=== PATIENT | female | born 1945 | race Caucasian/White ===

== ENCOUNTER → 2020-03-17 11:06 | Outpatient (BNVA) | payer MEDICARE, OTHER, SELFPAY | PROVIDERS: Family Provider Nurse Practitioner Family; PCP Nurse Practitioner Family; Visit Provider Nurse Practitioner Family | DX: I10 Essential (primary) hypertension (principal); F17.211 Nicotine dependence, cigarettes, in remission | CPT/HCPCS: 80053; 80061; 85025 ==

== ENCOUNTER → 2021-03-15 13:26 | Outpatient (BNVA) | payer MEDICARE, OTHER, SELFPAY | PROVIDERS: Family Provider Nurse Practitioner Family; PCP Nurse Practitioner Family; Visit Provider Family Medicine | DX: Z02.89 Encounter for other administrative examinations (principal) | CPT/HCPCS: 81003 ==

== ENCOUNTER → 2022-03-20 09:25 | Outpatient (BNVA) | payer MEDICARE, OTHER, SELFPAY | PROVIDERS: Family Provider Nurse Practitioner Family; PCP Nurse Practitioner Family; Visit Provider Nurse Practitioner Family | DX: I10 Essential (primary) hypertension (principal); N39.0 Urinary tract infection, site not specified; Z02.89 Encounter for other administrative examinations | CPT/HCPCS: 80053 ==

== ENCOUNTER 2022-10-07 11:29 | Inpatient (IN) | payer MEDICARE, OTHER, SELFPAY ==
[2022-10-07] VITALS (20 sets, daily range): BP systolic 110–141; BP diastolic 52–91; PULSE 74–89; RESP 20–35; TEMP 37.1; O2SAT 93–96; BMI 27.7
--- NOTE | 2022-10-07 11:28 | ED_ITS ---
HPI - Chest Pain General: Stated Complaint: STEMI Limitations: other (direct to laundry laborer for time critical intervention) History of Present Illness: 77-year-old lady with history per chart review of hypertension presenting to the hospital for chest pain and STEMI. Patient arrives by EMS who administered aspirin. They report ST elevation in the anterior lateral leads with reciprocal changes. STEMI activation called prior to arrival. History otherwise limited as the patient is taken directly to Lottery Office Manager for time critical intervention. Onset (ago): hour(s) Review of Systems General: Reports: ROS unobtainable due to medical condition (time critical intervention) [facility] ED PFSH: Medical History Hyperlipidemia Hypertension Surgical History No pertinent past surgical history Family History Denies family history of Clotting disorder Anesthesia complication Bleeding disorder Social History Smoking and tobacco status: never smoked Quit status (tobacco): has quit using tobacco Former quit date comment: PPD x 20+ yrs Second hand smoke exposure: Yes Alcohol intake: never Lives independently: Yes Household members: spouse Marital status: Current occupational status: employed 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 Cardiology in the emergency department to meet patient upon arrival and patient does not appear in extremis requiring acute ED intervention, taken directly to Lottery Office Manager for time critical intervention. Medical Records I reviewed the patient's medical records. Lab Data I reviewed the patient's lab results. Discharge Plan Discharge Patient Disposition: Admitted As Inpatient Clinical Impression: ST elevation (STEMI) myocardial infarction Condition: Stable Coding Level of Care Code ED Soil Biology Teacher for Shelly Juárez
--- NOTE | 2022-10-07 11:29 | XACV_ITS ---
Exam Room: ED.ROOM10 Ht: 152 cm Wt: 62 kg BSA: 1.64 m2 Gender: Female : 1945 Exam Priority: Routine Indication(s): - Acute anterior wall AR Procedure(s): Procedure Description: Diagnostic procedure Procedure Description: PCI procedure Procedure Description: Drug Eluting Coronary Stent Procedure Description: PTCA Procedure Description: Coronary Angiography Diagnostic Cath Status: Emergency Diagnostic Findings * Patient with no prior history of coronary artery disease with intermittent chest discomfort for 1 week. Sudden onset of chest discomfort 4 AM today several hours prior to presentation. Prehospital EKG reveals ST elevation in the anterior precordial leads. * Coronary angiography reveals right coronary artery dominance. The left main coronary artery is normal and bifurcates into the LAD and circumflex. The LAD is closed just past the ostium and is difficult to visualize. There is a 95% stenosis in the ostial portion of the second obtuse marginal branch just past the takeoff of the first obtuse marginal branch. The remainder of these vessels contain mild diffuse luminal irregularities. The right coronary artery is the dominant vessel. There is a 50% ostial stenosis. Distally beyond the acute margin just prior to the takeoff of the posterior descending artery and posterior left ventricular branches there is a 70 to 80% lengthy stenosis. * After completing the intervention I placed a wire in the ventricle to perform ventriculography. The patient had sustained ventricular tachycardia with hemodynamic instability. She was cardioverted so I did not proceed with left ventriculography. PCI Status: Emergency PCI LVEF Assessed: No PCI Indication: STEMI - Immediate PCI for STEMI Interventional Findings * Initially I placed a guide. The procedure was done via the right radial artery. She is a small lady and so the guide subselected the circumflex. The LAD was very difficult to visualize. Additionally the guide tended to bend back on itself the tip facing the ascending aorta. The guide had to be positioned again several times in order to place it properly. With great difficulty I was finally able to get a wire in the LAD. It was stented with a 2.5 x 12 mm stent after predilatation. I then turned my attention to the circumflex. This was primarily stented with a 3.0 x 8 mm stent. This was the ostial second obtuse marginal branch. I chose not to intervene on the distal right coronary artery due to the acute event and intervening on 2 of 3 vessels. * After the LAD was stented the guide had been pushed up to the LAD in order to advance the balloon and stent. It created decrease in flow in both the LAD and circumflex for a short time. She was hypotensive. The guide was then removed after the LAD was stented and repositioned for the circumflex stent. After both lesions were stented I placed a wire in the ventricle in order to attempt ventriculography. She had sustained ventricular tachycardia with hemodynamic instability so she was cardioverted. I did not perform ventriculography. Decision for PCI with Surgical Consult: No PCI for Multi-vessel Disease: Yes Multi-vessel Procedure Type: Initial PCI Conclusions 1. Acute anterior wall AR with occluded LAD. Some difficulty with positioning the guide and wiring the LAD. The LAD was stented. The circumflex was also stented. There is a significant lesion in the distal right which may need attention later. Recommendations * Medical treatment, stress testing, possible stenting of the distal right. Interventional RX Recommendation: PCI w/o planned CABG Diagnostic RX Recommendation: PCI w/o planned CABG Anticoagulation: Heparin Pressures Phase:Rest AO : 132 / 85 ( 108 ) @ 11:48:00 AM 130 / 83 ( 105 ) @ 12:01:00 PM 118 / 58 ( 85 ) @ 12:02:00 PM 113 / 73 ( 90 ) @ 12:13:00 PM 118 / 81 ( 99 ) @ 12:18:00 PM 6 / 4 ( 5 ) @ 12:29:00 PM / ( 4 ) @ 12:30:00 PM 8 / 5 ( 5 ) @ 12:30:00 PM Clinical Evaluation EBL: 5mL-10mL Procedural Details Pre-Procedure Time Out. Identified patient by full name and date of as verbalized by the patient/guarantor. Does the consent match the physician's order: N/A Emergent; Informed Consent not obtained due to time critical life threat. Accurate & Complete Informed Consent: N/A Emergent; Informed Consent not obtained due to time critical life threat. Inpatient/Outpatient History & Physical on Chart: N/A Emergent; Informed Consent not obtained due to time critical life threat. If H&P is completed, is and addenduem needed: N/A Emergent; Informed Consent not obtained due to time critical life threat; If yes, is the addendum complete: N/A Emergent; Informed Consent not obtained due to time critical life threat. Visualize and Verify Site with Patient/Guarantor: N/A. Relevant Radiology Images available: N/A. The risks, benefits, and alternatives of sedation and/or procedure were discussed by physician. The patient agrees to continue. Procedure started. [facility] Clinical Fraility Score: 3: Managing Well. Lab Instructor Indications: New Onset Angina. Chest Pain Symptom Assessment: Typical Angina Symptoms. Correct patient, site and procedure confirmed by cath team. Current diagnosis: STEMI. PERRLA. Strong, equal hand dopster bilaterally. Lungs clear x 5 lobes. IV Site on Arrival: 20 gauge in the left anticubital. IV Fluids: 0.9% NaCl at KVO. 0 mL infused prior to roving tester laboratory. Pre Procedural Pulses: bilateral dorsalis pedis was 2+. Pre Procedural Pulses: bilateral radial was 2+. Oxygen started at 2liters/min via nasal canula. right groin was prepped with chloroprep then draped in the usual sterile fashion. right radial was prepped with chloroprep then draped in the usual sterile fashion. Physician notified. Baseline sample Acquired. HR: 93 BPM. Physician arrived. Physician scrubbed in. Immediate Pre-Procedure Time Out. Correct Patient: Yes; Correct Procedure: Yes; Correct Site: Yes; Correct Patient Position: Yes; Correct Supplies: Yes; Dried Flammable Prep: Yes; Blood Products Available: N/A;. Lidocaine 1% infiltrated to the right radial. Admit Source: Emergency department. Arterial access obtained. 6 greenlandic XB 3 guide catheter was inserted over the wire. Stickney guidewire was attempted to be advanced through the guide catheter to lesion in the prox LAD. Unable to advance across lesion. Stickney wire removed. Runthrough guidewire was advanced through the guide catheter to lesion in the prox LAD. Balloon inserted to lesion in the prox LAD. Inflation number : 1 A AB TREK 2.50X12 RX BALLOON was prepped and advanced across the Prox LAD , then inflated to 8 ANDRZEJ for 0:20 seconds. Balloon out. Results checked. Stent inserted to lesion in the prox LAD. Inflation Number : 2 A HUGH Landon BERNIE 2.5X15 MARGARET -Lot Number# [id number] Exp 05-12-25 was prepped and advanced across the Prox LAD. The stent was deployed at 14 ANDRZEJ for 0:20 seconds. Stent balloon out over wire. Results checked. Runthrough wire redirected to the circumflex. Patient's family updated. Attempted to cross 3.0x12 mm stent across Prox Circumflex. Unable to cross. Intact stent out over wire. AP pads applied to patient chest. Stent inserted to lesion in the prox Circ. Inflation Number : 1 A HUGH Landon BERNIE 3.0X8 MARGARET -Lot Number# [id number] Exp 06/28/24 was prepped and advanced across the Prox CX. The stent was deployed at 12 ANDRZEJ for 0:20 seconds. Results checked. Stent balloon out over wire. Guide catheter and wire out. A 5 greenlandic JR4 catheter in over wire. Multiple views taken of right coronary artery. Multiple views taken of left coronary artery. Rhythm: V tach. 1 shock delivered at 120J. Rhythm: SR. Catheter and wire removed. Pt alert and oriented x3 after defibrillation. A TR Band was successful obtaining hemostatsis at the Right Radial artery insertion site. Post Procedure: Pulses reassessed and unchanged. PERRLA. Strong, equal hand dopster bilaterally. No VTE prophylaxis required. Medication's Wasted: Nitro = 48.9 mg. Medication's Wasted: Other = Versed 1 mg. Medication's Wasted: Other = Fentanyl 25 mcg. Medication's Wasted: Lidocaine 1% = 8 mL. Total IV fluids: 73 mL. PCI Indication: STEMI. Post-op diagnosis: STEMI, Obstructive CAD. Complications: none. Estimated blood loss: 5mL-10mL. Responsiveness - Normal response to verbal stimuli; alert and oriented, PERRLA. Airway - Unaffected, no intervention required; spontaneous ventilation. Circulation: W/N/L, pulses unchanged. Nausea/Vomiting: No. Procedure completed. Patient transferred by wheelchair to 1st floor. Vital chart was stopped. Access Site Site: Right Radial artery Sheath Size: 6 Fr Hemostasis Method: TR Band Hemostasis Success: Successful Procedure Medications Start: 11:41 AM Stop: 11:41 AM Medication: Versed Amount: 1 mg Route: I.V. Start: 11:42 AM Stop: 11:42 AM Medication: Fentanyl Amount: 50 mcg Route: I.V. Start: 11:45 AM Stop: 11:45 AM Medication: Nitrogylcerin Amount: 200 mcg Route: I.A. Start: 11:55 AM Stop: 11:55 AM Medication: Versed Amount: 1 mg Route: I.V. Start: 11:55 AM Stop: 11:55 AM Medication: Fentanyl Amount: 25 mcg Route: I.V. Start: 12:27 PM Stop: 12:27 PM Medication: Versed Amount: 1 mg Route: I.V. I, the attending physician, have reviewed and verified all procedure medications. Yes, all medications given per verbal order Report Signatures Finalized by Dr. Tian Etienne MD on 10/07/2022 01:27 PM
[2022-10-07 12:50] LABS: Basophils # 0.1 10^3/uL (0.0-0.1); Basophils % 0.4 %; Eosinophils % 0.1 %; Hematocrit 39.7 % (37.0-47.0); Hemoglobin 12.9 g/dL (11.5-15.3); Lymphocytes # 1.2 10^3/uL (0.8-4.8); Lymphocytes % 10.7 %; Mean Corpuscular HGB Conc 32.5 g/dL (30.0-36.0); Mean Corpuscular Hemoglobin 30.9 pg (28.0-34.0); Mean Platelet Volume 10.4 fL (7.4-10.4); Monocytes # 0.3 10^3/uL (0.2-0.9); Monocytes % 2.8 %; Neutrophils # 9.92 10^3/uL (1.8-7.7); Neutrophils % 85.7 %; Nucleated Red Blood Cells % 0 %; Platelet Count 229 10^3/cmm (130-400); Red Blood Count 4.18 10^6/uL (4.1-5.3); Red Cell Distribution Width 12.8 % (12.1-15.1); White Blood Count 11.6 10^3/uL (4.0-10.0)
--- NOTE | 2022-10-07 12:57 | USCV_ITS ---
Agatha Graham Age: 77 Gender: F : 1945 Exam Date: 10/07/2022 13:29 Ordering Phys: Tian Etienne MD ([email or web address]) Technologist: Jos Silva Exam Location: [facility] [place] Indication: stemi BP: 121 / 79 HR: 74 Rhythm: Sinus Technical Quality: Poor MEASUREMENTS (Male / Female) Normal Values 2D ECHO LV Diastolic Diameter PLAX 4.6 cm 4.2 - 5.9 / 3.9 - 5.3 cm LV Systolic Diameter PLAX 3.4 cm IVS Diastolic Thickness 1.0 cm 0.6 - 1.0 / 0.6 - 0.9 cm IVS Systolic Thickness 1.3 cm LVPW Diastolic Thickness 1.2 cm 0.6 - 1.0 / 0.6 - 0.9 cm LVPW Systolic Thickness 1.1 cm LVOT Diameter 1.9 cm LV Ejection Fraction 2D Teich 31.2 % LV Ejection Fraction MOD 2C 38.8 % LV Ejection Fraction 2C AL 38.9 % LA Diameter 2.7 cm IVC Diameter 1.3 cm M-MODE Aortic Annulus Diameter 3.4 cm LA Ao Ratio MM 0.8 MV E Point Septal Separation 2.0 cm DOPPLER AV Peak Velocity 154.0 cm/s LVOT Peak Velocity 101.0 cm/s AV Area Cont Eq vti 2.3 cm squared AV Area Cont Eq pk 1.9 cm squared MV Area PHT 5.0 cm squared Mitral E to A Ratio 0.8 MV E' Velocity 41.0 cm/s Mitral E to MV E' Ratio 16.5 Mitral E to LV E' Lateral Ratio 13.5 Mitral E to LV E' Septal Ratio 21.7 TR Peak Velocity 305.0 cm/s TR Peak Gradient 37.2 mmHg TV Peak E Velocity 98.0 cm/s Right Atrial Pressure 3.0 mmHg Pulmonary Artery Systolic Pressu 40.2 mmHg RV Acceleration Time 0.1 s FINDINGS Left Ventricle Left ventricular cavity not well visualized. There is akinesis of the apex and anterior wall. The remainder of the ventricle appears to contract normally. The ejection fraction is 35 to 40%. Grade 1 diastolic dysfunction. Right Ventricle Normal right ventricular size and systolic function. Mild pulmonary hypertension, RVSP 40.2 mmHg. Right Atrium The right atrium is normal in size. Left Atrium The left atrium is normal in size. Mitral Valve Mitral valve not well visualized. No mitral valve regurgitation. Aortic Valve Aortic valve not well visualized. Structurally normal trileaflet aortic valve. Mild aortic valve regurgitation. Tricuspid Valve Tricuspid valve not well visualized. Trace tricuspid valve regurgitation. Pulmonic Valve Pulmonic valve not well visualized. Pericardium Normal pericardium without effusion. Aorta Normal ascending aorta dimension. IVC Inferior vena cava not visualized. CONCLUSIONS Left ventricular cavity not well visualized. There is akinesis of the apex and anterior wall. The remainder of the ventricle appears to contract normally. The ejection fraction is 35 to 40%. Grade 1 diastolic dysfunction. Normal right ventricular size and systolic function. Mild pulmonary hypertension, RVSP 40.2 mmHg. Aortic valve not well visualized. Structurally normal trileaflet aortic valve. Mild aortic valve regurgitation. There are no prior echocardiogram studies to compare. Dr. Tian Etienne MD (Electronically Signed) Final Date: 07 October 2022 16:23 S
--- NOTE | 2022-10-07 12:57 | PC.NURSE ---
Recovery Note Pt arrived from labor arbitrator hearing office at this time into CPRU 2 while awaiting room to be cleaned. Pt alert and oriented, breathing even and non-labored on room air. Denies chest pain. Pt placed on bedside security monitor. TR band to right radial site asymptomatic without signs of bleeding or hematoma. Multiple family members at bedside. Pt to csu 103 when cleaned.
--- NOTE | 2022-10-07 13:08 | PM.HP ---
Providers/Chief Complaint Admitting Physician: noelle Primary Care Provider: PRISCILLA Peralta Chief Complaint: STEMI History of Present Illness Agatha Graham is a 77 year old female no known history of heart disease. She has been having intermittent burning in her chest for the last week or so. Her family states that she is busy all the time and refused to slow down. The burning was off and on and was associated with shortness of breath. She woke up at 4:00 this morning with a burning in her chest that would not go away. She finally was able to contact family members and they insisted that she come to the hospital. Initially she refused and they had difficulty getting her here. She was taking Tums. In route she was given nitroglycerin and aspirin. Her EKG showed ST segment elevation in the anterior precordial leads and a STEMI alert was called. She was brought directly to the cardiac catheterization laboratory from the ambulance bay. She was not stopped in the emergency room. At the time of her arrival here she was hemodynamically stable, awake and alert. She was given 600 mg of Plavix in the Data Warehouse Consultant along with 4000 units of heparin. 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 She is busy at home. Her family has been trying to get her to slow down. She has never been a smoker. She does not like to go to doctors. She goes only when she has to. She has a history of hypertension and takes lisinopril. Review of Systems Narrative: Review of systems is negative. Medications/Allergies Home Medications Medication Instructions Recorded Confirmed Last Taken Type lisinopril 5 mg tablet 5 mg PO DAILY #90 tabs 03/20/22 03/20/22 Unknown Rx nitrofurantoin 100 mg PO Q12H 7 days #14 caps 03/20/22 03/20/22 Unknown Rx monohydrate/macrocrystals 100 mg capsule (Macrobid) Allergies Allergy/AdvReac Type Severity Reaction Status Date / Time No Known Allergies Allergy Verified 03/15/21 12:55 PFSH Acute PFSH: Medical History (Updated 10/07/22 @ 13:15 by Tian Etienne MD) Hyperlipidemia Hypertension Surgical History No pertinent past surgical history Family History Denies family history of Clotting disorder Anesthesia complication Bleeding disorder Social History Smoking and tobacco status: never smoked Quit status (tobacco): has quit using tobacco Former quit date comment: PPD x 20+ yrs Second hand smoke exposure: Yes Alcohol intake: never Lives independently: Yes Household members: spouse Marital status: Current occupational status: employed 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 NECK: Supple without jugular vein distention. The carotid upstroke is normal without bruits. BACK: Exam normal. LUNGS: Clear. HEART: Regular rate and rhythm. ABDOMEN: Benign without organomegaly or tenderness. EXTREMITIES: No edema. NEUROLOGIC: Exam normal. SKIN: Unremarkable. Data 10/07/22 12:35 10/07/22 12:35 A&P Assessment and plan (1) ST elevation (STEMI) myocardial infarction: (2) Hypertension: (3) Hyperlipidemia: Plan Cardiac catheterization laboratory immediately. Expect an LAD lesion. Attestations Medical Necessity Statement*: Hospitalization required for the agement of acute myocardial infarction. and Moderate Time for a total of 38 minutes, includes reviewing past or interval history, examining/interviewing patient, placing orders, counseling patient/family/other support, updating patient/family/other support, documenting encounter and coordinating care Diagnoses ST elevation (STEMI) myocardial infarction I21.3 Hypertension I10 Hyperlipidemia E78.5
--- NOTE | 2022-10-07 13:08 | SUR.PHASEI ---
post op fluids at 100 ml/hr- 0.9% NS.
[2022-10-07 13:12] LABS: Alanine Aminotransferase 29 U/L (0-33); Albumin Level 3.5 g/dL (3.5-5.2); Alkaline Phosphatase 68 U/L (35-105); Aspartate Amino Transferase 85 U/L (0-32); Blood Urea Nitrogen 17 mg/dL (8-23); Calcium 8.7 mg/dL (8.5-10.5); Carbon Dioxide 22 mmol/L (22-29); Chloride 98 mmol/L (98-107); Glucose 119 mg/dL (65-115); Osmolality Calculated 275 mOsm/kg (285-295); Sodium 131 mmol/L (136-145); Total Bilirubin 0.2 mg/dL (0.15-1.2); Total Protein 5.5 g/dL (6.6-8.7)
--- NOTE | 2022-10-07 13:28 | ECG_ITS ---
[facility] Test Date: 2022-10-07 Pat Name: Agatha Graham Department: Room: 103 Gender: Female Subway Operator: : 1945 Requested By: Nilesh Crenshaw Order Number: [id number] Baird MD: Rashel Cerna M.D. Measurements Intervals [place] Rate: 77 P: 85 NM: 155 QRS: 95 QRSD: 80 T: 79 QT: 369 QTc: 418 Interpretive Statements SINUS RHYTHM POSSIBLE LEFT ATRIAL ENLARGEMENT [-0.1mV P-WAVE IN V1/V2] ANTEROLATERAL MYOCARDIAL INFARCTION , PROBABLY RECENT [40+ ms Q WAVE IN I/aVL/V3-V6] ACUTE WA No previous ECG available for comparison Electronically Signed On 10-07-2022 14:27:22 WET TRIMMER by Rashel Cerna M.D. [email or web address]/[email or web address]/[id number]
[2022-10-07 13:42] LABS: INR 1.13 (0.8-1.2)
[2022-10-07 13:46] LABS: Partial Thromboplastin Time > 250.0 SECONDS (23.9-36.7)
--- NOTE | 2022-10-07 13:47 | SUR.PHASEI ---
CRITICAL CALLED PTT > 250 SECONDS. Reported off to [place]. No new orders at this time as patient received heparin intraprocedure.
--- NOTE | 2022-10-07 14:00 | PC.NURSE ---
Patient arrived from [facility]. TR band present, no hematoma or oozing noted. Patient oriented to room and call bain. patient and family educated regarding activity restrictions and safety measures. Nurse will remove TR band per protocol.
[2022-10-07 14:29] LABS: Troponin(5th) Baseline 2409 ng/L (0-10)
[2022-10-07 14:30] LABS: Troponin 5 2HR 2845 ng/L (0-10); Troponin 5 2HR Delta 436 ABS# (0-10)
[2022-10-07] MEDS: sodium chloride 0.9% 1,000 ML 100 ML IV (14:30)
[2022-10-07] MEDS: metoprolol tartrate 25 mg Tablet PO (15:19)
--- NOTE | 2022-10-07 17:11 | ECG_ITS ---
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 Measurements Intervals [place] Rate: 75 P: 81 WI: 155 QRS: 88 QRSD: 79 T: 80 QT: 364 QTc: 409 Interpretive Statements SINUS RHYTHM LOW QRS VOLTAGE IN EXTREMITY LEADS [QRS DEFLECTION < 0.5 mV IN LIMB LEADS] ANTEROLATERAL MYOCARDIAL INFARCTION , PROBABLY RECENT [40+ ms Q WAVE IN I/aVL/V3-V6] ACUTE HI Compared to ECG 10/07/2022 14:08:18 Low QRS voltage now present Myocardial infarct finding still present Electronically Signed On 10-08-2022 18:19:58 HALL COORDINATOR by Tian Etienne M.D. [email or web address]/store/[id number]
--- NOTE | 2022-10-07 18:25 | PC.NURSE ---
TR band removed per protocol, dressing in place, no hematoma present.
--- NOTE | 2022-10-07 18:44 | PC.NURSE ---
Took critical lab value for 6hr troponin. Labs analyzer is not working appropriately and will only give a reading that says greater than 1,000 this is an expected value related to recent STEMI today.
[2022-10-08] VITALS (8 sets, daily range): BP systolic 119–124; BP diastolic 64–83; PULSE 75–133; RESP 21–41; TEMP 36.6–37.4; O2SAT 90–94
[2022-10-08] MEDS: sodium chloride 0.9% 1,000 ML 100 ML IV ×2 (00:34→10:37)
--- NOTE | 2022-10-08 06:56 | PM.PN ---
Subjective Subjective: And had an anterior wall NH yesterday. Her LAD was opened and stented. She also had a circumflex stent. She has a significant distal right coronary artery lesion as well which I did not intervene upon. She has done well hemodynamically. She is free of pain. No heart failure. She has had some episodes of sinus tachycardia with rates to about 110-115 when she is up and around. Her daughter is concerned about this. No arrhythmias. She wants to go home. She wants some coffee. Her initial troponin was 2409, the second 2845 and the third 1559. Her echo showed an ejection fraction of 35 to 40% with akinesis of the apex and anterior wall. Vitals/I&O/Wt Last Vital Signs Temp 99.4 F 10/08/22 04:45 Pulse 88 10/08/22 05:34 Resp 22 H 10/08/22 04:45 BP 124/69 10/08/22 04:45 Pulse Ox 94 10/08/22 04:45 O2 Del Method 10/08/22 04:45 10/07/22 10/07/22 10/08/22 14:59 22:59 06:59 Intake Total 420 / 420 1091.667 / 1511.667 Balance 420 / 420 1091.667 / 1511.667 Weight last 48 hrs Weight 142 lb 2 oz Physical Exam Narrative: GENERAL: In general she looks and feels well. HEENT: Exam within normal limits. NECK: Supple without jugular vein distention. The carotid upstroke is normal without bruits. BACK: Exam normal. LUNGS: Clear. HEART: Regular rate and rhythm. ABDOMEN: Benign without organomegaly or tenderness. EXTREMITIES: No edema. The right radial artery site is flat, dry without any bleeding or hematoma. NEUROLOGIC: Exam normal. SKIN: Unremarkable. Data 10/07/22 12:35 10/07/22 12:35 A&P Assessment and plan (1) Hyperlipidemia: (2) ST elevation (STEMI) myocardial infarction: (3) Hypertension: Plan Today I will add back a statin. I told her she could have some coffee. I told her that I wanted her to stay another day to adjust her medications and get her up and around and be sure that she can negotiate things at home on her own. We will also have to have a discussion tomorrow prior to her dismissal about the importance of her medications and about her work. Attestations Medical Necessity Statement*: Continued hospitalization for management of an acute anterior wall myocardial infarction. and Moderate Time for a total of 30 minutes, includes reviewing past or interval history, examining/interviewing patient, placing orders, counseling patient/family/other support, updating patient/family/other support, discussing plan of care with staff, documenting encounter and coordinating care Other Coding Information Procedural care (documented in another note) Diagnoses Hyperlipidemia E78.5 ST elevation (STEMI) myocardial infarction I21.3 Hypertension I10
[2022-10-08] MEDS: aspirin 81 mg EC Tablet PO (08:39)
[2022-10-08] MEDS: clopidogrel 75 mg Tablet PO (08:39)
[2022-10-08] MEDS: metoprolol tartrate 50 mg Tablet PO ×2 (08:40→17:52)
[2022-10-08] MEDS: lisinopril 5 mg Tablet PO (08:40)
--- NOTE | 2022-10-08 10:09 | PC.CHAP ---
Pastoral Care Encounter/Spiritual Assessment Type of Contact [] Declined computer systems integrator visit [] Patient/Family/Request visit [] Outpatient visit [] Follow-up visit [] Physician referral [] Code/Alert [x] Routine visit [] Staff referral [] Actively dying [] Patient sleeping [x] Family support [] [] Out of room [] Palliative care [] [] Receiving care in room [] Pre-surgical visit [] Trauma [] Long length of stay [] ICU visit [] Other: Relational/Emotional Strength [x] Patient feels connected with others/family/visitors/staff [] Distress [] Loneliness/isolation [] Abandonment Spirituality of Patient [x] Person of Codie [] Attends Restorationist of their Codie [x] Believes in Prayer [] Reads Bible or Church materials [] There are Spiritual issues to be addressed [employer] 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 [x] Prayer [] Active listening [] Non-anxious presence [x] Spiritual/emotional support [] Crisis/trauma care [] Spiritual counseling [] Bereavement support [] Provided bereavement packet [] Provided Bible/devotional materials [] Provided toy/stuffed animal, coloring book to patient or family member [] Provided Communion [] Anointing/Cotati [] Salvation [x] Completed spiritual assessment [] Other: Impact on Illness or Injury [] Angry [] Fearful [] Anxious [] Often cries [] Exhaustion [] Unable to work [] Unable to attend mormonism [] Unable to walk/stand [] Unable to read [] Unable to drive [] Unable to eat/drink [] Unable to sleep [] Unable to be with family [] Patient intubated [] Other: Summary Time spent with patient 10 min
--- NOTE | 2022-10-08 16:23 | PC.NURSE ---
1617 Patient ambulated with daughter all the way up and down cervantes with telemetry on, no PVC noted, no c/os of any kind, joe well.
[2022-10-08] MEDS: atorvastatin 40 mg Tablet PO (20:53)
--- NOTE | 2022-10-08 23:22 | ECG_ITS ---
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 Measurements Intervals [place] Rate: 145 P: 0 RI: 0 QRS: -89 QRSD: 141 T: 79 QT: 304 QTc: 474 Interpretive Statements ATRIAL FIBRILLATION WITH RAPID VENTRICULAR RESPONSE WITH ABERRANT CONDUCTION OR VENTRICULAR PREMATURE COMPLEXES RIGHT BUNDLE BRANCH BLOCK [120+ ms QRS DURATION, UPRIGHT V1, 40+ ms S IN I/aVL/V4/V5/V6] LEFT ANTERIOR FASCICULAR BLOCK [QRS AXIS <= -45, QR IN I, RS IN II] ANTEROSEPTAL MYOCARDIAL INFARCTION , PROBABLY RECENT [40+ ms Q WAVE IN V1-V4] ACUTE PA Compared to ECG 10/07/2022 17:11:15 Ventricular premature complex(es) now present Aberrant conduction of supraventricular beat(s) now present Right bundle-branch block now present Left anterior fascicular block now present Sinus rhythm no longer present Myocardial infarct finding still present Electronically Signed On 10-09-2022 15:05:15 SOLVENT RECOVERER by Tian Etienne M.D. [email or web address]/[id number]
[2022-10-08] MEDS: amiodarone 200 mg Tablet 400 MG PO (23:52)
[2022-10-09] VITALS (52 sets, daily range): BP systolic 84–140; BP diastolic 61–83; PULSE 67–149; RESP 13–44; TEMP 36.6; O2SAT 92–97
--- NOTE | 2022-10-09 01:06 | PC.NURSE ---
Pt went into A fib after getting up and goinf to the bathroom. She was asymptomatic except SOB. Performed an EKG and put 2 L NC on the pt to get the O2 sat back up to a normal range. Called Dr. Etienne and explained the pt symptoms and told him vital signs of the patient and read the EKG that was obtained to him. He told me to give her 400 mg of amiodarone PO and that as long as she stayed asymptomatic and her vital signs were stable that he would check on her in the morning.
[2022-10-09] MEDS: clopidogrel 75 mg Tablet PO (08:45)
[2022-10-09] MEDS: lisinopril 5 mg Tablet PO (08:46)
[2022-10-09] MEDS: aspirin 81 mg EC Tablet PO (08:46)
--- NOTE | 2022-10-09 09:37 | P.PN_ITS ---
Subjective Subjective: Patient became short of breath last night and suddenly went into atrial fibrillation with rapid ventricular response. She was asymptomatic other than the shortness of breath. Some supplemental oxygen was applied which resolved her shortness of breath immediately. I gave her 400 mg of amiodarone 1 dose by mouth. She is still in atrial fibrillation this morning. The rate is also rapid. Otherwise, she is doing well. She has no clinical evidence of heart failure. No other arrhythmias. Vitals/I&O/Wt Last Vital Signs Temp 98 F 10/09/22 03:13 Pulse 102 H 10/09/22 06:00 Resp 36 H 10/09/22 03:13 BP 124/77 10/09/22 03:13 Pulse Ox 95 10/09/22 03:13 O2 Del Method 10/08/22 07:37 10/08/22 10/09/22 10/09/22 22:59 06:59 14:59 Intake Total 1120 / 2508.333 100 / 2608.333 240 / 240 Output Total 400 / 400 Balance 1120 / 2508.333 -300 / 2208.333 240 / 240 Weight last 48 hrs Weight 142 lb 2 oz Physical Exam Narrative: GENERAL: She is comfortable at rest HEENT: Exam within normal limits. NECK: Supple without jugular vein distention. The carotid upstroke is normal without bruits. BACK: Exam normal. LUNGS: Clear. HEART: Irregularly irregular rhythm with tachycardia ABDOMEN: Benign without organomegaly or tenderness. EXTREMITIES: No edema. NEUROLOGIC: Exam normal. SKIN: Unremarkable. Data 10/07/22 12:35 10/07/22 12:35 A&P Assessment and plan (1) Hyperlipidemia: (2) ST elevation (STEMI) myocardial infarction: (3) Hypertension: (4) Ischemic cardiomyopathy: (5) Atrial fibrillation: (6) Anticoagulation adequate with anticoagulant therapy: Plan She is not happy about this development but I told her that this was not uncommon with acute myocardial infarctions. The first goal will be to get her heart rate down. She desperately wants to try to get cardioverted before she goes home. Therefore, I will place her on an intravenous amiodarone drip and add Eliquis. I will leave her beta-domingo as is. Currently her heart rates in the 110-120 range. If she does not convert by tomorrow, we will consider cardioversion. Attestations 2 Medical Necessity Statement*: Needs continued hospitalization for management of an acute anterior wall IL and now the development of atrial fibrillation. and Moderate Time for a total of 35 minutes, includes reviewing past or interval history, examining/interviewing patient, placing orders, counseling patient/family/other support, updating patient/family/other support, discussing plan of care with staff, documenting encounter and coordinating care Diagnoses Hyperlipidemia E78.5 ST elevation (STEMI) myocardial infarction I21.3 Hypertension I10 Ischemic cardiomyopathy I25.5 Atrial fibrillation I48.91 Anticoagulation adequate with anticoagulant therapy Z79.01
--- NOTE | 2022-10-09 15:11 | PC.NURSE ---
New Orders Received Patient noted to be in sinus rhythm on the monitor, called to update Dr. Etienne. Received over the telephone orders to give Amiodarone 400 mg PO now, turn off amiodarone gtt at 1900 tonight and give another dose of Amiodarone 400 mg PO tonight at 2100.
[2022-10-09] MEDS: amiodarone 200 mg Tablet 400 MG PO ×2 (16:02→20:33)
[2022-10-09] MEDS: apixaban 5 mg Tablet 2.5 MG PO (20:33)
[2022-10-09] MEDS: atorvastatin 40 mg Tablet PO (20:33)
[2022-10-10 05:56] VITALS: PULSE 73
--- NOTE | 2022-10-10 06:51 | PM.DCS ---
Discharge Providers Date of Admission: 10/07/22 14:00 Date of Discharge: October 10, 2022 Attending Provider at Admission: Tian Etienne MD Attending Provider at Discharge: Tian Etienne MD Primary Care Provider: PRISCILLA Peralta Diagnoses at Discharge Discharge Diagnosis (1) Hyperlipidemia: Status: Acute (2) ST elevation (STEMI) myocardial infarction: Status: Acute (3) Hypertension: Status: Acute (4) Ischemic cardiomyopathy: Status: Acute (5) Atrial fibrillation: Status: Acute (6) Anticoagulation adequate with anticoagulant therapy: Status: Acute Reason for Visit Reason for Visit: STEMI Brief History: Patient was admitted with chest pain and EKG abnormalities suggesting an anterior wall VT. Please see the history and physical for details. She was taken directly to the cardiac catheterization laboratory. Hospital Course Hospital Course Angiography revealed an occluded LAD just past the ostium. This was a difficult vessel to enter. The vessel underwent angioplasty and then stenting. She also had a significant proximal circumflex lesion which was stented. She has a distal right lesion which is probably significant but I chose not to intervene on all 3 vessels in 1 sitting. Patient tolerated the procedure well. She had a few premature ventricular contractions for the first 24 hours but no sustained arrhythmias. On the second day she went into atrial fibrillation with a rapid ventricular response. I placed her on intravenous amiodarone and Eliquis. The amiodarone converted her back to sinus rhythm. I transitioned her over to p.o. amiodarone. She has done well with all of this and at the time of discharge remains in sinus rhythm without any other complications. For a lady her age she is very active. I specifically instructed her not to use her 4 servin until Friday of next week which is 5 days from now. 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 She should be off work for 2 weeks. No lifting over 5 pounds for 2 days. Gradually increase her activity. She will be difficult to keep at bay. If she remains free of angina then as an outpatient we should obtain a stress test to assess all 3 vessels but primarily the right coronary artery distribution to determine the amount of ischemia. If she has any angina, the right coronary artery should be intervened upon. Her echo revealed akinesis of the apex and anterior wall with an ejection fraction of 35 to 40%. No significant valvular anomalies. Her troponin peaked at 2845. Physical Exam Narrative: GENERAL: In general she is anxious to go home HEENT: Exam within normal limits. NECK: Supple without jugular vein distention. The carotid upstroke is normal without bruits. BACK: Exam normal. LUNGS: Clear. HEART: Regular rate and rhythm. ABDOMEN: Benign without organomegaly or tenderness. EXTREMITIES: No edema. The right radial artery entry site is flat, dry without hematoma or bleeding at the time of discharge. NEUROLOGIC: Exam normal. SKIN: Unremarkable. 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 echo complete* 13802] Routine Ultrasound 10/07/22 12:57 Completed Laboratory Results WBC 11.6 10^3/uL (4.0-10.0) H 10/07/22 12:35 RBC 4.18 10^6/uL (4.1-5.3) 10/07/22 12:35 Hgb 12.9 g/dL (11.5-15.3) 10/07/22 12:35 Hct 39.7 % (37.0-47.0) 10/07/22 12:35 MCV 95.0 fl (81-99) 10/07/22 12:35 MCH 30.9 pg (28.0-34.0) 10/07/22 12:35 MCHC 32.5 g/dL (30.0-36.0) 10/07/22 12:35 RDW 12.8 % (12.1-15.1) 10/07/22 12:35 Plt Count 229 10^3/cmm (130-400) 10/07/22 12:35 MPV 10.4 fL (7.4-10.4) 10/07/22 12:35 Neut % (Auto) 85.7 % 10/07/22 12:35 Lymph % (Auto) 10.7 % 10/07/22 12:35 [place] % (Auto) 2.8 % 10/07/22 12:35 Eos % (Auto) 0.1 % 10/07/22 12:35 Baso % (Auto) 0.4 % 10/07/22 12:35 Neut # (Auto) 9.92 10^3/uL (1.8-7.7) H 10/07/22 12:35 Lymph # (Auto) 1.2 10^3/uL (0.8-4.8) 10/07/22 12:35 [place] # (Auto) 0.3 10^3/uL (0.2-0.9) 10/07/22 12:35 Eos # (Auto) 0.0 10^3/uL (0.0-0.8) 10/07/22 12:35 Baso # (Auto) 0.1 10^3/uL (0.0-0.1) 10/07/22 12:35 Nucleated RBC % (auto) 0 % 10/07/22 12:35 Nucleated RBCs # 0.0 /100WBC 10/07/22 12:35 PT 14.90 SECONDS (12.1-14.9) 10/07/22 12:35 INR 1.13 (0.8-1.2) 10/07/22 12:35 APTT > 250.0 SECONDS (23.9-36.7) H* 10/07/22 12:35 Sodium 131 mmol/L (136-145) L 10/07/22 12:35 Potassium 4.0 mmol/L (3.5-5.1) 10/07/22 12:35 Chloride 98 mmol/L (98-107) 10/07/22 12:35 Carbon Dioxide 22 mmol/L (22-29) 10/07/22 12:35 Anion Gap 15.0 (5-19) 10/07/22 12:35 BUN 17 mg/dL (8-23) 10/07/22 12:35 Creatinine 0.8 mg/dL (0.5-0.9) 10/07/22 12:35 GFR Calculation Not Reportable 10/07/22 12:35 Glucose 119 mg/dL (65-115) H 10/07/22 12:35 Calculated Osmolality 275 mOsm/kg (285-295) L 10/07/22 12:35 Calcium 8.7 mg/dL (8.5-10.5) 10/07/22 12:35 Total Bilirubin 0.2 mg/dL (0.15-1.2) 10/07/22 12:35 AST 85 U/L (0-32) H 10/07/22 12:35 ALT 29 U/L (0-33) 10/07/22 12:35 Alkaline Phosphatase 68 U/L (35-105) 10/07/22 12:35 Troponin T Baseline 2409 ng/L (0-10) H* 10/07/22 12:35 Troponin T 120 Minute 2845 ng/L (0-10) H 10/07/22 12:35 Delta Troponin T 436 ABS# (0-10) H* 10/07/22 12:35 Troponin T Hi Sens 6Hr 1559 ng/L (0-10) H 10/07/22 17:20 Troponin T Hi Sens 6Hr Delta -850 ng/L (0-12) L 10/07/22 17:20 Total Protein 5.5 g/dL (6.6-8.7) L 10/07/22 12:35 Albumin 3.5 g/dL (3.5-5.2) 10/07/22 12:35 Globulin 2.0 g/dL (1.3-4.6) 10/07/22 12:35 Procedures Performed Coronary angiography, angioplasty and stent of the LAD, stent of the circumflex. Vitals Last Vital Signs Temp 98 F 10/09/22 03:13 Pulse 73 10/10/22 05:56 Resp 24 H 10/09/22 17:00 BP 140/83 10/09/22 17:00 Pulse Ox 96 10/09/22 17:00 O2 Del Method 10/08/22 07:37 Discharge Plan Discharge Patient Disposition: Home Condition: Stable Prescriptions: New atorvastatin 40 mg Tablet 40 mg PO BEDTIME Qty: 30 3RF amiodarone 200 mg tablet 200 mg PO DAILY Qty: 60 0RF Rx Instructions: Take 400mg once daily for one week, then take 200mg daily clopidogrel 75 mg Tablet 75 mg PO DAILY Qty: 30 3RF nitroglycerin 0.4 mg Tablet, Sublingual 0.4 mg sublingual Q5M PRN (Reason: Chest Pain) Qty: 25 3RF metoprolol tartrate 50 mg Tablet 50 mg PO BID Qty: 60 3RF Eliquis 5 mg Tablet 2.5 mg PO BID@0900,2100 Qty: 60 5RF Continued Aspir-81 81 mg Tablet,Delayed Release (Dr/Ec) 81 mg PO QAM lisinopril 5 mg tablet 5 mg PO QAM Discharge Orders: Discharge Order (Routine); Ordered 10/10/22 Ordered By: Tian Etienne Referrals: Tian Etienne MD [Physician] - 6 Weeks Dominique Quesada FNP [Primary Care Provider] - Mag Sutton FNP [Nurse Practitioner] - 7-10 days (Check right radial artery, chemistry panel, EKG to make sure maintaining sinus rhythm.) Sifuentes,JARRETT Garcia [Referring] - Discharge Diet: Cardiac Discharge Activity: Increase activity as tolerated and Limit activity as instructed Patient Instructions: Coronary Angioplasty (DC), Opioid Safety Activity Restrictions/Additional Instructions: No lifting over 5 no riding a four-wheel until Friday of next week. 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 Discharge Attestations Time Spent in Discharge Care*: greater than 30 min Quality Metrics Clinical Quality Measures [ Acute Myocardial Infaction { Clinical Trial Participant: No; Contraindication to aspirin: None; Aspirin prescribed; Contraindication to statin: None; Statin prescribed; Contraindication to PCI: None; PCI performed;}] Coding Level of Care Code 66313 Total time (in minutes) for Discharge: [address] elevation (STEMI) myocardial infarction I21.3 Hypertension I10 Ischemic cardiomyopathy I25.5 Atrial fibrillation I48.91 Anticoagulation adequate with anticoagulant therapy Z79.01
[2022-10-10 07:17] VITALS: PULSE 73
[2022-10-10 07:40] VITALS: BP 146/91; PULSE 76; RESP 20; TEMP 36.6; O2SAT 90
--- NOTE | 2022-10-10 08:42 | PC.SOCIAL ---
IMM Update Pg. 2 of IMM updated and reviewed with patient, who verbalized understanding. Copy provided to patient, and copy placed in chart.
[2022-10-10] MEDS: lisinopril 5 mg Tablet PO (08:58)
[2022-10-10] MEDS: apixaban 5 mg Tablet 2.5 MG PO (08:58)
[2022-10-10] MEDS: metoprolol tartrate 50 mg Tablet PO (08:58)
[2022-10-10] MEDS: amiodarone 200 mg Tablet 400 MG PO (08:59)
[2022-10-10] MEDS: clopidogrel 75 mg Tablet PO (08:59)
--- NOTE | 2022-10-10 09:13 | PC.NURSE ---
discharge instructions given and explained.pt and daughter verb understanding of instructions.discharged via w/c to exit at this time
[2022-10-10 17:28] LABS: Troponin 5 6HR 15599 ng/L (0-10); Troponin 5 6HR Delta 13190 ng/L (0-12)
== END 2022-10-10 09:14 | disposition home or self-care (01) | DRG 247 ==
LOC: ER 11:30 → CCL 11:32 → CSU 14:01
PROVIDERS: Admitting Provider Internal Medicine Cardiovascular Disease; Emergency Provider Emergency Medicine; PCP Nurse Practitioner Family; Visit Provider Internal Medicine Cardiovascular Disease
PROC: 027135Z Dilation of Coronary Artery, Two Arteries with Two Drug-eluting Intraluminal Devices, Percutaneous Approach (ICD-10-PCS; principal; 2022-10-07 12:55)
PROC: 027135Z Dilation of Coronary Artery, Two Arteries with Two Drug-eluting Intraluminal Devices, Percutaneous Approach (ICD-10-PCS; 2022-10-07 12:55)
DX: I21.02 ST elevation (STEMI) myocardial infarction involving left anterior descending coronary artery (principal); I47.20 Ventricular tachycardia, unspecified; I25.10 Atherosclerotic heart disease of native coronary artery without angina pectoris; E78.5 Hyperlipidemia, unspecified; I10 Essential (primary) hypertension; I25.5 Ischemic cardiomyopathy; I48.91 Unspecified atrial fibrillation; Z79.82 Long term (current) use of aspirin; Z77.22 Contact with and (suspected) exposure to environmental tobacco smoke (acute) (chronic)
CPT/HCPCS: 31500; 36415; 36416; 36556; 36592; 36600; 51702; 70450; 70551; 71045; 71275; 80048; 80051; 80053; 81001; 82330; 82550; 82607; 82803; 82805; 82962; 83605; 83735; 83880; 84100; 84484; 85007; 85025; 85378; 85610; 85730; 86140; 87040; 87070; 87205; 87641; 92507; 92523; 92526; 92610; 93005; 93306; 93308; 93454; 93970; 94003; 94640; 94799; 96361; 96365; 96372; 96374; 96375; 96376; 97110; 97161; 97166; 97530; 97535; 99152; 99153; 99291; C1725; C1751; C1769; C1874; C1887; C1894; C9113; C9600; C9601; J0171; J0282; J0330; J0461; J0610; J1265; J1644; J1650; J1940; J2250; J2543; J3010; J3480; J3490; J7030; J7040; J7050; J7060; J7070; J7608; J7614; Q9967

== ENCOUNTER 2022-10-10 16:06 | Inpatient (IN) | payer MEDICARE, OTHER, SELFPAY ==
[2022-10-10] VITALS (36 sets, daily range): BP systolic 44–109; BP diastolic 27–66; PULSE 60–80; RESP 14; O2SAT 95–100
--- NOTE | 2022-10-10 16:08 | ECG_ITS ---
[facility] Test Date: 2022-10-10 Pat Name: Agatha Graham Department: Room: [facility] Gender: Female Count Room Clerk: : 1945 Requested By: Nilesh Crenshaw Order Number: [id number] Oli MD: Lani Avery M.D. Measurements Intervals [place] Rate: 101 P: 64 VA: 156 QRS: -65 QRSD: 167 T: 57 QT: 404 QTc: 525 Interpretive Statements SINUS TACHYCARDIA LEFT AXIS DEVIATION [QRS AXIS < -30] RIGHT BUNDLE BRANCH BLOCK [120+ ms QRS DURATION, UPRIGHT V1, 40+ ms S IN I/aVL/V4/V5/V6] ANTEROSEPTAL MYOCARDIAL INFARCTION , PROBABLY RECENT [40+ ms Q WAVE IN V1-V4] ACUTE [place] Compared to ECG 10/08/2022 23:20:42 Left-axis deviation now present.Atrial fibrillation no longer present Aberrant conduction of supraventricular beat(s) no longer present Ventricular premature complex(es) no longer present Left anterior fascicular block no longer present Myocardial infarct finding still present Electronically Signed On 10-10-2022 23:41:10 ALTERATION MANAGER by Lani Avery M.D. [email or web address] [email or web address] Group[id number]
[2022-10-10] MEDS: etomidate 2 mg/mL INJ SDV 10 mL 20 MG IVP (16:10)
[2022-10-10] MEDS: vecuronium 10 mg SDV IVP (16:10)
[2022-10-10 16:30] LABS: ABG PCO2 49.1 mmHg (35-45); Alveolar-Arterial Oxygen Gradi 50.1 mmHg (5-10); Arterial Blood Gas Hematocrit 40.3 % (37-47); Base Excess ABG -15.6 mmol/L (-2.0-2.0); Blood Gas Operator Identificat glc; Blood Gas Sample Site Femoral, left; Blood Gas Sample Type Arterial; Carboxyhemoglobin 0.5 %THgb (0.4-20.1); HCO3 ABG 14.3 mmol/L (22-26); HGB O2 Sat 98.3 % (95-100); Ionized Calcium Level - ABG 1.2 mmol/L (1.1-1.4); Methemoglobin 0.5 % (0.4-1.5); Oxygen Device AMBU; Oxygen Saturation ABG 99.4; Potassium Level - ABG 4.5 mmol/L (3.5-5.0); Total Hemoglobin 13.1 g/dL (12-16)
[2022-10-10 16:31] LABS: ABG PH Result 7.07 (7.35-7.45)
--- NOTE | 2022-10-10 16:44 | XACV_ITS ---
Exam Room: 2 Gender: Female : 1945 Exam Priority: Routine Procedure(s): Procedure Description: Diagnostic procedure Procedure Description: Coronary Angiography Hardik ANDERSON; Diagnostic Cath Status: Emergency Diagnostic Findings * Patient sent home earlier today after a acute anterior wall GA a little more than 48 hours ago. She had an uneventful hospital course after receiving a stent to her LAD which had been occluded. She also received a stent to her circumflex. She has a fairly significant distal right coronary artery lesion which was not intervened upon. The only issue during her hospital stay was she developed atrial fibrillation. I placed her on amiodarone intravenously which converted her to sinus rhythm after several hours. I then transitioned her to amiodarone by mouth. I sent her home today on 400 mg once daily with the intent to decrease the dose to 200 mg daily in 1 week. She collapsed at home. Bystander CPR was done by family. EMS arrived. I do not have any information about the initial rhythm. Epinephrine was given. No shocks were required. Return of spontaneous circulation was achieved. Patient was intubated in the emergency room. She was brought to the Associate Media Planner to assess her coronary arteries. * I did a quick bedside ultrasound in the emergency room to reveal there is no pericardial effusion and no structural heart abnormalities. The right coronary artery is patent. The distal lesion is the same as noted previously. There are no flow-limiting lesions. The left main is open. The LAD is open. The stent has no evidence of stent thrombosis. The circumflex is open and there is no evidence of thrombosis in the circumflex stent. Conclusions 1. Patent acute anterior wall GA after closure of the LAD with stents to the LAD and circumflex. No new lesions. Recommendations * To ICU intensive care unit. Interventional RX Recommendation: medical therapy and/or counseling Diagnostic RX Recommendation: medical therapy and/or counseling Pressures Phase:Rest AO : 156 / 63 ( 104 ) @ 5:12:00 PM 156 / 62 ( 102 ) @ 5:12:00 PM Clinical Evaluation EBL: 5mL-10mL Procedural Details Pre-Procedure Time Out. Identified patient by full name and date of as verbalized by the patient/guarantor. Does the consent match the physician's order: N/A Emergent. Accurate & Complete Informed Consent: N/A Emergent. Inpatient/Outpatient History & Physical on Chart: N/A Emergent. If H&P is completed, is and addenduem needed: N/A Emergent; If yes, is the addendum complete: N/A Emergent. Visualize and Verify Site with Patient/Guarantor: N/A. Relevant Radiology Images available: N/A Emergent. Pre-op teaching completed and patient verbalized understanding. The risks, benefits, and alternatives of sedation and/or procedure were discussed by physician. The patient agrees to continue. Procedure started. [facility] Clinical Fraility Score: 4: Vulnerable. Associate Media Planner Indications: Resuscitated Cardaic Arrest. Chest Pain Symptom Assessment: Non-anginal Chest Pain. Cardiovascular Instability: Yes, if yes, Hemodynamic Instability. Correct patient, site and procedure confirmed by cath team. Patient arrived to chemistry lab instructor on a ventilator and will be managed by respiratiory. IV Site on Arrival: 20 gauge in the right anticubital. IV Site on Arrival: 20 gauge in the left forearm. left TLSC on arrival to the chemistry lab instructor. IV Fluids: 0.9% NaCl at KVO. 1000 mL infused prior to chemistry lab instructor. Pre Procedural Pulses: bilateral dorsalis pedis was Doppled. Pre Procedural Pulses: bilateral posterior tibial was Doppled. right groin was prepped with chloroprep then draped in the usual sterile fashion. Physician notified. Baseline sample Acquired. HR: 112 BPM. Patient's family in the chemistry lab instructor waiting room. Dr. Etienne will update at the completion of the procedure. Equipment: 6F - Femoral. Cardiac Cath Pack. ACIST Manifold Kit Model BT 2000. Heparinized Saline (2 units/mL), 1000 mL bag. Physician arrived. Physician scrubbed in. Immediate Pre-Procedure Time Out. Correct Patient: N/A Emergent; Informed Consent not obtained due to time critical life threat; Correct Procedure: N/A Emergent; Informed Consent not obtained due to time critical life threat; Correct Site: N/A Emergent; Informed Consent not obtained due to time critical life threat; Correct Patient Position: N/A Emergent; Informed Consent not obtained due to time critical life threat; Correct Supplies: N/A Emergent; Informed Consent not obtained due to time critical life threat; Dried Flammable Prep: N/A Emergent; Informed Consent not obtained due to time critical life threat; Blood Products Available: N/A;. Lidocaine 1% infiltrated to the right groin. Versed 2mg/hr, Fentanyl 50mcg/hr, Aminoadarone 1mg/hr, & Levo 4mcg/hr infusing on arrival to the chemistry lab instructor. Arterial access obtained. A 6 vietnamese JL4 catheter in over the standard J wire. Multiple views taken of left coronary artery. Catheter out. A 6 vietnamese JR4 catheter in over the standard J wire. Multiple views taken of right coronary artery. Catheter out. A Suture was successful obtaining hemostatsis at the Right Femoral artery insertion site. Sheath(s) removed and manual pressure held until hemostasis was achieved. Sterile 4x4 and Op-site applied to the puncture site. No oozing or hematoma noted. Post sheath removal instructions were given and the patient verbalized understanding. Arterial sheath flushed and connected to tranducer and pressure bag with heparinized saline. Post Procedure: Pulses reassessed and unchanged. No VTE prophylaxis required. Post-op diagnosis: post code. Complications: none. Estimated blood loss: 5mL-10mL. Nausea/Vomiting: No. Procedure completed. Patient transferred by bed to ICU. Vital chart was stopped. Access Site Site: Right Femoral artery Sheath Size: 6 Fr Hemostasis Method: Suture Hemostasis Success: Successful Procedure Medications Start: 5:07 PM Stop: 5:07 PM Medication: Sodium Bicarbonate Amount: 50 meq Route: I.V. Start: 5:07 PM Stop: 5:07 PM Medication: Sodium Bicarbonate Amount: 50 meq Route: I.V. I, the attending physician, have reviewed and verified all procedure medications. Yes, all medications given per verbal order Report Signatures Finalized by Dr. Tian Etienne MD on 10/10/2022 05:35 PM
--- NOTE | 2022-10-10 16:51 | ED_ITS ---
HPI - General Adult General: Chief complaint: Cardiac Arrest/CPR Stated complaint: CPR IN PROGRESS Time Seen by Provider: 10/10/22 16:07 Source: EMS and old records reviewed Mode of arrival: EMS History of Present Illness: 77-year-old female arrives intubated with an eye gel. I did talk to her attending physician. Patient care. 3 days ago through the ER when was directed the Pharmacy Care Coordinator for STEMI. Stent placed and patient was observed on the hospital floor. She developed atrial fibrillation prior to discharge started on amiodarone 400 daily was supposed to be in the amiodarone 400 daily for a week and then 200 daily in addition to this she is on Eliquis and clopidogrel. She is also on lisinopril and metoprolol. She was discharged home earlier today. Her daughter called back to the hospital floor approximately an hour to an hour and a half prior to returning to the emergency room at that point she states she will there is something wrong with her mother she was not feeling well and advised she would be bring her back. Shortly after this were notified that [facility] was bringing the patient in to the ER in cardiac arrest. EMS was able to achieve ROSC after 8 doses of epinephrine as they arrived in the ambulance bay. They had reported PEA prior to that. Onset (ago): minute(s) Review of Systems General: Reports: ROS unobtainable due to endotracheal tube [facility] ED PFSH: Medical History Anticoagulation adequate with anticoagulant therapy Atrial fibrillation Cardiac arrest with ventricular fibrillation Hyperlipidemia Hypertension Ischemic cardiomyopathy Surgical History No pertinent past surgical history Family History Denies family history of Clotting disorder Anesthesia complication Bleeding disorder Social History Smoking and tobacco status: never smoked Quit status (tobacco): has quit using tobacco Former quit date comment: PPD x 20+ yrs Second hand smoke exposure: Yes Alcohol intake: never Lives independently: Yes Household members: spouse Marital status: Current occupational status: employed 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[employer] Current gender identity: Female Physical Exam HENMT: COMMON NORMALS: normocephalic, atraumatic and hearing grossly normal bilaterally HEAD & SCALP: normocephalic and atraumatic Cardio: COMMON NORMALS: No murmurs present (Cardio) RATE: bradycardic RHYTHM: abnormal rhythm irregularly irregular GI: COMMON NORMALS: Soft to palpation and No hepatosplenomegaly present AUSCULTATION: Yes normoactive bowel sounds PALPATION: Yes Soft to palpation, No Tenderness to palpation present (GI), No Guarding due to palpation present (GI) and Yes No hepatosplenomegaly present Extremity: COMMON NORMALS: normal to inspection, capillary refill normal and no calf tenderness Skin: COMMON NORMALS: no rashes or lesions noted GENERAL SKIN EXAM: no rashes or lesions noted Course Vital Signs: Vital signs: Vital Signs Pulse Rate 63 10/11/22 00:00 Respiratory Rate 13 10/11/22 06:00 Blood Pressure 105/66 10/10/22 19:55 Pulse Oximetry 96 10/11/22 06:00 Oxygen Delivery Me thod 10/10/22 19:55 Fraction of Inspir ed Oxygen 50 10/11/22 06:00 MDM - General Adult Medical Decision Making Initially on arrival patient intubated noted that she did have a gag reflex that time she is given 20 of etomidate and 10 of vecuronium. Simultaneously we started the patient on amiodarone and then later Versed and fentanyl. Patient did bradycardia down at one point into the 50s and developed severely irregular rhythm she is given half milligram atropine to which she responded well Levophed was started at 6 we later were able to titrate that down to 4. Central line was placed to ensure adequate availability of access for her multiple drips. Left subclavian line placed without difficulty. Dr. Etienne is in the trauma bay as I was completing the central line he is seen the patient wishes to take her directly to Pharmacy Care Coordinator. He did bedside ultrasound that did not identify any pericardial effusions. He is asked that we contact one of the hospitalist and will plan to admit from the Pharmacy Care Coordinator to the ICU house supervisors been made aware. Dr. Perrin has been contacted I reviewed the case with him up to this point. He will discuss further with Dr. Etienne. Medical Records I reviewed the patient's medical records. Lab Data I reviewed the patient's lab results. 10/10/22 16:45 10/10/22 16:[address] 10/10/22 18:48 IMPRESSION: 1. No hemorrhage or midline shift. 2. Patchy regions of hypoattenuation in the bilateral deep white matter are age indeterminate but may be chronic. If acute ischemia is suspected recommend MRI brain follow-up. Laboratory Results WBC 17.1 10^3/uL (4.0-10.0) H 10/10/22 16:45 RBC 4.18 10^6/uL (4.1-5.3) 10/10/22 16:45 Hgb 13.0 g/dL (11.5-15.3) 10/10/22 16:45 Hct 42.8 % (37.0-47.0) 10/10/22 16:45 MCV 102.4 fl (81-99) H 10/10/22 16:45 MCH 31.1 pg (28.0-34.0) 10/10/22 16:45 MCHC 30.4 g/dL (30.0-36.0) 10/10/22 16:45 RDW 12.9 % (12.1-15.1) 10/10/22 16:45 Plt Count 230 10^3/cmm (130-400) 10/10/22 16:45 MPV 11.2 fL (7.4-10.4) H 10/10/22 16:45 Lymph % (Auto) Not Reportable 10/10/22 16:45 Emanuel % (Auto) Not Reportable 10/10/22 16:45 Lymph # (Auto) Not Reportable 10/10/22 16:45 Emanuel # (Auto) Not Reportable 10/10/22 16:45 Total Counted 100 (0-100) 10/10/22 16:45 Atypical Lymphs % 0.0 % (0-5) 10/10/22 16:45 Absolute Neutrophils 13.9 10^3/cmm (1.4-6.5) H 10/10/22 16:45 Segmented Neutrophils 81 % 10/10/22 16:45 Abs Segm Neuts (Man) 13.9 10/cmm (1.6-7.1) H 10/10/22 16:45 Band Neutrophils 0.0 % 10/10/22 16:45 Abs Band Neuts (Man) 0.0 10^3/cmm (0.0-1.2) 10/10/22 16:45 Absolute Lymphocytes 2.2 10^3/cmm (1.2-3.4) 10/10/22 16:45 Lymphocytes (Manual) 13 % 10/10/22 16:45 Monocytes (Manual) 0.0 % 10/10/22 16:45 Absolute Monocytes 0.0 10^3/cmm (0.1-0.6) L 10/10/22 16:45 Eosinophils (Manual) 0 % 10/10/22 16:45 Absolute Eosinophils 0.0 10^3/cmm (0.0-0.7) 10/10/22 16:45 Basophils (Manual) 0.0 % 10/10/22 16:45 Absolute Basophils 0.0 10^3/cmm (0.0-0.2) 10/10/22 16:45 Metamyelocytes 1.0 % 10/10/22 16:45 Myelocytes 5.0 % 10/10/22 16:45 Platelet Estimate Normal (Normal) 10/10/22 16:45 Specimen Type Arterial 10/10/22 16:20 Sample Site Femoral, left 10/10/22 16:20 ABG pH 7.07 (7.35-7.45) L* 10/10/22 16:20 ABG pCO2 49.1 mmHg (35-45) H 10/10/22 16:20 ABG pO2 265.0 mmHg (80.0-100.0) H 10/10/22 16:20 ABG HCO3 14.3 mmol/L (22-26) L 10/10/22 16:20 ABG O2 Saturation 99.4 10/10/22 16:20 ABG Base Excess -15.6 mmol/L (-2.0-2.0) L 10/10/22 16:20 Fidencio Test N/a 10/10/22 16:20 A-a O2 Gradient 50.1 mmHg (5-10) H 10/10/22 16:20 Hematocrit 40.3 % (37-47) 10/10/22 16:20 Hgb O2 Saturation 98.3 % (95-100) 10/10/22 16:20 Carboxyhemoglobin 0.5 %THgb (0.4-20.1) 10/10/22 16:20 Methemoglobin 0.5 % (0.4-1.5) 10/10/22 16:20 Total Hemoglobin 13.1 g/dL (12-16) 10/10/22 16:20 Sodium 137.0 mmol/L (131-143) 10/10/22 16:20 Potassium 4.5 mmol/L (3.5-5.0) 10/10/22 16:20 Glucose 233.0 mg/dL (70-115) H 10/10/22 16:20 Ionized Calcium 1.2 mmol/L (1.1-1.4) 10/10/22 16:20 O2 Delivery Device Ambu 10/10/22 16:20 O2 Liters/Min 15.0 % 10/10/22 16:20 FiO2 100.0 % 10/10/22 16:20 [employer] ID glc 10/10/22 16:20 Sodium 136 mmol/L (136-145) 10/10/22 16:45 Potassium 5.1 mmol/L (3.5-5.1) 10/10/22 16:45 Chloride 102 mmol/L (98-107) 10/10/22 16:45 Carbon Dioxide 17 mmol/L (22-29) L 10/10/22 16:45 Anion Gap 22.1 (5-19) H 10/10/22 16:45 BUN 20 mg/dL (8-23) 10/10/22 16:45 Creatinine 1.1 mg/dL (0.5-0.9) H 10/10/22 16:45 GFR Calculation Not Reportable 10/10/22 16:45 Glucose 251 mg/dL (65-115) H 10/10/22 16:45 Calculated Osmolality 293 mOsm/kg (285-295) 10/10/22 16:45 Lactic Acid 8.0 mmol/L (0.5-2.2) H* 10/10/22 16:45 Lactate Cancelled 10/10/22 16:40 Calcium 8.1 mg/dL (8.5-10.5) L 10/10/22 16:45 Magnesium 2.2 mg/dL (1.7-2.3) 10/10/22 16:45 Total Bilirubin 0.7 mg/dL (0.15-1.2) 10/10/22 16:45 AST 379 U/L (0-32) H 10/10/22 16:45 ALT 347 U/L (0-33) H 10/10/22 16:45 Alkaline Phosphatase 185 U/L (35-105) H 10/10/22 16:45 Troponin T Baseline 7678 ng/L (0-10) H* 10/10/22 16:40 NT-Pro-B Natriuret Pep 8800 pg/mL (0-450) H 10/10/22 16:45 Total Protein 5.8 g/dL (6.6-8.7) L 10/10/22 16:45 Albumin 3.3 g/dL (3.5-5.2) L 10/10/22 16:45 Globulin 2.5 g/dL (1.3-4.6) 10/10/22 16:45 Critical Care Time Critical Care Time: Critical Care Time: Yes Total Critical Care Time: 40 Attestation: The high probability of a clinically significant, sudden or life threatening deterioration of the patient's cardiovascular system(s) required my full and direct attention, intervention and personal management. The critical care time is as shown. This time is in addition to time spent performing any reported procedures but includes the following: [x] Data and vital sign review and interpretation [x] Patient assessment, examination and intervention [x] Documentation [x] Medication orders and management Discharge Plan Discharge Patient Disposition: Admitted As Inpatient Admit Provider: Tian Etienne Clinical Impression: Cardiac arrest due to underlying cardiac condition, Atrial fibrillation, Anticoagulation adequate with anticoagulant therapy, Cardiac arrest with successful resuscitation, Coronary artery disease Condition: Stable Coding Level of Care Code ED Mirror Department Supervisor for Shelly Juárez
--- NOTE | 2022-10-10 16:52 | P.CONIM_ITS ---
Providers/Reason For Consult Consulting Physician/Specialty*: Cardiovascular medicine Reason for Consult*: Out of hospital cardiac arrest Requesting Physician: Emergent room Primary Care Provider: PRISCILLA Peralta History of Present Illness History of Present Illness The patient is 77 years old and was just discharged earlier today from a 3-day stay associated with an acute anterior wall myocardial infarction. She had a stent placed to her LAD along with a stent to the circumflex. She had a significant lesion in the right coronary artery which I did not intervene upon. She had an uneventful procedure with a good angiographic result. She developed atrial fibrillation about 36 hours into the hospitalization. She was placed on low-dose Eliquis and initially intravenous amiodarone. The amiodarone converted her to sinus rhythm. She was transitioned to amiodarone by mouth. When she went home this morning she was on amiodarone 400 mg once daily to be reduced to 200 mg once daily in 1 week. She was also on low-dose Eliquis, Plavix, beta- domingo, TRISTEN inhibitor. Her echo showed an ejection fraction of about 35 to 40% with akinesis of the anterior wall and apex. She had a completely uneventful hospital course. She was sitting on the couch this afternoon visiting with her family members and suddenly complained of shortness of breath and feeling poorly. She then collapsed. Her daughter who has some medical training performed CPR. I do not know whether she lost a pulse at home. 911 was called and EMS arrived. She apparently was in PEA however I do not have a strip from the ambulance. She did not receive any countershocks. She received 8 mg of epinephrine and a pulse and blood pressure were obtained. When she arrived at the emergency room she was gi carlton etomidate and vecuronium and was intubated. She was given 0.5 mg of atropine, started on an amiodarone drip and Versed and fentanyl drip. She is also been on Levophed. It was started at 6 mcg/min and is now down to 4 mcg/min. Her blood pressure is soft. Her heart rate is reasonable. She is now of course unresponsive. I spoke to her extended family briefly to obtain a history. We plan to go to the catheterization laboratory shortly. Review of Systems Narrative: Unobtainable Medications/Allergies Home Medications Medication Instructions Recorded Confirmed Last Taken Type aspirin 81 mg tablet,delayed 81 mg PO QAM 10/08/22 10/10/22 Unknown History release lisinopril 5 mg tablet 5 mg PO QAM 10/08/22 10/10/22 Unknown History amiodarone 200 mg tablet 200 mg PO DAILY #60 tabs 10/10/22 10/10/22 Unknown Rx apixaban 5 mg tablet (Eliquis) 2.5 mg PO BID@0900,2100 #60 tabs 10/10/22 10/10/22 Unknown Rx atorvastatin 40 mg tablet 40 mg PO BEDTIME #30 tabs 10/10/22 10/10/22 Unknown Rx clopidogrel 75 mg tablet 75 mg PO DAILY #30 tabs 10/10/22 10/10/22 Unknown Rx metoprolol tartrate 50 mg tablet 50 mg PO BID #60 tabs 10/10/22 10/10/22 Unknown Rx nitroglycerin 0.4 mg sublingual 0.4 mg sublingual Q5M PRN Chest 10/10/22 10/10/22 Unknown Rx tablet Pain #25 tabs Allergies Allergy/AdvReac Type Severity Reaction Status Date / Time No Known Allergies Allergy Verified 10/08/22 09:28 PFSH Acute PFSH: Medical History (Updated 10/10/22 @ 17:00 by Tian Etienne MD) Anticoagulation adequate with anticoagulant therapy Atrial fibrillation Cardiac arrest with ventricular fibrillation Hyperlipidemia Hypertension Ischemic cardiomyopathy Surgical History No pertinent past surgical history Family History Denies family history of Clotting disorder Anesthesia complication Bleeding disorder Social History Smoking and tobacco status: never smoked Quit status (tobacco): has quit using tobacco Former quit date comment: PPD x 20+ yrs Second hand smoke exposure: Yes Alcohol intake: never Lives independently: Yes Household members: spouse Marital status: Current occupational status: employed 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 A left subclavian central line has been placed. HEENT: Exam within normal limits. NECK: Supple without jugular vein distention. The carotid upstroke is normal without bruits. BACK: Exam normal. LUNGS: Clear. HEART: Regular rate and rhythm. ABDOMEN: Benign without organomegaly or tenderness. EXTREMITIES: No edema. NEUROLOGIC: Not done SKIN: Unremarkable. Data 10/10/22 16:45 10/10/22 16:45 A&P Assessment and plan (1) Anticoagulation adequate with anticoagulant therapy: (2) Atrial fibrillation: (3) Ischemic cardiomyopathy: (4) Hyperlipidemia: (5) ST elevation (STEMI) myocardial infarction: (6) Hypertension: (7) Cardiac arrest with ventricular fibrillation: Plan I performed a quick bedside ultrasound in the emergency room to assess for pericardial fluid. She has no pericardial effusion. She appears still to be in sinus rhythm. We will take her around to the Complaint Coordinator to assess her coronary arteries first. Consult Attestations Medical Necessity Statement: Hospitalist patient for cardiac arrest and High Time for a total of 70 minutes, includes reviewing past or interval history, examining/interviewing patient, placing orders, counseling patient/family/other support, updating patient/family/other support, discussing plan of care with staff, communicating with other healthcare providers, documenting encounter and coordinating care Diagnoses Anticoagulation adequate with anticoagulant therapy Z79.01 Atrial fibrillation I48.91 Ischemic cardiomyopathy I25.[address] elevation (STEMI) myocardial infarction I21.3 Hypertension I10 Cardiac arrest with ventricular fibrillation I46.9; I49.01
[2022-10-10 16:56] LABS: Hematocrit 42.8 % (37.0-47.0); Mean Corpuscular HGB Conc 30.4 g/dL (30.0-36.0); Mean Corpuscular Hemoglobin 31.1 pg (28.0-34.0); Mean Corpuscular Volume 102.4 fl (81-99); Mean Platelet Volume 11.2 fL (7.4-10.4); Platelet Count 230 10^3/cmm (130-400); Red Blood Count 4.18 10^6/uL (4.1-5.3); Red Cell Distribution Width 12.9 % (12.1-15.1); White Blood Count 17.1 10^3/uL (4.0-10.0)
--- NOTE | 2022-10-10 17:13 | PC.NURSE ---
Patient arrived to EMS [facility] and entered into ER with ROSC ontained @1605 EMS reports that patient was given 8 doses of epi with 8 round of compressions. [facility] assist X6 and immediately intubated. 8.0ET 25@lip @1607 Veersed and Fent gtt ordered @1607 10 Vec given @1608 1 amp atropine given @1611 20G LEANN @1612 Amio Gtt ordered @1611 Orders for ABG, CBC, CMP, PT, PTT, MAG, PHOS, STAT CRX, U/A,TOP, CPK @1613 OG placement @1614 EKG @ 1614 Mathews placed @1618 Amio at 1 @1629 levo@1630 central line placed @1637 labs drawn @1637 general laborer in room to take pt to CCL @1643
[2022-10-10 17:23] LABS: Troponin(5th) Baseline 7678 ng/L (0-10)
[2022-10-10 17:28] LABS: Alanine Aminotransferase 347 U/L (0-33); Albumin Level 3.3 g/dL (3.5-5.2); Alkaline Phosphatase 185 U/L (35-105); Blood Urea Nitrogen 20 mg/dL (8-23); Calcium 8.1 mg/dL (8.5-10.5); Carbon Dioxide 17 mmol/L (22-29); Chloride 102 mmol/L (98-107); Globulin 2.5 g/dL (1.3-4.6); Glucose 251 mg/dL (65-115); Magnesium 2.2 mg/dL (1.7-2.3); NT Pro B Type Natriuretic Pept 8800 pg/mL (0-450); Osmolality Calculated 293 mOsm/kg (285-295); Sodium 136 mmol/L (136-145); Total Bilirubin 0.7 mg/dL (0.15-1.2); Total Protein 5.8 g/dL (6.6-8.7)
[2022-10-10 17:29] LABS: Absolute Segmented Neutrophil 13.9 10/cmm (1.6-7.1); Eosinophils 0 %; Lymphocytes 13 %; Lymphocytes Absolute 2.2 10^3/cmm (1.2-3.4); Segmented Neutrophils 81 %; Slide Review Slide Review Perform; Total Cells Counted 100 (0-100)
[2022-10-10 17:30] LABS: Absolute Neutrophil 13.9 10^3/cmm (1.4-6.5); Anion Gap 22.1 (5-19); Aspartate Amino Transferase 379 U/L (0-32); Platelet Estimate Normal (Normal); Potassium 5.1 mmol/L (3.5-5.1)
--- NOTE | 2022-10-10 17:42 | XRR_ITS ---
PROCEDURE INFORMATION: Exam: XR Chest Exam date and time: 10/10/2022 5:46 PM Age: 77 years old Clinical indication: Device placement; Ng tube; Additional info: Confirm tube placement TECHNIQUE: Imaging protocol: Radiologic exam of the chest. Views: 1 view. COMPARISON: No relevant prior studies available. FINDINGS: Tubes, catheters and devices: Endotracheal tube is present with its tip located 1.7 cm above the lee. There is a feeding tube with its tip in the proximal stomach side port at GE junction. A left subclavian catheter tip is in the superior vena cava. Lungs: There are diffuse interstitial infiltrates present. Pleural spaces: Unremarkable. No pleural effusion. No pneumothorax. Heart/Mediastinum: Unremarkable. No cardiomegaly. Bones/joints: Old right-sided posterior rib fractures superiorly. XR/XR chest 1V portable [id number] IMPRESSION: 1. Endotracheal tube 1.7 cm above the lee. 2. Feeding tube tip in proximal stomach with side port at GE junction. Recommend advancement. 3. Left subclavian venous catheter tip in SVC. 4. Diffuse interstitial infiltrates. Correlate for pulmonary vascular congestion versus pneumonia.
--- NOTE | 2022-10-10 18:15 | PM.HP ---
Providers/Chief Complaint Admitting Physician: Tian Etienne MD Primary Care Provider: PRISCILLA Peralta Chief Complaint: CPR IN PROGRESS History of Present Illness Agatha Graham is a 77 year old female who was discharged today by cardiology service after acute NC status post stent to LAD and left circumflex, patient was discharged on amiodarone and Eliquis because she had A-fib 36 hours after her acute NC, she was discharged with stable vitals however at home when she was with her family she had an event when she became unconscious, her daughter started CPR called 911, she was found to be in PEA 8 mg of epi was given code ran for about 20 to 25 minutes, ROSC was obtained, i-gel was inserted, she was given sedative and paralytic agent in the ER was intubated, she required atropine for bradycardic episode she was put on amiodarone for wide QRS arrhythmia noted by the ER physician. Dr. Etienne evaluated her and decided to take her to the Licensed Insurance Sales Agent right away. Her RCA was not stented on last visit. No cardiac tamponade with bedside ultrasound Family at the bedside I asked ER physician to start bicarb drip because of severe metabolic acidosis At the time of my evaluation I have added calcium checking magnesium level, continuing Levophed, amiodarone drip Will insert NG tube continue aspirin and Plavix Monitor for any signs of fluid overload Repeat BMP and ABG Review of Systems General: Reports: ROS unobtainable due to endotracheal tube Medications/Allergies Home Medications Medication Instructions Recorded Confirmed Last Taken Type aspirin 81 mg tablet,delayed 81 mg PO QAM 10/08/22 10/10/22 Unknown History release lisinopril 5 mg tablet 5 mg PO QAM 10/08/22 10/10/22 Unknown History amiodarone 200 mg tablet 200 mg PO DAILY #60 tabs 10/10/22 10/10/22 Unknown Rx apixaban 5 mg tablet (Eliquis) 2.5 mg PO BID@0900,2100 #60 tabs 10/10/22 10/10/22 Unknown Rx atorvastatin 40 mg tablet 40 mg PO BEDTIME #30 tabs 10/10/22 10/10/22 Unknown Rx clopidogrel 75 mg tablet 75 mg PO DAILY #30 tabs 10/10/22 10/10/22 Unknown Rx metoprolol tartrate 50 mg tablet 50 mg PO BID #60 tabs 10/10/22 10/10/22 Unknown Rx nitroglycerin 0.4 mg sublingual 0.4 mg sublingual Q5M PRN Chest 10/10/22 10/10/22 Unknown Rx tablet Pain #25 tabs Allergies Allergy/AdvReac Type Severity Reaction Status Date / Time No Known Allergies Allergy Verified 10/08/22 09:28 PFSH Acute PFSH: Medical History Anticoagulation adequate with anticoagulant therapy Atrial fibrillation Cardiac arrest with ventricular fibrillation Hyperlipidemia Hypertension Ischemic cardiomyopathy Surgical History No pertinent past surgical history Family History Denies family history of Clotting disorder Anesthesia complication Bleeding disorder Social History Smoking and tobacco status: never smoked Quit status (tobacco): has quit using tobacco Former quit date comment: PPD x 20+ yrs Second hand smoke exposure: Yes Alcohol intake: never Lives independently: Yes Household members: spouse Marital status: Current occupational status: employed 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 [employer] Current gender identity: Female Vitals/I&O/Wt Last Vital Signs Pulse 60 10/10/22 17:04 Resp 14 10/10/22 17:07 Pulse Ox 100 10/10/22 17:07 FiO2 70 10/10/22 17:45 10/10/22 10/10/22 10/10/22 06:59 14:59 22:59 Intake Total 6.340 / 6.340 Balance 6.340 / 6.340 Physical Exam Narrative: Patient is intubated and sedated On ventilator support Sinus rhythm Levophed at the bedside Amiodarone at the bedside Mathews catheter in place Art line in place Family at the bedside Neuro exam is limited Abdomen nondistended Assisted bilateral breath sounds Urinary Catheter Management: Mathews: Cath Placed During This Visit: yes Urinary Catheter Date of Insertion: 10/10/22 Urinary Catheter Time of Insertion: 16:20 Data 10/10/22 16:45 10/10/22 16:45 Micro: Microbiology 10/10/22 16:40 Blood Culture - Preliminary Blood SPECIMEN COLLECTED 10/10/22 16:40 Blood Culture - Preliminary Blood SPECIMEN COLLECTED A&P Assessment and plan (1) Cardiac arrest with ventricular fibrillation: (2) Anticoagulation adequate with anticoagulant therapy: (3) Atrial fibrillation: (4) Ischemic cardiomyopathy: (5) Hyperlipidemia: Plan Cardiac arrest related to V-fib Patient is on amiodarone drip Currently on Levophed Wean off Levophed overnight Continue bicarb drip for severe metabolic acidosis Bicarb level 17 We will give her calcium gluconate as well Repeat BMP and stat ABG Respiratory failure requiring mechanical ventilator Wean her off Levophed Assess mental function once we are able to wean her off sedation Monitor for any signs of fever, she is at high risk for aspiration pneumonia because of i-gel inserted by the EMS Monitor for any signs of laryngeal edema Ischemic cardiomyopathy Monitor for signs of fluid overload Bedside ultrasound did not show cardiac tamponade as per the energy and sustainability manager Keep potassium above 4 and magnesium above 2 check magnesium level Calcium gluconate given Patient is full code NG tube to be inserted to start aspirin and Plavix She recently had 2 stents 1 in LAD and underwent a left circumflex During Licensed Insurance Sales Agent no evidence of in-stent thrombosis Postcardiac arrest management As per the ER physician patient has normal gag reflex during intubation I would not start hypothermia protocol 2 family meetings conducted, Attestations Medical Necessity Statement*: Continue ICU management more than 2 midnights anticipate Coding Level of Care Code Critical Care >/= 30 minutes Critical care time (in minutes): 35 The high probability of a clinically significant, sudden or life threatening deterioration, as referenced in this documentation, required my full and direct attention, intervention and personal management. The critical care time shown is in addition to time spent performing any reported separately billable procedures and includes the following: [x] Data and vital sign review and interpretation [x] Patient assessment, examination and intervention [x] Medication orders and management [x] Patient/Family updates as able [x] Care Coordination and Documentation. Diagnoses Cardiac arrest with ventricular fibrillation I46.9; I49.01 Anticoagulation adequate with anticoagulant therapy Z79.01 Atrial fibrillation I48.91 Ischemic cardiomyopathy I25.5 Hyperlipidemia E78.5
--- NOTE | 2022-10-10 18:22 | ECG_ITS ---
[facility] Test Date: 2022-10-10 Pat Name: Agatha Graham Department: Room: [facility]05 Gender: Female Retail Solar Advisor: : 1945 Requested By: Nilesh Crenshaw Order Number: [id number] Oli MD: Tian Etienne M.D. Measurements Intervals [place] Rate: 63 P: 0 AR: 0 QRS: 29 QRSD: 81 T: -87 QT: 407 QTc: 418 Interpretive Statements SUPRAVENTRICULAR RHYTHM LOW QRS VOLTAGE IN EXTREMITY LEADS [QRS DEFLECTION < 0.5 mV IN LIMB LEADS] ANTEROSEPTAL MYOCARDIAL INFARCTION , OF INDETERMINATE AGE [40+ ms Q WAVE IN V1-V4] Compared to ECG 10/10/2022 16:27:12 Supraventricular rhythm now present Low QRS voltage now present Sinus tachycardia no longer present Left-axis deviation no longer present Right bundle-branch block no longer present Myocardial infarct finding still present Electronically Signed On 10-11-2022 15:15:50 ELECTRONICS ENGINEERING MANAGER by Tian Etienne M.D. [id number]
[2022-10-10 18:30] LABS: ABG PCO2 35.3 mmHg (35-45); ABG PH Result 7.41 (7.35-7.45); Arterial Blood Gas Hematocrit 40.4 % (37-47); Base Excess ABG -1.7 mmol/L (-2.0-2.0); Blood Gas Allen Test Pos; Blood Gas Sample Type Arterial; HCO3 ABG 22.4 mmol/L (22-26)
[2022-10-10] MEDS: sodium bicarbonate 150 MEQ in dextrose 5% 1,000 ML 50 MEQ IV (18:30)
[2022-10-10 18:31] LABS: Blood Gas Operator Identificat MONRO; Blood Gas Sample Site Not specified; Blood Gas Tidal Volume 0.45; Oxygen Device VENT
[2022-10-10 18:37] LABS: Reflex Lactate Order REFLEX LACTIC ORDERD
--- NOTE | 2022-10-10 18:48 | CTR_ITS ---
PROCEDURE INFORMATION: Exam: CT Head Without Contrast Exam date and time: 10/10/2022 10:07 PM Age: 77 years old Clinical indication: Altered mental status/memory loss; Patient HX: Continued unresponsiveness post cardiac arrest. Intubated. ; Additional info: Post arrest TECHNIQUE: Imaging protocol: Computed tomography of the head without contrast. Radiation optimization: All CT scans at this facility use at least one of these dose optimization techniques: automated exposure control; mA and/or kV adjustment per patient size (includes targeted exams where dose is matched to clinical indication); or iterative reconstruction. REPORTING DATA: Count of CT and Cardiac NM exams in prior 12 months: This patient has received 0 known CTs and 0 known cardiac nuclear medicine studies in the 12 months prior to the current study. COMPARISON: No relevant prior studies available. RADIATION DOSE METRICS: Total DLP (mGy-cm): 773.98 FINDINGS: Brain: No definite acute infarct. Patchy regions of hypodensity are seen in the bilateral frontoparietal deep white matter for example on series 10, image 41 possibly chronic white matter disease. No hemorrhage. No mass effect. Cerebral ventricles: No ventriculomegaly. Paranasal sinuses: Visualized sinuses are unremarkable. No fluid levels. Mastoid air cells: Visualized mastoid air cells are well aerated. Bones/joints: Unremarkable. No acute fracture. Soft tissues: Unremarkable. CT/CT head wo con* [id number] IMPRESSION: 1. No hemorrhage or midline shift. 2. Patchy regions of hypoattenuation in the bilateral deep white matter are age indeterminate but may be chronic. If acute ischemia is suspected recommend MRI brain follow-up.
[2022-10-10 19:25] LABS: Add Urine Microscopic? YES; Bilirubin Urine Neg (Negative); Blood Urine 3+ (Negative); Glucose Urine UA Trace (Normal); Ketones Urine Negative (Negative); Leukocyte Esterase Urine Negative (Negative); Nitrate Urine Negative (Negative); Protein Urine 1+ (Negative); RBC Urine RARE /hpf (0-2); Urine Appearance Hazy (CLEAR); Urine Color Yellow (Yellow); Urobilinogen Urine 1 mg/dL (Negative); WBC Urine RARE /hpf (0-5); pH Urine 5 (5-7)
[2022-10-10 19:26] LABS: Add Urine Culture? No; Amorphous Sediment Urine 2+ /hpf; Bacteria Urine TRACE /hpf
[2022-10-10 19:33] LABS: Blood Urea Nitrogen 20 mg/dL (8-23); Calcium 7.6 mg/dL (8.5-10.5); Carbon Dioxide 22 mmol/L (22-29); Chloride 106 mmol/L (98-107); Glucose 155 mg/dL (65-115); Magnesium 1.9 mg/dL (1.7-2.3); Osmolality Calculated 296 mOsm/kg (285-295); Sodium 140 mmol/L (136-145)
[2022-10-10 19:36] LABS: Troponin 5 2HR 6809 ng/L (0-10)
[2022-10-10 19:39] LABS: D Dimer >= 20.00 ug/mIFEU (0-0.59)
[2022-10-10 19:59] LABS: Lactate (Lactic Acid level) 2.5 mmol/L (0.5-2.2)
--- NOTE | 2022-10-10 20:06 | PC.NURSE ---
Patient arrived to ICU 5 from clinical lab clerk. See Dr. Etienne documentation on results. Patient mechanically ventilated, unable to obtain blood pressure from other sources, cytogenetics laboratory manager sheath used for ART line. Dr. Etienne notified of need at this time to remain in place. OG tube placed and Xray obtained for ET tube, central line and OG placement. Core temperature probe placed, temperature read 97.0. Dr. Perrin notified. Family at bedside with Dr. Perrin, questions answered by him.
[2022-10-10] MEDS: sodium chloride 0.9% 1,000 ML 75 ML IV (21:10)
[2022-10-10] MEDS: calcium gluconate 0.9% NaCL 1 GM/50 ML PREMIX IV ×2 (21:22→21:52)
[2022-10-10 21:30] LABS: Glucose Point of Care 178 mg/dL (70-110)
[2022-10-10 21:35] LABS: Lactate (Lactic Acid level) 2.3 mmol/L (0.5-2.2)
--- NOTE | 2022-10-10 22:08 | ECG_ITS ---
[facility] Test Date: 2022-10-10 Pat Name: Agatha Graham Department: Room: [facility]05 Gender: Female Director Of Operations For Therapy: : 1945 Requested By: Nilesh Crenshaw Order Number: [id number] Oli MD: Tian Etienne M.D. Measurements Intervals [place] Rate: 69 P: 78 MO: 159 QRS: -35 QRSD: 82 T: 58 QT: 399 QTc: 428 Interpretive Statements SINUS RHYTHM POSSIBLE LEFT ATRIAL ENLARGEMENT [-0.1mV P-WAVE IN V1/V2] LEFT AXIS DEVIATION [QRS AXIS < -30] ANTEROSEPTAL MYOCARDIAL INFARCTION , OF INDETERMINATE AGE [40+ ms Q WAVE IN V1-V4] Compared to ECG 10/10/2022 18:22:20 Left-axis deviation now present Supraventricular rhythm no longer present Myocardial infarct finding still present Electronically Signed On 10-11-2022 15:17:15 MOSAICIST by Tian Etienne M.D. [id number]
[2022-10-10 23:14] LABS: Troponin 5 6HR 8378 ng/L (0-10)
[2022-10-10 23:15] LABS: Troponin 5 6HR Delta 700 ng/L (0-12)
--- NOTE | 2022-10-10 23:25 | PC.NURSE ---
Contacted Dr. Etienne relating to pt's sheath and lovenox order. Pull sheath then wait 2 hours to administer lovenox per Dr. Etienne
[2022-10-11] VITALS (71 sets, daily range): BP systolic 92–127; BP diastolic 60–104; PULSE 54–153; RESP 13–55; TEMP 38–38.2; O2SAT 90–98; BMI 28.8
[2022-10-11 02:33] LABS: Glucose Point of Care 153 mg/dL (70-110)
[2022-10-11] MEDS: enoxaparin 80 mg/0.8 mL Syringe 70 MG SUBCUT ×2 (03:35→16:58)
[2022-10-11 03:50] LABS: Basophils # 0.1 10^3/uL (0.0-0.1); Basophils % 0.4 %; Eosinophils # 0.1 10^3/uL (0.0-0.8); Eosinophils % 0.4 %; Hematocrit 38.1 % (37.0-47.0); Hemoglobin 11.9 g/dL (11.5-15.3); Lymphocytes # 1.7 10^3/uL (0.8-4.8); Lymphocytes % 11.4 %; Mean Corpuscular HGB Conc 31.2 g/dL (30.0-36.0); Mean Corpuscular Hemoglobin 30.4 pg (28.0-34.0); Mean Corpuscular Volume 97.2 fl (81-99); Mean Platelet Volume 11.1 fL (7.4-10.4); Monocytes # 0.8 10^3/uL (0.2-0.9); Monocytes % 5.5 %; Neutrophils # 12.02 10^3/uL (1.8-7.7); Neutrophils % 81.7 %; Nucleated Red Blood Cells % 0 %; Platelet Count 199 10^3/cmm (130-400); Red Blood Count 3.92 10^6/uL (4.1-5.3); Red Cell Distribution Width 13.2 % (12.1-15.1); White Blood Count 14.7 10^3/uL (4.0-10.0)
[2022-10-11 04:09] LABS: Lactate (Lactic Acid level) 1.6 mmol/L (0.5-2.2)
[2022-10-11 04:10] LABS: Alanine Aminotransferase 302 U/L (0-33); Albumin Level 2.9 g/dL (3.5-5.2); Alkaline Phosphatase 137 U/L (35-105); Anion Gap 14.7 (5-19); Aspartate Amino Transferase 238 U/L (0-32); Blood Urea Nitrogen 21 mg/dL (8-23); C Reactive Protein 129.8 mg/L (0.0-4.9); Calcium 8.2 mg/dL (8.5-10.5); Carbon Dioxide 24 mmol/L (22-29); Chloride 106 mmol/L (98-107); Globulin 2.3 g/dL (1.3-4.6); Glucose 127 mg/dL (65-115); Magnesium 1.8 mg/dL (1.7-2.3); Osmolality Calculated 297 mOsm/kg (285-295); Phosphorus 3.5 mg/dL (2.5-4.5); Potassium 3.7 mmol/L (3.5-5.1); Sodium 141 mmol/L (136-145); Total Bilirubin 0.4 mg/dL (0.15-1.2); Total Protein 5.2 g/dL (6.6-8.7)
[2022-10-11 04:40] LABS: ABG PH Result 7.46 (7.35-7.45); Arterial Blood Gas Hematocrit 38.6 % (37-47); Blood Gas Allen Test Pos; Blood Gas Operator Identificat JB; Blood Gas Sample Site Radial, right; Blood Gas Sample Type Arterial; HCO3 ABG 23.3 mmol/L (22-26); Oxygen Device VENT; PO2 ABG 83.1 mmHg (80.0-100.0)
[2022-10-11 04:41] LABS: Blood Gas Tidal Volume 0.45
--- NOTE | 2022-10-11 05:43 | CT_ITS ---
WS: [id number] CTA OF THE CHEST WITH PULMONARY EMBOLISM PROTOCOL TECHNIQUE: High-resolution contrast enhanced CTA of the chest with coronal and sagittal reformatted i westons with pulmonary embolism protocol. MIP images are also reviewed. CLINICAL INFORMATION: C arrest COMPARISON: None. DLP: 361.[address] scans at [facility] use at least one of these dose optimization techniques: automated e xposure control; mA and/or kV adjustment per patient size (includes targeted exams where dose is matc hed to clinical indication); or iterative reconstruction. FINDINGS:Proximal main pulmonary arteries are normal. Normal segmental and subsegmental pulmonary art eries. No evidence of pulmonary embolus. Small RIGHT greater than LEFT pleural effusions. Compressive atelectasis in the lung bases. Interstit ial edema in the lung bases. No pneumothorax. Normal caliber thoracic aorta. Aortic calcification. Coronary calcification. No axillary lymphadenopa thy. CT/CT angio chest PE protcl [id number] IMPRESSION: 1. No evidence of pulmonary embolus. 2. Small RIGHT greater than LEFT pleural effusions with compressive atelectasi s in the lung bases. 3. No other acute findings.
--- NOTE | 2022-10-11 05:43 | USCV_ITS ---
Agatha Graham Age: 77 Gender: F : 1945 Exam Date: 10/11/2022 06:29 Ordering Phys: Mai Perrin MD Technologist: MELVIN [place] [facility] [place]: arrest afib PROCEDURES: Venous duplex imaging was performed in bilateral lower extremities. FINDINGS: no ecidence of dvt identified CONCLUSIONS No evidence of right lower extremity DVT. No evidence of left lower extremity DVT. Gaurav Jimenez MD (Electronically Signed) Final Date: 11 October 2022 08:45 S
--- NOTE | 2022-10-11 05:46 | XR_ITS ---
WS: [id number] Portable AP semiupright chest, 10/11/2022 Clinical Data: CHF Comparison: Portable chest, 10/10/2022 Findings: The endotracheal tube, nasogastric tube and left subclavian catheter remain in the same pos ition. The heart is at the upper limits of normal. There are bilateral pulmonary opacities which prob ably represent pulmonary edema unchanged. Monitor leads are on the chest wall. XR/XR chest 1V portable [id number] Impression: No change in probable pulmonary vascular congestion.
--- NOTE | 2022-10-11 06:00 | PC.NURSE ---
Levophed running at 5ml/hr throughout this shift. Stopped Levo at 0550 on 10/11/22
--- NOTE | 2022-10-11 06:09 | PC.NURSE ---
Versed infusing at 2 mg/hr at the time twisthand assumed care. Dr. Perrin at bedside for morning rounds. Orders to stop Versed drip. Drip stopped at this time.
[2022-10-11] MEDS: FUROsemide 10 mg/mL SDV 4mL 40 MG IVP (06:12)
[2022-10-11] MEDS: potassium chloride ER 20 mEq Tablet 40 MEQ NG-TUBE (06:13)
[2022-10-11] MEDS: piperacillin-tazobactam 3.375 GM in sodium chloride 0.9% (plus) 50 ML IV ×3 (07:07→23:18)
[2022-10-11 07:09] LABS: Glucose Point of Care 114 mg/dL (70-110)
--- NOTE | 2022-10-11 07:54 | PC.NURSE ---
weaning sedation at this pt alert and oriented on vent preparing for weaning this am .. family at bedside moves all extremities
--- NOTE | 2022-10-11 07:56 | PM.PN ---
Subjective Subjective: Overnight urine output 550 Creatinine 1.3 Quested CTA for high D-dimer Rule out PE White count 14.7 hemoglobin 11, ABG with normal PO2 and PCO2 Alkalosis signs Bicarb improved bicarb drip has been turned off Levophed has been turned off Asked ICU nurse to wean off sedation and start weaning trials As per the nursing staff patient was able to lift her head when they were doing CT scan, she opened her eyes as well as per the family Liver enzymes trending down Given IV Lasix Turn off fluids Afebrile, temperature not noted in the vitals however as per the nursing staff Temperature was around 100.0 Family meeting conducted, Vitals/I&O/Wt Last Vital Signs Pulse 118 H 10/11/22 07:50 Resp 19 H 10/11/22 07:50 BP 105/66 10/10/22 19:55 Pulse Ox 94 10/11/22 07:50 O2 Del Method 10/11/22 07:50 FiO2 40 10/11/22 07:50 10/10/22 10/11/22 10/11/22 22:59 06:59 14:59 Intake Total 56.340 / 56.340 7.25 / 63.590 155.935 / 155.935 Output Total 200 / 200 350 / 550 Balance -143.660 / -143.660 -342.75 / -486.410 155.935 / 155.935 Weight last 48 hrs Weight 66.996 kg Physical Exam Narrative: Patient is intubated and sedated Euvolemic Good urine output Abdomen soft No audible stridor or wheezing FiO2 50% Off sedation Hemodynamically stable Off Levophed Currently on amiodarone drip Normal sinus rhythm hemodynamically stable Urinary Catheter Management: Mathews: Cath Placed During This Visit: yes Reason for Continuing Indwelling Catheter: Required Immobilization for Trauma or Surgery or Anesthesia Urinary Catheter Date of Insertion: 10/10/22 Urinary Catheter Time of Insertion: 16:20 Data 10/11/22 03:29 10/11/22 03:29 Micro: Microbiology 10/10/22 16:40 Blood Culture - Preliminary Blood SPECIMEN COLLECTED 10/10/22 16:40 Blood Culture - Preliminary Blood SPECIMEN COLLECTED A&P Assessment and plan (1) Cardiac arrest due to underlying cardiac condition: (2) Cardiac arrest with successful resuscitation: (3) Coronary artery disease: (4) Cardiac arrest with ventricular fibrillation: (5) Anticoagulation adequate with anticoagulant therapy: (6) Atrial fibrillation: (7) Ischemic cardiomyopathy: (8) Hyperlipidemia: (9) Metabolic acidosis: (10) Pulmonary edema: Plan Respiratory failure required mechanical ventilation Weaning trial today Sedation vacation FiO2 50% Turn off for sat Turn off fentanyl Patient is off Levophed Status post cardiac arrest V-fib rhythm 20 to [address] CPR [address] did not show any signs of cerebral edema As per the family she did show signs of good recovery with eye-opening, head movement and gag reflex Metabolic acidosis due to lactic acidemia: Improved Bicarb drip turned off Pulm edema due to ischemic cardiomyopathy Given 1 dose of Lasix Turned off IV fluid Cardiac arrhythmia Continue amiodarone drip for 24 hours switch to p.o. amiodarone Monitor for any signs of bradycardia Cardiogenic shock: Resolved off Levophed Full code Resume diet after extubation Via NG-tube she should get aspirin and Plavix for recent stent Paroxysmal A-fib, currently on amiodarone drip She will need transition to Eliquis at the time of discharge Currently on therapeutic Lovenox High D-dimer: Rule out PE requested CTA chest today and venous Doppler Attestations Medical Necessity Statement*: Continue ICU management Diagnoses Cardiac arrest due to underlying cardiac condition I46.2 Cardiac arrest with successful resuscitation I46.9 Coronary artery disease I25.10 Cardiac arrest with ventricular fibrillation I46.9; I49.01 Anticoagulation adequate with anticoagulant therapy Z79.01 Atrial fibrillation I48.91 Ischemic cardiomyopathy I25.5 Hyperlipidemia E78.5 Metabolic acidosis E87.20 Pulmonary edema J81.1
--- NOTE | 2022-10-11 08:22 | P.PN_ITS ---
Subjective Subjective: Elena remains intubated and in the ICU. For details of the history of present illness see my note from yesterday. Overnight she has been moving around. She is clearly neurologically intact. We have weaned the sedation starting this morning. Blood pressures are running in the mid 100s. Oxygen s aturations are normal on an FiO2 of 40%. She has gone back into atrial fibrillation not unexpectedly. Her pH this morning is 7.46 with a PCO2 of 33. The troponin yesterday was quite high 7678. The second was 6809 and the third was 8378. Her BNP was 8800. Vitals/I&O/Wt Last Vital Signs Pulse 118 H 10/11/22 07:50 Resp 19 H 10/11/22 07:50 BP 105/66 10/10/22 19:55 Pulse Ox 94 10/11/22 07:50 O2 Del Method 10/11/22 07:50 FiO2 40 10/11/22 07:50 10/10/22 10/11/22 10/11/22 22:59 06:59 14:59 Intake Total 56.340 / 56.340 7.25 / 63.590 155.935 / 155.935 Output Total 200 / 200 350 / 550 Balance -143.660 / -143.660 -342.75 / -486.410 155.935 / 155.935 Weight last 48 hrs Weight 147 lb 11.2 oz Physical Exam Narrative: GENERAL: Awake and moving around. Still intubated. HEENT: Exam within normal limits. NECK: Supple without jugular vein distention. The carotid upstroke is normal w ithout bruits. BACK: Exam normal. LUNGS: Clear. HEART: Irregular rate and rhythm. ABDOMEN: Benign without organomegaly or tenderness. EXTREMITIES: No edema. NEUROLOGIC: Exam normal. SKIN: Unremarkable. Urinary Catheter Management: Mathews: Cath Placed During This Visit: yes Reason for Continuing Indwelling Catheter: Required Immobilization for Trauma or Surgery or Anesthesia Urinary Catheter Date of Insertion: 10/10/22 Urinary Catheter Time of Insertion: 16:20 Data 10/11/22 03:29 10/11/22 03:29 Micro: Microbiology 10/10/22 16:40 Blood Culture - Preliminary Blood SPECIMEN COLLECTED 10/10/22 16:40 Blood Culture - Preliminary Blood SPECIMEN COLLECTED A&P Assessment and plan (1) Pulmonary edema: (2) Metabolic acidosis: (3) Cardiac arrest due to underlying cardiac condition: (4) Cardiac arrest with successful resuscitation: (5) Coronary artery disease: (6) Cardiac arrest with ventricular fibrillation: (7) Anticoagulation adequate with anticoagulant therapy: (8) Atrial fibrillation: (9) Ischemic cardiomyopathy: (10) Hyperlipidemia: (11) ST elevation (STEMI) myocardial infarction: (12) Hypertension: Plan The actual etiology of the arrest is still unclear to me. We have ruled out structural heart issues such as a ventricular rupture or septal rupture. The arteries are still open. She has had a large increase in her troponin again. The only other logical cause for this would be an arrhythmia. I suspect it was because of the anterior MA however there could be have been a proarrhythmic effect from the amiodarone. She had only been on the amiodarone for a day so that would be less likely as well. Today we will try to wean down the ventilator and get her extubated. We will have to decide whether to continue the amiodarone. I think I will for now and monitor her heart rate and rhythm while we have her here. If she remains in A-fib tomorrow after extubation we co uld consider cardioverting her. Attestations Medical Necessity Statement*: Needs hospital stay for management of out of hospital cardiac arrest. and High Time for a total of 40 minutes, includes reviewing past or interval history, examining/interviewing patient, placing orders, counseling patient/family/other support, updating patient/family/other support, discussing plan of care with staff, communicating with other healthcare providers, documenting encounter and coordinating care Diagnoses Pulmonary edema J81.1 Metabolic acidosis E87.20 Cardiac arrest due to underlying cardiac condition I46.2 Cardiac arrest with successful resuscitation I46.9 Coronary artery disease I25.10 Cardiac arrest with ventricular fibrillation I46.9; I49.01 Anticoagulation adequate with anticoagulant therapy Z79.01 Atrial fibrillation I48.91 Ischemic cardiomyopathy I25.[address] elevation (STEMI) myocardial infarction I21.3 Hypertension I10
[2022-10-11] MEDS: atorvastatin 40 mg Tablet 80 MG PO (08:50)
[2022-10-11] MEDS: clopidogrel 75 mg Tablet PO (08:50)
[2022-10-11] MEDS: pantoprazole 40 mg SDV IVP ×2 (08:50→17:34)
[2022-10-11] MEDS: aspirin 81 mg EC Tablet PO (08:52)
--- NOTE | 2022-10-11 09:20 | PC.NURSE ---
weaned off vent extubated at this time placed on nc at 4lnc responds to all question moves all extremities at this time . negron with increased urine output noted
--- NOTE | 2022-10-11 09:42 | PC.NURSE ---
foot pumps applied scd not avalible pt size
[2022-10-11] MEDS: iohexol 350 mg/mL 500 mL Btl (per mL) IV (10:57)
[2022-10-11 10:58] LABS: Glucose Point of Care 114 mg/dL (70-110)
--- NOTE | 2022-10-11 13:02 | PC.NURSE ---
Heart rate remains elevated no distress noted at this time .. Dr Etienne here aware will monitor
--- NOTE | 2022-10-11 13:43 | PC.NURSE ---
wasted 242 mg of fen and versed 64 mg witness vishnu ma
[2022-10-11] MEDS: acetylcysteine 200 mg/mL MDV 10 mL 100 MG INHALATION ×3 (16:22→23:56)
[2022-10-11] MEDS: levalbuterol 0.63 mg/3 mL Neb INHALATION ×3 (16:22→23:56)
--- NOTE | 2022-10-11 16:38 | PC.RESP ---
Dr Perrin called to verify giving treatment due to pt having increased HR throughout the day. Order for ezpap received
--- NOTE | 2022-10-11 16:49 | PC.NURSE ---
Dr drake called about heart rate elevated no change in orders as blood pressure lower cannot increase beta blockers and ammio infusing
[2022-10-12] VITALS (55 sets, daily range): BP systolic 80–150; BP diastolic 45–110; PULSE 77–135; RESP 20–43; TEMP 36.9–38; O2SAT 85–95
--- NOTE | 2022-10-12 04:00 | XRR_ITS ---
PROCEDURE INFORMATION: Exam: XR Chest Exam date and time: 10/12/2022 4:32 AM Age: 77 years old Clinical indication: Other: Edema; Additional info: Oedema TECHNIQUE: Imaging protocol: Radiologic exam of the chest. Views: 1 view. COMPARISON: CR XR chest 1V portable [id number] 10/11/2022 6:13 AM FINDINGS: Tubes, catheters and devices: Left subclavian central venous catheter is seen with tip overlying the lower superior vena cava. Lungs: Normal lung volumes. Unchanged right basilar mild interstitial opacities with small right pleural effusion. Pleural spaces: No pneumothorax. Heart/Mediastinum: Normal heart size. There is a mildly tortuous thoracic aorta. Midline trachea. Bones/joints: No acute osseous abnormalities seen. Soft tissues: Multiple external densities are seen overlying the chest, limiting assessment. XR/XR chest 1V portable [id number] IMPRESSION: Unchanged right basilar mild interstitial opacities with small right pleural effusion.
[2022-10-12] MEDS: enoxaparin 80 mg/0.8 mL Syringe 70 MG SUBCUT ×2 (04:34→15:18)
[2022-10-12] MEDS: levalbuterol 0.63 mg/3 mL Neb INHALATION ×6 (04:35→23:32)
[2022-10-12] MEDS: acetylcysteine 200 mg/mL MDV 10 mL 100 MG INHALATION ×5 (04:35→23:32)
[2022-10-12 04:43] LABS: Basophils # 0.1 10^3/uL (0.0-0.1); Basophils % 0.5 %; Hematocrit 38.9 % (37.0-47.0); Hemoglobin 12.4 g/dL (11.5-15.3); Lymphocytes % 7.7 %; Mean Corpuscular HGB Conc 31.9 g/dL (30.0-36.0); Mean Corpuscular Hemoglobin 30.8 pg (28.0-34.0); Mean Corpuscular Volume 96.5 fl (81-99); Mean Platelet Volume 11.3 fL (7.4-10.4); Monocytes % 8.1 %; Neutrophils # 10.51 10^3/uL (1.8-7.7); Neutrophils % 83.3 %; Nucleated Red Blood Cells % 0 %; Platelet Count 187 10^3/cmm (130-400); Red Blood Count 4.03 10^6/uL (4.1-5.3); Red Cell Distribution Width 13.3 % (12.1-15.1); White Blood Count 12.6 10^3/uL (4.0-10.0)
[2022-10-12] MEDS: FUROsemide 10 mg/mL SDV 4mL 40 MG IVP (05:07)
[2022-10-12 05:17] LABS: Alanine Aminotransferase 244 U/L (0-33); Alkaline Phosphatase 126 U/L (35-105); Anion Gap 16.5 (5-19); Aspartate Amino Transferase 157 U/L (0-32); Blood Urea Nitrogen 19 mg/dL (8-23); Calcium 8.2 mg/dL (8.5-10.5); Carbon Dioxide 25 mmol/L (22-29); Chloride 104 mmol/L (98-107); Globulin 2.7 g/dL (1.3-4.6); Glucose 128 mg/dL (65-115); Magnesium 1.9 mg/dL (1.7-2.3); Osmolality Calculated 298 mOsm/kg (285-295); Potassium 3.5 mmol/L (3.5-5.1); Sodium 142 mmol/L (136-145); Total Bilirubin 0.5 mg/dL (0.15-1.2); Total Protein 5.7 g/dL (6.6-8.7)
[2022-10-12] MEDS: lidocaine 1% 5 ML in potassium chloride premix 100 ML 26.25 ML IV (06:37)
[2022-10-12] MEDS: piperacillin-tazobactam 3.375 GM in sodium chloride 0.9% (plus) 50 ML IV ×3 (07:21→22:36)
[2022-10-12] MEDS: aspirin 81 mg EC Tablet PO (08:29)
[2022-10-12] MEDS: atorvastatin 40 mg Tablet 80 MG PO (08:29)
[2022-10-12] MEDS: pantoprazole 40 mg SDV IVP ×2 (08:29→17:20)
[2022-10-12] MEDS: clopidogrel 75 mg Tablet PO (08:29)
[2022-10-12] MEDS: FUROsemide 20 mg Tablet PO (08:30)
--- NOTE | 2022-10-12 08:46 | PM.PN ---
Subjective Subjective: Low-grade fever Patient converted to sinus rhythm around 4 AM I will keep her on amiodarone until cardiology has seen her today Hemodynamically stable Currently on 3 L Poor p.o. intake Left arm weakness Creatinine 1.3 Leukocytosis trending down Liver enzymes trending down Adequate urine output Chest x-ray showing right lower lobe infiltrate with vascular congestion and atelectasis Vitals/I&O/Wt Last Vital Signs Temp 100.4 F H 10/11/22 21:00 Pulse 82 10/12/22 08:00 Resp 27 H 10/12/22 08:00 BP 139/75 10/12/22 08:00 Pulse Ox 93 10/12/22 08:00 O2 Del Method 10/12/22 07:50 O2 Flow Rate 3 10/12/22 07:50 FiO2 40 10/11/22 16:00 10/11/22 10/12/22 10/12/22 22:59 06:59 14:59 Intake Total 622.047 / 1054.165 50 / 50 Output Total 450 / 2450 Balance 622.047 / -945.835 -450 / -1395.835 50 / 50 Weight last 48 hrs Weight 66.996 kg Physical Exam Narrative: Patient is awake and alert Fatigued and lethargic Clinically dry Abdomen soft S1, S2 sinus rhythm hemodynamically stable currently on 3 L No rhonchi or crackles Able to comprehend Left arm weakness Able to lift with some effort Family at the bedside Mathews cath draining dilute urine Pleasant and cooperative EOMI, PERRLA Urinary Catheter Management: Mathews: Cath Placed During This Visit: yes Reason for Continuing Indwelling Catheter: Accurate Measurement of Urinary Output in Critically Ill Patients Urinary Catheter Date of Insertion: 10/10/22 Urinary Catheter Time of Insertion: 16:20 Data 10/12/22 04:16 10/12/22 04:16 Micro: Microbiology 10/10/22 17:40 Gram Stain - Final Sputum - Endotracheal Tube Aspirate 10/10/22 16:40 Blood Culture - Preliminary Blood NEGATIVE TO DATE 10/10/22 16:40 Blood Culture - Preliminary Blood NEGATIVE TO DATE A&P Assessment and plan (1) Pulmonary edema: (2) Metabolic acidosis: (3) Cardiac arrest due to underlying cardiac condition: (4) Coronary artery disease: (5) Cardiac arrest with ventricular fibrillation: (6) Atrial fibrillation: (7) Ischemic cardiomyopathy: (8) Aspiration pneumonia: Plan Cardiac arrest secondary to V-fib Patient successfully extubated since 10/11 to 3 L nasal cannula She is getting Mucomyst with bronchodilators Patient had Xopenex Will need OT/PT/speech therapy CT rule out PE no signs of clot No DVT No signs of tamponade or tension pneumothorax Dysphagia related to Igel and intubation, Advance diet as per speech therapy recommendations A-fib RVR patient converted to sinus rhythm around 4 AM transition to p.o. amiodarone as per cardiology recommendations today She is n.p.o. no indication for cardioversion Pulm edema, aspiration pneumonia Continue Lasix and continue Zosyn Check MRSA PCR Low-grade fever noted Leukocytosis trending down Metabolic acidosis: Resolved RACHELLE: Cardiorenal: Stable Cardiogenic shock off Levophed Full code Resume diet after cardiology evaluation Continue aspirin and Plavix for recent PCI She can be transferred out of ICU if she remains stable Disposition plan Home versus SNF/rehab depending on her progress and PT evaluation Attestations Medical Necessity Statement*: Can be transferred out of ICU Diagnoses Pulmonary edema J81.1 Metabolic acidosis E87.20 Cardiac arrest due to underlying cardiac condition I46.2 Coronary artery disease I25.10 Cardiac arrest with ventricular fibrillation I46.9; I49.01 Atrial fibrillation I48.91 Ischemic cardiomyopathy I25.5 Aspiration pneumonia J69.0
--- NOTE | 2022-10-12 08:51 | PC.NURSE ---
awake and alert family in room at bedside monitor vs meds given with applesauce. noted hyper exageration of task asked to do . opens mouth overly wide to take bites of food must be instructed to close mouth
[2022-10-12 09:44] LABS: Creatine Phosphokinase 6532 U/L (26-192)
--- NOTE | 2022-10-12 11:21 | ECG_ITS ---
[facility] Test Date: 2022-10-12 Pat Name: Agatha Graham Department: Room: [facility] Gender: Female Sap Bpc Architect: : [id number] Requested By: Tian Etienne Order Number: [id number] Oli MD: Lani Avery M.D. Measurements Intervals [place] Rate: 86 P: 92 IL: 148 QRS: 90 QRSD: 78 T: 0 QT: 374 QTc: 448 Interpretive Statements SINUS RHYTHM POSSIBLE LEFT ATRIAL ENLARGEMENT [-0.1mV P-WAVE IN V1/V2] LOW QRS VOLTAGE [QRS DEFLECTION < 0.5/1.0 mV IN LIMB/CHEST LEADS] ANTEROSEPTAL MYOCARDIAL INFARCTION , OF INDETERMINATE AGE [40+ ms Q WAVE IN V1-V4] Compared to ECG 10/10/2022 22:27:08 Low QRS voltage now present Left-axis deviation no longer present Myocardial infarct finding still present Electronically Signed On 10-13-2022 23:18:50 CDT by Lani Avery M.D. [id number]
[2022-10-12] MEDS: amiodarone 200 mg Tablet 400 MG PO ×2 (11:24→17:20)
--- NOTE | 2022-10-12 11:41 | P.PN_ITS ---
Subjective Subjective: Cardiology coverage The patient's medical record was reviewed .Patient is admitted to hospital after a prolonged cardiac resuscitation. the patient is feeling better. She is currently extubated. According to the family, she is confused intermittently. No chest pain or shortness of breath. No vital signs are stable. She has a low-grade fever 100.4 degrees today. She is on IV antibiotics. She is off the pressors. She also is off IV amiodarone. Currently on p.o. amiodarone. Medications: Medication Review Details: Current Medications Acetaminophen (Acetaminophen 500 Mg Tablet) 500 mg PO Q4H PRN PRN Reason: fever Acetylcysteine (Acetylcysteine 200 Mg/Ml Mdv 10 Ml) 100 mg INHALATION Q4H.RESPIRATORY [facility] Last Admin: 10/12/22 07:55 Dose: 100 mg Albuterol/Ipratropium (Ipratropium-Albuterol 3 Ml Neb) 3 ml INHALATION Q6H PRN PRN Reason: SHORTNESS OF BREATH Amiodarone HCl (Amiodarone 200 Mg Tablet) 400 mg PO BID [facility] Last Admin: 10/12/22 11:24 Dose: 400 mg Aspirin (Aspirin 81 Mg Ec Tablet) 81 mg PO DAILY [facility] Last Admin: 10/12/22 08:29 Dose: 81 mg Atorvastatin Calcium (Atorvastatin 40 Mg Tablet) 80 mg PO DAILY [facility] Last Admin: 10/12/22 08:29 Dose: 80 mg Clopidogrel Bisulfate (Clopidogrel 75 Mg Tablet) 75 mg PO DAILY [facility] Last Admin: 10/12/22 08:29 Dose: 75 mg Enoxaparin Sodium (Enoxaparin 80 Mg/0.8 Ml Syringe) 70 mg SUBCUT Q12H [facility] Last Admin: 10/12/22 04:34 Dose: 70 mg Furosemide (Furosemide 10 Mg/Ml Sdv 4ml) 40 mg IVP Q24H [facility] Last Admin: 10/12/22 05:07 Dose: 40 mg Furosemide (Furosemide 20 Mg Tablet) 20 mg PO DAILY@0800 [facility] Last Admin: 10/12/22 08:30 Dose: 20 mg Norepinephrine Bitartrate 4 mg (/ Dextrose) 254 mls @ 0 mls/hr IV .Q0M [facility]; Protocol Sodium Bicarbonate 150 meq/ (Dextrose) 1,150 mls @ 50 mls/hr IV .Q23H [facility] Last Admin: 10/10/22 18:30 Dose: 50 mls/hr Sodium Chloride (Sodium Chloride 0.9%) 1,000 mls @ 75 mls/hr IV .[id number] [facility] Last Admin: 10/10/22 21:10 Dose: 75 mls/hr Midazolam HCl 100 mg/ Sodium (Chloride) 100 mls @ 0 mls/hr IV .Q0M [facility]; Protocol Fentanyl 2,500 mcg/ Sodium (Chloride) 250 mls @ 0 mls/hr IV .Q0M [facility]; Protocol Last Titration: 10/11/22 13:42 Dose: Infused Piperacillin Sod/Tazobactam (Sod 3.375 gm/ Sodium Chloride) 50 mls @ 12.5 mls/hr IV Q8H [facility] Last Infusion: 10/12/22 11:24 Dose: Infused Amiodarone HCl 900 mg/Dextrose/ IV Miscellaneous Supplies 518 mls @ 17.267 mls/hr IV CONT [facility] Last Admin: 10/11/22 19:49 Dose: 0.5 mg/min, 17.27 mls/hr Levalbuterol HCl (Levalbuterol 0.63 Mg/3 Ml Neb) 0.63 mg INHALATION Q4H.RESPIRATORY [facility] Last Admin: 10/12/22 07:55 Dose: 0.63 mg Ondansetron HCl (Ondansetron 2 Mg/Ml Sdv 2 Ml) 4 mg IVP Q6H PRN PRN Reason: NAUSEA AND VOMITING Pantoprazole Sodium (Pantoprazole 40 Mg Sdv) 40 mg IVP BID [facility] Last Admin: 10/12/22 08:29 Dose: 40 mg Vitals/I&O/Wt Last Vital Signs Temp 100.4 F H 10/12/22 08:30 Pulse 79 10/12/22 10:00 Resp 39 H 10/12/22 10:00 BP 140/85 10/12/22 09:30 Pulse Ox 94 10/12/22 10:00 O2 Del Method 10/12/22 07:50 O2 Flow Rate 3 10/12/22 07:50 FiO2 40 10/11/22 16:00 10/11/22 10/12/22 10/12/22 22:59 06:59 14:59 Intake Total 622.047 / 1054.165 100 / 100 Output Total 450 / 2450 1999 Balance 622.047 / -945.835 -450 / -1395.835 -1900 / -1900 Weight last 48 hrs Weight 147 lb 11.2 oz Physical Exam Narrative: GENERAL: The patient is alert and oriented to place and person. Not in any acute distress. HEENT: No significant pallor, icterus or lymphadenopathy.Oral cavity: There are no mucous membrane lesions. NECK: Trachea appears to be central. No masses noted. No JVD or thyromegaly appreciated. RESPIRATORY: Chest is symmetrical. No intercostals muscle retraction or any accessory muscle activation. Has some chest wall tenderness in the precordial area. Breath sounds are heard bilaterally. No rales or rhonchi heard. No evidence of any consolidation. BREASTS: Deferred. HEART: The heart sounds are normal. No S3 or S4. No significant murmurs. No pericardial rub ABDOMEN: No vessel pulsations or distention. No tenderness. No organomegaly appreciated. Bowel sounds are normally heard. : Deferred. RECTAL: Deferred. LYMPHATIC: No lymphadenopathy noted in the neck. EXTREMITIES: No edema or cyanosis. No clubbing. MUSCULOSKELETAL: No acute joint deformities or swelling SKIN: There are no significant rashes or ecchymosis NEUROPSYCHIATRIC: The patient is alert and oriented x2. Appears to be in a good mood. No tremors or rigidity noted. Urinary Catheter Management: Mathews: Cath Placed During This Visit: yes Reason for Continuing Indwelling Catheter: Accurate Measurement of Urinary Output in Critically Ill Patients Urinary Catheter Date of Insertion: 10/10/22 Urinary Catheter Time of Insertion: 16:20 Data 10/12/22 04:16 10/12/22 04:16 Other Labs: Laboratory Last Values WBC 12.6 10^3/uL (4.0-10.0) H 10/12/22 04:16 RBC 4.03 10^6/uL (4.1-5.3) L 10/12/22 04:16 Hgb 12.4 g/dL (11.5-15.3) 10/12/22 04:16 Hct 38.9 % (37.0-47.0) 10/12/22 04:16 MCV 96.5 fl (81-99) 10/12/22 04:16 MCH 30.8 pg (28.0-34.0) 10/12/22 04:16 MCHC 31.9 g/dL (30.0-36.0) 10/12/22 04:16 RDW 13.3 % (12.1-15.1) 10/12/22 04:16 Plt Count 187 10^3/cmm (130-400) 10/12/22 04:16 MPV 11.3 fL (7.4-10.4) H 10/12/22 04:16 Neut % (Auto) 83.3 % 10/12/22 04:16 Lymph % (Auto) 7.7 % 10/12/22 04:16 [place] % (Auto) 8.1 % 10/12/22 04:16 Eos % (Auto) 0.0 % 10/12/22 04:16 Baso % (Auto) 0.5 % 10/12/22 04:16 Neut # (Auto) 10.51 10^3/uL (1.8-7.7) H 10/12/22 04:16 Lymph # (Auto) 1.0 10^3/uL (0.8-4.8) 10/12/22 04:16 [place] # (Auto) 1.0 10^3/uL (0.2-0.9) H 10/12/22 04:16 Eos # (Auto) 0.0 10^3/uL (0.0-0.8) 10/12/22 04:16 Baso # (Auto) 0.1 10^3/uL (0.0-0.1) 10/12/22 04:16 Nucleated RBC % (auto) 0 % 10/12/22 04:16 Total Counted 100 (0-100) 10/10/22 16:45 Atypical Lymphs % 0.0 % (0-5) 10/10/22 16:45 Absolute Neutrophils 13.9 10^3/cmm (1.4-6.5) H 10/10/22 16:45 Segmented Neutrophils 81 % 10/10/22 16:45 Abs Segm Neuts (Man) 13.9 10/cmm (1.6-7.1) H 10/10/22 16:45 Band Neutrophils 0.0 % 10/10/22 16:45 Abs Band Neuts (Man) 0.0 10^3/cmm (0.0-1.2) 10/10/22 16:45 Absolute Lymphocytes 2.2 10^3/cmm (1.2-3.4) 10/10/22 16:45 Lymphocytes (Manual) 13 % 10/10/22 16:45 Monocytes (Manual) 0.0 % 10/10/22 16:45 Absolute Monocytes 0.0 10^3/cmm (0.1-0.6) L 10/10/22 16:45 Eosinophils (Manual) 0 % 10/10/22 16:45 Absolute Eosinophils 0.0 10^3/cmm (0.0-0.7) 10/10/22 16:45 Basophils (Manual) 0.0 % 10/10/22 16:45 Absolute Basophils 0.0 10^3/cmm (0.0-0.2) 10/10/22 16:45 Metamyelocytes 1.0 % 10/10/22 16:45 Myelocytes 5.0 % 10/10/22 16:45 Nucleated RBCs # 0.0 /100WBC 10/12/22 04:16 Platelet Estimate Normal (Normal) 10/10/22 16:45 D-Dimer >= 20.00 ug/mIFEU (0-0.59) H 10/10/22 18:30 Specimen Type Arterial 10/11/22 04:27 Sample Site Radial, right 10/11/22 04:27 ABG pH 7.46 (7.35-7.45) H 10/11/22 04:27 ABG pCO2 33.0 mmHg (35-45) L 10/11/22 04:27 ABG pO2 83.1 mmHg (80.0-100.0) 10/11/22 04:27 ABG HCO3 23.3 mmol/L (22-26) 10/11/22 04:27 ABG O2 Saturation 99.4 10/10/22 16:20 ABG Base Excess 0.0 mmol/L (-2.0-2.0) 10/11/22 04:27 Fidencio Test Pos 10/11/22 04:27 A-a O2 Gradient 50.1 mmHg (5-10) H 10/10/22 16:20 Hematocrit 38.6 % (37-47) 10/11/22 04:27 Hgb O2 Saturation 98.3 % (95-100) 10/10/22 16:20 Carboxyhemoglobin 0.5 %THgb (0.4-20.1) 10/10/22 16:20 Methemoglobin 0.5 % (0.4-1.5) 10/10/22 16:20 Total Hemoglobin 13.1 g/dL (12-16) 10/10/22 16:20 Sodium 137.0 mmol/L (131-143) 10/10/22 16:20 Potassium 4.5 mmol/L (3.5-5.0) 10/10/22 16:20 Glucose 233.0 mg/dL (70-115) H 10/10/22 16:20 Ionized Calcium 1.2 mmol/L (1.1-1.4) 10/10/22 16:20 O2 Delivery Device Vent 10/11/22 04:27 O2 Liters/Min 15.0 % 10/10/22 16:20 FiO2 50.0 % 10/11/22 04:27 Tidal Volume 0.45 10/11/22 04:27 PEEP 5.0 cmH20 10/11/22 04:27 Offset Assistant Press Operator ID Sang 10/11/22 04:27 Sodium 142 mmol/L (136-145) 10/12/22 04:16 Potassium 3.5 mmol/L (3.5-5.1) 10/12/22 04:16 Chloride 104 mmol/L (98-107) 10/12/22 04:16 Carbon Dioxide 25 mmol/L (22-29) 10/12/22 04:16 Anion Gap 16.5 (5-19) 10/12/22 04:16 BUN 19 mg/dL (8-23) 10/12/22 04:16 Creatinine 1.2 mg/dL (0.5-0.9) H 10/12/22 04:16 GFR Calculation Not Reportable 10/12/22 04:16 Glucose 128 mg/dL (65-115) H 10/12/22 04:16 POC Glucose 114 mg/dL (70-110) H 10/11/22 10:56 Calculated Osmolality 298 mOsm/kg (285-295) H 10/12/22 04:16 Lactic Acid 8.0 mmol/L (0.5-2.2) H* 10/10/22 16:45 Lactate 1.6 mmol/L (0.5-2.2) 10/11/22 03:29 Calcium 8.2 mg/dL (8.5-10.5) L 10/12/22 04:16 Phosphorus 3.5 mg/dL (2.5-4.5) 10/11/22 03:29 Magnesium 1.9 mg/dL (1.7-2.3) 10/12/22 04:16 Total Bilirubin 0.5 mg/dL (0.15-1.2) 10/12/22 04:16 AST 157 U/L (0-32) H 10/12/22 04:16 ALT 244 U/L (0-33) H 10/12/22 04:16 Alkaline Phosphatase 126 U/L (35-105) H 10/12/22 04:16 Creatine Kinase 6532 U/L (26-192) H* 10/12/22 04:16 Troponin T Baseline 7678 ng/L (0-10) H* 10/10/22 16:40 Troponin T 120 Minute 6809 ng/L (0-10) H 10/10/22 18:30 Delta Troponin T -869 ABS# (0-10) L 10/10/22 18:30 Troponin T Hi Sens 6Hr 8378 ng/L (0-10) H 10/10/22 22:35 Troponin T Hi Sens 6Hr Delta 700 ng/L (0-12) H* 10/10/22 22:35 C-Reactive Protein 129.8 mg/L (0.0-4.9) H 10/11/22 03:29 NT-Pro-B Natriuret Pep 8800 pg/mL (0-450) H 10/10/22 16:45 Total Protein 5.7 g/dL (6.6-8.7) L 10/12/22 04:16 Albumin 3.0 g/dL (3.5-5.2) L 10/12/22 04:16 Globulin 2.7 g/dL (1.3-4.6) 10/12/22 04:16 Urine Color Yellow (Yellow) 10/10/22 18:32 Urine Appearance Hazy (CLEAR) A 10/10/22 18:32 Urine pH 5 (5-7) 10/10/22 18:32 Ur Specific Seibert 1.010 (1.005-1.030) 10/10/22 18:32 Urine Protein 1+ (Negative) H 10/10/22 18:32 Urine Glucose (UA) Trace (Normal) H 10/10/22 18:32 Urine Ketones Negative (Negative) 10/10/22 18:32 Urine Blood 3+ (Negative) H 10/10/22 18:32 Urine Nitrate Negative (Negative) 10/10/22 18:32 Urine Bilirubin Neg (Negative) 10/10/22 18:32 Urine Urobilinogen 1 mg/dL (Negative) H 10/10/22 18:32 Ur Leukocyte Esterase Negative (Negative) 10/10/22 18:32 Urine RBC Rare /hpf (0-2) 10/10/22 18:32 Urine WBC Rare /hpf (0-5) 10/10/22 18:32 Ur Squamous Epith Cells None /hpf (0-5) 10/10/22 18:32 Amorphous Sediment 2+ /hpf 10/10/22 18:32 Urine Bacteria Trace /hpf (NONE) 10/10/22 18:32 Micro: Microbiology 10/10/22 17:40 Gram Stain - Final Sputum - Endotracheal Tube Aspirate 10/10/22 16:40 Blood Culture - Preliminary Blood NEGATIVE TO DATE 10/10/22 16:40 Blood Culture - Preliminary Blood NEGATIVE TO DATE A&P Assessment and plan (1) Cardiac arrest with successful resuscitation: Patient has not had any recurrence of this event, since hospital admission. We will continue on the current measures. (2) Cardiac arrest with ventricular fibrillation: Ventricular arrhythmias on the monitor. We will continue on the current measures. (3) Atrial fibrillation: Patient he is in sinus rhythm at this time. The IV amiodarone was changed to p.o. If she continues to remain stable, may be moved to the telemetry floor. (4) Pulmonary edema: Currently resolved. May continue on the current medications (5) Metabolic acidosis: Resolved. (6) Hyperlipidemia: Continue on the current medications (7) Hypertension: Currently normotensive. We will Plan Low-grade fever, etiology? Possible aspiration pneumonia. Leukocytosis Acute kidney injury Status post PCI the latest carotid Doppler examination findings are discussed. Since the patient has no specific symptoms of carotid insufficiency, advised to continue on the current treatment measures. We will have the follow-up evaluation as scheduled. M May continue on the current antibiotics. May be transferred to telemetry floor this afternoon Attestations Medical Necessity Statement*: Patient requires continued hospital stay for close monitoring and further management Coding Level of Care Code 26727 Diagnoses Cardiac arrest with successful resuscitation I46.9 Cardiac arrest with ventricular fibrillation I46.9; I49.01 Atrial fibrillation I48.91 Pulmonary edema J81.1 Metabolic acidosis E87.20 Hyperlipidemia E78.5 Hypertension I10
--- NOTE | 2022-10-12 12:29 | PC.NURSE ---
Up with assist of 2 total assist almost no weight bearing to recliner at this time speech here to assist with noon meal
[2022-10-13] VITALS (36 sets, daily range): BP systolic 93–145; BP diastolic 52–101; PULSE 80–98; RESP 16–39; TEMP 36.6–37.6; O2SAT 90–95
[2022-10-13] MEDS: acetylcysteine 200 mg/mL MDV 10 mL 100 MG INHALATION ×4 (03:37→16:04)
[2022-10-13] MEDS: levalbuterol 0.63 mg/3 mL Neb INHALATION ×6 (03:37→23:47)
[2022-10-13] MEDS: enoxaparin 80 mg/0.8 mL Syringe 70 MG SUBCUT ×2 (04:11→15:07)
[2022-10-13 05:40] LABS: Basophils % 0.3 %; Eosinophils % 0.1 %; Hemoglobin 11.5 g/dL (11.5-15.3); Lymphocytes # 0.8 10^3/uL (0.8-4.8); Lymphocytes % 7.1 %; Mean Corpuscular HGB Conc 31.9 g/dL (30.0-36.0); Mean Corpuscular Hemoglobin 30.9 pg (28.0-34.0); Mean Corpuscular Volume 96.8 fl (81-99); Mean Platelet Volume 11.5 fL (7.4-10.4); Monocytes # 0.8 10^3/uL (0.2-0.9); Monocytes % 6.9 %; Neutrophils # 10.02 10^3/uL (1.8-7.7); Neutrophils % 84.9 %; Nucleated Red Blood Cells % 0 %; Platelet Count 188 10^3/cmm (130-400); Red Blood Count 3.72 10^6/uL (4.1-5.3); Red Cell Distribution Width 13.4 % (12.1-15.1); White Blood Count 11.8 10^3/uL (4.0-10.0)
[2022-10-13 05:58] LABS: Alanine Aminotransferase 181 U/L (0-33); Alkaline Phosphatase 111 U/L (35-105); Anion Gap 14.3 (5-19); Aspartate Amino Transferase 146 U/L (0-32); Blood Urea Nitrogen 20 mg/dL (8-23); Calcium 8.3 mg/dL (8.5-10.5); Carbon Dioxide 28 mmol/L (22-29); Chloride 103 mmol/L (98-107); Globulin 2.7 g/dL (1.3-4.6); Glucose 114 mg/dL (65-115); Magnesium 1.9 mg/dL (1.7-2.3); Osmolality Calculated 297 mOsm/kg (285-295); Potassium 3.3 mmol/L (3.5-5.1); Sodium 142 mmol/L (136-145); Total Bilirubin 0.7 mg/dL (0.15-1.2); Total Protein 5.7 g/dL (6.6-8.7)
--- NOTE | 2022-10-13 06:13 | PC.NURSE ---
Contacted Dr. Mijares. K+ 3.3 and order for IV Lasix this morning. New order for 40 IV Potassium. See MAR for administration.
[2022-10-13] MEDS: potassium chloride premix 100 ML 25 MEQ IV (06:42)
[2022-10-13] MEDS: FUROsemide 10 mg/mL SDV 4mL 40 MG IVP (06:42)
[2022-10-13] MEDS: piperacillin-tazobactam 3.375 GM in sodium chloride 0.9% (plus) 50 ML IV ×2 (06:44→15:06)
[2022-10-13] MEDS: FUROsemide 20 mg Tablet PO (07:51)
[2022-10-13] MEDS: aspirin 81 mg EC Tablet PO (07:52)
[2022-10-13] MEDS: amiodarone 200 mg Tablet 400 MG PO ×2 (07:52→18:21)
[2022-10-13] MEDS: clopidogrel 75 mg Tablet PO (07:52)
[2022-10-13] MEDS: atorvastatin 40 mg Tablet 80 MG PO (07:52)
--- NOTE | 2022-10-13 07:54 | P.PN_ITS ---
Subjective Subjective: White count improving Afebrile since yesterday morning Good urine output Creatinine improving Cultures negative Transaminases improving Patient in good spirits In sinus rhythm On 3 L of nasal cannula Bowel movement? Vitals/I&O/Wt Last Vital Signs Temp 98.5 F 10/13/22 04:00 Pulse 82 10/13/22 07:30 Resp 34 H 10/13/22 07:30 BP 145/75 10/13/22 07:30 Pulse Ox 92 10/13/22 07:30 O2 Del Method 10/13/22 03:37 O2 Flow Rate 3 10/13/22 03:37 FiO2 40 10/11/22 16:00 10/12/22 10/13/22 10/13/22 21:59 06:59 14:59 Intake Total 50 / 50 Output Total Balance 50 / 50 Physical Exam Narrative: Patient in good spirits Fatigued and lethargic Coughing a lot : 3 LNC Mild rhonchi at the base of the lungs otherwise no audible stridor or wheezing S1, S2 Sinus rhythm Normal blood pressure Family at the bedside Abdomen soft with bowel sounds Lower extremity, right leg slightly swollen asked about the left Nonfocal exam Left arm limited range of motion, she is able to lift with some effort against gravity Good bilateral handgrips Urinary Catheter Management: Mathews: Cath Placed During This Visit: yes Reason for Continuing Indwelling Catheter: Accurate Measurement of Urinary Output in Critically Ill Patients Urinary Catheter Date of Insertion: 10/10/22 Urinary Catheter Time of Insertion: 16:20 Data 10/13/22 05:07 10/13/22 05:07 Micro: Microbiology 10/12/22 06:50 MRSA Culture - Final Nose 10/10/22 17:40 Gram Stain - Final Sputum - Endotracheal Tube Aspirate Sputum Culture - Preliminary A&P Assessment and plan (1) Aspiration pneumonia: (2) Pulmonary edema: (3) Metabolic acidosis: (4) Cardiac arrest due to underlying cardiac condition: (5) Cardiac arrest with successful resuscitation: (6) Coronary artery disease: (7) Cardiac arrest with ventricular fibrillation: (8) Anticoagulation adequate with anticoagulant therapy: (9) Atrial fibrillation: (10) Ischemic cardiomyopathy: Plan V-fib related cardiac arrest Successful ROSC No neurological deficit Patient working with PT Fatigued and lethargic Daily PT OT ST Currently on dysphagia diet Aspiration pneumonia: MRSA negative, afebrile since yesterday Might transition to p.o. antibiotics by tomorrow No need of anti-MRSA coverage RACHELLE related to CHF exacerbation: Improving Systolic reduced ejection fraction heart failure exacerbation: Pulm edema: Continue low-dose Lasix Hypokalemia: Repleted Constipation: Bowel regimen on board Mathews catheter can be removed Abnormal transaminases related to cardiac arrest and CHF: Improving Full code Dysphagia diet Hypoxia related to pulm edema and pneumonia: Wean oxygen to room air Dysphagia diet advanced to level 5, need verbal cues aspiration speech therapist A-fib: Improved, currently on p.o. amiodarone Attestations Medical Necessity Statement*: Disposition plan: Home within next 48 hours Diagnoses Aspiration pneumonia J69.0 Pulmonary edema J81.1 Metabolic acidosis E87.20 Cardiac arrest due to underlying cardiac condition I46.2 Cardiac arrest with successful resuscitation I46.9 Coronary artery disease I25.10 Cardiac arrest with ventricular fibrillation I46.9; I49.01 Anticoagulation adequate with anticoagulant therapy Z79.01 Atrial fibrillation I48.91 Ischemic cardiomyopathy I25.5
[2022-10-13] MEDS: pantoprazole 40 mg SDV IVP (07:58)
--- NOTE | 2022-10-13 12:44 | PM.PN ---
Subjective Subjective: The patient is feeling okay with no recurrence of chest pain. No cardiac arrhythmias on the monitor. Vital signs are stable. She is moving all extremities and seems to be getting more power. Medications: Medication Review Details: Current Medications Acetaminophen (Acetaminophen 500 Mg Tablet) 500 mg PO Q4H PRN PRN Reason: fever Acetylcysteine (Acetylcysteine 200 Mg/Ml Mdv 10 Ml) 100 mg INHALATION Q4H.RESPIRATORY [facility] Last Admin: 10/13/22 12:37 Dose: 100 mg Albuterol/Ipratropium (Ipratropium-Albuterol 3 Ml Neb) 3 ml INHALATION Q6H PRN PRN Reason: SHORTNESS OF BREATH Amiodarone HCl (Amiodarone 200 Mg Tablet) 400 mg PO BID [facility] Last Admin: 10/13/22 07:52 Dose: 400 mg Aspirin (Aspirin 81 Mg Ec Tablet) 81 mg PO DAILY [facility] Last Admin: 10/13/22 07:52 Dose: 81 mg Atorvastatin Calcium (Atorvastatin 40 Mg Tablet) 80 mg PO DAILY [facility] Last Admin: 10/13/22 07:52 Dose: 80 mg Clopidogrel Bisulfate (Clopidogrel 75 Mg Tablet) 75 mg PO DAILY [facility] Last Admin: 10/13/22 07:52 Dose: 75 mg Enoxaparin Sodium (Enoxaparin 80 Mg/0.8 Ml Syringe) 70 mg SUBCUT Q12H [facility] Last Admin: 10/13/22 04:11 Dose: 70 mg Furosemide (Furosemide 10 Mg/Ml Sdv 4ml) 40 mg IVP Q24H [facility] Last Admin: 10/13/22 06:42 Dose: 40 mg Furosemide (Furosemide 20 Mg Tablet) 20 mg PO DAILY@0800 [facility] Last Admin: 10/13/22 07:51 Dose: 20 mg Norepinephrine Bitartrate 4 mg (/ Dextrose) 254 mls @ 0 mls/hr IV .Q0M [facility]; Protocol Sodium Bicarbonate 150 meq/ (Dextrose) 1,150 mls @ 50 mls/hr IV .Q23H [facility] Last Admin: 10/10/22 18:30 Dose: 50 mls/hr Sodium Chloride (Sodium Chloride 0.9%) 1,000 mls @ 75 mls/hr IV .[id number] [facility] Last Admin: 10/10/22 21:10 Dose: 75 mls/hr Piperacillin Sod/Tazobactam (Sod 3.375 gm/ Sodium Chloride) 50 mls @ 12.5 mls/hr IV Q8H [facility] Last Infusion: 10/13/22 07:51 Dose: Infused Amiodarone HCl 900 mg/Dextrose/ IV Miscellaneous Supplies 518 mls @ 17.267 mls/hr IV CONT [facility] Last Admin: 10/11/22 19:49 Dose: 0.5 mg/min, 17.27 mls/hr Levalbuterol HCl (Levalbuterol 0.63 Mg/3 Ml Neb) 0.63 mg INHALATION Q4H.RESPIRATORY [facility] Last Admin: 10/13/22 12:37 Dose: 0.63 mg Ondansetron HCl (Ondansetron 2 Mg/Ml Sdv 2 Ml) 4 mg IVP Q6H PRN PRN Reason: NAUSEA AND VOMITING Pantoprazole Sodium (Pantoprazole 40 Mg Sdv) 40 mg IVP BID [facility] Last Admin: 10/13/22 07:58 Dose: 40 mg Vitals/I&O/Wt Last Vital Signs Temp 98 F 10/13/22 09:00 Pulse 86 10/13/22 12:00 Resp 16 10/13/22 12:00 BP 122/80 10/13/22 09:00 Pulse Ox 95 10/13/22 12:00 O2 Del Method 10/13/22 12:00 O2 Flow Rate 3 10/13/22 12:00 FiO2 40 10/11/22 16:00 10/12/22 10/13/22 10/13/22 21:59 06:59 14:59 Intake Total 1410 / 1410 Output Total 600 / 600 Balance 810 / 810 Physical Exam Narrative: GENERAL: The patient is alert and oriented times three. Not in any acute distress. HEENT: No significant pallor, icterus or lymphadenopathy.Oral cavity: There are no mucous membrane lesions. NECK: Trachea appears to be central. No masses noted. No JVD or thyromegaly appreciated. RESPIRATORY: Chest is symmetrical. No intercostals muscle retraction or any accessory muscle activation. There is no chest wall tenderness. Breath sounds are heard bilaterally. No rales or rhonchi heard. No evidence of any consolidation. BREASTS: Deferred. HEART: The heart sounds are normal. No S3 or S4. No significant murmurs. No pericardial rub ABDOMEN: No vessel pulsations or distention. No tenderness. No organomegaly appreciated. Bowel sounds are normally heard. : Deferred. RECTAL: Deferred. LYMPHATIC: No lymphadenopathy noted in the neck. EXTREMITIES: No edema or cyanosis. No clubbing. MUSCULOSKELETAL: No acute joint deformities or swelling SKIN: There are no significant rashes or ecchymosis NEUROPSYCHIATRIC: Still has generalized weakness of the extremities. She has grade 3-4 power in all the extremities with no localizing signs Urinary Catheter Management: Mathews: Cath Placed During This Visit: yes Reason for Continuing Indwelling Catheter: Accurate Measurement of Urinary Output in Critically Ill Patients Urinary Catheter Date of Insertion: 10/10/22 Urinary Catheter Time of Insertion: 16:20 Data 10/13/22 05:07 10/13/22 05:07 Other Labs: Laboratory Last Values WBC 11.8 10^3/uL (4.0-10.0) H 10/13/22 05:07 RBC 3.72 10^6/uL (4.1-5.3) L 10/13/22 05:07 Hgb 11.5 g/dL (11.5-15.3) 10/13/22 05:07 Hct 36.0 % (37.0-47.0) L 10/13/22 05:07 MCV 96.8 fl (81-99) 10/13/22 05:07 MCH 30.9 pg (28.0-34.0) 10/13/22 05:07 MCHC 31.9 g/dL (30.0-36.0) 10/13/22 05:07 RDW 13.4 % (12.1-15.1) 10/13/22 05:07 Plt Count 188 10^3/cmm (130-400) 10/13/22 05:07 MPV 11.5 fL (7.4-10.4) H 10/13/22 05:07 Neut % (Auto) 84.9 % 10/13/22 05:07 Lymph % (Auto) 7.1 % 10/13/22 05:07 [place] % (Auto) 6.9 % 10/13/22 05:07 Eos % (Auto) 0.1 % 10/13/22 05:07 Baso % (Auto) 0.3 % 10/13/22 05:07 Neut # (Auto) 10.02 10^3/uL (1.8-7.7) H 10/13/22 05:07 Lymph # (Auto) 0.8 10^3/uL (0.8-4.8) 10/13/22 05:07 [place] # (Auto) 0.8 10^3/uL (0.2-0.9) 10/13/22 05:07 Eos # (Auto) 0.0 10^3/uL (0.0-0.8) 10/13/22 05:07 Baso # (Auto) 0.0 10^3/uL (0.0-0.1) 10/13/22 05:07 Nucleated RBC % (auto) 0 % 10/13/22 05:07 Total Counted 100 (0-100) 10/10/22 16:45 Atypical Lymphs % 0.0 % (0-5) 10/10/22 16:45 Absolute Neutrophils 13.9 10^3/cmm (1.4-6.5) H 10/10/22 16:45 Segmented Neutrophils 81 % 10/10/22 16:45 Abs Segm Neuts (Man) 13.9 10/cmm (1.6-7.1) H 10/10/22 16:45 Band Neutrophils 0.0 % 10/10/22 16:45 Abs Band Neuts (Man) 0.0 10^3/cmm (0.0-1.2) 10/10/22 16:45 Absolute Lymphocytes 2.2 10^3/cmm (1.2-3.4) 10/10/22 16:45 Lymphocytes (Manual) 13 % 10/10/22 16:45 Monocytes (Manual) 0.0 % 10/10/22 16:45 Absolute Monocytes 0.0 10^3/cmm (0.1-0.6) L 10/10/22 16:45 Eosinophils (Manual) 0 % 10/10/22 16:45 Absolute Eosinophils 0.0 10^3/cmm (0.0-0.7) 10/10/22 16:45 Basophils (Manual) 0.0 % 10/10/22 16:45 Absolute Basophils 0.0 10^3/cmm (0.0-0.2) 10/10/22 16:45 Metamyelocytes 1.0 % 10/10/22 16:45 Myelocytes 5.0 % 10/10/22 16:45 Nucleated RBCs # 0.0 /100WBC 10/13/22 05:07 Platelet Estimate Normal (Normal) 10/10/22 16:45 D-Dimer >= 20.00 ug/mIFEU (0-0.59) H 10/10/22 18:30 Specimen Type Arterial 10/11/22 04:27 Sample Site Radial, right 10/11/22 04:27 ABG pH 7.46 (7.35-7.45) H 10/11/22 04:27 ABG pCO2 33.0 mmHg (35-45) L 10/11/22 04:27 ABG pO2 83.1 mmHg (80.0-100.0) 10/11/22 04:27 ABG HCO3 23.3 mmol/L (22-26) 10/11/22 04:27 ABG O2 Saturation 99.4 10/10/22 16:20 ABG Base Excess 0.0 mmol/L (-2.0-2.0) 10/11/22 04:27 Fidencio Test Pos 10/11/22 04:27 A-a O2 Gradient 50.1 mmHg (5-10) H 10/10/22 16:20 Hematocrit 38.6 % (37-47) 10/11/22 04:27 Hgb O2 Saturation 98.3 % (95-100) 10/10/22 16:20 Carboxyhemoglobin 0.5 %THgb (0.4-20.1) 10/10/22 16:20 Methemoglobin 0.5 % (0.4-1.5) 10/10/22 16:20 Total Hemoglobin 13.1 g/dL (12-16) 10/10/22 16:20 Sodium 137.0 mmol/L (131-143) 10/10/22 16:20 Potassium 4.5 mmol/L (3.5-5.0) 10/10/22 16:20 Glucose 233.0 mg/dL (70-115) H 10/10/22 16:20 Ionized Calcium 1.2 mmol/L (1.1-1.4) 10/10/22 16:20 O2 Delivery Device Vent 10/11/22 04:27 O2 Liters/Min 15.0 % 10/10/22 16:20 FiO2 50.0 % 10/11/22 04:27 Tidal Volume 0.45 10/11/22 04:27 PEEP 5.0 cmH20 10/11/22 04:27 Homeopathic Doctor ID Sang 10/11/22 04:27 Sodium 142 mmol/L (136-145) 10/13/22 05:07 Potassium 3.3 mmol/L (3.5-5.1) L 10/13/22 05:07 Chloride 103 mmol/L (98-107) 10/13/22 05:07 Carbon Dioxide 28 mmol/L (22-29) 10/13/22 05:07 Anion Gap 14.3 (5-19) 10/13/22 05:07 BUN 20 mg/dL (8-23) 10/13/22 05:07 Creatinine 1.1 mg/dL (0.5-0.9) H 10/13/22 05:07 GFR Calculation Not Reportable 10/13/22 05:07 Glucose 114 mg/dL (65-115) 10/13/22 05:07 POC Glucose 114 mg/dL (70-110) H 10/11/22 10:56 Calculated Osmolality 297 mOsm/kg (285-295) H 10/13/22 05:07 Lactic Acid 8.0 mmol/L (0.5-2.2) H* 10/10/22 16:45 Lactate 1.6 mmol/L (0.5-2.2) 10/11/22 03:29 Calcium 8.3 mg/dL (8.5-10.5) L 10/13/22 05:07 Phosphorus 3.5 mg/dL (2.5-4.5) 10/11/22 03:29 Magnesium 1.9 mg/dL (1.7-2.3) 10/13/22 05:07 Total Bilirubin 0.7 mg/dL (0.15-1.2) 10/13/22 05:07 AST 146 U/L (0-32) H 10/13/22 05:07 ALT 181 U/L (0-33) H 10/13/22 05:07 Alkaline Phosphatase 111 U/L (35-105) H 10/13/22 05:07 Creatine Kinase 6532 U/L (26-192) H* 10/12/22 04:16 Troponin T Baseline 7678 ng/L (0-10) H* 10/10/22 16:40 Troponin T 120 Minute 6809 ng/L (0-10) H 10/10/22 18:30 Delta Troponin T -869 ABS# (0-10) L 10/10/22 18:30 Troponin T Hi Sens 6Hr 8378 ng/L (0-10) H 10/10/22 22:35 Troponin T Hi Sens 6Hr Delta 700 ng/L (0-12) H* 10/10/22 22:35 C-Reactive Protein 129.8 mg/L (0.0-4.9) H 10/11/22 03:29 NT-Pro-B Natriuret Pep 8800 pg/mL (0-450) H 10/10/22 16:45 Total Protein 5.7 g/dL (6.6-8.7) L 10/13/22 05:07 Albumin 3.0 g/dL (3.5-5.2) L 10/13/22 05:07 Globulin 2.7 g/dL (1.3-4.6) 10/13/22 05:07 Urine Color Yellow (Yellow) 10/10/22 18:32 Urine Appearance Hazy (CLEAR) A 10/10/22 18:32 Urine pH 5 (5-7) 10/10/22 18:32 Ur Specific [place] 1.010 (1.005-1.030) 10/10/22 18:32 Urine Protein 1+ (Negative) H 10/10/22 18:32 Urine Glucose (UA) Trace (Normal) H 10/10/22 18:32 Urine Ketones Negative (Negative) 10/10/22 18:32 Urine Blood 3+ (Negative) H 10/10/22 18:32 Urine Nitrate Negative (Negative) 10/10/22 18:32 Urine Bilirubin Neg (Negative) 10/10/22 18:32 Urine Urobilinogen 1 mg/dL (Negative) H 10/10/22 18:32 Ur Leukocyte Esterase Negative (Negative) 10/10/22 18:32 Urine RBC Rare /hpf (0-2) 10/10/22 18:32 Urine WBC Rare /hpf (0-5) 10/10/22 18:32 Ur Squamous Epith Cells None /hpf (0-5) 10/10/22 18:32 Amorphous Sediment 2+ /hpf 10/10/22 18:32 Urine Bacteria Trace /hpf (NONE) 10/10/22 18:32 Micro: Microbiology 10/10/22 17:40 Gram Stain - Final Sputum - Endotracheal Tube Aspirate Sputum Culture - Final 10/12/22 06:50 MRSA Culture - Final Nose A&P Assessment and plan (1) Cardiac arrest with successful resuscitation: Patient has not had any recurrence of this event, since hospital admission. We will continue on the current measures. (2) Cardiac arrest with ventricular fibrillation: No Ventricular arrhythmias on the monitor. We will continue on the current measures. (3) Atrial fibrillation: May continue on the p.o. amiodarone. (4) Pulmonary edema: Currently resolved. May continue on the current medications (5) Hyperlipidemia: Continue on the current medications (6) Hypertension: Currently normotensive. We will Plan Low-grade fever, etiology? Possible aspiration pneumonia. Leukocytosis-currently returned to the baseline Acute kidney injury-stable kidney function. Continue on the current medications. Continue the physical therapy Attestations Medical Necessity Statement*: Patient requires continued hospital stay for close monitoring and further management Coding Level of Care Code 87566 Diagnoses Cardiac arrest with successful resuscitation I46.9 Cardiac arrest with ventricular fibrillation I46.9; I49.01 Atrial fibrillation I48.91 Pulmonary edema J81.1 Hyperlipidemia E78.5 Hypertension I10
[2022-10-13] MEDS: nicotine 21 mg Patch 1 PATCH TRANSDERMA (15:06)
--- NOTE | 2022-10-13 15:50 | PC.NURSE ---
Report called to MARC March.
--- NOTE | 2022-10-13 16:35 | PC.NURSE ---
received from icu into room 107 via bed at 1545.pt is awake.confused.can speak but in very short sentences and appears sob when speaking.on 3 l o2 per nc.o2 sat 92%.sr on monitor.denies pain.oriented family to room environment.instructed to notify staff for any concerns at all.they verb understanding of instructions
[2022-10-13 16:47] LABS: Vitamin B12 805 pg/mL (232-1245)
[2022-10-13] MEDS: amoxicillin-clav 875-125 mg Tablet 1 TAB PO (18:21)
[2022-10-13] MEDS: ALPRAZolam 0.5 mg Tablet PO (18:34)
[2022-10-13] MEDS: apixaban 5 mg Tablet PO (20:49)
[2022-10-14] VITALS (18 sets, daily range): BP systolic 113–164; BP diastolic 58–81; PULSE 76–101; RESP 18–37; TEMP 36.5–37.4; O2SAT 92–98
[2022-10-14 04:19] LABS: Basophils % 0.3 %; Eosinophils # 0.1 10^3/uL (0.0-0.8); Eosinophils % 0.7 %; Hematocrit 35.5 % (37.0-47.0); Hemoglobin 11.5 g/dL (11.5-15.3); Lymphocytes # 1.5 10^3/uL (0.8-4.8); Lymphocytes % 13.9 %; Mean Corpuscular HGB Conc 32.4 g/dL (30.0-36.0); Mean Corpuscular Hemoglobin 31.3 pg (28.0-34.0); Mean Corpuscular Volume 96.5 fl (81-99); Mean Platelet Volume 11.6 fL (7.4-10.4); Monocytes # 0.8 10^3/uL (0.2-0.9); Monocytes % 7.8 %; Neutrophils # 8.11 10^3/uL (1.8-7.7); Neutrophils % 76.7 %; Nucleated Red Blood Cells % 0 %; Platelet Count 185 10^3/cmm (130-400); Red Blood Count 3.68 10^6/uL (4.1-5.3); Red Cell Distribution Width 13.4 % (12.1-15.1); White Blood Count 10.6 10^3/uL (4.0-10.0)
[2022-10-14 04:42] LABS: Alanine Aminotransferase 149 U/L (0-33); Alkaline Phosphatase 108 U/L (35-105); Anion Gap 16.2 (5-19); Aspartate Amino Transferase 122 U/L (0-32); Blood Urea Nitrogen 19 mg/dL (8-23); Calcium 8.5 mg/dL (8.5-10.5); Carbon Dioxide 29 mmol/L (22-29); Chloride 100 mmol/L (98-107); Globulin 2.9 g/dL (1.3-4.6); Glucose 107 mg/dL (65-115); Osmolality Calculated 297 mOsm/kg (285-295); Potassium 3.2 mmol/L (3.5-5.1); Sodium 142 mmol/L (136-145); Total Bilirubin 0.5 mg/dL (0.15-1.2); Total Protein 5.9 g/dL (6.6-8.7)
--- NOTE | 2022-10-14 08:32 | PM.PN ---
Subjective Subjective: Patient to ED stability ambulating on telemetry with assistance. Continues to have some generalized weakness and tremor. Vital signs are stable. No chest pain or shortness of breath Medications: Medication Review Details: Current Medications Acetaminophen (Acetaminophen 500 Mg Tablet) 500 mg PO Q4H PRN PRN Reason: fever Acetylcysteine (Acetylcysteine 200 Mg/Ml Mdv 10 Ml) 100 mg INHALATION Q4H.RESPIRATORY [facility] Last Admin: 10/14/22 03:45 Dose: Not Given Albuterol/Ipratropium (Ipratropium-Albuterol 3 Ml Neb) 3 ml INHALATION Q6H PRN PRN Reason: SHORTNESS OF BREATH Alprazolam (Alprazolam 0.5 Mg Tablet) 0.5 mg PO TID PRN PRN Reason: ANXIETY Last Admin: 10/13/22 18:34 Dose: 0.5 mg Amiodarone HCl (Amiodarone 200 Mg Tablet) 400 mg PO BID [facility] Last Admin: 10/13/22 18:21 Dose: 400 mg Amoxicillin/Clavulanate Potassium (Amoxicillin-Clav 875-125 Mg Tablet) 1 tab PO BID [facility]; Protocol Last Admin: 10/13/22 18:21 Dose: 1 tab Apixaban (Apixaban 5 Mg Tablet) 5 mg PO BID@0900,2100 [facility] Last Admin: 10/13/22 20:49 Dose: 5 mg Atorvastatin Calcium (Atorvastatin 40 Mg Tablet) 80 mg PO DAILY [facility] Last Admin: 10/13/22 07:52 Dose: 80 mg Clopidogrel Bisulfate (Clopidogrel 75 Mg Tablet) 75 mg PO DAILY [facility] Last Admin: 10/13/22 07:52 Dose: 75 mg Furosemide (Furosemide 20 Mg Tablet) 20 mg PO DAILY@0800 [facility] Last Admin: 10/13/22 07:51 Dose: 20 mg Lidocaine HCl 5 ml/ Potassium (Chloride) 105 mls @ 52.5 mls/hr IV ONCE ONE Stop: 10/14/22 10:03 Levalbuterol HCl (Levalbuterol 0.63 Mg/3 Ml Neb) 0.63 mg INHALATION Q4H.RESPIRATORY [facility] Last Admin: 10/14/22 03:45 Dose: Not Given Nicotine (Nicotine 21 Mg Patch) 1 patch TRANSDERMA DAILY [facility] Last Admin: 10/13/22 15:06 Dose: 1 patch Ondansetron HCl (Ondansetron 2 Mg/Ml Sdv 2 Ml) 4 mg IVP Q6H PRN PRN Reason: NAUSEA AND VOMITING Vitals/I&O/Wt Last Vital Signs Temp 98.0 F 10/14/22 07:43 Pulse 82 10/14/22 07:43 Resp 18 10/14/22 07:43 BP 123/58 10/14/22 07:43 Pulse Ox 94 10/14/22 07:43 O2 Del Method 10/14/22 06:00 O2 Flow Rate 3 10/14/22 06:00 FiO2 40 10/11/22 16:00 10/13/22 10/14/22 10/14/22 22:59 06:59 14:59 Intake Total 2883.953 / 4293.953 Output Total 400 / 2350 100 / 2450 Balance 2483.953 / 1943.953 -100 / 1843.953 Physical Exam Narrative: GENERAL: The patient is alert and oriented times three. Not in any acute distress. Has some tremulousness HEENT: No significant pallor, icterus or lymphadenopathy.Oral cavity: There are no mucous membrane lesions. NECK: Trachea appears to be central. No masses noted. No JVD or thyromegaly appreciated. RESPIRATORY: Chest is symmetrical. No intercostals muscle retraction or any accessory muscle activation. There is no chest wall tenderness. Breath sounds are heard bilaterally. No rales or rhonchi heard. No evidence of any consolidation. BREASTS: Deferred. HEART: The heart sounds are normal. No S3 or S4. No significant murmurs. No pericardial rub ABDOMEN: No vessel pulsations or distention. No tenderness. No organomegaly appreciated. Bowel sounds are normally heard. : Deferred. RECTAL: Deferred. LYMPHATIC: No lymphadenopathy noted in the neck. EXTREMITIES: No edema or cyanosis. No clubbing. MUSCULOSKELETAL: No acute joint deformities or swelling SKIN: There are no significant rashes or ecchymosis NEUROPSYCHIATRIC: The patient is alert and oriented x3. Appears to be in a good mood. No tremors or rigidity noted. Urinary Catheter Management: Mathews: Cath Placed During This Visit: yes Reason for Continuing Indwelling Catheter: Accurate Measurement of Urinary Output in Critically Ill Patients Urinary Catheter Date of Insertion: 10/10/22 Urinary Catheter Time of Insertion: 16:20 Data 10/14/22 03:40 10/14/22 03:40 Other Labs: Laboratory Last Values WBC 10.6 10^3/uL (4.0-10.0) H 10/14/22 03:40 RBC 3.68 10^6/uL (4.1-5.3) L 10/14/22 03:40 Hgb 11.5 g/dL (11.5-15.3) 10/14/22 03:40 Hct 35.5 % (37.0-47.0) L 10/14/22 03:40 MCV 96.5 fl (81-99) 10/14/22 03:40 MCH 31.3 pg (28.0-34.0) 10/14/22 03:40 MCHC 32.4 g/dL (30.0-36.0) 10/14/22 03:40 RDW 13.4 % (12.1-15.1) 10/14/22 03:40 Plt Count 185 10^3/cmm (130-400) 10/14/22 03:40 MPV 11.6 fL (7.4-10.4) H 10/14/22 03:40 Neut % (Auto) 76.7 % 10/14/22 03:40 Lymph % (Auto) 13.9 % 10/14/22 03:40 [place] % (Auto) 7.8 % 10/14/22 03:40 Eos % (Auto) 0.7 % 10/14/22 03:40 Baso % (Auto) 0.3 % 10/14/22 03:40 Neut # (Auto) 8.11 10^3/uL (1.8-7.7) H 10/14/22 03:40 Lymph # (Auto) 1.5 10^3/uL (0.8-4.8) 10/14/22 03:40 [place] # (Auto) 0.8 10^3/uL (0.2-0.9) 10/14/22 03:40 Eos # (Auto) 0.1 10^3/uL (0.0-0.8) 10/14/22 03:40 Baso # (Auto) 0.0 10^3/uL (0.0-0.1) 10/14/22 03:40 Nucleated RBC % (auto) 0 % 10/14/22 03:40 Total Counted 100 (0-100) 10/10/22 16:45 Atypical Lymphs % 0.0 % (0-5) 10/10/22 16:45 Absolute Neutrophils 13.9 10^3/cmm (1.4-6.5) H 10/10/22 16:45 Segmented Neutrophils 81 % 10/10/22 16:45 Abs Segm Neuts (Man) 13.9 10/cmm (1.6-7.1) H 10/10/22 16:45 Band Neutrophils 0.0 % 10/10/22 16:45 Abs Band Neuts (Man) 0.0 10^3/cmm (0.0-1.2) 10/10/22 16:45 Absolute Lymphocytes 2.2 10^3/cmm (1.2-3.4) 10/10/22 16:45 Lymphocytes (Manual) 13 % 10/10/22 16:45 Monocytes (Manual) 0.0 % 10/10/22 16:45 Absolute Monocytes 0.0 10^3/cmm (0.1-0.6) L 10/10/22 16:45 Eosinophils (Manual) 0 % 10/10/22 16:45 Absolute Eosinophils 0.0 10^3/cmm (0.0-0.7) 10/10/22 16:45 Basophils (Manual) 0.0 % 10/10/22 16:45 Absolute Basophils 0.0 10^3/cmm (0.0-0.2) 10/10/22 16:45 Metamyelocytes 1.0 % 10/10/22 16:45 Myelocytes 5.0 % 10/10/22 16:45 Nucleated RBCs # 0.0 /100WBC 10/14/22 03:40 Platelet Estimate Normal (Normal) 10/10/22 16:45 D-Dimer >= 20.00 ug/mIFEU (0-0.59) H 10/10/22 18:30 Specimen Type Arterial 10/11/22 04:27 Sample Site Radial, right 10/11/22 04:27 ABG pH 7.46 (7.35-7.45) H 10/11/22 04:27 ABG pCO2 33.0 mmHg (35-45) L 10/11/22 04:27 ABG pO2 83.1 mmHg (80.0-100.0) 10/11/22 04:27 ABG HCO3 23.3 mmol/L (22-26) 10/11/22 04:27 ABG O2 Saturation 99.4 10/10/22 16:20 ABG Base Excess 0.0 mmol/L (-2.0-2.0) 10/11/22 04:27 Fidencio Test Pos 10/11/22 04:27 A-a O2 Gradient 50.1 mmHg (5-10) H 10/10/22 16:20 Hematocrit 38.6 % (37-47) 10/11/22 04:27 Hgb O2 Saturation 98.3 % (95-100) 10/10/22 16:20 Carboxyhemoglobin 0.5 %THgb (0.4-20.1) 10/10/22 16:20 Methemoglobin 0.5 % (0.4-1.5) 10/10/22 16:20 Total Hemoglobin 13.1 g/dL (12-16) 10/10/22 16:20 Sodium 137.0 mmol/L (131-143) 10/10/22 16:20 Potassium 4.5 mmol/L (3.5-5.0) 10/10/22 16:20 Glucose 233.0 mg/dL (70-115) H 10/10/22 16:20 Ionized Calcium 1.2 mmol/L (1.1-1.4) 10/10/22 16:20 O2 Delivery Device Vent 10/11/22 04:27 O2 Liters/Min 15.0 % 10/10/22 16:20 FiO2 50.0 % 10/11/22 04:27 Tidal Volume 0.45 10/11/22 04:27 PEEP 5.0 cmH20 10/11/22 04:27 Bobbin Washer ID Sang 10/11/22 04:27 Sodium 142 mmol/L (136-145) 10/14/22 03:40 Potassium 3.2 mmol/L (3.5-5.1) L 10/14/22 03:40 Chloride 100 mmol/L (98-107) 10/14/22 03:40 Carbon Dioxide 29 mmol/L (22-29) 10/14/22 03:40 Anion Gap 16.2 (5-19) 10/14/22 03:40 BUN 19 mg/dL (8-23) 10/14/22 03:40 Creatinine 1.1 mg/dL (0.5-0.9) H 10/14/22 03:40 GFR Calculation Not Reportable 10/14/22 03:40 Glucose 107 mg/dL (65-115) 10/14/22 03:40 POC Glucose 114 mg/dL (70-110) H 10/11/22 10:56 Calculated Osmolality 297 mOsm/kg (285-295) H 10/14/22 03:40 Lactic Acid 8.0 mmol/L (0.5-2.2) H* 10/10/22 16:45 Lactate 1.6 mmol/L (0.5-2.2) 10/11/22 03:29 Calcium 8.5 mg/dL (8.5-10.5) 10/14/22 03:40 Phosphorus 3.5 mg/dL (2.5-4.5) 10/11/22 03:29 Magnesium 1.9 mg/dL (1.7-2.3) 10/13/22 05:07 Total Bilirubin 0.5 mg/dL (0.15-1.2) 10/14/22 03:40 AST 122 U/L (0-32) H 10/14/22 03:40 ALT 149 U/L (0-33) H 10/14/22 03:40 Alkaline Phosphatase 108 U/L (35-105) H 10/14/22 03:40 Creatine Kinase 6532 U/L (26-192) H* 10/12/22 04:16 Troponin T Baseline 7678 ng/L (0-10) H* 10/10/22 16:40 Troponin T 120 Minute 6809 ng/L (0-10) H 10/10/22 18:30 Delta Troponin T -869 ABS# (0-10) L 10/10/22 18:30 Troponin T Hi Sens 6Hr 8378 ng/L (0-10) H 10/10/22 22:35 Troponin T Hi Sens 6Hr Delta 700 ng/L (0-12) H* 10/10/22 22:35 C-Reactive Protein 129.8 mg/L (0.0-4.9) H 10/11/22 03:29 NT-Pro-B Natriuret Pep 8800 pg/mL (0-450) H 10/10/22 16:45 Total Protein 5.9 g/dL (6.6-8.7) L 10/14/22 03:40 Albumin 3.0 g/dL (3.5-5.2) L 10/14/22 03:40 Globulin 2.9 g/dL (1.3-4.6) 10/14/22 03:40 Vitamin B12 805 pg/mL (232-1245) 10/13/22 05:07 Urine Color Yellow (Yellow) 10/10/22 18:32 Urine Appearance Hazy (CLEAR) A 10/10/22 18:32 Urine pH 5 (5-7) 10/10/22 18:32 Ur Specific [place] 1.010 (1.005-1.030) 10/10/22 18:32 Urine Protein 1+ (Negative) H 10/10/22 18:32 Urine Glucose (UA) Trace (Normal) H 10/10/22 18:32 Urine Ketones Negative (Negative) 10/10/22 18:32 Urine Blood 3+ (Negative) H 10/10/22 18:32 Urine Nitrate Negative (Negative) 10/10/22 18:32 Urine Bilirubin Neg (Negative) 10/10/22 18:32 Urine Urobilinogen 1 mg/dL (Negative) H 10/10/22 18:32 Ur Leukocyte Esterase Negative (Negative) 10/10/22 18:32 Urine RBC Rare /hpf (0-2) 10/10/22 18:32 Urine WBC Rare /hpf (0-5) 10/10/22 18:32 Ur Squamous Epith Cells None /hpf (0-5) 10/10/22 18:32 Amorphous Sediment 2+ /hpf 10/10/22 18:32 Urine Bacteria Trace /hpf (NONE) 10/10/22 18:32 Micro: Microbiology 10/10/22 17:40 Gram Stain - Final Sputum - Endotracheal Tube Aspirate Sputum Culture - Final A&P Assessment and plan (1) Cardiac arrest with successful resuscitation: Patient has not had any recurrence of this event, since hospital admission. We will continue on the current measures. (2) Cardiac arrest with ventricular fibrillation: No Ventricular arrhythmias on the monitor. We will continue on the current measures. (3) Atrial fibrillation: May continue on the p.o. amiodarone and the anticoagulation (4) Pulmonary edema: Currently resolved. May continue on the current medications (5) Hyperlipidemia: Continue on the current medications (6) Hypertension: Currently normotensive. Continue on the current measures (7) Atherosclerosis of coronary artery of [place] heart without angina pectoris: Plan Low-grade fever, currently resolved Leukocytosis-currently returned to the baseline Acute kidney injury-stable kidney function. If she continues to remain stable, may be discharged home from a cardiac standpoint. Attestations Medical Necessity Statement*: Disposition as per the primary Coding Level of Care Code 01684 Diagnoses Cardiac arrest with successful resuscitation I46.9 Cardiac arrest with ventricular fibrillation I46.9; I49.01 Atrial fibrillation I48.91 Pulmonary edema J81.1 Hyperlipidemia E78.5 Hypertension I10 Atherosclerosis of coronary artery of [place] heart without angina pectoris I25.10
[2022-10-14] MEDS: lidocaine 1% 5 ML in potassium chloride premix 100 ML 52.5 ML IV ×2 (08:51→14:52)
[2022-10-14] MEDS: amiodarone 200 mg Tablet 400 MG PO ×2 (08:54→17:14)
[2022-10-14] MEDS: apixaban 5 mg Tablet PO ×2 (08:54→20:18)
[2022-10-14] MEDS: amoxicillin-clav 875-125 mg Tablet 1 TAB PO ×2 (08:54→17:13)
[2022-10-14] MEDS: clopidogrel 75 mg Tablet PO (08:54)
[2022-10-14] MEDS: nicotine 21 mg Patch 1 PATCH TRANSDERMA (08:56)
[2022-10-14] MEDS: FUROsemide 20 mg Tablet PO (08:56)
[2022-10-14] MEDS: levalbuterol 0.63 mg/3 mL Neb INHALATION ×4 (09:35→20:04)
[2022-10-14] MEDS: acetylcysteine 200 mg/mL MDV 10 mL 100 MG INHALATION ×4 (09:35→20:04)
[2022-10-14] MEDS: ALPRAZolam 0.5 mg Tablet PO (10:08)
--- NOTE | 2022-10-14 10:24 | PC.CHAP ---
Pastoral Care Encounter/Spiritual Assessment Type of Contact [] Declined ux design lead visit [] Patient/Family/Request visit [] Outpatient visit [] Follow-up visit [] Physician referral [] Code/Alert [] Routine visit [] Staff referral [] Actively dying [] Patient sleeping [] Family support [] [] Out of room [] Palliative care [] [] Receiving care in room [] Pre-surgical visit [] Trauma [] Long length of stay [] ICU visit [] Other: Relational/Emotional Strength [] Patient feels connected with others/family/visitors/staff [] Distress [] Loneliness/isolation [] Abandonment Spirituality of Patient [] Person of [place]ie [] Attends [employer] of their [place] [] Believes in Prayer [] Reads Bible or Shinto materials [] There are Spiritual issues to be addressed Hand Decorator 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 [] Prayer [] Active listening [] Non-anxious presence [] Spiritual/emotional support [] Crisis/trauma care [] Spiritual counseling [] Bereavement support [] Provided bereavement packet [] Provided Bible/devotional materials [] Provided toy/stuffed animal, coloring book to patient or family member [] Provided Communion [] Anointing/[place] [] Salvation [] Completed spiritual assessment [] Other: Impact on Illness or Injury [] Angry [] Fearful [] Anxious [] Often cries [] Exhaustion [] Unable to work [] Unable to attend orthodoxy [] Unable to walk/stand [] Unable to read [] Unable to drive [] Unable to eat/drink [] Unable to sleep [] Unable to be with family [] Patient intubated [] Other: Summary Time spent with patient
--- NOTE | 2022-10-14 10:25 | PC.CHAP ---
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 visit [] Patient/Family/Request visit [] Outpatient visit [] Follow-up visit [] Physician referral [] Code/Alert [x] Routine visit [] Staff referral [] Actively dying [] Patient sleeping [x] Family support [] [] Out of room [] Palliative care [] [] Receiving care in room [] Pre-surgical visit [] Trauma [] Long length of stay [] ICU visit [] Other: Relational/Emotional Strength [x] Patient feels connected with others/family/visitors/staff [] Distress [] Loneliness/isolation [] Abandonment Spirituality of Patient x[] Attends Mormon of their Codie [x] Believes in Prayer [] Reads Bible or Oriental Orthodox materials [] There are Spiritual issues to be addressed 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 [x] Prayer [x] Active listening [x] Non-anxious presence [x] Spiritual/emotional support [x] Crisis/trauma care [] Spiritual counseling [] Bereavement support [] Provided bereavement packet [] Provided Bible/devotional materials [] Provided toy/stuffed animal, coloring book to patient or family member [] Provided Communion [] Anointing/Britton [] Salvation [x] Completed spiritual assessment [] Other: Impact on Illness or Injury [] Angry [] Fearful [] Anxious [] Often cries [] Exhaustion [] Unable to work [] Unable to attend buddhism [] Unable to walk/stand [] Unable to read [] Unable to drive [] Unable to eat/drink [x] Unable to sleep [] Unable to be with family [] Patient intubated [] Other: Summary Time spent with patient 30 min
--- NOTE | 2022-10-14 12:38 | P.PN_ITS ---
Subjective Subjective: This morning patient is getting speech therapy Currently on 3 L Son at the bedside She looks euvolemic Able to lift her left arm to some extent Vitals/I&O/Wt Last Vital Signs Temp 97.8 F 10/14/22 11:10 Pulse 87 10/14/22 12:13 Resp 32 H 10/14/22 12:00 BP 164/81 10/14/22 11:10 Pulse Ox 98 10/14/22 12:00 O2 Del Method 10/14/22 12:00 O2 Flow Rate 3 10/14/22 12:00 FiO2 40 10/11/22 16:00 10/13/22 10/14/22 10/14/22 22:59 06:59 14:59 Intake Total 2883.953 / 4293.953 105 / 105 Output Total 400 / 2350 100 / 2450 175 / 175 Balance 2483.953 / 1943.953 -100 / 1843.953 -70 / -70 Physical Exam Narrative: Patient is awake and alert Getting speech therapy Currently on 3 L Looks comfortable Speaking in short sentences Still deconditioned S1, S2 A heart rate 87 Blood pressure fluctuating We will keep left-sided central line and Mathews catheter until she is able to get out of bed Urinary Catheter Management: Mathews: Cath Placed During This Visit: yes Reason for Continuing Indwelling Catheter: Accurate Measurement of Urinary Output in Critically Ill Patients Urinary Catheter Date of Insertion: 10/10/22 Urinary Catheter Time of Insertion: 16:20 Data 10/14/22 03:40 10/14/22 03:40 Micro: Microbiology 10/10/22 17:40 Gram Stain - Final Sputum - Endotracheal Tube Aspirate Sputum Culture - Final A&P Assessment and plan (1) Aspiration pneumonia: (2) Pulmonary edema: (3) Metabolic acidosis: (4) Cardiac arrest due to underlying cardiac condition: (5) Cardiac arrest with successful resuscitation: (6) Coronary artery disease: (7) Cardiac arrest with ventricular fibrillation: (8) Anticoagulation adequate with anticoagulant therapy: (9) Atrial fibrillation: (10) Ischemic cardiomyopathy: (11) Hyperlipidemia: (12) ST elevation (STEMI) myocardial infarction: Plan Patient is awaiting placement to [facility] inpatient rehab Status post cardiac arrest with remarkable recovery Respiratory failure s/p extubation: Currently doing well on 3 L Aspiration pneumonia: IV antibiotics switched to Augmentin 3/12 A-fib without RVR continue Eliquis Currently she is on amiodarone We will switch to 200 twice daily tomorrow She will be discharged with event monitor Inpatient rehab at [facility] is being seeked Dysphagia diet Continue low-dose Lasix I will give her a break from Lasix tomorrow Mathews catheter could be removed once she is able to get out of bed I am planning to keep central line in place until the day of discharge Cultures negative Full code Son at the bedside updated No need to repeat labs for tomorrow Hypokalemia: Repleted Attestations Medical Necessity Statement*: Continue medical management Diagnoses Aspiration pneumonia J69.0 Pulmonary edema J81.1 Metabolic acidosis E87.20 Cardiac arrest due to underlying cardiac condition I46.2 Cardiac arrest with successful resuscitation I46.9 Coronary artery disease I25.10 Cardiac arrest with ventricular fibrillation I46.9; I49.01 Anticoagulation adequate with anticoagulant therapy Z79.01 Atrial fibrillation I48.91 Ischemic cardiomyopathy I25.[address] elevation (STEMI) myocardial infarction I21.3
[2022-10-14] MEDS: atorvastatin 40 mg Tablet 80 MG PO (17:14)
[2022-10-14] MEDS: temazepam 15 mg Capsule PO (20:18)
[2022-10-15] VITALS (14 sets, daily range): BP systolic 104–138; BP diastolic 60–80; PULSE 76–92; RESP 18–34; TEMP 36.8–37.1; O2SAT 86–97
[2022-10-15] MEDS: acetylcysteine 200 mg/mL MDV 10 mL 100 MG INHALATION (01:31)
[2022-10-15] MEDS: levalbuterol 0.63 mg/3 mL Neb INHALATION ×3 (01:31→15:53)
[2022-10-15] MEDS: ALPRAZolam 0.5 mg Tablet PO (02:12)
[2022-10-15 04:21] LABS: Anion Gap 15.1 (5-19); Blood Urea Nitrogen 15 mg/dL (8-23); Calcium 8.7 mg/dL (8.5-10.5); Carbon Dioxide 30 mmol/L (22-29); Chloride 99 mmol/L (98-107); Glucose 114 mg/dL (65-115); Osmolality Calculated 292 mOsm/kg (285-295); Potassium 4.1 mmol/L (3.5-5.1); Sodium 140 mmol/L (136-145)
--- NOTE | 2022-10-15 08:07 | PM.PN ---
Subjective Subjective: Patient remains afebrile. Seems to have some episodes of confusion. Her ambulation is still limited. Medications: Medication Review Details: Current Medications Acetaminophen (Acetaminophen 500 Mg Tablet) 500 mg PO Q4H PRN PRN Reason: fever Acetylcysteine (Acetylcysteine 200 Mg/Ml Mdv 10 Ml) 100 mg INHALATION Q4H.RESPIRATORY [facility]ANT[facility] Last Admin: 10/15/22 04:35 Dose: Not Given Albuterol/Ipratropium (Ipratropium-Albuterol 3 Ml Neb) 3 ml INHALATION Q6H PRN PRN Reason: SHORTNESS OF BREATH Alprazolam (Alprazolam 0.5 Mg Tablet) 0.5 mg PO TID PRN PRN Reason: ANXIETY Last Admin: 10/15/22 02:12 Dose: 0.5 mg Amiodarone HCl (Amiodarone 200 Mg Tablet) 400 mg PO BID [facility] Last Admin: 10/14/22 17:14 Dose: 400 mg Amoxicillin/Clavulanate Potassium (Amoxicillin-Clav 875-125 Mg Tablet) 1 tab PO BID [facility]; Protocol Last Admin: 10/14/22 17:13 Dose: 1 tab Apixaban (Apixaban 5 Mg Tablet) 5 mg PO BID@0900,2100 [facility] Last Admin: 10/14/22 20:18 Dose: 5 mg Atorvastatin Calcium (Atorvastatin 40 Mg Tablet) 80 mg PO QPM [facility] Last Admin: 10/14/22 17:14 Dose: 80 mg Clopidogrel Bisulfate (Clopidogrel 75 Mg Tablet) 75 mg PO DAILY [facility] Last Admin: 10/14/22 08:54 Dose: 75 mg Furosemide (Furosemide 20 Mg Tablet) 20 mg PO DAILY@0800 [facility] Last Admin: 10/14/22 08:56 Dose: 20 mg Levalbuterol HCl (Levalbuterol 0.63 Mg/3 Ml Neb) 0.63 mg INHALATION Q4H.RESPIRATORY CHANTALE Last Admin: 10/15/22 04:35 Dose: Not Given Nicotine (Nicotine 21 Mg Patch) 1 patch TRANSDERMA DAILY [facility] Last Admin: 10/14/22 08:56 Dose: 1 patch Ondansetron HCl (Ondansetron 2 Mg/Ml Sdv 2 Ml) 4 mg IVP Q6H PRN PRN Reason: NAUSEA AND VOMITING Temazepam (Temazepam 15 Mg Capsule) 15 mg PO BEDTIME PRN PRN Reason: INSOMNIA Last Admin: 03/13/23 20:18 Dose: 15 mg Vitals/I&O/Wt Last Vital Signs Temp 99.0 F 10/14/22 20:00 Pulse 82 10/15/22 06:00 Resp 34 H 10/15/22 02:00 BP 134/60 10/15/22 02:00 Pulse Ox 86 L 10/15/22 02:00 O2 Del Method 10/15/22 02:00 O2 Flow Rate 3 10/15/22 01:32 FiO2 40 10/11/22 16:00 10/14/22 10/15/22 10/15/22 22:59 06:59 14:59 Intake Total 205 / 310 100 / 410 Output Total 100 / 875 Balance 105 / -565 100 / -465 Physical Exam Narrative: GENERAL: The patient is alert and oriented times three. Not in any acute distress. HEENT: No significant pallor, icterus or lymphadenopathy.Oral cavity: There are no mucous membrane lesions. NECK: Trachea appears to be central. No masses noted. No JVD or thyromegaly appreciated. RESPIRATORY: Chest is symmetrical. No intercostals muscle retraction or any accessory muscle activation. There is no chest wall tenderness. Breath sounds are heard bilaterally. No rales or rhonchi heard. No evidence of any consolidation. BREASTS: Deferred. HEART: The heart sounds are normal. No S3 or S4. No significant murmurs. No pericardial rub ABDOMEN: No vessel pulsations or distention. No tenderness. No organomegaly appreciated. Bowel sounds are normally heard. : Deferred. RECTAL: Deferred. LYMPHATIC: No lymphadenopathy noted in the neck. EXTREMITIES: No edema or cyanosis. No clubbing. MUSCULOSKELETAL: No acute joint deformities or swelling SKIN: There are no significant rashes or ecchymosis NEUROPSYCHIATRIC: The patient is alert and oriented x3. Appears to be in a good mood. No tremors or rigidity noted. Urinary Catheter Management: Mathews: Cath Placed During This Visit: yes Reason for Continuing Indwelling Catheter: Accurate Measurement of Urinary Output in Critically Ill Patients Urinary Catheter Date of Insertion: 10/10/22 Urinary Catheter Time of Insertion: 16:20 Data 10/14/22 03:40 10/15/22 03:50 Other Labs: Laboratory Last Values WBC 10.6 10^3/uL (4.0-10.0) H 10/14/22 03:40 RBC 3.68 10^6/uL (4.1-5.3) L 10/14/22 03:40 Hgb 11.5 g/dL (11.5-15.3) 10/14/22 03:40 Hct 35.5 % (37.0-47.0) L 10/14/22 03:40 MCV 96.5 fl (81-99) 10/14/22 03:40 MCH 31.3 pg (28.0-34.0) 10/14/22 03:40 MCHC 32.4 g/dL (30.0-36.0) 10/14/22 03:40 RDW 13.4 % (12.1-15.1) 10/14/22 03:40 Plt Count 185 10^3/cmm (130-400) 10/14/22 03:40 MPV 11.6 fL (7.4-10.4) H 10/14/22 03:40 Neut % (Auto) 76.7 % 10/14/22 03:40 Lymph % (Auto) 13.9 % 10/14/22 03:40 Andrew % (Auto) 7.8 % 10/14/22 03:40 Eos % (Auto) 0.7 % 10/14/22 03:40 Baso % (Auto) 0.3 % 10/14/22 03:40 Neut # (Auto) 8.11 10^3/uL (1.8-7.7) H 10/14/22 03:40 Lymph # (Auto) 1.5 10^3/uL (0.8-4.8) 10/14/22 03:40 Andrew # (Auto) 0.8 10^3/uL (0.2-0.9) 10/14/22 03:40 Eos # (Auto) 0.1 10^3/uL (0.0-0.8) 10/14/22 03:40 Baso # (Auto) 0.0 10^3/uL (0.0-0.1) 10/14/22 03:40 Nucleated RBC % (auto) 0 % 10/14/22 03:40 Total Counted 100 (0-100) 10/10/22 16:45 Atypical Lymphs % 0.0 % (0-5) 10/10/22 16:45 Absolute Neutrophils 13.9 10^3/cmm (1.4-6.5) H 10/10/22 16:45 Segmented Neutrophils 81 % 10/10/22 16:45 Abs Segm Neuts (Man) 13.9 10/cmm (1.6-7.1) H 10/10/22 16:45 Band Neutrophils 0.0 % 10/10/22 16:45 Abs Band Neuts (Man) 0.0 10^3/cmm (0.0-1.2) 10/10/22 16:45 Absolute Lymphocytes 2.2 10^3/cmm (1.2-3.4) 10/10/22 16:45 Lymphocytes (Manual) 13 % 10/10/22 16:45 Monocytes (Manual) 0.0 % 10/10/22 16:45 Absolute Monocytes 0.0 10^3/cmm (0.1-0.6) L 10/10/22 16:45 Eosinophils (Manual) 0 % 10/10/22 16:45 Absolute Eosinophils 0.0 10^3/cmm (0.0-0.7) 10/10/22 16:45 Basophils (Manual) 0.0 % 10/10/22 16:45 Absolute Basophils 0.0 10^3/cmm (0.0-0.2) 10/10/22 16:45 Metamyelocytes 1.0 % 10/10/22 16:45 Myelocytes 5.0 % 10/10/22 16:45 Nucleated RBCs # 0.0 /100WBC 10/14/22 03:40 Platelet Estimate Normal (Normal) 10/10/22 16:45 D-Dimer >= 20.00 ug/mIFEU (0-0.59) H 10/10/22 18:30 Specimen Type Arterial 10/11/22 04:27 Sample Site Radial, right 10/11/22 04:27 ABG pH 7.46 (7.35-7.45) H 10/11/22 04:27 ABG pCO2 33.0 mmHg (35-45) L 10/11/22 04:27 ABG pO2 83.1 mmHg (80.0-100.0) 10/11/22 04:27 ABG HCO3 23.3 mmol/L (22-26) 10/11/22 04:27 ABG O2 Saturation 99.4 10/10/22 16:20 ABG Base Excess 0.0 mmol/L (-2.0-2.0) 10/11/22 04:27 Fidencio Test Pos 10/11/22 04:27 A-a O2 Gradient 50.1 mmHg (5-10) H 10/10/22 16:20 Hematocrit 38.6 % (37-47) 10/11/22 04:27 Hgb O2 Saturation 98.3 % (95-100) 10/10/22 16:20 Carboxyhemoglobin 0.5 %THgb (0.4-20.1) 10/10/22 16:20 Methemoglobin 0.5 % (0.4-1.5) 10/10/22 16:20 Total Hemoglobin 13.1 g/dL (12-16) 10/10/22 16:20 Sodium 137.0 mmol/L (131-143) 10/10/22 16:20 Potassium 4.5 mmol/L (3.5-5.0) 10/10/22 16:20 Glucose 233.0 mg/dL (70-115) H 10/10/22 16:20 Ionized Calcium 1.2 mmol/L (1.1-1.4) 10/10/22 16:20 O2 Delivery Device Vent 10/11/22 04:27 O2 Liters/Min 15.0 % 10/10/22 16:20 FiO2 50.0 % 10/11/22 04:27 Tidal Volume 0.45 10/11/22 04:27 PEEP 5.0 cmH20 10/11/22 04:27 Director Of Graduate Medical Education ID Sang 10/11/22 04:27 Sodium 140 mmol/L (136-145) 10/15/22 03:50 Potassium 4.1 mmol/L (3.5-5.1) 10/15/22 03:50 Chloride 99 mmol/L (98-107) 10/15/22 03:50 Carbon Dioxide 30 mmol/L (22-29) H 10/15/22 03:50 Anion Gap 15.1 (5-19) 10/15/22 03:50 BUN 15 mg/dL (8-23) 10/15/22 03:50 Creatinine 0.8 mg/dL (0.5-0.9) 10/15/22 03:50 GFR Calculation Not Reportable 10/15/22 03:50 Glucose 114 mg/dL (65-115) 10/15/22 03:50 POC Glucose 114 mg/dL (70-110) H 10/11/22 10:56 Calculated Osmolality 292 mOsm/kg (285-295) 10/15/22 03:50 Lactic Acid 8.0 mmol/L (0.5-2.2) H* 10/10/22 16:45 Lactate 1.6 mmol/L (0.5-2.2) 10/11/22 03:29 Calcium 8.7 mg/dL (8.5-10.5) 10/15/22 03:50 Phosphorus 3.5 mg/dL (2.5-4.5) 10/11/22 03:29 Magnesium 1.9 mg/dL (1.7-2.3) 10/13/22 05:07 Total Bilirubin 0.5 mg/dL (0.15-1.2) 10/14/22 03:40 AST 122 U/L (0-32) H 10/14/22 03:40 ALT 149 U/L (0-33) H 10/14/22 03:40 Alkaline Phosphatase 108 U/L (35-105) H 10/14/22 03:40 Creatine Kinase 6532 U/L (26-192) H* 10/12/22 04:16 Troponin T Baseline 7678 ng/L (0-10) H* 10/10/22 16:40 Troponin T 120 Minute 6809 ng/L (0-10) H 10/10/22 18:30 Delta Troponin T -869 ABS# (0-10) L 10/10/22 18:30 Troponin T Hi Sens 6Hr 8378 ng/L (0-10) H 10/10/22 22:35 Troponin T Hi Sens 6Hr Delta 700 ng/L (0-12) H* 10/10/22 22:35 C-Reactive Protein 129.8 mg/L (0.0-4.9) H 10/11/22 03:29 NT-Pro-B Natriuret Pep 8800 pg/mL (0-450) H 10/10/22 16:45 Total Protein 5.9 g/dL (6.6-8.7) L 10/14/22 03:40 Albumin 3.0 g/dL (3.5-5.2) L 10/14/22 03:40 Globulin 2.9 g/dL (1.3-4.6) 10/14/22 03:40 Vitamin B12 805 pg/mL (232-1245) 10/13/22 05:07 Urine Color Yellow (Yellow) 10/10/22 18:32 Urine Appearance Hazy (CLEAR) A 10/10/22 18:32 Urine pH 5 (5-7) 10/10/22 18:32 Ur Specific [place] 1.010 (1.005-1.030) 10/10/22 18:32 Urine Protein 1+ (Negative) H 10/10/22 18:32 Urine Glucose (UA) Trace (Normal) H 10/10/22 18:32 Urine Ketones Negative (Negative) 10/10/22 18:32 Urine Blood 3+ (Negative) H 10/10/22 18:32 Urine Nitrate Negative (Negative) 10/10/22 18:32 Urine Bilirubin Neg (Negative) 10/10/22 18:32 Urine Urobilinogen 1 mg/dL (Negative) H 10/10/22 18:32 Ur Leukocyte Esterase Negative (Negative) 10/10/22 18:32 Urine RBC Rare /hpf (0-2) 10/10/22 18:32 Urine WBC Rare /hpf (0-5) 10/10/22 18:32 Ur Squamous Epith Cells None /hpf (0-5) 10/10/22 18:32 Amorphous Sediment 2+ /hpf 10/10/22 18:32 Urine Bacteria Trace /hpf (NONE) 10/10/22 18:32 A&P Assessment and plan (1) Cardiac arrest with successful resuscitation: Patient has not had any recurrence of this event, since hospital admission. We will continue on the current measures. (2) Atrial fibrillation: May continue on the p.o. amiodarone and the anticoagulation (3) Pulmonary edema: Currently resolved. May continue on the current medications (4) Hyperlipidemia: Continue on the current medications (5) Hypertension: Currently normotensive. Continue on the current measures (6) Atherosclerosis of coronary artery of [place] heart without angina pectoris: Status post multivessel PCI, stable Plan Low-grade fever, currently resolved Leukocytosis-currently returned to the baseline Acute kidney injury-stable kidney function. Patient is in the process of being transferred to a rehab facility. Patient may be discharged with an event monitor. Continue on the current medication. Amiodarone need to be tapered down to 200 mg p.o. daily Attestations Medical Necessity Statement*: Disposition as per the primary Coding Level of Care Code 00698 Diagnoses Cardiac arrest with successful resuscitation I46.9 Atrial fibrillation I48.91 Pulmonary edema J81.1 Hyperlipidemia E78.5 Hypertension I10 Atherosclerosis of coronary artery of [place] heart without angina pectoris I25.10
[2022-10-15] MEDS: amoxicillin-clav 875-125 mg Tablet 1 TAB PO ×2 (09:18→18:17)
[2022-10-15] MEDS: nicotine 21 mg Patch 1 PATCH TRANSDERMA (09:18)
[2022-10-15] MEDS: apixaban 5 mg Tablet PO ×2 (09:18→21:11)
[2022-10-15] MEDS: amiodarone 200 mg Tablet 400 MG PO ×2 (09:18→18:17)
[2022-10-15] MEDS: clopidogrel 75 mg Tablet PO (09:18)
--- NOTE | 2022-10-15 10:01 | XR_ITS ---
WS: [id number] XR chest 1V portable [id number] REASON FOR EXAM: tachypnea FINDINGS: Chest appears stable compared to 10/12/2022. Left subclavian central venous line remains in position. Mildly tortuous thoracic aorta and heart size at the upper limits of normal. Increased opacity of the right lower chest due to atelectasis in the right lower lung. Moderate right pleural effusion. Small left effusion. These findings demonstrated on CT scan of the c hest 10/11/2022. Also noted on the CT are findings of significant right heart obstruction with enlarge ment of the RV with retained contrast and opacification of the IVC with reflux into the hepatic veins . XR/XR chest 1V portable [id number] IMPRESSION: Stable abnormal chest as above.
--- NOTE | 2022-10-15 10:43 | P.PN_ITS ---
Subjective Subjective: Afebrile Patient is tachypneic breathing rate is around 30s Patient is not endorsing any chest pain she is not complaining of any pain at all Family at the bedside As per the medical case manager she will be accepted at [facility] tomorrow morning I will repeat x-ray today We will asked nurse to remove her central line Vitals/I&O/Wt Last Vital Signs Temp 98.8 F 10/15/22 09:24 Pulse 88 10/15/22 09:24 Resp 34 H 10/15/22 09:24 BP 134/60 10/15/22 09:24 Pulse Ox 90 10/15/22 09:24 O2 Del Method 10/15/22 09:24 O2 Flow Rate 2 10/15/22 09:24 FiO2 40 10/11/22 16:00 10/14/22 10/15/22 10/15/22 22:59 06:59 14:59 Intake Total 205 / 310 100 / 410 Output Total 100 / 875 400 / 400 Balance 105 / -565 100 / -465 -400 / -400 Physical Exam Narrative: Awake and alert Tachypneic Anxious appearing GCS 15 Able to answer my questions Is dehydrated Abdomen soft S1, S2 Currently on 3 L Urinary Catheter Management: Mathews: Cath Placed During This Visit: yes Reason for Continuing Indwelling Catheter: Accurate Measurement of Urinary Output in Critically Ill Patients Urinary Catheter Date of Insertion: 10/10/22 Urinary Catheter Time of Insertion: 16:20 Data 10/14/22 03:40 10/15/22 03:50 A&P Assessment and plan (1) Atherosclerosis of coronary artery of [place] heart without angina pectoris: (2) Aspiration pneumonia: (3) Pulmonary edema: (4) Metabolic acidosis: (5) Cardiac arrest due to underlying cardiac condition: (6) Cardiac arrest with successful resuscitation: (7) Coronary artery disease: (8) Cardiac arrest with ventricular fibrillation: (9) Anticoagulation adequate with anticoagulant therapy: (10) Atrial fibrillation: (11) Ischemic cardiomyopathy: (12) Hyperlipidemia: (13) ST elevation (STEMI) myocardial infarction: (14) UTI (urinary tract infection): Plan Patient is tachypneic today She was being treated empirically with Augmentin for aspiration pneumonia, repeat x-ray today Clinically looks dry Contraction alkalosis evident on BMP I will hold her Lasix today as well We will give her 1 dose of acetazolamide Continue Eliquis for A-fib Currently rate is well controlled Continue Mucomyst and DuoNeb Continue Plavix and Eliquis Patient is on dysphagia diet We will remove central line before her discharge Mathews catheter not to be removed today We will add Klonopin on as-needed basis Cultures negative Currently on 2 L nasal cannula Attestations Medical Necessity Statement*: Awaiting placement Coding Level of Care Code 04751 Moderate MDM includes number and complexity of problems actively addressed during encounter, amount and/or complexity of data reviewed/ordered and described risk of complication, morbidity or mortality of management as docu mented Diagnoses Atherosclerosis of coronary artery of [place] heart without angina pectoris I25.10 Aspiration pneumonia J69.0 Pulmonary edema J81.1 Metabolic acidosis E87.20 Cardiac arrest due to underlying cardiac condition I46.2 Cardiac arrest with successful resuscitation I46.9 Coronary artery disease I25.10 Cardiac arrest with ventricular fibrillation I46.9; I49.01 Anticoagulation adequate with anticoagulant therapy Z79.01 Atrial fibrillation I48.91 Ischemic cardiomyopathy I25.[address] elevation (STEMI) myocardial infarction I21.3 UTI (urinary tract infection) N39.0
--- NOTE | 2022-10-15 11:42 | PC.OT ---
OT tx attempted x2 this morning (0900 and 1130). Nursing requests OT to hold tx as pts family wants pt to sleep. They report pt has not slept for several days. Nurse reports she will call WARD when pt wakes to get her up in chair. OT tx will be awaited until further notice.
--- NOTE | 2022-10-15 13:44 | PC.SOCIAL ---
IMM UPDATED IMM dated and initialed copy given to patient and copy placed in chart
--- NOTE | 2022-10-15 14:07 | PC.SLP ---
Patient was not seen. Nurse reports little sleep last night and she is finally resting. Follow up tomorrow (10/16).
[2022-10-15] MEDS: lactulose oral liq 20 gm/30 mL UDC 10 GM PO (14:57)
[2022-10-15] MEDS: acetaZOLAMIDE 250 mg Tablet PO (14:57)
--- NOTE | 2022-10-15 15:19 | MRR_ITS ---
PROCEDURE INFORMATION: Exam: MR Head Without Contrast Exam date and time: 10/15/2022 5:32 PM Age: 77 years old Clinical indication: Altered mental status/memory loss; Additional info: Dysphagia TECHNIQUE: Imaging protocol: Magnetic resonance imaging of the head without contrast. COMPARISON: CT head wo con* [id number] 10/10/2022 10:07 PM FINDINGS: Brain: Numerous punctate acute or subacute infarcts noted within several vascular distributions including the bilateral occipital lobes and posterior lateral temporal lobes, periventricular white matter tracts, and bilateral frontal parietal lobes. No hemorrhage. There is more confluent FLAIR T2 hyperintense signal abnormality within the deep white matter tracts which does not demonstrate diffusion restriction and therefore may reflect additional areas of chronic small vessel ischemic disease. Cerebral ventricles: Normal. No ventriculomegaly. Bones/joints: Unremarkable. Paranasal sinuses: Normal as visualized. No acute sinusitis. Mastoid air cells: Normal as visualized. No mastoid effusion. Orbital cavities: Unremarkable. Soft tissues: Unremarkable. MR/MR head wo con* [id number] IMPRESSION: Numerous punctate acute or subacute infarcts scattered throughout both cerebral hemispheres as described in the body of the report. Involvement of multiple vascular distributions is suggestive of an embolic source.
[2022-10-15] MEDS: atorvastatin 40 mg Tablet 80 MG PO (18:17)
[2022-10-15] MEDS: temazepam 15 mg Capsule PO (21:11)
[2022-10-16] VITALS: PULSE 78; RESP 30; O2SAT 96
[2022-10-16 04:00] VITALS: PULSE 74; RESP 28; O2SAT 97
[2022-10-16 04:38] LABS: Basophils % 0.4 %; Eosinophils # 0.2 10^3/uL (0.0-0.8); Eosinophils % 1.7 %; Hematocrit 38.1 % (37.0-47.0); Hemoglobin 11.9 g/dL (11.5-15.3); Lymphocytes # 1.3 10^3/uL (0.8-4.8); Lymphocytes % 13.8 %; Mean Corpuscular HGB Conc 31.2 g/dL (30.0-36.0); Mean Corpuscular Hemoglobin 30.8 pg (28.0-34.0); Mean Corpuscular Volume 98.7 fl (81-99); Mean Platelet Volume 11.1 fL (7.4-10.4); Monocytes % 10.8 %; Neutrophils # 6.58 10^3/uL (1.8-7.7); Neutrophils % 72.5 %; Nucleated Red Blood Cells % 0 %; Platelet Count 193 10^3/cmm (130-400); Red Blood Count 3.86 10^6/uL (4.1-5.3); Red Cell Distribution Width 13.5 % (12.1-15.1); White Blood Count 9.1 10^3/uL (4.0-10.0)
[2022-10-16 05:17] LABS: Anion Gap 16.6 (5-19); Blood Urea Nitrogen 13 mg/dL (8-23); Calcium 8.5 mg/dL (8.5-10.5); Carbon Dioxide 25 mmol/L (22-29); Chloride 99 mmol/L (98-107); Glucose 103 mg/dL (65-115); Osmolality Calculated 284 mOsm/kg (285-295); Potassium 3.6 mmol/L (3.5-5.1); Sodium 137 mmol/L (136-145)
[2022-10-16 05:43] VITALS: PULSE 72
[2022-10-16 07:50] VITALS: BP 125/67; PULSE 76; RESP 24; TEMP 36.7; O2SAT 95
--- NOTE | 2022-10-16 07:58 | USCV_ITS ---
Agatha Graham Age: 77 Gender: F : 1945 Exam Date: 10/16/2022 08:32 Ordering Phys: Mai Perrin MD Technologist: TOMAS Exam Location: [facility] – [place] Indication: RV DYSFUNCTION BP: 125 / 67 HR: 82 Rhythm: Sinus Technical Quality: Adequate MEASUREMENTS (Male / Female) Normal Values 2D ECHO LVOT Diameter 1.9 cm LV Ejection Fraction MOD 2C 40.2 % LV Ejection Fraction 2C AL 43.2 % LA Diameter 2.5 cm LA Width 2.3 cm LA Height 5.2 cm RA Width 3.3 cm RA Height 4.1 cm Aorta at Sinotubular Diameter 2.1 cm IVC Diameter 1.2 cm M-MODE Aortic Annulus Diameter 2.6 cm LA Ao Ratio MM 1.1 MV E Point Septal Separation 0.7 cm DOPPLER TR Peak Velocity 260.1 cm/s TR Peak Gradient 27.1 mmHg TR Mean Velocity 216.1 cm/s TR Mean Gradient 19.2 mmHg TR Velocity Time Integral 73.8 cm Right Atrial Pressure 3.0 mmHg Pulmonary Artery Systolic Pressu 30.1 mmHg FINDINGS Left Ventricle Dilated LV apex with severe diffuse hypokinesia. LV ejection fraction around 35%. No filling defects were noted Right Ventricle The right ventricle is normal in size and function. Right Atrium The right atrium is normal in size. Left Atrium Mildly increased left atrial size. Mitral Valve No gross abnormalities noted Aortic Valve No gross abnormalities noted Tricuspid Valve No gross abnormalities noted Pulmonic Valve Pulmonic valve not well visualized. Pericardium No significant pericardial effusion Aorta Normal ascending aorta dimension. IVC Normal inferior vena cava. CONCLUSIONS Dilated LV apex with severe diffuse hypokinesia. LV ejection fraction around 35%. Mildly increased left atrial size. There is no significant pericardial effusion. There are no intracardiac masses. Compared to the study from 10/07/2022, there may not be a significant Dr Lani Avery MD [facility] (Electronically Signed) Final Date: 16 October 2022 18:03 S
[2022-10-16 08:00] VITALS: PULSE 79; RESP 20; O2SAT 97
[2022-10-16] MEDS: levalbuterol 0.63 mg/3 mL Neb INHALATION (08:04)
[2022-10-16 08:15] VITALS: PULSE 91
--- NOTE | 2022-10-16 08:30 | PM.PN ---
Subjective Subjective: The patient continues to make improvement, even though it is slow. His pain or palpitation. Telemetry shows no significant ventricular arrhythmia. No pauses noted. Medications: Medication Review Details: Current Medications Acetaminophen (Acetaminophen 500 Mg Tablet) 500 mg PO Q4H PRN PRN Reason: fever Acetylcysteine (Acetylcysteine 200 Mg/Ml Mdv 10 Ml) 100 mg INHALATION Q4H.RESPIRATORY [facility] Last Admin: 10/16/22 08:05 Dose: Not Given Albuterol/Ipratropium (Ipratropium-Albuterol 3 Ml Neb) 3 ml INHALATION Q6H PRN PRN Reason: SHORTNESS OF BREATH Alprazolam (Alprazolam 0.5 Mg Tablet) 0.5 mg PO TID PRN PRN Reason: ANXIETY Last Admin: 10/15/22 02:12 Dose: 0.5 mg Amiodarone HCl (Amiodarone 200 Mg Tablet) 400 mg PO BID [facility] Last Admin: 10/15/22 18:17 Dose: 400 mg Amoxicillin/Clavulanate Potassium (Amoxicillin-Clav 875-125 Mg Tablet) 1 tab PO BID [facility]; Protocol Last Admin: 10/15/22 18:17 Dose: 1 tab Apixaban (Apixaban 5 Mg Tablet) 5 mg PO BID@0900,2100 [facility] Last Admin: 10/15/22 21:11 Dose: 5 mg Atorvastatin Calcium (Atorvastatin 40 Mg Tablet) 80 mg PO QPM [facility] Last Admin: 10/15/22 18:17 Dose: 80 mg Clonazepam (Clonazepam 0.5 Mg Tablet) 0.5 mg PO BID PRN PRN Reason: AGITATION Clopidogrel Bisulfate (Clopidogrel 75 Mg Tablet) 75 mg PO DAILY [facility] Last Admin: 10/15/22 09:18 Dose: 75 mg Furosemide (Furosemide 20 Mg Tablet) 20 mg PO DAILY@0800 [facility] Last Admin: 10/14/22 08:56 Dose: 20 mg Levalbuterol HCl (Levalbuterol 0.63 Mg/3 Ml Neb) 0.63 mg INHALATION Q4H.RESPIRATORY [facility] Last Admin: 10/16/22 08:04 Dose: 0.63 mg Nicotine (Nicotine 21 Mg Patch) 1 patch TRANSDERMA DAILY [facility] Last Admin: 10/15/22 09:18 Dose: 1 patch Ondansetron HCl (Ondansetron 2 Mg/Ml Sdv 2 Ml) 4 mg IVP Q6H PRN PRN Reason: NAUSEA AND VOMITING Temazepam (Temazepam 15 Mg Capsule) 15 mg PO BEDTIME PRN PRN Reason: INSOMNIA Last Admin: 10/15/22 21:11 Dose: 15 mg Vitals/I&O/Wt Last Vital Signs Temp 98.0 F 10/16/22 07:50 Pulse 91 10/16/22 08:15 Resp 20 H 10/16/22 08:00 BP 125/67 10/16/22 07:50 Pulse Ox 97 10/16/22 08:00 O2 Del Method 10/16/22 08:00 O2 Flow Rate 3 10/16/22 08:00 FiO2 40 10/11/22 16:00 10/15/22 10/16/22 10/16/22 22:59 06:59 14:59 Intake Total 50 / 523 100 / 623 Output Total 300 / 700 350 / 1050 Balance -250 / -177 -250 / -427 Physical Exam Narrative: GENERAL: The patient is alert and oriented times three. Not in any acute distress. HEENT: No significant pallor, icterus or lymphadenopathy.Oral cavity: There are no mucous membrane lesions. NECK: Trachea appears to be central. No masses noted. No JVD or thyromegaly appreciated. RESPIRATORY: Chest is symmetrical. No intercostals muscle retraction or any accessory muscle activation. There is no chest wall tenderness. Breath sounds are heard bilaterally. No rales or rhonchi heard. No evidence of any consolidation. BREASTS: Deferred. HEART: The heart sounds are normal. No S3 or S4. Short systolic murmur in the lower sternal border. No diastolic murmurs. No pericardial rub ABDOMEN: No vessel pulsations or distention. No tenderness. No organomegaly appreciated. Bowel sounds are normally heard. : Deferred. RECTAL: Deferred. LYMPHATIC: No lymphadenopathy noted in the neck. EXTREMITIES: No edema or cyanosis. No clubbing. MUSCULOSKELETAL: No acute joint deformities or swelling SKIN: There are no significant rashes or ecchymosis NEUROPSYCHIATRIC: The patient is alert and oriented x3. Appears to be in a good mood. No tremors or rigidity noted. Urinary Catheter Management: Mathews: Cath Placed During This Visit: yes Reason for Continuing Indwelling Catheter: Accurate Measurement of Urinary Output in Critically Ill Patients Urinary Catheter Date of Insertion: 10/10/22 Urinary Catheter Time of Insertion: 16:20 Data 10/16/22 03:42 10/16/22 03:42 Other Labs: Laboratory Last Values WBC 9.1 10^3/uL (4.0-10.0) 10/16/22 03:42 RBC 3.86 10^6/uL (4.1-5.3) L 10/16/22 03:42 Hgb 11.9 g/dL (11.5-15.3) 10/16/22 03:42 Hct 38.1 % (37.0-47.0) 10/16/22 03:42 MCV 98.7 fl (81-99) 10/16/22 03:42 MCH 30.8 pg (28.0-34.0) 10/16/22 03:42 MCHC 31.2 g/dL (30.0-36.0) 10/16/22 03:42 RDW 13.5 % (12.1-15.1) 10/16/22 03:42 Plt Count 193 10^3/cmm (130-400) 10/16/22 03:42 MPV 11.1 fL (7.4-10.4) H 10/16/22 03:42 Neut % (Auto) 72.5 % 10/16/22 03:42 Lymph % (Auto) 13.8 % 10/16/22 03:42 [place] % (Auto) 10.8 % 10/16/22 03:42 Eos % (Auto) 1.7 % 10/16/22 03:42 Baso % (Auto) 0.4 % 10/16/22 03:42 Neut # (Auto) 6.58 10^3/uL (1.8-7.7) 10/16/22 03:42 Lymph # (Auto) 1.3 10^3/uL (0.8-4.8) 10/16/22 03:42 [place] # (Auto) 1.0 10^3/uL (0.2-0.9) H 10/16/22 03:42 Eos # (Auto) 0.2 10^3/uL (0.0-0.8) 10/16/22 03:42 Baso # (Auto) 0.0 10^3/uL (0.0-0.1) 10/16/22 03:42 Nucleated RBC % (auto) 0 % 10/16/22 03:42 Total Counted 100 (0-100) 10/10/22 16:45 Atypical Lymphs % 0.0 % (0-5) 10/10/22 16:45 Absolute Neutrophils 13.9 10^3/cmm (1.4-6.5) H 10/10/22 16:45 Segmented Neutrophils 81 % 10/10/22 16:45 Abs Segm Neuts (Man) 13.9 10/cmm (1.6-7.1) H 10/10/22 16:45 Band Neutrophils 0.0 % 10/10/22 16:45 Abs Band Neuts (Man) 0.0 10^3/cmm (0.0-1.2) 10/10/22 16:45 Absolute Lymphocytes 2.2 10^3/cmm (1.2-3.4) 10/10/22 16:45 Lymphocytes (Manual) 13 % 10/10/22 16:45 Monocytes (Manual) 0.0 % 10/10/22 16:45 Absolute Monocytes 0.0 10^3/cmm (0.1-0.6) L 10/10/22 16:45 Eosinophils (Manual) 0 % 10/10/22 16:45 Absolute Eosinophils 0.0 10^3/cmm (0.0-0.7) 10/10/22 16:45 Basophils (Manual) 0.0 % 10/10/22 16:45 Absolute Basophils 0.0 10^3/cmm (0.0-0.2) 10/10/22 16:45 Metamyelocytes 1.0 % 10/10/22 16:45 Myelocytes 5.0 % 10/10/22 16:45 Nucleated RBCs # 0.0 /100WBC 10/16/22 03:42 Platelet Estimate Normal (Normal) 10/10/22 16:45 D-Dimer >= 20.00 ug/mIFEU (0-0.59) H 10/10/22 18:30 Specimen Type Arterial 10/11/22 04:27 Sample Site Radial, right 10/11/22 04:27 ABG pH 7.46 (7.35-7.45) H 10/11/22 04:27 ABG pCO2 33.0 mmHg (35-45) L 10/11/22 04:27 ABG pO2 83.1 mmHg (80.0-100.0) 10/11/22 04:27 ABG HCO3 23.3 mmol/L (22-26) 10/11/22 04:27 ABG O2 Saturation 99.4 10/10/22 16:20 ABG Base Excess 0.0 mmol/L (-2.0-2.0) 10/11/22 04:27 Fidencio Test Pos 10/11/22 04:27 A-a O2 Gradient 50.1 mmHg (5-10) H 10/10/22 16:20 Hematocrit 38.6 % (37-47) 10/11/22 04:27 Hgb O2 Saturation 98.3 % (95-100) 10/10/22 16:20 Carboxyhemoglobin 0.5 %THgb (0.4-20.1) 10/10/22 16:20 Methemoglobin 0.5 % (0.4-1.5) 10/10/22 16:20 Total Hemoglobin 13.1 g/dL (12-16) 10/10/22 16:20 Sodium 137.0 mmol/L (131-143) 10/10/22 16:20 Potassium 4.5 mmol/L (3.5-5.0) 10/10/22 16:20 Glucose 233.0 mg/dL (70-115) H 10/10/22 16:20 Ionized Calcium 1.2 mmol/L (1.1-1.4) 10/10/22 16:20 O2 Delivery Device Vent 10/11/22 04:27 O2 Liters/Min 15.0 % 10/10/22 16:20 FiO2 50.0 % 10/11/22 04:27 Tidal Volume 0.45 10/11/22 04:27 PEEP 5.0 cmH20 10/11/22 04:27 Pipeline [employer] Division ID Sang 10/11/22 04:27 Sodium 137 mmol/L (136-145) 10/16/22 03:42 Potassium 3.6 mmol/L (3.5-5.1) 10/16/22 03:42 Chloride 99 mmol/L (98-107) 10/16/22 03:42 Carbon Dioxide 25 mmol/L (22-29) 10/16/22 03:42 Anion Gap 16.6 (5-19) 10/16/22 03:42 BUN 13 mg/dL (8-23) 10/16/22 03:42 Creatinine 0.8 mg/dL (0.5-0.9) 10/16/22 03:42 GFR Calculation Not Reportable 10/16/22 03:42 Glucose 103 mg/dL (65-115) 10/16/22 03:42 POC Glucose 114 mg/dL (70-110) H 10/11/22 10:56 Calculated Osmolality 284 mOsm/kg (285-295) L 10/16/22 03:42 Lactic Acid 8.0 mmol/L (0.5-2.2) H* 10/10/22 16:45 Lactate 1.6 mmol/L (0.5-2.2) 10/11/22 03:29 Calcium 8.5 mg/dL (8.5-10.5) 10/16/22 03:42 Phosphorus 3.5 mg/dL (2.5-4.5) 10/11/22 03:29 Magnesium 1.9 mg/dL (1.7-2.3) 10/13/22 05:07 Total Bilirubin 0.5 mg/dL (0.15-1.2) 10/14/22 03:40 AST 122 U/L (0-32) H 10/14/22 03:40 ALT 149 U/L (0-33) H 10/14/22 03:40 Alkaline Phosphatase 108 U/L (35-105) H 10/14/22 03:40 Creatine Kinase 6532 U/L (26-192) H* 10/12/22 04:16 Troponin T Baseline 7678 ng/L (0-10) H* 10/10/22 16:40 Troponin T 120 Minute 6809 ng/L (0-10) H 10/10/22 18:30 Delta Troponin T -869 ABS# (0-10) L 10/10/22 18:30 Troponin T Hi Sens 6Hr 8378 ng/L (0-10) H 10/10/22 22:35 Troponin T Hi Sens 6Hr Delta 700 ng/L (0-12) H* 10/10/22 22:35 C-Reactive Protein 129.8 mg/L (0.0-4.9) H 10/11/22 03:29 NT-Pro-B Natriuret Pep 8800 pg/mL (0-450) H 10/10/22 16:45 Total Protein 5.9 g/dL (6.6-8.7) L 10/14/22 03:40 Albumin 3.0 g/dL (3.5-5.2) L 10/14/22 03:40 Globulin 2.9 g/dL (1.3-4.6) 10/14/22 03:40 Vitamin B12 805 pg/mL (232-1245) 10/13/22 05:07 Urine Color Yellow (Yellow) 10/10/22 18:32 Urine Appearance Hazy (CLEAR) A 10/10/22 18:32 Urine pH 5 (5-7) 10/10/22 18:32 Ur Specific [place] 1.010 (1.005-1.030) 10/10/22 18:32 Urine Protein 1+ (Negative) H 10/10/22 18:32 Urine Glucose (UA) Trace (Normal) H 10/10/22 18:32 Urine Ketones Negative (Negative) 10/10/22 18:32 Urine Blood 3+ (Negative) H 10/10/22 18:32 Urine Nitrate Negative (Negative) 10/10/22 18:32 Urine Bilirubin Neg (Negative) 10/10/22 18:32 Urine Urobilinogen 1 mg/dL (Negative) H 10/10/22 18:32 Ur Leukocyte Esterase Negative (Negative) 10/10/22 18:32 Urine RBC Rare /hpf (0-2) 10/10/22 18:32 Urine WBC Rare /hpf (0-5) 10/10/22 18:32 Ur Squamous Epith Cells None /hpf (0-5) 10/10/22 18:32 Amorphous Sediment 2+ /hpf 10/10/22 18:32 Urine Bacteria Trace /hpf (NONE) 10/10/22 18:32 Micro: Microbiology 10/10/22 16:40 Blood Culture - Final Blood NO GROWTH AFTER 5 DAYS 10/10/22 16:40 Blood Culture - Final Blood NO GROWTH AFTER 5 DAYS A&P Assessment and plan (1) Cardiac arrest with successful resuscitation: Patient has not had any recurrence of this event, since hospital admission. We will continue on the current measures. (2) Atrial fibrillation: May continue on the p.o. amiodarone and the anticoagulation (3) Pulmonary edema: Currently resolved. May continue on the current medications (4) Hyperlipidemia: Continue on the current medications (5) Hypertension: Currently normotensive. Continue on the current measures (6) Atherosclerosis of coronary artery of [place] heart without angina pectoris: Status post multivessel PCI, stable Plan Discussed with Dr. Fried Patient may continue on the current medications. Needs [facility] by the nurse practitioner in a week Will be seen in the office in 2 months Attestations Medical Necessity Statement*: Possible discharge to rehab facility today Coding Level of Care Code 38051 Diagnoses Cardiac arrest with successful resuscitation I46.9 Atrial fibrillation I48.91 Pulmonary edema J81.1 Hyperlipidemia E78.5 Hypertension I10 Atherosclerosis of coronary artery of [place] heart without angina pectoris I25.10
[2022-10-16] MEDS: clopidogrel 75 mg Tablet PO (09:23)
[2022-10-16] MEDS: amoxicillin-clav 875-125 mg Tablet 1 TAB PO (09:23)
[2022-10-16] MEDS: amiodarone 200 mg Tablet 400 MG PO (09:23)
[2022-10-16] MEDS: nicotine 21 mg Patch 1 PATCH TRANSDERMA (09:24)
[2022-10-16] MEDS: apixaban 5 mg Tablet PO (09:24)
--- NOTE | 2022-10-16 10:04 | PM.DCS ---
Discharge Providers Date of Admission: 10/10/22 16:55 Date of Discharge: October 16, 2022 Attending Provider at Admission: Tian Etienne MD Attending Provider at Discharge: Tian Etienne MD Diagnoses at Discharge Discharge Diagnosis (1) Cardiac arrest with successful resuscitation: Status: Acute (2) Atrial fibrillation: Status: Acute (3) Pulmonary edema: Status: Acute (4) Hyperlipidemia: Status: Acute (5) Hypertension: Status: Acute (6) Atherosclerosis of coronary artery of [place] heart without angina pectoris: Status: Acute Reason for Visit Reason for Visit: CPR IN PROGRESS Hospital Course Hospital Course 77-year female who was discharged on 10/10 after management of NSTEMI, received a stent in LAD and left circumflex, during hospitalization she developed A-fib for which she was discharged on amiodarone, at home her daughter called EMS when she collapsed, she went into PEA, 20 to 25 minutes of code was run with successful ROSC, she received 4 rounds of epinephrine as per the EMS report, CT head unremarkable, she was in A-fib RVR, she was started on amiodarone drip on arrival, echo did not show cardiac tamponade, no sign of tension pneumothorax, she was taken directly to the [facility], her stents were patent, troponins were elevated, BNP high, CTA rule out PE, patient was successfully extubated in next 24 hours 2 to 3 L nasal cannula, we noticed left-sided dysphagia, left arm weakness, MRI head 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 We will remove left-sided subclavian central line before her discharge. Mathews catheter will not be removed. Patient seems to be suffering from ICU related delirium for which she required Klonopin. Nicotine patch was also added. I will prescribe her Lasix but holding it for now because of contraction alkalosis Physical Exam Narrative: Left arm weakness improving GCS 15 Currently on 3 L Normotensive Afebrile Abdomen soft Euvolemic Mild left-sided facial droop Urinary Catheter Management: Mathews: Cath Placed During This Visit: yes Reason for Continuing Indwelling Catheter: Accurate Measurement of Urinary Output in Critically Ill Patients Urinary Catheter Date of Insertion: 10/10/22 Urinary Catheter Time of Insertion: 16:20 Discharge Data Studies Completed and Pending Completed Studies During Hospitalization Category Date Time Status CT head wo con* [id number] Stat Cat Scan 10/10/22 18:48 Completed CTA PE [CT angio chest PE protcl [id number]] Routine Cat Scan 10/11/22 05:43 Completed [facility] request for service Stat Exams 10/10/22 16:44 Completed XR chest 1V portable [id number] Routine Exams 10/10/22 17:42 Completed XR chest 1V portable [id number] Routine Exams 10/11/22 05:46 Completed XR chest 1V portable [id number] Routine Exams 10/12/22 04:00 Completed XR chest 1V portable [id number] Routine Exams 10/15/22 10:01 Completed MR head wo con* [id number] Routine MRI 10/15/22 15:19 [place] [id number] Routine Ultrasound 10/11/22 05:43 Completed Pending at discharge Category Date Time Status CV. echo limited [id number] Stat Ultrasound 10/16/22 07:58 Taken Radiology Impressions Head CT 10/10/22 18:48 IMPRESSION: 1. No hemorrhage or midline shift. 2. Patchy regions of hypoattenuation in the bilateral deep white matter are age indeterminate but may be chronic. If acute ischemia is suspected recommend MRI brain follow-up. Chest CTA 10/11/22 05:43 IMPRESSION: 1. No evidence of pulmonary embolus. 2. Small RIGHT greater than LEFT pleural effusions with compressive atelectasis in the lung bases. 3. No other acute findings. Chest X-Ray 10/15/22 10:01 IMPRESSION: Stable abnormal chest as above. Head MRI 10/15/22 15:19 IMPRESSION: Numerous punctate acute or subacute infarcts scattered throughout both cerebral hemispheres as described in the body of the report. Involvement of multiple vascular distributions is suggestive of an embolic source. ADDENDUM: 10/15/22 0972 THIS REPORT CONTAINS FINDINGS THAT MAY BE CRITICAL TO PATIENT CARE. The findings were verbally communicated via telephone conference with UVALDO PETTIT at 6:38 PM CDT on 10/15/2022. The findings were acknowledged and understood. Laboratory Results WBC 9.1 10^3/uL (4.0-10.0) 10/16/22 03:42 RBC 3.86 10^6/uL (4.1-5.3) L 10/16/22 03:42 Hgb 11.9 g/dL (11.5-15.3) 10/16/22 03:42 Hct 38.1 % (37.0-47.0) 10/16/22 03:42 MCV 98.7 fl (81-99) 10/16/22 03:42 MCH 30.8 pg (28.0-34.0) 10/16/22 03:42 MCHC 31.2 g/dL (30.0-36.0) 10/16/22 03:42 RDW 13.5 % (12.1-15.1) 10/16/22 03:42 Plt Count 193 10^3/cmm (130-400) 10/16/22 03:42 MPV 11.1 fL (7.4-10.4) H 10/16/22 03:42 Neut % (Auto) 72.5 % 10/16/22 03:42 Lymph % (Auto) 13.8 % 10/16/22 03:42 [place] % (Auto) 10.8 % 10/16/22 03:42 Eos % (Auto) 1.7 % 10/16/22 03:42 Baso % (Auto) 0.4 % 10/16/22 03:42 Neut # (Auto) 6.58 10^3/uL (1.8-7.7) 10/16/22 03:42 Lymph # (Auto) 1.3 10^3/uL (0.8-4.8) 10/16/22 03:42 [place] # (Auto) 1.0 10^3/uL (0.2-0.9) H 10/16/22 03:42 Eos # (Auto) 0.2 10^3/uL (0.0-0.8) 10/16/22 03:42 Baso # (Auto) 0.0 10^3/uL (0.0-0.1) 10/16/22 03:42 Nucleated RBC % (auto) 0 % 10/16/22 03:42 Total Counted 100 (0-100) 10/10/22 16:45 Atypical Lymphs % 0.0 % (0-5) 10/10/22 16:45 Absolute Neutrophils 13.9 10^3/cmm (1.4-6.5) H 10/10/22 16:45 Segmented Neutrophils 81 % 10/10/22 16:45 Abs Segm Neuts (Man) 13.9 10/cmm (1.6-7.1) H 10/10/22 16:45 Band Neutrophils 0.0 % 10/10/22 16:45 Abs Band Neuts (Man) 0.0 10^3/cmm (0.0-1.2) 10/10/22 16:45 Absolute Lymphocytes 2.2 10^3/cmm (1.2-3.4) 10/10/22 16:45 Lymphocytes (Manual) 13 % 10/10/22 16:45 Monocytes (Manual) 0.0 % 10/10/22 16:45 Absolute Monocytes 0.0 10^3/cmm (0.1-0.6) L 10/10/22 16:45 Eosinophils (Manual) 0 % 10/10/22 16:45 Absolute Eosinophils 0.0 10^3/cmm (0.0-0.7) 10/10/22 16:45 Basophils (Manual) 0.0 % 10/10/22 16:45 Absolute Basophils 0.0 10^3/cmm (0.0-0.2) 10/10/22 16:45 Metamyelocytes 1.0 % 10/10/22 16:45 Myelocytes 5.0 % 10/10/22 16:45 Nucleated RBCs # 0.0 /100WBC 10/16/22 03:42 Platelet Estimate Normal (Normal) 10/10/22 16:45 D-Dimer >= 20.00 ug/mIFEU (0-0.59) H 10/10/22 18:30 Specimen Type Arterial 10/11/22 04:27 Sample Site Radial, right 10/11/22 04:27 ABG pH 7.46 (7.35-7.45) H 10/11/22 04:27 ABG pCO2 33.0 mmHg (35-45) L 10/11/22 04:27 ABG pO2 83.1 mmHg (80.0-100.0) 10/11/22 04:27 ABG HCO3 23.3 mmol/L (22-26) 10/11/22 04:27 ABG O2 Saturation 99.4 10/10/22 16:20 ABG Base Excess 0.0 mmol/L (-2.0-2.0) 10/11/22 04:27 Fidencio Test Pos 10/11/22 04:27 A-a O2 Gradient 50.1 mmHg (5-10) H 10/10/22 16:20 Hematocrit 38.6 % (37-47) 10/11/22 04:27 Hgb O2 Saturation 98.3 % (95-100) 10/10/22 16:20 Carboxyhemoglobin 0.5 %THgb (0.4-20.1) 10/10/22 16:20 Methemoglobin 0.5 % (0.4-1.5) 10/10/22 16:20 Total Hemoglobin 13.1 g/dL (12-16) 10/10/22 16:20 Sodium 137.0 mmol/L (131-143) 10/10/22 16:20 Potassium 4.5 mmol/L (3.5-5.0) 10/10/22 16:20 Glucose 233.0 mg/dL (70-115) H 10/10/22 16:20 Ionized Calcium 1.2 mmol/L (1.1-1.4) 10/10/22 16:20 O2 Delivery Device Vent 10/11/22 04:27 O2 Liters/Min 15.0 % 10/10/22 16:20 FiO2 50.0 % 10/11/22 04:27 Tidal Volume 0.45 10/11/22 04:27 PEEP 5.0 cmH20 10/11/22 04:27 Marine Plumber ID Sang 10/11/22 04:27 Sodium 137 mmol/L (136-145) 10/16/22 03:42 Potassium 3.6 mmol/L (3.5-5.1) 10/16/22 03:42 Chloride 99 mmol/L (98-107) 10/16/22 03:42 Carbon Dioxide 25 mmol/L (22-29) 10/16/22 03:42 Anion Gap 16.6 (5-19) 10/16/22 03:42 BUN 13 mg/dL (8-23) 10/16/22 03:42 Creatinine 0.8 mg/dL (0.5-0.9) 10/16/22 03:42 GFR Calculation Not Reportable 10/16/22 03:42 Glucose 103 mg/dL (65-115) 10/16/22 03:42 POC Glucose 114 mg/dL (70-110) H 10/11/22 10:56 Calculated Osmolality 284 mOsm/kg (285-295) L 10/16/22 03:42 Lactic Acid 8.0 mmol/L (0.5-2.2) H* 10/10/22 16:45 Lactate 1.6 mmol/L (0.5-2.2) 10/11/22 03:29 Calcium 8.5 mg/dL (8.5-10.5) 10/16/22 03:42 Phosphorus 3.5 mg/dL (2.5-4.5) 10/11/22 03:29 Magnesium 1.9 mg/dL (1.7-2.3) 10/13/22 05:07 Total Bilirubin 0.5 mg/dL (0.15-1.2) 10/14/22 03:40 AST 122 U/L (0-32) H 10/14/22 03:40 ALT 149 U/L (0-33) H 10/14/22 03:40 Alkaline Phosphatase 108 U/L (35-105) H 10/14/22 03:40 Creatine Kinase 6532 U/L (26-192) H* 10/12/22 04:16 Troponin T Baseline 7678 ng/L (0-10) H* 10/10/22 16:40 Troponin T 120 Minute 6809 ng/L (0-10) H 10/10/22 18:30 Delta Troponin T -869 ABS# (0-10) L 10/10/22 18:30 Troponin T Hi Sens 6Hr 8378 ng/L (0-10) H 10/10/22 22:35 Troponin T Hi Sens 6Hr Delta 700 ng/L (0-12) H* 10/10/22 22:35 C-Reactive Protein 129.8 mg/L (0.0-4.9) H 10/11/22 03:29 NT-Pro-B Natriuret Pep 8800 pg/mL (0-450) H 10/10/22 16:45 Total Protein 5.9 g/dL (6.6-8.7) L 10/14/22 03:40 Albumin 3.0 g/dL (3.5-5.2) L 10/14/22 03:40 Globulin 2.9 g/dL (1.3-4.6) 10/14/22 03:40 Vitamin B12 805 pg/mL (232-1245) 10/13/22 05:07 Urine Color Yellow (Yellow) 10/10/22 18:32 Urine Appearance Hazy (CLEAR) A 10/10/22 18:32 Urine pH 5 (5-7) 10/10/22 18:32 Ur Specific [place] 1.010 (1.005-1.030) 10/10/22 18:32 Urine Protein 1+ (Negative) H 10/10/22 18:32 Urine Glucose (UA) Trace (Normal) H 10/10/22 18:32 Urine Ketones Negative (Negative) 10/10/22 18:32 Urine Blood 3+ (Negative) H 10/10/22 18:32 Urine Nitrate Negative (Negative) 10/10/22 18:32 Urine Bilirubin Neg (Negative) 10/10/22 18:32 Urine Urobilinogen 1 mg/dL (Negative) H 10/10/22 18:32 Ur Leukocyte Esterase Negative (Negative) 10/10/22 18:32 Urine RBC Rare /hpf (0-2) 10/10/22 18:32 Urine WBC Rare /hpf (0-5) 10/10/22 18:32 Ur Squamous Epith Cells None /hpf (0-5) 10/10/22 18:32 Amorphous Sediment 2+ /hpf 10/10/22 18:32 Urine Bacteria Trace /hpf (NONE) 10/10/22 18:32 Vitals Last Vital Signs Temp 98.0 F 10/16/22 07:50 Pulse 91 10/16/22 08:15 Resp 20 H 10/16/22 08:00 BP 125/67 10/16/22 07:50 Pulse Ox 97 10/16/22 08:00 O2 Del Method 10/16/22 08:00 O2 Flow Rate 3 10/16/22 08:00 FiO2 40 10/11/22 16:00 Discharge Plan Discharge Patient Disposition: Xfer Inpatient Rehab Fac Condition: Stable Prescriptions: New clonazepam 0.5 mg Tablet 0.5 mg PO BID PRN (Reason: Agitation) Qty: 30 0RF temazepam 15 mg Capsule 15 mg PO BEDTIME PRN (Reason: Insomnia) Qty: 30 0RF furosemide 20 mg Tablet 20 mg PO DAILY@0800 Qty: 30 0RF potassium chloride 10 mEq tablet extended release 10 meq PO DAILY Qty: 30 0RF Rx Instructions: Take with Lasix amoxicillin-pot clavulanate 875-125 mg Tablet 1 tab PO BID Qty: 6 0RF Continued lisinopril 5 mg tablet 5 mg PO QAM Eliquis 5 mg Tablet 2.5 mg PO BID@0900,2100 Qty: 60 5RF atorvastatin 40 mg Tablet 40 mg PO BEDTIME Qty: 30 3RF clopidogrel 75 mg Tablet 75 mg PO DAILY Qty: 30 3RF nitroglycerin 0.4 mg Tablet, Sublingual 0.4 mg sublingual Q5M PRN (Reason: Chest Pain) Qty: 25 3RF amiodarone 200 mg tablet 200 mg PO DAILY Qty: 60 0RF Rx Instructions: Take 400mg once daily for one week, then take 200mg daily Discontinued aspirin 81 mg Tablet,Delayed Release (Dr/Ec) 81 mg PO QAM metoprolol tartrate 50 mg Tablet 50 mg PO BID Qty: 60 3RF Discharge Orders: Discharge Order (Routine); Ordered 10/16/22 Ordered By: Uvaldo Pettit Other Ambulatory Orders: MCT/Event Monitor 21 Days (Routine) Timeframe: 3 Weeks Facility: [facility] - Location: Radiology Ordered By: Uvaldo Pettit Referrals: Bennett Mckeon FNP-C [Nurse Practitioner] - 10/23/22 9:40 am (You have a hospital follow up Bennett Mckeon for October 23, 2022 at 9:40 am. If you have any questions or need to reschedule please contact the office at [phone].) Mag Sutton FNP [Nurse Practitioner] - 10/21/22 10:45 am (Please follow-up with Mag Sutton on October 21 at 10:45A.M. If you have any questions or need to reschedule. Please call ) Patient Instructions: Furosemide (By mouth) (Lasix), Clonazepam (By mouth) (KlonoPIN), Temazepam (By mouth) (Restoril, Strazepam), Potassium Chloride (By mouth) (K-Dur, K-Marixa, K-Tab, Darion Mur), Amoxicillin/Clavulanate Potassium (By mouth) (Augmentin, Augmentin... Discharge Attestations Time Spent in Discharge Care*: less than 30 min Quality Metrics Clinical Quality Measures [ No reported AMI, CVA or VTE this stay] Coding Level of Care Code Acute Code for [facility] Fwd Diagnoses Cardiac arrest with successful resuscitation I46.9 Atrial fibrillation I48.91 Pulmonary edema J81.1 Hyperlipidemia E78.5 Hypertension I10 Atherosclerosis of coronary artery of [place] heart without angina pectoris I25.10
--- NOTE | 2022-10-16 10:51 | PC.NURSE ---
called [facility] for an event monitor order staff said, they are out of supplies and booked up for nxt several days to get her fitted in.
--- NOTE | 2022-10-16 11:23 | PC.NURSE ---
central line removed as ordered central line removed on left upper chest, aseptic technique. pt in trendelenburg, held breath, catheter tip is intact. pressure applied to site for 5 mins. no bleeding or hematoma. pt tolerated well.
--- NOTE | 2022-10-16 11:43 | PC.NURSE ---
report called to [facility] talked to charge nurse
[2022-10-16] MEDS: CLONazepam 0.5 mg Tablet PO (12:31)
--- NOTE | 2022-10-16 13:35 | PC.NURSE ---
ambulance transport is here to bring pt to [facility] rehab.
== END 2022-10-16 13:34 | DRG 280 ==
LOC: ER 16:55 → ICU 16:56 → CSU 10-13 16:04
PROVIDERS: Emergency Medicine; Internal Medicine; Admitting Provider Internal Medicine Cardiovascular Disease; Emergency Provider Family Medicine; Visit Provider Internal Medicine Cardiovascular Disease
PROC: B2111ZZ Fluoroscopy of Multiple Coronary Arteries using Low Osmolar Contrast (ICD-10-PCS; principal; 2022-10-10 16:00)
DX: I49.01 Ventricular fibrillation (principal); I21.09 ST elevation (STEMI) myocardial infarction involving other coronary artery of anterior wall; I50.21 Acute systolic (congestive) heart failure; I63.40 Cerebral infarction due to embolism of unspecified cerebral artery; J69.0 Pneumonitis due to inhalation of food and vomit; J96.90 Respiratory failure, unspecified, unspecified whether with hypoxia or hypercapnia; J98.11 Atelectasis; F05 Delirium due to known physiological condition; N17.9 Acute kidney failure, unspecified; E87.20 Acidosis, unspecified; I46.9 Cardiac arrest, cause unspecified; I25.10 Atherosclerotic heart disease of native coronary artery without angina pectoris; Z95.5 Presence of coronary angioplasty implant and graft; I48.0 Paroxysmal atrial fibrillation; G83.24 Monoplegia of upper limb affecting left nondominant side; R29.810 Facial weakness; Z79.01 Long term (current) use of anticoagulants; Z79.02 Long term (current) use of antithrombotics/antiplatelets; E78.5 Hyperlipidemia, unspecified; I11.0 Hypertensive heart disease with heart failure; I25.5 Ischemic cardiomyopathy; K59.00 Constipation, unspecified; E87.6 Hypokalemia; Z87.891 Personal history of nicotine dependence
CPT/HCPCS: 31500; 36415; 36416; 36556; 36592; 36600; 51702; 70450; 70551; 71045; 71275; 80048; 80051; 80053; 81001; 82330; 82550; 82607; 82803; 82805; 82962; 83605; 83735; 83880; 84100; 84484; 85007; 85025; 85378; 86140; 87040; 87070; 87205; 87641; 92507; 92523; 92526; 92610; 93005; 93308; 93454; 93970; 94003; 94640; 94799; 96372; 96374; 96375; 96376; 97110; 97161; 97166; 97530; 97535; 99291; C1751; C1769; C1887; C1894; C9113; J0171; J0282; J0330; J0461; J0610; J1265; J1644; J1650; J1940; J2250; J2543; J3010; J3480; J3490; J7030; J7040; J7050; J7060; J7070; J7608; J7614; Q9967

== ENCOUNTER → 2022-10-28 10:47 | Outpatient (BNVA) | payer MEDICARE, OTHER, SELFPAY | PROVIDERS: PCP Nurse Practitioner; Visit Provider Nurse Practitioner Family | DX: J44.9 Chronic obstructive pulmonary disease, unspecified (principal); R09.02 Hypoxemia; I25.5 Ischemic cardiomyopathy; I63.9 Cerebral infarction, unspecified; I46.9 Cardiac arrest, cause unspecified; R35.0 Frequency of micturition; Z09 Encounter for follow-up examination after completed treatment for conditions other than malignant neoplasm; N39.0 Urinary tract infection, site not specified | CPT/HCPCS: 81000; 87086 ==

== ENCOUNTER 2022-11-06 06:00 | Outpatient (RCR) | payer MEDICARE, OTHER, SELFPAY | END 2022-12-01 23:59 | disposition home or self-care (01) | LOC: TPT 06:00 | PROVIDERS: Visit Provider Internal Medicine | DX: R53.1 Weakness (principal); R26.9 Unspecified abnormalities of gait and mobility | CPT/HCPCS: 97110; 97116; 97162 ==

== ENCOUNTER 2022-11-06 06:00 | Outpatient (RCR) | payer MEDICARE, OTHER, SELFPAY | END 2022-12-01 23:59 | disposition home or self-care (01) | LOC: TST 06:00 | PROVIDERS: Visit Provider Student in an Organized Health Care Education/Training Program | DX: I69.328 Other speech and language deficits following cerebral infarction (principal); I69.391 Dysphagia following cerebral infarction; R13.10 Dysphagia, unspecified; I69.311 Memory deficit following cerebral infarction | CPT/HCPCS: 92507; 92523 ==

== ENCOUNTER 2022-11-06 06:00 | Outpatient (RCR) | payer MEDICARE, OTHER, SELFPAY | END 2022-12-01 23:59 | disposition home or self-care (01) | LOC: TOT 06:00 | PROVIDERS: PCP Family Medicine; Visit Provider Internal Medicine | DX: I63.9 Cerebral infarction, unspecified (principal) | CPT/HCPCS: 97110; 97112; 97140; 97166 ==

== ENCOUNTER → 2022-11-08 10:23 | Outpatient (BNVA) | payer MEDICARE, OTHER, SELFPAY | PROVIDERS: PCP Family Medicine; Visit Provider Nurse Practitioner Family | DX: I25.10 Atherosclerotic heart disease of native coronary artery without angina pectoris (principal); I25.5 Ischemic cardiomyopathy; I48.91 Unspecified atrial fibrillation; Z86.74 Personal history of sudden cardiac arrest; Z87.891 Personal history of nicotine dependence; Z79.01 Long term (current) use of anticoagulants; I10 Essential (primary) hypertension; I25.2 Old myocardial infarction | CPT/HCPCS: 99214 ==

== ENCOUNTER 2022-12-02 06:00 | Outpatient (RCR) | payer MEDICARE, OTHER, SELFPAY | END 2023-01-01 23:59 | disposition home or self-care (01) | LOC: TOT 06:00 | PROVIDERS: PCP Family Medicine; Visit Provider Internal Medicine | DX: M62.81 Muscle weakness (generalized) (principal) | CPT/HCPCS: 97110; 97112 ==

== ENCOUNTER 2022-12-02 06:00 | Outpatient (RCR) | payer MEDICARE, OTHER, SELFPAY | END 2023-01-01 23:59 | disposition home or self-care (01) | LOC: TST 06:00 | PROVIDERS: PCP Family Medicine; Visit Provider Student in an Organized Health Care Education/Training Program | DX: I69.391 Dysphagia following cerebral infarction (principal); I69.319 Unspecified symptoms and signs involving cognitive functions following cerebral infarction | CPT/HCPCS: 92507 ==

== ENCOUNTER 2022-12-02 06:00 | Outpatient (RCR) | payer MEDICARE, OTHER, SELFPAY | END 2023-01-01 23:59 | disposition home or self-care (01) | LOC: TPT 06:00 | PROVIDERS: PCP Family Medicine; Visit Provider Internal Medicine | DX: I63.40 Cerebral infarction due to embolism of unspecified cerebral artery (principal); M62.81 Muscle weakness (generalized); R26.9 Unspecified abnormalities of gait and mobility | CPT/HCPCS: 97110; 97116 ==

== ENCOUNTER 2022-12-11 21:54 | Inpatient (IN) | payer MEDICARE, OTHER, SELFPAY ==
[2022-12-11] VITALS (11 sets, daily range): BP systolic 94–155; BP diastolic 53–113; PULSE 80–106; RESP 26–40; TEMP 36.2; O2SAT 90–100; BMI 27.3
--- NOTE | 2022-12-11 21:58 | XRR_ITS ---
PROCEDURE INFORMATION: Exam: XR Chest Exam date and time: 12/11/2022 10:18 PM Age: 77 years old Clinical indication: Shortness of breath; Additional info: SOB TECHNIQUE: Imaging protocol: Radiologic exam of the chest. Views: 1 view. COMPARISON: CR XR chest 1V portable [id number] 10/15/2022 9:54 AM FINDINGS: Lungs: There are persisting reticulated peripheral opacities in the mid to lower lungs in a pattern most suggestive of pulmonary fibrosis although there could be a component of interstitial edema. Pleural spaces: No pleural effusion. Heart/Mediastinum: The heart size is unchanged. Bones/joints: Unremarkable. XR/XR chest 1V portable [id number] IMPRESSION: Likely chronic pulmonary fibrosis. Possible interposed basilar pulmonary interstitial edema
--- NOTE | 2022-12-11 21:59 | ECG_ITS ---
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 Measurements Intervals [place] Rate: 97 P: 64 [place]: 172 QRS: -15 QRSD: 90 T: 71 QT: 311 QTc: 395 Interpretive Statements SINUS RHYTHM POSSIBLE LEFT ATRIAL ENLARGEMENT [-0.1mV P-WAVE IN V1/V2] ANTEROSEPTAL MYOCARDIAL INFARCTION , OF INDETERMINATE AGE [40+ ms Q WAVE IN V1-V4] Compared to ECG 10/12/2022 11:30:42 No significant changes Electronically Signed On 12-12-2022 13:59:20 CDT by Tian Etienne M.D. [id number]
--- NOTE | 2022-12-11 22:08 | ED_ITS ---
HPI - SOB/Dyspnea General: Chief Complaint: Shortness of Breath/Dyspnea Stated Complaint: SOB Time Seen by Provider: 12/11/22 21:55 Source: EMS Mode of arrival: EMS Limitations: no limitations History of Present Illness: HPI Narrative: 77-year-old female history of coronary disease along with COPD states she had sudden onset of shortness of breath 2 hours ago when EMS arrived she was in the 70s on room air they placed her on 6 L she is able speak in 2-3 word sentences and is tachypneic. She denies any chest pain denies any fever has had a slight cough. Associated symptoms: Deny abdominal pain, chest pain, fever(s), nausea or vomiti ng Review of Systems Const: Denies: fever(s) or chills Eyes: Denies: eye discomfort ENMT: Denies: throat pain or dental pain Card: Denies: chest pain Resp: Reports: dyspnea GI: Denies: abdominal pain, nausea, vomiting or diarrhea : Denies: dysuria Musc: Denies: neck pain or back pain Skin/Breast: Denies: rash Neuro: Denies: headache(s) PFSH ED PFSH: Medical History Anticoagulation adequate with anticoagulant therapy Aspiration pneumonia Atherosclerosis of coronary artery of [place] heart without angina pectoris Atrial fibrillation Cardiac arrest due to underlying cardiac condition Cardiac arrest with successful resuscitation Cardiac arrest with ventricular fibrillation Coronary artery disease Hyperlipidemia Hypertension Ischemic cardiomyopathy Metabolic acidosis Pulmonary edema ST elevation (STEMI) myocardial infarction UTI (urinary tract infection) Surgical History No pertinent past surgical history Family History Father Cancer Dementia Stroke Hypertension Lung disease Mother Cancer Lung disease Social History Smoking and tobacco status: former smoker Quit status (tobacco): has quit using tobacco Former quit date comment: PPD x 20+ yrs Second hand smoke exposure: Yes Alcohol intake: never Substance/Drug Use: never Adopted: No Lives independently: Yes Household members: spouse Housing: House Marital status: Number of children: 3 Highest education level completed: High School Graduate service: No Current occupational status: employed 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 Pets and animals: Yes Current gender identity: Female Physical Exam Const: COMMON NORMALS: patient oriented x3 GENERAL APPEARANCE: in distress and ill appearing HENMT: COMMON NORMALS: normocephalic and atraumatic HEAD & SCALP: normocephalic and atraumatic Eye: COMMON NORMALS: conjunctivae normal CONJUNCTIVA: Yes conjunctivae normal Neck/C-Spine: COMMON NORMALS: full ROM and supple Chest: COMMONS NORMALS: normal inspection of the chest and normal palpation of entire chest wall Resp: EFFORT & INSPECTION: Yes respiratory distress and Yes labored AUSCULTATION: rales and wheezes Cardio: COMMON NORMALS: regular rate, regular rhythm and No murmurs present (Cardio) RATE: regular rate RHYTHM: regular rhythm GI: COMMON NORMALS: Normal to inspection, nondistended, normoactive bowel sounds present, Soft to palpation, non-tender and no masses PALPATION: Yes Soft to palpation Extremity: COMMON NORMALS: normal to inspection and full ROM Neuro: COMMON NORMALS: patient oriented x3, moves all extremities and no focal motor deficits Psych: COMMON NORMALS: mental status grossly normal, Normal thought process present and cooperative THOUGHT PROCESS: Normal thought process present Skin: COMMON NORMALS: no rashes or lesions noted and no wounds GENERAL SKIN EXAM: no rashes or lesions noted Course Vital Signs: Vital signs: Vital Signs Temperature 97.1 F L 12/11/22 22:03 Pulse Rate 80 12/11/22 23:47 Respiratory Rate 28 H 12/11/22 23:47 Blood Pressure 94/53 12/11/22 23:47 Pulse Oximetry 100 12/11/22 23:47 Oxygen Delivery Me thod BiPAP 12/11/22 23:47 Oxygen Flow Rate 15 12/11/22 22:03 Fraction of Inspir ed Oxygen 50 12/11/22 23:06 MDM - SOB/Dyspnea Medical Decision Making Patient presents here with dyspnea and respiratory distress when she arrived she is doing much better here on BiPAP appears to likely of CHF exacerbation she does have some pulm edema on her CT scan her second troponin was mildly elevated she had no chest pain here is likely from her CHF we will give her dose of Lovenox and consult cardiology. EKG shows no acute changes here. Differential Diagnosis Likely congestive heart failure; Unlikely acute exacerbation of chronic obstructive airways disease, community acquired pneumonia or pulmonary embolism Medical Records I reviewed the patient's medical records. Lab Data I reviewed the patient's lab results. 12/11/22 22:13 12/11/22 23:35 Labs/Radiology: Radiology Impressions Chest X-Ray 12/11/22 21:58 IMPRESSION: Likely chronic pulmonary fibrosis. Possible interposed basilar pulmonary interstitial edema Chest CTA 12/11/22 22:34 IMPRESSION: 1. No pulmonary embolism or pneumonia. 2. Small effusions, lung opacities and interstitial edema most consistent with mild CHF Laboratory Results WBC 18.3 10^3/uL (4.0-10.0) H 12/11/22 22:13 RBC 3.88 10^6/uL (4.1-5.3) L 12/11/22 22:13 Hgb 11.9 g/dL (11.5-15.3) 12/11/22 22:13 Hct 40.1 % (37.0-47.0) 12/11/22 22:13 MCV 103.4 fl (81-99) H 12/11/22 22:13 MCH 30.7 pg (28.0-34.0) 12/11/22 22:13 MCHC 29.7 g/dL (30.0-36.0) L 12/11/22 22:13 RDW 14.0 % (12.1-15.1) 12/11/22 22:13 Plt Count 248 10^3/cmm (130-400) 12/11/22 22:13 MPV 11.1 fL (7.4-10.4) H 12/11/22 22:13 Neut % (Auto) 66.8 % 12/11/22 22:13 Lymph % (Auto) 26.8 % 12/11/22 22:13 [place] % (Auto) 3.4 % 12/11/22 22:13 Eos % (Auto) 1.7 % 12/11/22 22:13 Baso % (Auto) 0.8 % 12/11/22 22:13 Neut # (Auto) 12.23 10^3/uL (1.8-7.7) H 12/11/22 22:13 Lymph # (Auto) 4.9 10^3/uL (0.8-4.8) H 12/11/22 22:13 [place] # (Auto) 0.6 10^3/uL (0.2-0.9) 12/11/22 22:13 Eos # (Auto) 0.3 10^3/uL (0.0-0.8) 12/11/22 22: Baso # (Auto) 0.1 10^3/uL (0.0-0.1) 12/11/22 22:13 Nucleated RBC % (auto) 0 % 12/11/22 22:13 Nucleated RBCs # 0.0 /100WBC 12/11/22 22:13 PT 18.70 SECONDS (12.1-14.9) H 12/11/22 22:13 INR 1.50 (0.8-1.2) H 12/11/22 22:13 Specimen Type Arterial 12/11/22:44 Sample Site Brachial, left 12/11/22 22:44 ABG pH 7.31 (7.35-7.45) L 12/11/22 22:44 ABG pCO2 52.4 mmHg (35-45) H 12/11/22 22:44 ABG pO2 295.0 mmHg (80.0-100.0) H 12/11/22 22:44 ABG HCO3 26.2 mmol/L (22-26) H 12/11/22 22:44 ABG Base Excess -0.8 mmol/L (-2.0-2.0) 12/11/22 22:44 Fidencio Test N/a 12/11/22 22:44 Hematocrit 38.7 % (37-47) 12/11/22 22:44 Hgb O2 Saturation 98.7 % (95-100) 12/11/22 22:44 Carboxyhemoglobin 0.9 %THgb (0.4-20.1) 12/11/22 22:44 Methemoglobin 0.7 % (0.4-1.5) 12/11/22 22:44 Total Hemoglobin 12.6 g/dL (12-16) 12/11/22 22:44 O2 Delivery Device Bipap 12/11/22 22:44 FiO2 100.0 % 12/11/22 22:44 Shade Cloth Finisher ID Alewe 12/11/22 22:44 Sodium 137 mmol/L (136-145) 12/11/22 23:35 Potassium 3.6 mmol/L (3.5-5.1) 05/10/23 23:35 Chloride 102 mmol/L (98-107) 12/11/22 23:35 Carbon Dioxide 23 mmol/L (22-29) 12/11/22 23:35 Anion Gap 15.6 (5-19) 12/11/22 23:35 BUN 22 mg/dL (8-23) 12/11/22 23:35 Creatinine 0.6 mg/dL (0.5-0.9) 12/11/22 22:13 GFR Calculation Not Reportable 12/11/22 23:35 Glucose 156 mg/dL (65-115) H 12/11/22 22:13 Calculated Osmolality 293 mOsm/kg (285-295) 12/11/22 23:35 Calcium 4.3 mg/dL (8.5-10.5) L* 12/11/22 22:13 Total Bilirubin 0.4 mg/dL (0.15-1.2) 12/11/22 23:35 AST 34 U/L (0-32) H 12/11/22 22:13 ALT 41 U/L (0-33) H 12/11/22 22:13 Alkaline Phosphatase 70 U/L (35-105) 12/11/22 22:13 Troponin T Baseline 25 ng/L (0-10) H 12/11/22 22:13 Troponin T 120 Minute Cancelled 12/10/22 23:35 Delta Troponin T Cancelled 12/10/22 23:35 NT-Pro-B Natriuret Pep 2409 pg/mL (0-450) H 12/11/22 22:13 Total Protein 3.4 g/dL (6.6-8.7) L 12/11/22 22:13 Albumin 1.9 g/dL (3.5-5.2) L 12/11/22 22:13 Globulin 2.6 g/dL (1.3-4.6) 12/11/22 23:35 SARS-CoV-2 Ag (Rapid) negative (Negative) 12/11/22 22:10 Critical Care Time Critical Care Time: Critical Care Time: Yes Total Critical Care Time: 40 Attestation: The high probability of a clinically significant, sudden or life threatening deterioration of the patient's cv system(s) required my full and direct attention, intervention and personal management. The critical care time is as shown. This time is in addition to time spent performing any reported procedures but includes the following: [x] Data and vital sign review and interpretation [x] Patient assessment, examination and intervention [x] Documentation [x] Medication orders and management Discharge Plan Discharge Patient Disposition: Admitted As Inpatient Clinical Impression: Pulmonary edema, Acute respiratory failure with hypoxemia Condition: Stable Prescriptions: No Action (DME) oxygen concentrator with portable See Rx Instructions .Route .MEDSUPPLY Qty: 1 0RF Rx Instructions: As directed 99 months 2L nasal cannula oxygen concentrator with portable diclofenac sodium 1 % gel 2 g topical QID Qty: 100 5RF Rx Instructions: apply to single elbow, wrist or hand; for hand includes palm/fingers/back of hand levalbuterol tartrate [Xopenex HFA] 45 mcg/actuation HFA aerosol inhaler 2 inh inhalation Q6H Qty: 15 5RF budesonide-formoterol [Symbicort] 160-4.5 mcg/actuation HFA aerosol inhaler 2 puff inhalation BID Qty: 10.2 5RF gabapentin 100 mg capsule 100 mg PO Q8H 30 Days Qty: 90 0RF tamsulosin [Flomax] 0.4 mg capsule 0.4 mg PO DAILY Qty: 30 0RF amiodarone 200 mg tablet 200 mg PO DAILY Qty: 90 3RF Eliquis 2.5 mg tablet 2.5 mg PO BID@0900,2100 Qty: 180 3RF atorvastatin 40 mg tablet 40 mg PO BEDTIME Qty: 90 3RF clopidogrel 75 mg tablet 75 mg PO DAILY Qty: 90 3RF furosemide 20 mg tablet 20 mg PO DAILY@0800 Qty: 90 3RF lisinopril 2.5 mg tablet 2.5 mg PO QAM Qty: 90 3RF nitroglycerin 0.4 mg tablet, sublingual 0.4 mg sublingual Q5M PRN (Reason: Chest Pain) Qty: 25 3RF potassium chloride 10 mEq tablet extended release 10 meq PO DAILY Qty: 90 3RF Rx Instructions: Take with Lasix Referrals: Jesus Seay DO [Primary Care Provider] - Coding Level of Care Code ED Car Installations Supervisor for Shelly Juárez
[2022-12-11 22:18] LABS: Basophils # 0.1 10^3/uL (0.0-0.1); Basophils % 0.8 %; Eosinophils # 0.3 10^3/uL (0.0-0.8); Eosinophils % 1.7 %; Hematocrit 40.1 % (37.0-47.0); Hemoglobin 11.9 g/dL (11.5-15.3); Lymphocytes # 4.9 10^3/uL (0.8-4.8); Lymphocytes % 26.8 %; Mean Corpuscular HGB Conc 29.7 g/dL (30.0-36.0); Mean Corpuscular Hemoglobin 30.7 pg (28.0-34.0); Mean Corpuscular Volume 103.4 fl (81-99); Mean Platelet Volume 11.1 fL (7.4-10.4); Monocytes # 0.6 10^3/uL (0.2-0.9); Monocytes % 3.4 %; Neutrophils # 12.23 10^3/uL (1.8-7.7); Neutrophils % 66.8 %; Nucleated Red Blood Cells % 0 %; Platelet Count 248 10^3/cmm (130-400); Red Blood Count 3.88 10^6/uL (4.1-5.3); White Blood Count 18.3 10^3/uL (4.0-10.0)
[2022-12-11] MEDS: ipratropium 0.5 mg/2.5 mL Neb INHALATION (22:20)
[2022-12-11] MEDS: albuterol 2.5 mg/3 mL Neb INHALATION (22:20)
--- NOTE | 2022-12-11 22:34 | CTR_ITS ---
PROCEDURE INFORMATION: Exam: CTA Chest With Contrast Exam date and time: 12/11/2022 11:25 PM Age: 77 years old Clinical indication: Shortness of breath; Additional info: SOB TECHNIQUE: Imaging protocol: Computed tomographic angiography of the chest with contrast. 3D rendering (Not supervised by radiologist): MIP and/or 3D reconstructed images were created by the technologist. Radiation optimization: All CT scans at this facility use at least one of these dose optimization techniques: automated exposure control; mA and/or kV adjustment per patient size (includes targeted exams where dose is matched to clinical indication); or iterative reconstruction. Contrast material: OMNI 350; Contrast volume: 80 ml; Contrast route: INTRAVENOUS (IV); REPORTING DATA: Count of CT and Cardiac NM exams in prior 12 months: This patient has received 2 known CTs and 0 known cardiac nuclear medicine studies in the 12 months prior to the current study. COMPARISON: CT angio chest PE protcl [id number] 10/11/2022 10:20 AM RADIATION DOSE METRICS: Total DLP (mGy-cm): 347.52 FINDINGS: Pulmonary arteries: Overall exam quality is good for evaluating the pulmonary arteries. There are no intraluminal filling defects to indicate pulmonary embolism. Aorta: The thoracic aorta is normal in size but is moderately atherosclerotic. Lungs: There are bilateral hazy airspace opacities as well as numerous thickened septal lines with a lower lobe predominance. The trachea and bronchi are patent. Pleural spaces: Bilateral small pleural effusions layer posteriorly and are accompanied by basilar atelectasis. Heart: Unremarkable. No cardiomegaly. No pericardial effusion. Lymph nodes: No significant mediastinal or axillary adenopathy. Liver: The visualized portions of the liver and spleen are unremarkable. Bones/joints: Unremarkable. No acute fracture. Soft tissues: Unremarkable. CT/CT angio chest PE protcl [id number] IMPRESSION: 1. No pulmonary embolism or pneumonia. 2. Small effusions, lung opacities and interstitial edema most consistent with mild CHF
[2022-12-11 22:35] LABS: SARS Covid-2 Antigen negative (Negative)
[2022-12-11 22:48] LABS: NT Pro B Type Natriuretic Pept 2409 pg/mL (0-450)
[2022-12-11] MEDS: iohexol 350 mg/mL 500 mL Btl (per mL) IV (22:55)
[2022-12-11 22:56] LABS: ABG PCO2 52.4 mmHg (35-45); ABG PH Result 7.31 (7.35-7.45); Arterial Blood Gas Hematocrit 38.7 % (37-47); Base Excess ABG -0.8 mmol/L (-2.0-2.0); Blood Gas Sample Site Brachial, left; Blood Gas Sample Type Arterial; Carboxyhemoglobin 0.9 %THgb (0.4-20.1); HCO3 ABG 26.2 mmol/L (22-26); HGB O2 Sat 98.7 % (95-100); Methemoglobin 0.7 % (0.4-1.5); Oxygen Device BIPAP; Total Hemoglobin 12.6 g/dL (12-16)
[2022-12-11 23:01] LABS: Troponin(5th) Baseline 25 ng/L (0-10)
[2022-12-11] MEDS: cefTRIAXone 1,000 MG in sodium chloride 0.9% (plus) 50 ML 100 MG IV (23:43)
[2022-12-11] MEDS: azithromycin 500 MG in sodium chloride 0.9% 250 ML 250 MG IV (23:44)
--- NOTE | 2022-12-11 23:57 | ECG_ITS ---
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 Measurements Intervals [place] Rate: 82 P: 69 [place]: 171 QRS: 12 QRSD: 84 T: 91 QT: 375 QTc: 439 Interpretive Statements SINUS RHYTHM POSSIBLE LEFT ATRIAL ENLARGEMENT [-0.1mV P-WAVE IN V1/V2] LOW QRS VOLTAGE IN EXTREMITY LEADS [QRS DEFLECTION < 0.5 mV IN LIMB LEADS] ANTEROSEPTAL MYOCARDIAL INFARCTION , OF INDETERMINATE AGE [40+ ms Q WAVE IN V1-V4] Compared to ECG 10/12/2022 11:30:42 No significant changes Electronically Signed On 12-12-2022 14:11:44 CDT by Tian Etienne M.D. [id number]
[2022-12-12] VITALS (75 sets, daily range): BP systolic 82–111; BP diastolic 38–69; PULSE 66–98; RESP 10–33; TEMP 36.6–37.3; O2SAT 76–100
[2022-12-12 00:11] LABS: Alanine Aminotransferase 80 U/L (0-33); Albumin Level 3.3 g/dL (3.5-5.2); Alkaline Phosphatase 122 U/L (35-105); Anion Gap 15.6 (5-19); Aspartate Amino Transferase 62 U/L (0-32); Blood Urea Nitrogen 22 mg/dL (8-23); Calcium 8.4 mg/dL (8.5-10.5); Carbon Dioxide 23 mmol/L (22-29); Chloride 102 mmol/L (98-107); Globulin 2.6 g/dL (1.3-4.6); Glucose 199 mg/dL (65-115); Osmolality Calculated 293 mOsm/kg (285-295); Potassium 3.6 mmol/L (3.5-5.1); Sodium 137 mmol/L (136-145); Total Bilirubin 0.4 mg/dL (0.15-1.2); Total Protein 5.9 g/dL (6.6-8.7)
[2022-12-12 00:25] LABS: Troponin 5 2HR 46.82 ng/L (0-10)
--- NOTE | 2022-12-12 00:27 | P.HP_ITS ---
Providers/Chief Complaint Primary Care Provider: Jesus Seay DO Chief Complaint: SOB History of Present Illness Agatha Graham is a 77 year old female with past medical history of chronic anticoagulation, atrial fibrillation, previous cardiac arrest, coronary artery disease, hyperlipidemia, hypertension, ischemic cardiomyopathy, UTI presented to the hospital today for complaint of shortness of breath that started suddenly a few hours before arrival to the hospital. She called an ambulance and came into the hospital. On arrival she was saturating in the 70s on room air and she was placed on 6 L nasal cannula. Patient had conversational dyspnea and was only able to speak in 2-3 word sentences and was very tachypneic at first she was placed on BiPAP thereafter. She denied any chest pain, fever but did endorse a slight cough. Denied abdominal pain, nausea, vomiting, diarrhea. Her blood pressure on arrival 94/53, respiratory rate 28, pulse 80, temperature 97.1. Initially she did require 15 L nasal cannula however was placed on BiPAP thereafter and is now feeling better. Chest x-ray obtained shows pulmonary e damir. Delta troponin +20. She was given a dose of therapeutic Lovenox in the ER and cardiology was consulted. EKG did not show any acute ischemic changes. Due to symptoms a CTA was also done to rule out PE and PE was ruled out. Patient last saw cardiology on 08 November and follows with Dr. Etienne as an outpatient. She has had MARGARET to LAD and circumflex recently in October. LVEF 35 to 40% at most recent echo in October. He was started on Lasix 20 daily. Blood pressure has been soft and therefore lisinopril was reduced to 2.5 mg daily. Patient is currently on amiodarone for her atrial fibrillation. She was seen today in ED room 11. Patient denies any chest pain at this time. Is currently on BiPAP. Appears comfortable and saturating 100% on BiPAP. Daughter present at bedside who assisted with the history taking. She states her mom has been doing really really well after her previous cardiac arrest in October. She is able to do all her ADLs and has been under supervision for 24 hours a day by family. She says the last time she had a cardiac arrest she all of a sudden complained of shortness of breath and said she cannot breathe and subsequently coded. At that time patient was also diaphoretic and nauseous. She never complained of chest pain even once. She was found to have ischemic coronary artery disease and a stent was placed. She states that at that time her saturations had dropped to 40%. She states today a similar thing happened where patient stated she cannot breathe while she was eating. Daughter is sure that patient did not aspirate at the time. Her saturation again dropped to 50% at home. She states EMS was called. Patient is on 2 L oxygen at home but she does not wear it [id number] as she does not feel like she needs it. She is very comfortable without it at times. She wears it as needed. Patient has never seen pulmonology in the past. On chest x-ray today there was questionable pulmonary fibrosis reported however patient's daughter states that they have never been diagnosed with that in the past. Patient is a former smoker and the re may be a component of COPD. She is on Symbicort at home and her level butyryl. Patient denied chest pain at home and is denying chest pain at this time as well. She is a full code. Denies cough, fever as well. Has never been diagnosed with sleep apnea in the past. Today when this event happened at home patient was just eating. EKG shows sinus rhythm at the time. Patient also supplemented with a history and agreed with everything the daughter told me. Medications/Allergies Home Medications Medication Instructions Recorded Confirmed Last Taken Type budesonide-formoterol HFA 160 2 puff inhalation BID #10.2 grams 10/28/22 11/08/22 Unknown Rx mcg-4.5 mcg/actuation aerosol inhaler (Symbicort) diclofenac sodium 1 % topical gel 2 g topical QID #100 grams 10/28/22 11/08/22 Unknown Rx levalbuterol tartrate 45 2 inh inhalation Q6H #15 grams 10/28/22 11/08/22 Unknown Rx mcg/actuation aerosol inhaler (Xopenex HFA) oxygen concentrator with portable #1 ea 10/28/22 11/08/22 Unknown Rx gabapentin 100 mg capsule 100 mg PO Q8H 30 days #90 caps 12/02/22 Unknown Rx tamsulosin 0.4 mg capsule (Flomax) 0.4 mg PO DAILY #30 caps 12/02/22 Unknown Rx amiodarone 200 mg tablet 200 mg PO DAILY #90 tabs 12/03/22 Unknown Rx apixaban 2.5 mg tablet 2.5 mg PO BID@0900,2100 #180 tabs 12/03/22 Unknown Rx atorvastatin 40 mg tablet 40 mg PO BEDTIME #90 tabs 12/03/22 Unknown Rx clopidogrel 75 mg tablet 75 mg PO DAILY #90 tabs 12/03/22 Unknown Rx furosemide 20 mg tablet 20 mg PO DAILY@0800 #90 tabs 12/03/22 Unknown Rx lisinopril 2.5 mg tablet 2.5 mg PO QAM #90 tabs 12/03/22 Unknown Rx nitroglycerin 0.4 mg sublingual 0.4 mg sublingual Q5M PRN Chest 12/03/22 Unknown Rx tablet Pain #25 tabs potassium chloride 10 mEq 10 meq PO DAILY #90 tabs 12/03/22 Unknown Rx tablet,extended release Allergies Allergy/AdvReac Type Severity Reaction Status Date / Time No Known Allergies Allergy Verified 12/11/22 22:10 PFSH Acute PFSH: Medical History (Updated 12/12/22 @ 00:46 by Aletha Barnett MD) Anticoagulation adequate with anticoagulant therapy Aspiration pneumonia Atherosclerosis of coronary artery of [place] heart without angina pectoris Atrial fibrillation Cardiac arrest due to underlying cardiac condition Cardiac arrest with successful resuscitation Cardiac arrest with ventricular fibrillation Coronary artery disease Hyperlipidemia Hypertension Ischemic cardiomyopathy Metabolic acidosis Pulmonary edema ST elevation (STEMI) myocardial infarction UTI (urinary tract infection) Surgical History No pertinent past surgical history Family History Father Cancer Dementia Stroke Hypertension Lung disease Mother Cancer Lung disease Social History Smoking and tobacco status: former smoker Quit status (tobacco): has quit using tobacco Former quit date comment: PPD x 20+ yrs Second hand smoke exposure: Yes Alcohol intake: never Substance/Drug Use: never Adopted: No Lives independently: Yes Household members: spouse Housing: House Marital status: Number of children: 3 Highest education level completed: High School Graduate service: No Current occupational status: employed 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 Able to answer questions appropriately. Daughter also present at bedside. HEENT: Normocephalic, atraumatic, EOMI, Cardio: Regular rate rhythm, normal S1-S2 Respiratory: Rhonchi at one third bases bilaterally posterior lung melendrez, no gross wheezes or crackles appreciated at this time. GI: Abdomen soft, nontender, bowel sounds + no flank edema noted. Extremities: No edema noted. Data 12/11/22 22:13 12/11/22 23:35 Micro: Microbiology 12/11/22 22:56 Blood Culture - Preliminary Blood SPECIMEN COLLECTED 12/11/22 22:56 Blood Culture - Preliminary Blood SPECIMEN COLLECTED A&P Assessment and plan (1) Pulmonary edema: (2) Acute respiratory failure with hypoxemia: (3) Coronary artery disease: (4) Atrial fibrillation: (5) Ischemic cardiomyopathy: (6) Hypertension: (7) Hyperlipidemia: (8) Elevated troponin: (9) Leukocytosis: Plan #Acute on chronic systolic congestive heart failure exacerbation versus COPD exacerbation or component of both. #Elevated troponin most likely secondary to demand ischemia type II NM #History of CAD status post PCI with MARGARET to LAD status post cardiac arrest in October 2022 #Hyperlipidemia #Hypertension #Ischemic cardiomyopathy #Atrial fibrillation, chronic anticoagulation with Eliquis #Leukocytosis 18,000 reactive versus infection? Possibility of pneumonia? ? X-ray shows mild pulmonary edema. Most recent echo in October shows EF of 35 to 40% after her cardiac arrest. I will repeat an echo at this time. ? CTA ruled out PE. And it showed There are bilateral hazy airspace opacities as well as numerous thickened septal lines with a lower lobe predominance ?leukocytosis 18,000 most likely reactive versus infectious. Pneumonia cannot be excluded at this time will empirically cover with antibiotics ceftriaxone and azithromycin. We will check a procalcitonin. De-escalate as clinical improvement. Patient did get a dose of Solu-Medrol 125 in ER. There is report of questionable pulmonary fibrosis on x-ray. I will continue on Solu-Medrol 40 every 8 hours for now. Patient has never been formally diagnosed with COPD or sleep apnea or pulmonary fibrosis in the past and has never seen pulmonology. She has no peripheral edema or flank edema at this time. There is mild pulmonary edema present on CT scan. She did receive 60 Lasix IV in ER x1. I will give her another dose of 40 Lasix IV in a.m. patient to be reassessed. Consider pulmonology consult. ? Rate controlled atrial fibrillation. Continue amiodarone ? Placed on therapeutic Lovenox from ER. Delta troponin +20. Most likely this is due to demand ischemia secondary to CHF exacerbation however I will cover her at this time empirically. ? Hold Eliquis while on Lovenox ? Hold lisinopril at this time ? Hold potassium at this time and replete according to daily labs. ? Hold tamsulosin at this time. ? Continue DuoNeb every 4 hours as needed ? Continue on Plavix, atorvastatin ? Cardiology consulted from ER. Appreciate recommendations ? EKG does not show any acute ischemic changes at this time. We will follow 6- hour troponin. ? Cardiac diet ? ABG reviewed. point 6.2. ? We will renally dosed therapeutic Lovenox at this time. Creatinine 1.2. At baseline. Full code SCDs, patient on therapeutic Lovenox that should suffice. Attestations Medical Necessity Statement*: Cross greater than 2 midnight stay for management of CHF exacerbation/pulmonary edema. 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 Telehealth technology used during the visit includes video and audio. This patient encounter is appropriate and reasonable under the circumstances given the patient?s particular presentation at this time. The patient has been advised of the potential risks and limitations of this mode of treatment (including but not limited to the absence of in-person examination at this time) and has agreed to be treated by an off-site physician for this visit. If deemed clinically necessary from this telehealth visit, or if condition or consent for telehealth visit changes, an in-person visit will be arranged. For this encounter, total time for the origination of telehealth care on this date is as shown. Patient provided consent to be seen over audiovisual cart before proceeding with history taking and physical exam in presence of RN. Diagnoses Pulmonary edema J81.1 Acute respiratory failure with hypoxemia J96.01 Coronary artery disease I25.10 Atrial fibrillation I48.91 Ischemic cardiomyopathy I25.5 Hypertension I10 Hyperlipidemia E78.5 Elevated troponin R77.8 Leukocytosis D72.829
[2022-12-12 00:28] LABS: Troponin 5 2HR Delta 21.82 ABS# (0-10)
[2022-12-12] MEDS: FUROsemide 10 mg/mL SDV 10mL 60 MG IVP (00:28)
[2022-12-12] MEDS: enoxaparin 60 mg/0.6 mL Syringe SUBCUT (00:28)
[2022-12-12 01:23] LABS: Lactic Sepsis W/Reflex 3.4 mmol/L (0.5-2.2)
[2022-12-12 01:34] LABS: Procalcitonin 0.11 ng/mL (0-0.5)
--- NOTE | 2022-12-12 02:07 | USCV_ITS ---
Agatha Graham Age: 77 Gender: F : 1945 Exam Date: 12/12/2022 02:36 Ordering Phys: Aletha Barnett MD Technologist: PANTERA [place] [facility] [place]: HF BP: 100 / 56 HR: 68 Rhythm: Sinus Technical Quality: Adequate MEASUREMENTS (Male / Female) Normal Values 2D ECHO LV Diastolic Diameter PLAX 4.5 cm 4.2 - 5.9 / 3.9 - 5.3 cm LV Systolic Diameter PLAX 3.5 cm IVS Diastolic Thickness 0.8 cm 0.6 - 1.0 / 0.6 - 0.9 cm IVS Systolic Thickness 1.0 cm LVPW Diastolic Thickness 1.2 cm 0.6 - 1.0 / 0.6 - 0.9 cm LVPW Systolic Thickness 1.3 cm LVOT Diameter 1.7 cm LV Ejection Fraction 2D Teich 43.4 % LV Ejection Fraction MOD 2C 32.2 % LV Ejection Fraction 2C AL 33.2 % LA Diameter 3.9 cm LA Width 4.2 cm LA Height 5.1 cm RA Width 3.4 cm RA Height 3.3 cm Aorta at Sinotubular Diameter 2.4 cm IVC Diameter 1.7 cm M-MODE Aortic Annulus Diameter 2.7 cm LA Ao Ratio MM 1.5 MV E Point Septal Separation 1.7 cm DOPPLER AV Peak Velocity 160.0 cm/s LVOT Peak Velocity 103.0 cm/s AV Area Cont Eq vti 1.3 cm squared AV Area Cont Eq pk 1.5 cm squared MV Peak Velocity 92.0 cm/s MV Area PHT 4.1 cm squared Mitral E to A Ratio 0.9 MV E' Velocity 43.0 cm/s Mitral E to MV E' Ratio 13.3 Mitral E to LV E' Lateral Ratio 12.9 Mitral E to LV E' Septal Ratio 13.8 TR Peak Velocity 298.3 cm/s TR Peak Gradient 35.6 mmHg TV Peak E Velocity 46.0 cm/s Right Atrial Pressure 10.0 mmHg Pulmonary Artery Systolic Pressu 45.6 mmHg PV Peak Velocity 87.0 cm/s RV Acceleration Time 0.1 s RV Ejection Time 0.3 s RV AcT/ET 0.4 FINDINGS Left Ventricle The left ventricle is mildly enlarged. There is severe left ventricular dysfunction. Segmental wall motion disturbances to include akinesis of the apex and severe hypokinesis of the anterior wall, lateral wall and the apical septum. The remainder of the septum is moderately hypokinetic. The inferior and posterior corrigan are mildly hypokinetic. The ejection fraction is about 30%. Grade 2 diastolic dysfunction. Right Ventricle Normal right ventricular size and systolic function. Mild pulmonary hypertension, RVSP 45.6 mmHg. Right Atrium The right atrium is normal in size. Left Atrium Mildly increased left atrial size. Mitral Valve Structurally normal mitral valve. Mild mitral valve regurgitation. Aortic Valve Structurally normal trileaflet aortic valve. Mild aortic valve calcification. Aortic valve sclerosis without stenosis. Mild-to- moderate aortic valve regurgitation. Tricuspid Valve Structurally normal tricuspid valve. Isyhxfac-ub-fwtwls tricuspid valve regurgitation. Pulmonic Valve Pulmonic valve not well visualized. Pericardium Normal pericardium without effusion. Aorta Normal ascending aorta dimension. IVC The inferior vena cava cava is normal in size but does not quite collapse normally with respiration. Right atrial pressure is 10 mmHg. CONCLUSIONS The left ventricle is mildly enlarged. There is severe left ventricular dysfunction. Segmental wall motion disturbances to include akinesis of the apex and severe hypokinesis of the anterior wall, lateral wall and the apical septum. The remainder of the septum is moderately hypokinetic. The inferior and posterior corrigan are mildly hypokinetic. The ejection fraction is about 30%. Grade 2 diastolic dysfunction. Normal right ventricular size and systolic function. Mild pulmonary hypertension, RVSP 45.6 mmHg. Mildly increased left atrial size. Structurally normal mitral valve. Mild mitral valve regurgitation. Structurally normal trileaflet aortic valve. Mild aortic valve calcification. Aortic valve sclerosis without stenosis. Mild-to- moderate aortic valve regurgitation. Structurally normal tricuspid valve. Lpaxzwvq-uq-ttjjuc tricuspid valve regurgitation. The inferior vena cava cava is normal in size but does not quite collapse normally with respiration. Right atrial pressure is 10 mmHg. Compared to the previous echoes done on October 07 and October 16 the left ventricular function is probably slightly less. Valvular lesions are unchanged. This represents a rather large myocardial infarction in the distribution of the LAD. Dr. Tian Etienne MD (Electronically Signed) Final Date: 12 Dec 2022 07:56 S
[2022-12-12 02:52] LABS: Reflex Lactate Order REFLEX LACTIC ORDERD
--- NOTE | 2022-12-12 03:58 | ECG_ITS ---
[facility] Test Date: 2022-12-12 Pat Name: Agatha Graham Department: Room: 108 Gender: Female Sustainable Design Coordinator: : 1945 Requested By: Dereck Miguel Order Number: [id number] Oli MD: Tian Etienne M.D. Measurements Intervals [place] Rate: 73 P: 75 ME: 168 QRS: 11 QRSD: 92 T: 92 QT: 387 QTc: 427 Interpretive Statements SINUS RHYTHM LOW QRS VOLTAGE IN EXTREMITY LEADS [QRS DEFLECTION < 0.5 mV IN LIMB LEADS] ANTEROSEPTAL MYOCARDIAL INFARCTION , OF INDETERMINATE AGE [40+ ms Q WAVE IN V1-V4] Compared to ECG 12/11/2022 23:57:18 No significant changes Electronically Signed On 12-12-2022 14:12:40 CDT by Tian Etienne M.D. [email or web address]
[2022-12-12 04:25] LABS: Troponin 5 6HR 66.65 ng/L (0-10)
[2022-12-12 04:29] LABS: Troponin 5 6HR Delta 41.65 ng/L (0-12)
[2022-12-12 04:32] LABS: Lactic Acid level (Lactate) 1.1 mmol/L (0.5-2.2)
[2022-12-12] MEDS: gabapentin 100 mg Capsule PO ×2 (06:32→18:07)
[2022-12-12] MEDS: ipratropium-albuterol 3 mL Neb INHALATION ×4 (08:34→20:46)
[2022-12-12] MEDS: budesonide 0.5 mg/2 mL Neb INHALATION (08:34)
[2022-12-12] MEDS: FUROsemide 10 mg/mL SDV 4mL 40 MG IVP (09:29)
[2022-12-12] MEDS: cefTRIAXone 1,000 MG in sodium chloride 0.9% (plus) 50 ML 100 MG IV (09:29)
[2022-12-12] MEDS: clopidogrel 75 mg Tablet PO (09:29)
[2022-12-12] MEDS: amiodarone 200 mg Tablet PO (09:29)
--- NOTE | 2022-12-12 09:40 | PM.CONSULT ---
Providers/Reason For Consult Consulting Physician/Specialty*: Cardiovascular medicine Reason for Consult*: Underlying organic heart disease, coronary disease, ischemic cardiomyopathy, acute congestive heart failure and elevated troponin. Requesting Physician: Hospitalist Attending Physician: Vini Morel MD Primary Care Provider: Jesus Seay DO History of Present Illness History of Present Illness Agatha Graham is a 77 year old female who has been readmitted with an episode of congestive heart failure. She first entered the system on 07 October of this year with an acute anterior wall [place]. Her LAD was occluded at the ostium. It was stented. However, she suffered a large anteroapical myocardial infarction. At that time her ejection fraction was in the 35 to 40% range. During that hospitalization her circumflex was also stented. Her troponin peaked at 2845. She developed atrial fibrillation and was started on amiodarone which converted her to sinus rhythm. She was also started on Eliquis. She spent 3 days in the hospital and went home on the . Several hours after being sent home she had some form of a collapse or arrest. Her family did bystander CPR. When the paramedics arrived allegedly the rhythm was PEA however I did not see that rhythm. She was given epinephrine and achieved a heart rate and blood pressure almost immediately. There was no cardioversion. She had respiratory failure and was intubated in the emergency room. She went back to the catheterization laboratory and both vessels were patent. I never did understand the cause of the arrest at home. During that hospital stay her echo was 35%. Her troponin was elevated. It was more than likely elevated still as residual from the original infarct which had occurred 3 days earlier. She went home after the second hospital stay and apparently has done fairly well since that time. She is a very feisty woman who does not sit still. Her other medical problems include dyslipidemia, hypertension and anticoagulation for atrial fibrillation. She had seen the nurse practitioner after the second hospitalization. She had been started on Flomax for urinary tract problem. There was an indwelling Mathews for a while after the second hospital stay. It finally was removed. There was a concern among the daughter and the nurse practitioner that the Flomax may lower her blood pressure too much. The Flomax, however, helps her urinary tract situation and frequency of urination. The patient's blood pressure tends to run low and so the lisinopril dose has been reduced all the way to 2.5 mg daily. Last evening she had the sudden onset of shortness of breath. Oxygen saturations were in the 70s. She arrived at the hospital in respiratory distress. BiPAP was administered and improved her significantly. She has no chest pain. Her troponins were 25, 46 and 66. She was originally started on Lovenox but that has been discontinued. Her white blood cell count was elevated 18.3. Her hemoglobin hematocrit are normal. Her blood gas revealed a PO2 of 295, PCO2 of 52 and a pH of 7.31. Her creatinine is 1.2. Her BNP was 2407. Chest x-ray shows pulmonary fibrosis and mild congestive heart failure. The CTA of the chest confirms without a evidence of pulmonary embolism. Echo from last night reveals an EF of around 30% now with left ventricular enlargement, regional wall motion abnormalities suggestive of the previous LAD distribution [place], pulmonary pressure 45 mmHg, mild mitral regurgitation, mild to moderate aortic insufficiency and moderate to severe tricuspid regurgitation. Transaminases are elevated mildly AST 62, ALT 80. Alkaline phosphatase 122. She is being treated with antibiotics, amiodarone, statin, Plavix and intravenous Lasix. She has had 825 mL of urine output. Her family is in the room to include her daughter, and granddaughter. Her daughter is very particular about looking after her mother. She wonders why this happened all of a sudden. The patient and her have had a difficult time taking the salt containing foods out of their diet. They have ceased using supplemental salt but the foods they enjoy are salty. She wants to go home. She is sitting up comfortable conversant and wonders what all the fuss is about. Review of Systems Narrative: The review of systems is negative other than what is present in the history of present illness. Medications/Allergies Home Medications Medication Instructions Recorded Confirmed Last Taken Type budesonide-formoterol HFA 160 2 puff inhalation BID #10.2 grams 10/28/22 12/12/22 Unknown Rx mcg-4.5 mcg/actuation aerosol inhaler (Symbicort) diclofenac sodium 1 % topical gel 2 g topical QID #100 grams 10/28/22 12/12/22 Unknown Rx levalbuterol tartrate 45 2 inh inhalation Q6H #15 grams 10/28/22 12/12/22 Unknown Rx mcg/actuation aerosol inhaler (Xopenex HFA) oxygen concentrator with portable #1 ea 10/28/22 12/12/22 Unknown Rx amiodarone 200 mg tablet 200 mg PO DAILY #90 tabs 12/03/22 12/12/22 12/11/22 Rx apixaban 2.5 mg tablet 2.5 mg PO BID@0900,2100 #180 tabs 12/03/22 12/12/22 12/11/22 Rx atorvastatin 40 mg tablet 40 mg PO BEDTIME #90 tabs 12/03/22 12/12/22 12/11/22 Rx clopidogrel 75 mg tablet 75 mg PO DAILY #90 tabs 12/03/22 12/12/22 12/11/22 Rx furosemide 20 mg tablet 20 mg PO DAILY@0800 #90 tabs 12/03/22 12/12/22 12/11/22 Rx lisinopril 2.5 mg tablet 2.5 mg PO QAM #90 tabs 12/03/22 12/12/22 12/11/22 Rx nitroglycerin 0.4 mg sublingual 0.4 mg sublingual Q5M PRN Chest 12/03/22 12/12/22 12/11/22 Rx tablet Pain #25 tabs potassium chloride 10 mEq 10 meq PO DAILY #90 tabs 12/03/22 12/12/22 12/11/22 Rx tablet,extended release gabapentin 100 mg capsule 100 mg PO Q12H 12/12/22 12/12/22 12/11/22 19:00 History tamsulosin 0.4 mg capsule 0.4 mg PO BEDTIME 12/12/22 12/12/22 12/11/22 History Allergies Allergy/AdvReac Type Severity Reaction Status Date / Time No Known Allergies Allergy Verified 12/11/22 22:10 Current Medications Generic Name Dose Route Start Last Admin Trade Name Freq PRN Reason Stop Dose Admin Albuterol/Ipratropium 3 ml 12/12/22 08:00 12/12/22 08:34 Ipratropium-Albuterol 3 Ml Neb INHALATION 3 ml QID.RESPIRATORY CHANTALE Administration Amiodarone HCl 200 mg 12/12/22 09:00 12/12/22 09:29 Amiodarone 200 Mg Tablet PO 200 mg DAILY CHANTALE Administration Budesonide 0.5 mg 12/12/22 09:00 12/12/22 08:34 Budesonide 0.5 Mg/2 Ml Neb INHALATION 0.5 mg BID CHANTALE Administration Clopidogrel Bisulfate 75 mg 12/12/22 09:00 12/12/22 09:29 Clopidogrel 75 Mg Tablet PO 75 mg DAILY CHANTALE Administration Furosemide 40 mg 12/12/22 09:00 12/12/22 09:29 Furosemide 10 Mg/Ml Sdv 4ml IVP 40 mg DAILY CHANTALE Administration Gabapentin 100 mg 12/12/22 07:00 12/12/22 06:32 Gabapentin 100 Mg Capsule PO 100 mg 0700,1900 CHANTALE Administration Ceftriaxone Sodium 1,000 mg/ 50 mls @ 100 mls/hr 12/12/22 09:00 12/12/22 09:29 Sodium Chloride IV 100 mls/hr DAILY CHANTALE Administration Protocol Methylprednisolone Sodium Succinate 40 mg 12/12/22 04:45 12/12/22 03:57 Methylprednisolone Sod Succ 40 Mg Sdv IVP 40 mg Q8H CHANTALE Administration PFSH Acute PFSH: Medical History (Updated 12/12/22 @ 09:56 by Tian Etienne MD) Anticoagulation adequate with anticoagulant therapy Aspiration pneumonia Atherosclerosis of coronary artery of [place] heart without angina pectoris Atrial fibrillation Cardiac arrest due to underlying cardiac condition Cardiac arrest with successful resuscitation Cardiac arrest with ventricular fibrillation Coronary artery disease Hyperlipidemia Hypertension Ischemic cardiomyopathy Metabolic acidosis Pulmonary edema Pulmonary fibrosis Pulmonary HTN ST elevation (STEMI) myocardial infarction Transaminitis UTI (urinary tract infection) Valvular heart disease Surgical History No pertinent past surgical history Family History Father Cancer Dementia Stroke Hypertension Lung disease Mother Cancer Lung disease Social History Smoking and tobacco status: former smoker Quit status (tobacco): has quit using tobacco Former quit date comment: PPD x 20+ yrs Second hand smoke exposure: Yes Alcohol intake: never Substance/Drug Use: never Adopted: No Lives independently: Yes Household members: spouse Housing: House Marital status: Number of children: 3 Highest education level completed: High School Graduate service: No Current occupational status: employed 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 NECK: Supple without jugular vein distention. The carotid upstroke is normal without bruits. BACK: Exam normal. LUNGS: Clear. HEART: Regular rate and rhythm. ABDOMEN: Benign without organomegaly or tenderness. EXTREMITIES: No edema. NEUROLOGIC: Exam normal. SKIN: Unremarkable. Data 12/11/22 22:13 12/11/22 23:35 Micro: Microbiology 12/11/22 22:56 Blood Culture - Preliminary Blood SPECIMEN COLLECTED 12/11/22 22:56 Blood Culture - Preliminary Blood SPECIMEN COLLECTED A&P Assessment and plan (1) Leukocytosis: (2) Elevated troponin: (3) Hyperlipidemia: (4) Pulmonary edema: (5) Acute respiratory failure with hypoxemia: (6) Coronary artery disease: (7) Atrial fibrillation: (8) Ischemic cardiomyopathy: (9) Pulmonary fibrosis: (10) Valvular heart disease: (11) Pulmonary HTN: (12) Transaminitis: Plan We will continue the antibiotics for now. Continue the amiodarone, statin, Plavix. I will add back her Eliquis. I am going to try to reinstitute the TRISTEN inhibitor. Hopefully we can get away with some kind of afterload reducing agent without lowering her blood pressure too much. We will switch over the intravenous Lasix to Lasix by mouth in the next day or so. Hopefully we can come up with a medication regimen which will keep her out of heart failure. I had a very long discussion with the patient and her family in the room. I am trying to encourage low salt containing foods. I explained the concept of flash pulmonary edema to the daughter. The elevated transaminases are likely related to passive congestion of the liver. Consult Attestations Medical Necessity Statement: Hospitalization for acute pulmonary edema, underlying coronary artery disease, ischemic cardiomyopathy and High Time for a total of 70 minutes, includes reviewing past or interval history, examining/interviewing patient, placing orders, counseling patient/family/other support, updating patient/family/other support, discussing plan of care with staff, communicating with other healthcare providers, documenting encounter and coordinating care Diagnoses Leukocytosis D72.829 Elevated troponin R77.8 Hyperlipidemia E78.5 Pulmonary edema J81.1 Acute respiratory failure with hypoxemia J96.01 Coronary artery disease I25.10 Atrial fibrillation I48.91 Ischemic cardiomyopathy I25.5 Pulmonary fibrosis J84.10 Valvular heart disease I38 Pulmonary HTN I27.20 Transaminitis R74.01
[2022-12-12] MEDS: lisinopril 2.5 mg Tablet PO (10:25)
[2022-12-12 10:59] LABS: Add Urine Microscopic? NO; Charge for UA Resulting for Rev
[2022-12-12 11:16] LABS: Bilirubin Urine Neg (Negative); Blood Urine Neg (Negative); Glucose Urine UA Norm (Normal); Ketones Urine Negative (Negative); Leukocyte Esterase Urine Negative (Negative); Nitrate Urine Negative (Negative); Protein Urine Neg (Negative); Specific Gravity, Urine 1.015 (1.005-1.030); Urine Appearance Clear (CLEAR); Urine Color Yellow (Yellow); Urobilinogen Urine Neg (Negative); pH Urine 5 (5-7)
[2022-12-12] MEDS: apixaban 5 mg Tablet 2.5 MG PO ×2 (12:53→20:24)
--- NOTE | 2022-12-12 13:29 | PC.NURSE ---
dr drake notified of low bp's.pt asymptomatic.has had 475 cc of urine so far this shift.a+o x 4.no c/o dizziness.he ordered to hold lisinopril.
--- NOTE | 2022-12-12 18:16 | P.PN_ITS ---
Subjective Subjective: Patient admitted by manager chemistry this morning. She was seen and evaluated. She has multiple family members bedside who are very supportive in her care. She reports her breathing is significantly improved. We talked at length about her prior presentations and the similarities with this one. Discussed plan of care. Patient and family in agreement Medications: Reviewed: Yes Vitals/I&O/Wt Last Vital Signs Temp 98.1 F 12/12/22 11:28 Pulse 82 12/12/22 17:15 Resp 16 12/12/22 16:17 BP 90/55 12/12/22 16:30 Pulse Ox 93 12/12/22 17:15 O2 Del Method Nasal Cannula 12/12/22 16:17 O2 Flow Rate 2 12/12/22 16:17 FiO2 36 12/12/22 02:06 12/12/22 12/12/22 12/12/22 06:59 14:59 22:59 Intake Total 360 / 360 650 / 650 600 / 1250 Output Total 825 / 825 900 / 900 Balance -465 / -465 650 / 650 -300 / 350 Weight last 48 hrs Weight 62.777 kg Weight 63.503 kg Physical Exam Narrative: General: Patient is awake and alert. Head: Normocephalic. Atraumatic. EOM intact. Neck: No JVD. Cardiovascular: RRR. No gallops. No murmurs. No peripheral edema. Lungs: Breath sounds diminished in bilateral bases. Very faint dependent crackles. No use of accessory muscles. Skin: No jaundice. No rashes. Abdomen: Normal bowel sounds, abdomen soft and nontender. Extremities: No cyanosis or clubbing. Musculoskeletal: No swollen or erythematous joints. Neurological: Moves all 4 extremities. No myoclonus. Data 12/11/22 22:13 12/11/22 23:35 Micro: Microbiology 12/11/22 22:56 Blood Culture - Preliminary Blood SPECIMEN COLLECTED 12/11/22 22:56 Blood Culture - Preliminary Blood SPECIMEN COLLECTED A&P Assessment and plan (1) Pulmonary edema: (2) Acute respiratory failure with hypoxemia: (3) Coronary artery disease: (4) Atrial fibrillation: (5) Ischemic cardiomyopathy: (6) Hyperlipidemia: (7) Hypertension: (8) Elevated troponin: (9) Leukocytosis: Plan Patient admitted by manager chemistry, agree with plan of care in addition to: Restart apixaban Discontinue steroids Discontinue antibiotics Continue diuresis Continue telemetry Continue supplemental oxygen support as needed Attestations Medical Necessity Statement*: Patient presents with acute congestive heart failure exacerbation with respiratory distress with expected hospitalization to cross 2 midnights for work-up and treatment. Coding Level of Care Code Acute Code for Chg Fwd Diagnoses Pulmonary edema J81.1 Acute respiratory failure with hypoxemia J96.01 Coronary artery disease I25.10 Atrial fibrillation I48.91 Ischemic cardiomyopathy I25.5 Hyperlipidemia E78.5 Hypertension I10 Elevated troponin R77.8 Leukocytosis D72.829
[2022-12-12] MEDS: atorvastatin 40 mg Tablet PO (20:22)
[2022-12-12] MEDS: acetaminophen 325 mg Tablet 650 MG PO (22:51)
[2022-12-12 23:52] LABS: Anion Gap 17.5 (5-19); Blood Urea Nitrogen 34 mg/dL (8-23); Calcium 8.4 mg/dL (8.5-10.5); Carbon Dioxide 26 mmol/L (22-29); Chloride 102 mmol/L (98-107); Glucose 186 mg/dL (65-115); Osmolality Calculated 304 mOsm/kg (285-295); Potassium 4.5 mmol/L (3.5-5.1); Sodium 141 mmol/L (136-145)
[2022-12-13] VITALS (15 sets, daily range): BP systolic 97–121; BP diastolic 50–77; PULSE 68–83; RESP 16–32; TEMP 36.6–37.3; O2SAT 93–97
--- NOTE | 2022-12-13 00:50 | PC.NURSE ---
Spoke with regarding patients complaints of leg cramping. The patient has been receiving IV lasix, last potassium was 3.6 and labs were not checked today. ordered to check STAT BMP. Potassium came back at 4.5. Family requesting topical Voltraren cream which ordered.
[2022-12-13] MEDS: diclofenac 1% Topical Gel 100 gm 1 APPLIC TOPICAL (00:57)
[2022-12-13 04:24] LABS: Basophils % 0.1 %; Hematocrit 33.2 % (37.0-47.0); Hemoglobin 10.4 g/dL (11.5-15.3); Lymphocytes # 0.7 10^3/uL (0.8-4.8); Mean Corpuscular HGB Conc 31.3 g/dL (30.0-36.0); Mean Corpuscular Hemoglobin 30.3 pg (28.0-34.0); Mean Corpuscular Volume 96.8 fl (81-99); Mean Platelet Volume 11.3 fL (7.4-10.4); Monocytes # 0.6 10^3/uL (0.2-0.9); Monocytes % 4.8 %; Neutrophils # 10.57 10^3/uL (1.8-7.7); Neutrophils % 88.7 %; Nucleated Red Blood Cells % 0 %; Platelet Count 181 10^3/cmm (130-400); Red Blood Count 3.43 10^6/uL (4.1-5.3); Red Cell Distribution Width 14.3 % (12.1-15.1); White Blood Count 11.9 10^3/uL (4.0-10.0)
[2022-12-13 04:48] LABS: Alanine Aminotransferase 55 U/L (0-33); Albumin Level 3.7 g/dL (3.5-5.2); Alkaline Phosphatase 108 U/L (35-105); Anion Gap 16.7 (5-19); Aspartate Amino Transferase 20 U/L (0-32); Blood Urea Nitrogen 33 mg/dL (8-23); Calcium 8.9 mg/dL (8.5-10.5); Carbon Dioxide 27 mmol/L (22-29); Chloride 98 mmol/L (98-107); Globulin 2.5 g/dL (1.3-4.6); Glucose 144 mg/dL (65-115); Magnesium 2.1 mg/dL (1.7-2.3); Osmolality Calculated 294 mOsm/kg (285-295); Potassium 4.7 mmol/L (3.5-5.1); Sodium 137 mmol/L (136-145); Total Bilirubin 0.2 mg/dL (0.15-1.2); Total Protein 6.2 g/dL (6.6-8.7)
[2022-12-13] MEDS: gabapentin 100 mg Capsule PO ×2 (06:06→18:18)
--- NOTE | 2022-12-13 07:31 | P.PN_ITS ---
Subjective Subjective: Agatha feels fine today. Her daughter remains concerned about potassium, blood pressure, lisinopril and Flomax. The lisinopril was put on hold after it was given yesterday morning. Her blood pressure dropped from the mid 90s to the mid 80s. She was not symptomatic. The Flomax was also discontinued. This morning her blood pressures in the 120s. Her daughter states that she still breathing hard when she gets up to go to the bathroom. Her hemoglobin this morning is 10.4. Her creatinine is 1.3 with a BUN of 33. Potassium is normal. Her AST has come back down to normal and her ALT is decreasing. Total intake 1650 mL. Total output 925 mL. Vitals/I&O/Wt Last Vital Signs Temp 97.8 F 12/13/22 04:00 Pulse 75 12/13/22 06:00 Resp 28 H 12/13/22 04:00 BP 110/66 12/13/22 04:00 Pulse Ox 97 12/13/22 04:00 O2 Del Method Nasal Cannula 12/13/22 00:00 O2 Flow Rate 2 12/12/22 20:47 FiO2 36 12/12/22 02:06 12/12/22 12/13/22 12/13/22 22:59 06:59 14:59 Intake Total 600 / 1250 400 / 1650 Output Total 900 / 900 25 / 925 Balance -300 / 350 375 / 725 Weight last 48 hrs Weight 144 lb Weight 138 lb 6.4 oz Weight 140 lb Physical Exam 2 Narrative: GENERAL: In general she looks comfortable. HEENT: Exam within normal limits. NECK: Supple without jugular vein distention. The carotid upstroke is normal without bruits. BACK: Exam normal. LUNGS: Clear. HEART: Regular rate and rhythm. ABDOMEN: Benign without organomegaly or tenderness. EXTREMITIES: No edema. NEUROLOGIC: Exam normal. SKIN: Unremarkable. Data 12/13/22 03:36 12/13/22 03:36 Micro: Microbiology 12/11/22 22:56 Blood Culture - Preliminary Blood NEGATIVE TO DATE 12/11/22 22:56 Blood Culture - Preliminary Blood NEGATIVE TO DATE A&P Assessment and plan (1) Transaminitis: (2) Pulmonary HTN: (3) Valvular heart disease: (4) Pulmonary fibrosis: (5) Elevated troponin: (6) Hyperlipidemia: (7) Pulmonary edema: (8) Acute respiratory failure with hypoxemia: (9) Coronary artery disease: (10) Atrial fibrillation: (11) Ischemic cardiomyopathy: Plan I would like to get her on an afterload reducing agent. Between the afterload reducing agent and the Flomax that the lisinopril is far more important. I am going to add that back again today to see how her blood pressure does. For now we will leave her off the Flomax. Continue on IV Lasix 1 more day. Her last p otassium was 4.7 but her creatinine is increased a little bit. Therefore, we will hold back on replacing the potassium today. We will see how she does today and reassess in the morning. Attestations Medical Necessity Statement*: Needs continued hospitalization for management of an ischemic cardiomyopathy and heart failure. and Moderate Time for a total of 25 minutes, includes reviewing past or interval history, examining/interviewing patient, placing orders, counseling patient/family/other support, updating patient/family/other support, discussing plan of care with staff, communicating with other healthcare providers, documenting encounter and coordinating care Diagnoses Transaminitis R74.01 Pulmonary HTN I27.20 Valvular heart disease I38 Pulmonary fibrosis J84.10 Elevated troponin R77.8 Hyperlipidemia E78.5 Pulmonary edema J81.1 Acute respiratory failure with hypoxemia J96.01 Coronary artery disease I25.10 Atrial fibrillation I48.91 Ischemic cardiomyopathy I25.5
[2022-12-13] MEDS: ipratropium-albuterol 3 mL Neb INHALATION ×3 (07:55→15:15)
[2022-12-13] MEDS: lisinopril 2.5 mg Tablet PO (08:14)
[2022-12-13] MEDS: amiodarone 200 mg Tablet PO (08:14)
[2022-12-13] MEDS: clopidogrel 75 mg Tablet PO (08:14)
[2022-12-13] MEDS: apixaban 5 mg Tablet 2.5 MG PO ×2 (08:14→20:01)
[2022-12-13] MEDS: FUROsemide 10 mg/mL SDV 4mL 40 MG IVP (09:07)
--- NOTE | 2022-12-13 16:45 | PM.PN ---
Subjective Subjective: Patient endorses ongoing shortness of breath as well as cough. She reports an episode of sputum production this morning. Telemetry reviewed, not significant arrhythmia per my review. She is net positive 500 mL since admission unfortunately. Otherwise denies other new complaints. Denies fevers, chills, nausea or emesis. Discussed alternative treatments to Flomax, family not interested due to significant side effect profiles. Medications: Reviewed: Yes Vitals/I&O/Wt Last Vital Signs Temp 98.5 F 12/13/22 08:03 Pulse 77 12/13/22 15:15 Resp 18 12/13/22 15:15 BP 107/74 12/13/22 13:07 Pulse Ox 96 12/13/22 15:15 O2 Del Method Nasal Cannula 12/13/22 15:15 O2 Flow Rate 2 12/13/22 15:15 FiO2 36 12/12/22 02:06 12/13/22 12/13/22 12/13/22 06:59 14:59 22:59 Intake Total 400 / 1650 600 / 600 Output Total 25 / 925 650 / 650 Balance 375 / 725 -50 / -50 Weight last 48 hrs Weight 65.317 kg Weight 62.777 kg Weight 63.503 kg Physical Exam Narrative: General: Patient is awake and alert. Very pleasant. Sitting on edge of bed. Head: Normocephalic. Atraumatic. EOM intact. Neck: No JVD. Cardiovascular: RRR. No gallops. No murmurs. No peripheral edema. Lungs: Breath sounds diminished in bilateral bases. Faint dependent crackles are still present. No use of accessory muscles. Skin: No jaundice. No rashes. Abdomen: Normal bowel sounds, abdomen soft and nontender. Extremities: No cyanosis or clubbing. Musculoskeletal: No swollen or erythematous joints. Neurological: Moves all 4 extremities. No myoclonus. Data 12/13/22 03:36 12/13/22 03:36 Micro: Microbiology 12/11/22 22:56 Blood Culture - Preliminary Blood NEGATIVE TO DATE 12/11/22 22:56 Blood Culture - Preliminary Blood NEGATIVE TO DATE A&P Assessment and plan (1) Pulmonary edema: Associated with acute on chronic heart failure with reduced ejection fraction exacerbation Strict I&Os, unfortunately she remains net positive and daily weight is up Continue IV Lasix Change breathing treatments to as needed Not on beta-domingo, likely will not tolerate Restarted on lowest dose TRISTEN inhibitor Blood pressure limits both goal-directed medical therapy for heart failure and diuretics Continue telemetry (2) Acute respiratory failure with hypoxemia: She remains on oxygen support Continue supplemental oxygen support for SPO2 goal of 92 denies 6% Continue diuresis (3) Coronary artery disease: (4) Atrial fibrillation: Remains in sinus rhythm Continue amiodarone Continue apixaban (5) Ischemic cardiomyopathy: Continue Plavix Not on beta-domingo due to hypotension Continue apixaban Telemetry monitoring Cardiology following, appreciate recommendations (6) Hyperlipidemia: Continue statin (7) Hypertension: Continue to monitor (8) Elevated troponin: Consistent with acute myocardial injury (9) Leukocytosis: Improving, likely stress-induced Continue to monitor Plan DVT prophylaxis: Apixaban CODE STATUS: Full code Attestations Medical Necessity Statement*: Patient requires ongoing hospitalization for IV diuresis, telemetry, cardiology evaluation, monitoring of urine output, and supportive care. Coding Level of Care Code Acute Code for [facility] Diagnoses Pulmonary edema J81.1 Acute respiratory failure with hypoxemia J96.01 Coronary artery disease I25.10 Atrial fibrillation I48.91 Ischemic cardiomyopathy I25.5 Hyperlipidemia E78.5 Hypertension I10 Elevated troponin R77.8 Leukocytosis D72.829
[2022-12-13] MEDS: atorvastatin 40 mg Tablet PO (20:02)
[2022-12-14] VITALS (13 sets, daily range): BP systolic 103–120; BP diastolic 52–72; PULSE 70–81; RESP 16–26; TEMP 36.5–37; O2SAT 94–98
[2022-12-14 05:03] LABS: Basophils % 0.4 %; Eosinophils # 0.1 10^3/uL (0.0-0.8); Eosinophils % 1.1 %; Hematocrit 34.8 % (37.0-47.0); Hemoglobin 10.6 g/dL (11.5-15.3); Lymphocytes # 2.4 10^3/uL (0.8-4.8); Lymphocytes % 22.7 %; Mean Corpuscular HGB Conc 30.5 g/dL (30.0-36.0); Mean Corpuscular Hemoglobin 30.1 pg (28.0-34.0); Mean Corpuscular Volume 98.9 fl (81-99); Mean Platelet Volume 10.8 fL (7.4-10.4); Monocytes # 0.7 10^3/uL (0.2-0.9); Monocytes % 6.3 %; Neutrophils # 7.42 10^3/uL (1.8-7.7); Neutrophils % 69.2 %; Nucleated Red Blood Cells % 0 %; Platelet Count 206 10^3/cmm (130-400); Red Blood Count 3.52 10^6/uL (4.1-5.3); Red Cell Distribution Width 14.6 % (12.1-15.1); White Blood Count 10.7 10^3/uL (4.0-10.0)
[2022-12-14 05:36] LABS: Albumin Level 3.6 g/dL (3.5-5.2); Blood Urea Nitrogen 31 mg/dL (8-23); Calcium 8.4 mg/dL (8.5-10.5); Carbon Dioxide 28 mmol/L (22-29); Chloride 105 mmol/L (98-107); Glucose 108 mg/dL (65-115); Magnesium 2.2 mg/dL (1.7-2.3); Phosphorus 3.3 mg/dL (2.5-4.5); Sodium 141 mmol/L (136-145)
[2022-12-14] MEDS: gabapentin 100 mg Capsule PO ×2 (06:09→21:07)
[2022-12-14 06:24] LABS: NT Pro B Type Natriuretic Pept 5008 pg/mL (0-450); Procalcitonin 0.68 ng/mL (0-0.5)
[2022-12-14] MEDS: ipratropium-albuterol 3 mL Neb INHALATION (08:46)
[2022-12-14] MEDS: FUROsemide 10 mg/mL SDV 4mL 40 MG IVP (09:13)
[2022-12-14] MEDS: apixaban 5 mg Tablet 2.5 MG PO ×2 (09:13→21:07)
[2022-12-14] MEDS: lisinopril 2.5 mg Tablet PO (09:13)
[2022-12-14] MEDS: amiodarone 200 mg Tablet PO (09:15)
[2022-12-14] MEDS: clopidogrel 75 mg Tablet PO (09:15)
--- NOTE | 2022-12-14 09:15 | P.PN_ITS ---
Subjective Subjective: Cardiology coverage patient admitted with features of acute decompensated heart failure. Clinically seems to be improving. No chest pain. No fever, chills or cough. 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 Last Admin: 12/14/22 08:46 Dose: 3 ml Amiodarone HCl (Amiodarone 200 Mg Tablet) 200 mg PO DAILY [facility] Last Admin: 12/13/22 08:14 Dose: 200 mg Apixaban (Apixaban 5 Mg Tablet) 2.5 mg PO BID@0900,2100 [facility] Last Admin: 12/13/22 20:01 Dose: 2.5 mg Atorvastatin Calcium (Atorvastatin 40 Mg Tablet) 40 mg PO BEDTIME [facility] Last Admin: 12/13/22 20:02 Dose: 40 mg Clopidogrel Bisulfate (Clopidogrel 75 Mg Tablet) 75 mg PO DAILY [facility] Last Admin: 12/13/22 08:14 Dose: 75 mg Diclofenac Sodium (Diclofenac 1% Topical Gel 100 Gm) 1 applic TOPICAL QID PRN PRN Reason: PAIN Last Admin: 12/13/22 00:57 Dose: 1 applic Furosemide (Furosemide 10 Mg/Ml Sdv 4ml) 40 mg IVP DAILY [facility] Last Admin: 12/13/22 09:07 Dose: 40 mg Gabapentin (Gabapentin 100 Mg Capsule) 100 mg PO 0700,1900 [facility] Last Admin: 12/14/22 06:09 Dose: 100 mg Lisinopril (Lisinopril 2.5 Mg Tablet) 2.5 mg PO DAILY [facility] Last Admin: 12/13/22 08:14 Dose: 2.5 mg Ondansetron HCl (Ondansetron 2 Mg/Ml Sdv 2 Ml) 4 mg IVP Q8H PRN PRN Reason: vomiting, or N/V if npo Vitals/I&O/Wt Last Vital Signs Temp 98.0 F 12/14/22 07:23 Pulse 74 12/14/22 08:54 Resp 17 12/14/22 08:48 BP 120/60 12/14/22 07:23 Pulse Ox 96 12/14/22 08:48 O2 Del Method Nasal Cannula 12/14/22 08:48 O2 Flow Rate 2 12/14/22 08:48 FiO2 36 12/12/22 02:06 12/13/22 12/14/22 12/14/22 22:59 06:59 14:59 Intake Total 240 / 840 Output Total 810 / 1460 400 / 1860 Balance -570 / -620 -400 / -1020 Weight last 48 hrs Weight 144 lb Physical Exam Narrative: GENERAL: The patient is alert and oriented times three. Not in any acute distress. [] HEENT: No significant pallor, icterus or lymphadenopathy.Oral cavity: There are no mucous membrane lesions. NECK: Trachea appears to be central. No masses noted. No JVD or thyromegaly appreciated. RESPIRATORY: Chest is symmetrical. No intercostals muscle retraction or any accessory muscle activation. There is no chest wall tenderness. Breath sounds are heard bilaterally. Bilateral fine rales in the bases consolidation. [] BREASTS: Deferred. [] HEART: The heart sounds are normal. No S3 or S4. Ejection systolic murmur grade 3 or 6 in the aortic area. No pericardial rub ABDOMEN: No vessel pulsations or distention. No tenderness. No organomegaly appr eciated. Bowel sounds are normally heard. : Deferred. RECTAL: Deferred. LYMPHATIC: No lymphadenopathy noted in the neck. EXTREMITIES: No edema or cyanosis. No clubbing. MUSCULOSKELETAL: No acute joint deformities or swelling SKIN: There are no significant rashes or ecchymosis NEUROPSYCHIATRIC: The patient is alert and oriented x3. Appears to be in a good mood. No tremors or rigidity noted. Data 12/14/22 04:44 12/14/22 04:44 Other Labs: Laboratory Last Values WBC 10.7 10^3/uL (4.0-10.0) H 12/14/22 04:44 RBC 3.52 10^6/uL (4.1-5.3) L 12/14/22 04:44 Hgb 10.6 g/dL (11.5-15.3) L 12/14/22 04:44 Hct 34.8 % (37.0-47.0) L 12/14/22 04:44 MCV 98.9 fl (81-99) 12/14/22 04:44 MCH 30.1 pg (28.0-34.0) 12/14/22 04:44 MCHC 30.5 g/dL (30.0-36.0) 12/14/22 04:44 RDW 14.6 % (12.1-15.1) 12/14/22 04:44 Plt Count 206 10^3/cmm (130-400) 12/14/22 04:44 MPV 10.8 fL (7.4-10.4) H 12/14/22 04:44 Neut % (Auto) 69.2 % 12/14/22 04:44 Lymph % (Auto) 22.7 % 12/14/22 04:44 [place] % (Auto) 6.3 % 12/14/22 04:44 Eos % (Auto) 1.1 % 12/14/22 04:44 Baso % (Auto) 0.4 % 12/14/22 04:44 Neut # (Auto) 7.42 10^3/uL (1.8-7.7) 12/14/22 04:44 Lymph # (Auto) 2.4 10^3/uL (0.8-4.8) 12/14/22 04:44 [place] # (Auto) 0.7 10^3/uL (0.2-0.9) 12/14/22 04:44 Eos # (Auto) 0.1 10^3/uL (0.0-0.8) 12/14/22 04:44 Baso # (Auto) 0.0 10^3/uL (0.0-0.1) 12/14/22 04:44 Nucleated RBC % (auto) 0 % 12/14/22 04:44 Nucleated RBCs # 0.0 /100WBC 12/14/22 04:44 PT 18.70 SECONDS (12.1-14.9) H 12/11/22 22:13 INR 1.50 (0.8-1.2) H 12/11/22 22:13 Specimen Type Arterial 12/11/22 22:44 Sample Site Brachial, left 12/11/22 22:44 ABG pH 7.31 (7.35-7.45) L 12/11/22 22:44 ABG pCO2 52.4 mmHg (35-45) H 12/11/22 22:44 ABG pO2 295.0 mmHg (80.0-100.0) H 12/11/22 22:44 ABG HCO3 26.2 mmol/L (22-26) H 12/11/22 22:44 ABG Base Excess -0.8 mmol/L (-2.0-2.0) 12/11/22 22:44 Fidencio Test N/a 12/11/22 22:44 Hematocrit 38.7 % (37-47) 12/11/22 22:44 Hgb O2 Saturation 98.7 % (95-100) 12/11/22 22:44 Carboxyhemoglobin 0.9 %THgb (0.4-20.1) 12/11/22 22:44 Methemoglobin 0.7 % (0.4-1.5) 12/11/22 22:44 Total Hemoglobin 12.6 g/dL (12-16) 12/11/22 22:44 O2 Delivery Device Bipap 12/11/22 22:44 FiO2 100.0 % 12/11/22 22:44 Business Info Consultant ID Alewe 12/11/22 22:44 Sodium 141 mmol/L (136-145) 12/14/22 04:44 Potassium 4.0 mmol/L (3.5-5.1) 12/14/22 04:44 Chloride 105 mmol/L (98-107) 12/14/22 04:44 Carbon Dioxide 28 mmol/L (22-29) 12/14/22 04:44 Anion Gap 12.0 (5-19) 12/14/22 04:44 BUN 31 mg/dL (8-23) H 12/14/22 04:44 Creatinine 1.2 mg/dL (0.5-0.9) H 12/14/22 04:44 GFR Calculation Not Reportable 12/14/22 04:44 Glucose 108 mg/dL (65-115) 12/14/22 04:44 Calculated Osmolality 294 mOsm/kg (285-295) 12/13/22 03:36 Lactic Acid 3.4 mmol/L (0.5-2.2) H 12/11/22 22:13 Lactic Acid (Sepsis) 1.1 mmol/L (0.5-2.2) 12/12/22 03:52 Calcium 8.4 mg/dL (8.5-10.5) L 12/14/22 04:44 Phosphorus 3.3 mg/dL (2.5-4.5) 12/14/22 04:44 Magnesium 2.2 mg/dL (1.7-2.3) 12/14/22 04:44 Total Bilirubin 0.2 mg/dL (0.15-1.2) 12/13/22 03:36 AST 20 U/L (0-32) 12/13/22 03:36 ALT 55 U/L (0-33) H 12/13/22 03:36 Alkaline Phosphatase 108 U/L (35-105) H 12/13/22 03:36 Troponin T Baseline 25 ng/L (0-10) H 12/11/22 22:13 Troponin T 120 Minute 46.82 ng/L (0-10) H 12/11/22 23:35 Delta Troponin T 21.82 ABS# (0-10) H* 12/11/22 23:35 Troponin T Hi Sens 6Hr 66.65 ng/L (0-10) H 12/12/22 03:52 Troponin T Hi Sens 6Hr Delta 41.65 ng/L (0-12) H* 12/12/22 03:52 NT-Pro-B Natriuret Pep 5008 pg/mL (0-450) H 12/14/22 04:44 Total Protein 6.2 g/dL (6.6-8.7) L 12/13/22 03:36 Albumin 3.6 g/dL (3.5-5.2) 12/14/22 04:44 Globulin 2.5 g/dL (1.3-4.6) 12/13/22 03:36 Procalcitonin 0.68 ng/mL (0-0.5) H 12/14/22 04:44 Urine Color Yellow (Yellow) 12/12/22 10:50 Urine Appearance Clear (CLEAR) 12/12/22 10:50 Urine pH 5 (5-7) 12/12/22 10:50 Ur Specific [place] 1.015 (1.005-1.030) 12/12/22 10:50 Urine Protein Neg (Negative) 12/12/22 10:50 Urine Glucose (UA) Norm (Normal) 12/12/22 10:50 Urine Ketones Negative (Negative) 12/12/22 10:50 Urine Blood Neg (Negative) 12/12/22 10:50 Urine Nitrate Negative (Negative) 12/12/22 10:50 Urine Bilirubin Neg (Negative) 12/12/22 10:50 Urine Urobilinogen Neg mg/dL (Negative) 12/12/22 10:50 Ur Leukocyte Esterase Negative (Negative) 12/12/22 10:50 SARS-CoV-2 Ag (Rapid) negative (Negative) 12/11/22 22:10 Echo: My impression: ?The left ventricle is mildly enlarged.? There is severe left ?ventricular dysfunction.? Segmental wall motion disturbances to ?include akinesis of the apex and severe hypokinesis of the ?anterior wall, lateral wall and the apical septum.? The ?remainder of the septum is moderately hypokinetic.? The inferior ?and posterior corrigan are mildly hypokinetic.? The ejection ?fraction is about 30%.? Grade 2 diastolic dysfunction. ?Normal right ventricular size and systolic function. Mild ?pulmonary hypertension, RVSP 45.6 mmHg. ?Mildly increased left atrial size. ?Structurally normal mitral valve. Mild mitral valve ?regurgitation. ?Structurally normal trileaflet aortic valve. Mild aortic valve ?calcification. Aortic valve sclerosis without stenosis. Mild-to- ?moderate aortic valve regurgitation. ?Structurally normal tricuspid valve. [id number] ?tricuspid valve regurgitation. ?The inferior vena cava cava is normal in size but does not quite ?collapse normally with respiration.? Right atrial pressure is 10 ?mmHg. ?Compared to the previous echoes done on October 07 and October 16 the ?left ventricular function is probably slightly less.? Valvular ?lesions are unchanged.? This represents a rather large ?myocardial infarction in the distribution of the LAD. A&P Assessment and plan (1) Pulmonary edema: The heart failure seems to be clinically getting compensated. Still has significant Rales bilaterally. (2) Ischemic cardiomyopathy: The repeat echocardiogram revealed ejection fraction around 30%. May consider LifeVest at discharge. We will try to start her on Entresto. I may discontinue the lisinopril and try losartan 25 mg p.o. daily (3) Pulmonary HTN: Mild pulmonary hypertension based on the TR jet (4) Elevated troponin: Possibly from type II [place] (5) Valvular heart disease: The echocardiogram revealed a moderately severe tricuspid regurgitation with a mild to moderate aortic regurgitation. We will continue on the current treatment measures (6) Pulmonary fibrosis: Continue on the current treatment for the time being (7) Hyperlipidemia: May continue on the current medications (8) Transaminitis: Possibly from CHF (9) Acute respiratory failure with hypoxemia: Clinically improving (10) Coronary artery disease: No evidence of any ongoing ischemia. Will undergo her medications. (11) Atrial fibrillation: Currently near regular rhythm. May continue on the current medications. Plan Goal is to gradually start her on Entresto. I may start with the losartan at this time. We will can discontinue the lisinopril. Blood pressure will be c losely monitored. Attestations Medical Necessity Statement*: Patient requires continued hospital stay for close monitoring and further management Coding Level of Care Code 12673 Diagnoses Pulmonary edema J81.1 Ischemic cardiomyopathy I25.5 Pulmonary HTN I27.20 Elevated troponin R77.8 Valvular heart disease I38 Pulmonary fibrosis J84.10 Hyperlipidemia E78.5 Transaminitis R74.01 Acute respiratory failure with hypoxemia J96.01 Coronary artery disease I25.10 Atrial fibrillation I48.91
--- NOTE | 2022-12-14 15:56 | PM.PN ---
Subjective Subjective: Patient remains short of breath. Reports better than when she came in. Still requiring supplemental oxygen and noted to have significant dyspnea on exertion. Family bedside and very supportive. Reports some improvement in cough. Reports jitteriness with DuoNebs. Denies other new complaints. Denies fevers, chills, or nausea. Medications: Reviewed: Yes Vitals/I&O/Wt Last Vital Signs Temp 98.6 F 12/14/22 15:46 Pulse 71 12/14/22 15:46 Resp 26 H 12/14/22 15:46 BP 103/52 12/14/22 15:46 Pulse Ox 94 12/14/22 15:46 O2 Del Method Nasal Cannula 12/14/22 15:46 O2 Flow Rate 2 12/14/22 15:46 FiO2 36 12/12/22 02:06 12/14/22 12/14/22 12/14/22 06:59 14:59 22:59 Intake Total 240 / 240 Output Total 400 / 1860 30 / 30 Balance -400 / -1020 210 / 210 Weight last 48 hrs Weight 65.317 kg Physical Exam Narrative: General: Patient is awake and alert. Very pleasant. Laying in bed. Head: Normocephalic. Atraumatic. EOM intact. Neck: No JVD. Cardiovascular: RRR. No gallops. No murmurs. No peripheral edema. Lungs: Breath sounds diminished in bilateral bases. Faint dependent crackles similiar to prior exam. No use of accessory muscles. Skin: No jaundice. No rashes. Abdomen: Normal bowel sounds, abdomen soft and nontender. Extremities: No cyanosis or clubbing. Musculoskeletal: No swollen or erythematous joints. Neurological: Moves all 4 extremities. No myoclonus. Data 12/14/22 04:44 12/14/22 04:44 A&P Assessment and plan (1) Pulmonary edema: Associated with acute on chronic heart failure with reduced ejection fraction exacerbation Strict I&Os, now net negative by 500 mL Continue IV Lasix Change breathing treatments to as needed, rotate to Xopenex and atrovent Not on beta-domingo, likely will not tolerate Continue lisinopril Continue telemetry (2) Acute respiratory failure with hypoxemia: She remains on oxygen support Continue supplemental oxygen support for SPO2 goal of 92 to 96% Continue diuresis (3) Coronary artery disease: Continue statin Continue Plavix (4) Atrial fibrillation: Remains in sinus rhythm Continue amiodarone Continue apixaban (5) Ischemic cardiomyopathy: Continue Plavix Not on beta-domingo due to hypotension Continue apixaban Telemetry monitoring Cardiology following, appreciate recommendations (6) Hyperlipidemia: Continue statin (7) Hypertension: Continue to monitor (8) Elevated troponin: Consistent with acute myocardial injury (9) Leukocytosis: Improving, likely stress-induced Continue to monitor Plan DVT prophylaxis: Apixaban CODE STATUS: Full code Attestations Medical Necessity Statement*: Patient requires ongoing hospitalization for IV diuresis, telemetry, cardiology evaluation, monitoring of urine output, and supportive care. Coding Level of Care Code Acute Code for [facility] Diagnoses Pulmonary edema J81.1 Acute respiratory failure with hypoxemia J96.01 Coronary artery disease I25.10 Atrial fibrillation I48.91 Ischemic cardiomyopathy I25.5 Hyperlipidemia E78.5 Hypertension I10 Elevated troponin R77.8 Leukocytosis D72.829
[2022-12-14] MEDS: atorvastatin 40 mg Tablet PO (21:06)
[2022-12-14] MEDS: ipratropium 0.5 mg/2.5 mL Neb INHALATION (21:22)
[2022-12-14] MEDS: levalbuterol 1.25 mg/3 mL Neb INHALATION (21:23)
[2022-12-15] VITALS (16 sets, daily range): BP systolic 104–124; BP diastolic 55–67; PULSE 62–85; RESP 15–28; TEMP 36.2–36.7; O2SAT 94–97
[2022-12-15] MEDS: levalbuterol 1.25 mg/3 mL Neb INHALATION ×4 (02:02→20:57)
[2022-12-15 05:27] LABS: Basophils # 0.1 10^3/uL (0.0-0.1); Basophils % 0.9 %; Eosinophils # 0.3 10^3/uL (0.0-0.8); Eosinophils % 3.9 %; Hematocrit 35.8 % (37.0-47.0); Hemoglobin 11.1 g/dL (11.5-15.3); Lymphocytes # 2.5 10^3/uL (0.8-4.8); Lymphocytes % 30.7 %; Mean Corpuscular Hemoglobin 30.8 pg (28.0-34.0); Mean Corpuscular Volume 99.4 fl (81-99); Mean Platelet Volume 10.9 fL (7.4-10.4); Monocytes # 0.6 10^3/uL (0.2-0.9); Monocytes % 7.5 %; Neutrophils # 4.64 10^3/uL (1.8-7.7); Neutrophils % 56.8 %; Nucleated Red Blood Cells % 0 %; Platelet Count 204 10^3/cmm (130-400); Red Cell Distribution Width 14.5 % (12.1-15.1); White Blood Count 8.2 10^3/uL (4.0-10.0)
[2022-12-15] MEDS: gabapentin 100 mg Capsule PO ×2 (06:08→20:26)
[2022-12-15] MEDS: ipratropium 0.5 mg/2.5 mL Neb INHALATION ×3 (07:03→20:57)
[2022-12-15 07:56] LABS: Albumin Level 3.6 g/dL (3.5-5.2); Anion Gap 14.5 (5-19); Blood Urea Nitrogen 24 mg/dL (8-23); Calcium 8.4 mg/dL (8.5-10.5); Carbon Dioxide 27 mmol/L (22-29); Chloride 104 mmol/L (98-107); Creatinine Clr Calc Pharmacy 37.2706; Glucose 107 mg/dL (65-115); Magnesium 2.2 mg/dL (1.7-2.3); Phosphorus 4.4 mg/dL (2.5-4.5); Potassium 4.5 mmol/L (3.5-5.1); Sodium 141 mmol/L (136-145)
[2022-12-15] MEDS: amiodarone 200 mg Tablet PO (08:48)
[2022-12-15] MEDS: apixaban 5 mg Tablet 2.5 MG PO ×2 (08:48→20:26)
[2022-12-15] MEDS: clopidogrel 75 mg Tablet PO (08:48)
[2022-12-15] MEDS: FUROsemide 10 mg/mL SDV 4mL 40 MG IVP (08:50)
[2022-12-15] MEDS: losartan 50 mg Tablet 25 MG PO (08:50)
--- NOTE | 2022-12-15 09:40 | P.PN_ITS ---
Subjective Subjective: Patient is feeling okay. Denies any chest pain. Still has some amount of shortness of breath. She is ambulating on telemetry with assistance. Medications: Medication Review Details: Current Medications Acetaminophen (Acetaminophen 325 Mg Tablet) 650 mg PO Q6H PRN PRN Reason: Mild/Mod Pain Or Temp >/= 101 Last Admin: 12/12/22 22:51 Dose: 650 mg Amiodarone HCl (Amiodarone 200 Mg Tablet) 200 mg PO DAILY [facility] Last Admin: 12/15/22 08:48 Dose: 200 mg Apixaban (Apixaban 5 Mg Tablet) 2.5 mg PO BID@0900,2100 [facility] Last Admin: 12/15/22 08:48 Dose: 2.5 mg Atorvastatin Calcium (Atorvastatin 40 Mg Tablet) 40 mg PO BEDTIME [facility] Last Admin: 12/14/22 21:06 Dose: 40 mg Clopidogrel Bisulfate (Clopidogrel 75 Mg Tablet) 75 mg PO DAILY [facility] Last Admin: 12/15/22 08:48 Dose: 75 mg Diclofenac Sodium (Diclofenac 1% Topical Gel 100 Gm) 1 applic TOPICAL QID PRN PRN Reason: PAIN Last Admin: 12/13/22 00:57 Dose: 1 applic Furosemide (Furosemide 10 Mg/Ml Sdv 4ml) 40 mg IVP DAILY [facility] Last Admin: 12/15/22 08:50 Dose: 40 mg Gabapentin (Gabapentin 100 Mg Capsule) 100 mg PO 0700,1900 [facility] Last Admin: 12/15/22 06:08 Dose: 100 mg Ipratropium [place] (Ipratropium 0.5 Mg/2.5 Ml Neb) 0.5 mg INHALATION TID.RESP [facility] Last Admin: 12/15/22 07:03 Dose: 0.5 mg Levalbuterol HCl (Levalbuterol 1.25 Mg/3 Ml Neb) 1.25 mg INHALATION Q6H.RESP [facility] Last Admin: 12/15/22 07:03 Dose: 1.25 mg Losartan Potassium (Losartan 50 Mg Tablet) 25 mg PO DAILY [facility] Last Admin: 12/15/22 08:50 Dose: 25 mg Ondansetron HCl (Ondansetron 2 Mg/Ml Sdv 2 Ml) 4 mg IVP Q8H PRN PRN Reason: vomiting, or N/V if npo Vitals/I&O/Wt Last Vital Signs Temp 98.0 F 12/15/22 04:00 Pulse 85 12/15/22 07:38 Resp 20 H 12/15/22 07:38 BP 111/67 12/15/22 07:38 Pulse Ox 96 12/15/22 07:38 O2 Del Method Room Air 12/15/22 07:38 O2 Flow Rate 2 12/15/22 07:38 FiO2 36 12/12/22 02:06 12/14/22 12/15/22 12/15/22 22:59 06:59 14:59 Intake Total 240 / 240 Output Total 825 / 855 275 / 1130 Balance -825 / -615 -275 / -890 240 / 240 Physical Exam Narrative: GENERAL: The patient is alert and oriented times three. Not in any acute distress. HEENT: Minimal pallor. No icterus or lymphadenopathy.Oral cavity: There are no mucous membrane lesions. NECK: Trachea appears to be central. No masses noted. No JVD or thyromegaly appreciated. RESPIRATORY: Chest is symmetrical. No intercostals muscle retraction or any accessory muscle activation. There is no chest wall tenderness. Breath sounds are heard bilaterally. Bilateral fine rales in the bases consolidation. BREASTS: Deferred. HEART: The heart sounds are normal. No S3 or S4. Ejection systolic murmur grade 3 or 6 in the aortic area. No pericardial rub ABDOMEN: No vessel pulsations or distention. No tenderness. No organomegaly appreciated. Bowel sounds are normally heard. : Deferred. RECTAL: Deferred. LYMPHATIC: No lymphadenopathy noted in the neck. EXTREMITIES: No edema or cyanosis. No clubbing. MUSCULOSKELETAL: No acute joint deformities or swelling SKIN: There are no significant rashes or ecchymosis NEUROPSYCHIATRIC: The patient is alert and oriented x3. Appears to be in a good mood. No tremors or rigidity noted. Data 12/15/22 04:14 12/15/22 04:14 Other Labs: Laboratory Last Values WBC 8.2 10^3/uL (4.0-10.0) 12/15/22 04:14 RBC 3.60 10^6/uL (4.1-5.3) L 12/15/22 04:14 Hgb 11.1 g/dL (11.5-15.3) L 12/15/22 04:14 Hct 35.8 % (37.0-47.0) L 12/15/22 04:14 MCV 99.4 fl (81-99) H 12/15/22 04:14 MCH 30.8 pg (28.0-34.0) 12/15/22 04:14 MCHC 31.0 g/dL (30.0-36.0) 12/15/22 04:14 RDW 14.5 % (12.1-15.1) 12/15/22 04:14 Plt Count 204 10^3/cmm (130-400) 12/15/22 04:14 MPV 10.9 fL (7.4-10.4) H 12/15/22 04:14 Neut % (Auto) 56.8 % 12/15/22 04:14 Lymph % (Auto) 30.7 % 12/15/22 04:14 [place] % (Auto) 7.5 % 12/15/22 04:14 Eos % (Auto) 3.9 % 12/15/22 04:14 Baso % (Auto) 0.9 % 12/15/22 04:14 Neut # (Auto) 4.64 10^3/uL (1.8-7.7) 12/15/22 04:14 Lymph # (Auto) 2.5 10^3/uL (0.8-4.8) 12/15/22 04:14 [place] # (Auto) 0.6 10^3/uL (0.2-0.9) 12/15/22 04:14 Eos # (Auto) 0.3 10^3/uL (0.0-0.8) 12/15/22 04:14 Baso # (Auto) 0.1 10^3/uL (0.0-0.1) 12/15/22 04:14 Nucleated RBC % (auto) 0 % 12/15/22 04:14 Nucleated RBCs # 0.0 /100WBC 12/15/22 04:14 PT 18.70 SECONDS (12.1-14.9) H 12/11/22 22:13 INR 1.50 (0.8-1.2) H 12/11/22 22:13 Specimen Type Arterial 12/11/22 22:44 Sample Site Brachial, left 12/11/22 22:44 ABG pH 7.31 (7.35-7.45) L 12/11/22 22:44 ABG pCO2 52.4 mmHg (35-45) H 12/11/22 22:44 ABG pO2 295.0 mmHg (80.0-100.0) H 12/11/22 22:44 ABG HCO3 26.2 mmol/L (22-26) H 12/11/22 22:44 ABG Base Excess -0.8 mmol/L (-2.0-2.0) 12/11/22 22:44 Fidencio Test N/a 12/11/22 22:44 Hematocrit 38.7 % (37-47) 12/11/22 22:44 Hgb O2 Saturation 98.7 % (95-100) 12/11/22 22:44 Carboxyhemoglobin 0.9 %THgb (0.4-20.1) 12/11/22 22:44 Methemoglobin 0.7 % (0.4-1.5) 12/11/22 22:44 Total Hemoglobin 12.6 g/dL (12-16) 12/11/22 22:44 O2 Delivery Device Bipap 12/11/22 22:44 FiO2 100.0 % 12/11/22 22:44 Culinary Intern ID Alewe 12/11/22 22:44 Sodium 141 mmol/L (136-145) 12/15/22 04:14 Potassium 4.5 mmol/L (3.5-5.1) 12/15/22 04:14 Chloride 104 mmol/L (98-107) 12/15/22 04:14 Carbon Dioxide 27 mmol/L (22-29) 12/15/22 04:14 Anion Gap 14.5 (5-19) 12/15/22 04:14 BUN 24 mg/dL (8-23) H 12/15/22 04:14 Creatinine 1.1 mg/dL (0.5-0.9) H 12/15/22 04:14 GFR Calculation Not Reportable 12/15/22 04:14 Glucose 107 mg/dL (65-115) 12/15/22 04:14 Calculated Osmolality 294 mOsm/kg (285-295) 12/13/22 03:36 Lactic Acid 3.4 mmol/L (0.5-2.2) H 12/11/22 22:13 Lactic Acid (Sepsis) 1.1 mmol/L (0.5-2.2) 12/12/22 03:52 Calcium 8.4 mg/dL (8.5-10.5) L 12/15/22 04:14 Phosphorus 4.4 mg/dL (2.5-4.5) 12/15/22 04:14 Magnesium 2.2 mg/dL (1.7-2.3) 12/15/22 04:14 Total Bilirubin 0.2 mg/dL (0.15-1.2) 12/13/22 03:36 AST 20 U/L (0-32) 12/13/22 03:36 ALT 55 U/L (0-33) H 12/13/22 03:36 Alkaline Phosphatase 108 U/L (35-105) H 12/13/22 03:36 Troponin T Baseline 25 ng/L (0-10) H 12/11/22 22:13 Troponin T 120 Minute 46.82 ng/L (0-10) H 12/11/22 23:35 Delta Troponin T 21.82 ABS# (0-10) H* 12/11/22 23:35 Troponin T Hi Sens 6Hr 66.65 ng/L (0-10) H 12/12/22 03:52 Troponin T Hi Sens 6Hr Delta 41.65 ng/L (0-12) H* 12/12/22 03:52 NT-Pro-B Natriuret Pep 5008 pg/mL (0-450) H 12/14/22 04:44 Total Protein 6.2 g/dL (6.6-8.7) L 12/13/22 03:36 Albumin 3.6 g/dL (3.5-5.2) 12/15/22 04:14 Globulin 2.5 g/dL (1.3-4.6) 12/13/22 03:36 Procalcitonin 0.68 ng/mL (0-0.5) H 12/14/22 04:44 Urine Color Yellow (Yellow) 12/12/22 10:50 Urine Appearance Clear (CLEAR) 12/12/22 10:50 Urine pH 5 (5-7) 12/12/22 10:50 Ur Specific [place] 1.015 (1.005-1.030) 12/12/22 10:50 Urine Protein Neg (Negative) 12/12/22 10:50 Urine Glucose (UA) Norm (Normal) 12/12/22 10:50 Urine Ketones Negative (Negative) 12/12/22 10:50 Urine Blood Neg (Negative) 12/12/22 10:50 Urine Nitrate Negative (Negative) 12/12/22 10:50 Urine Bilirubin Neg (Negative) 12/12/22 10:50 Urine Urobilinogen Neg mg/dL (Negative) 12/12/22 10:50 Ur Leukocyte Esterase Negative (Negative) 12/12/22 10:50 SARS-CoV-2 Ag (Rapid) negative (Negative) 12/11/22 22:10 Micro: Microbiology 12/13/22 09:56 Gram Stain - Final Sputum - Expectorated Sputum Sputum Culture - Preliminary Other data: Cardiogram on 12/12/2022 The left ventricle is mildly enlarged.? There is severe left ?ventricular dysfunction.? Segmental wall motion disturbances to ?include akinesis of the apex and severe hypokinesis of the ?anterior wall, lateral wall and the apical septum.? The ?remainder of the septum is moderately hypokinetic.? The inferior ?and posterior corrigan are mildly hypokinetic.? The ejection ?fraction is about 30%.? Grade 2 diastolic dysfunction. ?Normal right ventricular size and systolic function. Mild ?pulmonary hypertension, RVSP 45.6 mmHg. ?Mildly increased left atrial size. ?Structurally normal mitral valve. Mild mitral valve ?regurgitation. ?Structurally normal trileaflet aortic valve. Mild aortic valve ?calcification. Aortic valve sclerosis without stenosis. Mild-to- ?moderate aortic valve regurgitation. ?Structurally normal tricuspid valve. [id number] ?tricuspid valve regurgitation. ?The inferior vena cava cava is normal in size but does not quite ?collapse normally with respiration.? Right atrial pressure is 10 ?mmHg. ?Compared to the previous echoes done on October 07 and October 16 the ?left ventricular function is probably slightly less.? Valvular ?lesions are unchanged.? This represents a rather large ?myocardial infarction in the distribution of the LAD. A&P Assessment and plan (1) Pulmonary edema: The heart failure seems to be clinically getting compensated. Scattered fine Rales in the bases. No evidence of consolidation. (2) Ischemic cardiomyopathy: The repeat echocardiogram revealed ejection fraction around 30%. Patient was started on losartan yesterday. Seems to be tolerating the medication so far well. Discussed about LifeVest with the patient and her family. She is undecided at this time. Will let us know. (3) Pulmonary HTN: Mild pulmonary hypertension based on the TR jet. May continue on the current medications. (4) Elevated troponin: Possibly from type II [place]. Current symptoms of myocardial ischemia. May continue on the current measures. (5) Valvular heart disease: The echocardiogram revealed a moderately severe tricuspid regurgitation with a mild to moderate aortic regurgitation. We will continue on the current treatment measures (6) Pulmonary fibrosis: Continue on the current treatment for the time being (7) Hyperlipidemia: May continue on the current medications (8) Transaminitis: Possibly from CHF. Repeat a lipid profile in the morning (9) Acute respiratory failure with hypoxemia: Clinically improving (10) Coronary artery disease: No evidence of any ongoing ischemia. We will continue on the current medications. (11) Atrial fibrillation: Currently the patient is in a regular rhythm. May continue on the current medications. She is on long-term oral anticoagulation. No bleeding complications. Plan Continue on the current medications. Continue the Lasix on a as needed basis. Repeat a BMP in the morning Attestations Medical Necessity Statement*: Deferred to the primary Coding Level of Care Code 60135 Diagnoses Pulmonary edema J81.1 Ischemic cardiomyopathy I25.5 Pulmonary HTN I27.20 Elevated troponin R77.8 Valvular heart disease I38 Pulmonary fibrosis J84.10 Hyperlipidemia E78.5 Transaminitis R74.01 Acute respiratory failure with hypoxemia J96.01 Coronary artery disease I25.10 Atrial fibrillation I48.91
--- NOTE | 2022-12-15 10:01 | PC.SOCIAL ---
IMM update IMM updated with patient and family at bedside. Copy Pg 2 provided. Verbalized an understanding. Initialled, dated, timed, and placed in chart.
[2022-12-15] MEDS: atorvastatin 40 mg Tablet PO (20:26)
--- NOTE | 2022-12-15 20:52 | P.PN_ITS ---
Subjective Subjective: Patient reports shortness of breath is improving. Ambulating some with assistance. Denies fevers, chills, or chest pain. Family bedside and supportive. Spoke with daughter, she had questions regarding Life Vest, potentially ICD in the future, and several other appropriate questions. Medications: Reviewed: Yes Vitals/I&O/Wt Last Vital Signs Temp 97.9 F 12/15/22 19:43 Pulse 68 12/15/22 19:43 Resp 18 12/15/22 19:43 BP 118/65 12/15/22 19:43 Pulse Ox 97 12/15/22 19:43 O2 Del Method Nasal Cannula 12/15/22 12:58 O2 Flow Rate 2 12/15/22 12:58 FiO2 36 12/12/22 02:06 12/15/22 12/15/22 12/15/22 06:59 14:59 22:59 Intake Total 718 / 718 236 / 954 Output Total 275 / 1130 880 / 880 160 / 1040 Balance -275 / -890 -162 / -162 76 / -86 Physical Exam Narrative: General: Patient is awake and alert. Very pleasant. Laying in bed. Head: Normocephalic. Atraumatic. EOM intact. Neck: No JVD. Cardiovascular: RRR. No gallops. No murmurs. No peripheral edema. Lungs: Breath sounds diminished in bilateral bases. Faint dependent crackles similiar to prior exam. No use of accessory muscles. Still on nasal canula. Skin: No jaundice. No rashes. Abdomen: Normal bowel sounds, abdomen soft and nontender. Extremities: No cyanosis or clubbing. Musculoskeletal: No swollen or erythematous joints. Neurological: Moves all 4 extremities. No myoclonus. Data 12/15/22 04:14 12/15/22 04:14 Micro: Microbiology 12/13/22 09:56 Gram Stain - Final Sputum - Expectorated Sputum Sputum Culture - Final A&P Assessment and plan (1) Pulmonary edema: Associated with acute on chronic heart failure with reduced ejection fraction exacerbation Strict I&Os, net negative by -1736 mL Continue IV Lasix Consider increasing home Lasix dose at discharge BUN and Cr downtrending w/ diuresis Not on beta-domingo, likely will not tolerate Rotated to losartan over the weekend Event monitor requested Follow up decision on Life Vest Follow up with Dr Etienne on Friday Continue telemetry (2) Acute respiratory failure with hypoxemia: Remains on oxygen support Continue supplemental oxygen support for SPO2 goal of 92 to 96% Continue diuresis (3) Coronary artery disease: Continue statin Continue Plavix (4) Atrial fibrillation: In SR Continue amiodarone Continue apixaban (5) Ischemic cardiomyopathy: Continue Plavix Not on beta-domingo due to hypotension Continue apixaban Telemetry monitoring Cardiology following, appreciate recommendations (6) Hyperlipidemia: Continue statin (7) Hypertension: Continue to monitor (8) Elevated troponin: Consistent with acute myocardial injury (9) Leukocytosis: Resolved Plan DVT prophylaxis: Apixaban CODE STATUS: Full code Attestations Medical Necessity Statement*: Patient requires ongoing hospitalization for IV diuresis, telemetry, cardiology evaluation, monitoring of urine output, and supportive care. Coding Level of Care Code Acute Code for [facility] Diagnoses Pulmonary edema J81.1 Acute respiratory failure with hypoxemia J96.01 Coronary artery disease I25.10 Atrial fibrillation I48.91 Ischemic cardiomyopathy I25.5 Hyperlipidemia E78.5 Hypertension I10 Elevated troponin R77.8 Leukocytosis D72.829
[2022-12-16] VITALS (13 sets, daily range): BP systolic 101–136; BP diastolic 51–73; PULSE 50–80; RESP 16–28; TEMP 36.2–36.9; O2SAT 95–99
[2022-12-16 05:53] LABS: Basophils # 0.1 10^3/uL (0.0-0.1); Basophils % 0.9 %; Eosinophils # 0.6 10^3/uL (0.0-0.8); Eosinophils % 5.9 %; Hematocrit 38.4 % (37.0-47.0); Hemoglobin 11.5 g/dL (11.5-15.3); Lymphocytes # 2.4 10^3/uL (0.8-4.8); Lymphocytes % 25.7 %; Mean Corpuscular HGB Conc 29.9 g/dL (30.0-36.0); Mean Corpuscular Hemoglobin 29.9 pg (28.0-34.0); Mean Platelet Volume 10.4 fL (7.4-10.4); Monocytes # 0.6 10^3/uL (0.2-0.9); Monocytes % 6.7 %; Neutrophils # 5.59 10^3/uL (1.8-7.7); Neutrophils % 60.5 %; Nucleated Red Blood Cells % 0 %; Platelet Count 211 10^3/cmm (130-400); Red Blood Count 3.84 10^6/uL (4.1-5.3); Red Cell Distribution Width 14.3 % (12.1-15.1); White Blood Count 9.3 10^3/uL (4.0-10.0)
[2022-12-16] MEDS: gabapentin 100 mg Capsule PO ×2 (06:15→17:12)
[2022-12-16 06:21] LABS: Albumin Level 3.4 g/dL (3.5-5.2); Blood Urea Nitrogen 20 mg/dL (8-23); Calcium 8.6 mg/dL (8.5-10.5); Carbon Dioxide 27 mmol/L (22-29); Chloride 103 mmol/L (98-107); Glucose 99 mg/dL (65-115); Magnesium 2.2 mg/dL (1.7-2.3); NT Pro B Type Natriuretic Pept 3886 pg/mL (0-450); Phosphorus 3.6 mg/dL (2.5-4.5); Sodium 138 mmol/L (136-145)
[2022-12-16 06:27] LABS: Anion Gap 12.7 (5-19); Creatinine Clr Calc Pharmacy 40.9976; Potassium 4.7 mmol/L (3.5-5.1)
--- NOTE | 2022-12-16 08:07 | P.PN_ITS ---
Subjective Subjective: The patient is feeling okay. She has no chest pain or palpitations. Telemetry shows a sinus rhythm with the PVCs and occasional sinus bradycardia and short runs of A-fib. Medications: Medication Review Details: Current Medications Acetaminophen (Acetaminophen 325 Mg Tablet) 650 mg PO Q6H PRN PRN Reason: Mild/Mod Pain Or Temp >/= 101 Last Admin: 12/12/22 22:51 Dose: 650 mg Amiodarone HCl (Amiodarone 200 Mg Tablet) 200 mg PO DAILY [facility] Last Admin: 12/15/22 08:48 Dose: 200 mg Apixaban (Apixaban 5 Mg Tablet) 2.5 mg PO BID@0900,2100 [facility] Last Admin: 12/15/22 20:26 Dose: 2.5 mg Atorvastatin Calcium (Atorvastatin 40 Mg Tablet) 40 mg PO BEDTIME [facility] Last Admin: 12/15/22 20:26 Dose: 40 mg Clopidogrel Bisulfate (Clopidogrel 75 Mg Tablet) 75 mg PO DAILY [facility] Last Admin: 12/15/22 08:48 Dose: 75 mg Diclofenac Sodium (Diclofenac 1% Topical Gel 100 Gm) 1 applic TOPICAL QID PRN PRN Reason: PAIN Last Admin: 12/13/22 00:57 Dose: 1 applic Furosemide (Furosemide 10 Mg/Ml Sdv 4ml) 40 mg IVP DAILY [facility] Last Admin: 12/15/22 08:50 Dose: 40 mg Gabapentin (Gabapentin 100 Mg Capsule) 100 mg PO 0700,1900 [facility] Last Admin: 12/16/22 06:15 Dose: 100 mg Ipratropium [place] (Ipratropium 0.5 Mg/2.5 Ml Neb) 0.5 mg INHALATION TID.RESP [facility] Last Admin: 12/15/22 20:57 Dose: 0.5 mg Levalbuterol HCl (Levalbuterol 1.25 Mg/3 Ml Neb) 1.25 mg INHALATION Q6H.RESP [facility] Last Admin: 12/16/22 04:25 Dose: Not Given Losartan Potassium (Losartan 50 Mg Tablet) 25 mg PO DAILY [facility] Last Admin: 12/15/22 08:50 Dose: 25 mg Ondansetron HCl (Ondansetron 2 Mg/Ml Sdv 2 Ml) 4 mg IVP Q8H PRN PRN Reason: vomiting, or N/V if npo Vitals/I&O/Wt Last Vital Signs Temp 98.1 F 05/15/23 07:21 Pulse 72 12/16/22 07:21 Resp 22 H 12/16/22 07:21 BP 123/73 12/16/22 07:21 Pulse Ox 95 12/16/22 07:21 O2 Del Method Nasal Cannula 12/16/22 07:21 O2 Flow Rate 2 12/15/22 20:59 FiO2 36 12/12/22 02:06 12/15/22 12/16/22 12/16/22 22:59 06:59 14:59 Intake Total 356 / 1074 Output Total 160 / 1040 195 / 1235 75 / 75 Balance 196 / 34 -195 / -161 -75 / -75 Physical Exam Narrative: GENERAL: The patient is alert and oriented times three. Not in any acute distress. HEENT: Minimal pallor. No icterus or lymphadenopathy.Oral cavity: There are no mucous membrane lesions. NECK: Trachea appears to be central. No masses noted. No JVD or thyromegaly appreciated. RESPIRATORY: Chest is symmetrical. No intercostals muscle retraction or any accessory muscle activation. There is no chest wall tenderness. Breath sounds are heard bilaterally. Bilateral fine rales in the bases consolidation. BREASTS: Deferred. HEART: The heart sounds are normal. No S3 or S4. Ejection systolic murmur grade 3 or 6 in the aortic area. No pericardial rub ABDOMEN: No vessel pulsations or distention. No tenderness. No organomegaly appreciated. Bowel sounds are normally heard. : Deferred. RECTAL: Deferred. LYMPHATIC: No lymphadenopathy noted in the neck. EXTREMITIES: No edema or cyanosis. No clubbing. MUSCULOSKELETAL: No acute joint deformities or swelling SKIN: There are no significant rashes or ecchymosis NEUROPSYCHIATRIC: The patient is alert and oriented x3. Appears to be in a good mood. No tremors or rigidity noted. Data 12/16/22 05:43 12/16/22 05:43 Other Labs: Laboratory Last Values WBC 9.3 10^3/uL (4.0-10.0) 12/16/22 05:43 RBC 3.84 10^6/uL (4.1-5.3) L 12/16/22 05:43 Hgb 11.5 g/dL (11.5-15.3) 12/16/22 05:43 Hct 38.4 % (37.0-47.0) 12/16/22 05:43 MCV 100.0 fl (81-99) H 12/16/22 05:43 MCH 29.9 pg (28.0-34.0) 12/16/22 05:43 MCHC 29.9 g/dL (30.0-36.0) L 12/16/22 05:43 RDW 14.3 % (12.1-15.1) 12/16/22 05:43 Plt Count 211 10^3/cmm (130-400) 12/16/22 05:43 MPV 10.4 fL (7.4-10.4) 12/16/22 05:43 Neut % (Auto) 60.5 % 12/16/22 05:43 Lymph % (Auto) 25.7 % 12/16/22 05:43 [place] % (Auto) 6.7 % 12/16/22 05:43 Eos % (Auto) 5.9 % 12/16/22 05:43 Baso % (Auto) 0.9 % 12/16/22 05:43 Neut # (Auto) 5.59 10^3/uL (1.8-7.7) 12/16/22 05:43 Lymph # (Auto) 2.4 10^3/uL (0.8-4.8) 12/16/22 05:43 [place] # (Auto) 0.6 10^3/uL (0.2-0.9) 12/16/22 05:43 Eos # (Auto) 0.6 10^3/uL (0.0-0.8) 12/16/22 05:43 Baso # (Auto) 0.1 10^3/uL (0.0-0.1) 12/16/22 05:43 Nucleated RBC % (auto) 0 % 12/16/22 05:43 Nucleated RBCs # 0.0 /100WBC 12/16/22 05:43 PT 18.70 SECONDS (12.1-14.9) H 12/11/22 22:13 INR 1.50 (0.8-1.2) H 12/11/22 22:13 Specimen Type Arterial 12/11/22 22:44 Sample Site Brachial, left 12/11/22 22:44 ABG pH 7.31 (7.35-7.45) L 12/11/22 22:44 ABG pCO2 52.4 mmHg (35-45) H 12/11/22 22:44 ABG pO2 295.0 mmHg (80.0-100.0) H 12/11/22 22:44 ABG HCO3 26.2 mmol/L (22-26) H 12/11/22 22:44 ABG Base Excess -0.8 mmol/L (-2.0-2.0) 12/11/22 22:44 Fidencio Test N/a 12/11/22 22:44 Hematocrit 38.7 % (37-47) 12/11/22 22:44 Hgb O2 Saturation 98.7 % (95-100) 12/11/22 22:44 Carboxyhemoglobin 0.9 %THgb (0.4-20.1) 12/11/22 22:44 Methemoglobin 0.7 % (0.4-1.5) 12/11/22 22:44 Total Hemoglobin 12.6 g/dL (12-16) 12/11/22 22:44 O2 Delivery Device Bipap 12/11/22 22:44 FiO2 100.0 % 12/11/22 22:44 [employer] [email or web address] 12/11/22 22:44 Sodium 138 mmol/L (136-145) 12/16/22 05:43 Potassium 4.7 mmol/L (3.5-5.1) 12/16/22 05:43 Chloride 103 mmol/L (98-107) 12/16/22 05:43 Carbon Dioxide 27 mmol/L (22-29) 12/16/22 05:43 Anion Gap 12.7 (5-19) 12/16/22 05:43 BUN 20 mg/dL (8-23) 12/16/22 05:43 Creatinine 1.0 mg/dL (0.5-0.9) H 12/16/22 05:43 GFR Calculation Not Reportable 12/16/22 05:43 Glucose 99 mg/dL (65-115) 12/16/22 05:43 Calculated Osmolality 294 mOsm/kg (285-295) 12/13/22 03:36 Lactic Acid 3.4 mmol/L (0.5-2.2) H 12/11/22 22:13 Lactic Acid (Sepsis) 1.1 mmol/L (0.5-2.2) 12/12/22 03:52 Calcium 8.6 mg/dL (8.5-10.5) 12/16/22 05:43 Phosphorus 3.6 mg/dL (2.5-4.5) 12/16/22 05:43 Magnesium 2.2 mg/dL (1.7-2.3) 12/16/22 05:43 Total Bilirubin 0.2 mg/dL (0.15-1.2) 12/13/22 03:36 AST 20 U/L (0-32) 12/13/22 03:36 ALT 55 U/L (0-33) H 12/13/22 03:36 Alkaline Phosphatase 108 U/L (35-105) H 12/13/22 03:36 Troponin T Baseline 25 ng/L (0-10) H 12/11/22 22:13 Troponin T 120 Minute 46.82 ng/L (0-10) H 12/11/22 23:35 Delta Troponin T 21.82 ABS# (0-10) H* 12/11/22 23:35 Troponin T Hi Sens 6Hr 66.65 ng/L (0-10) H 12/12/22 03:52 Troponin T Hi Sens 6Hr Delta 41.65 ng/L (0-12) H* 12/12/22 03:52 NT-Pro-B Natriuret Pep 3886 pg/mL (0-450) H 12/16/22 05:43 Total Protein 6.2 g/dL (6.6-8.7) L 12/13/22 03:36 Albumin 3.4 g/dL (3.5-5.2) L 12/16/22 05:43 Globulin 2.5 g/dL (1.3-4.6) 12/13/22 03:36 Procalcitonin 0.68 ng/mL (0-0.5) H 12/14/22 04:44 Urine Color Yellow (Yellow) 12/12/22 10:50 Urine Appearance Clear (CLEAR) 12/12/22 10:50 Urine pH 5 (5-7) 12/12/22 10:50 Ur Specific [place] 1.015 (1.005-1.030) 12/12/22 10:50 Urine Protein Neg (Negative) 12/12/22 10:50 Urine Glucose (UA) Norm (Normal) 12/12/22 10:50 Urine Ketones Negative (Negative) 12/12/22 10:50 Urine Blood Neg (Negative) 12/12/22 10:50 Urine Nitrate Negative (Negative) 12/12/22 10:50 Urine Bilirubin Neg (Negative) 12/12/22 10:50 Urine Urobilinogen Neg mg/dL (Negative) 12/12/22 10:50 Ur Leukocyte Esterase Negative (Negative) 12/12/22 10:50 SARS-CoV-2 Ag (Rapid) negative (Negative) 12/11/22 22:10 Micro: Microbiology 12/13/22 09:56 Gram Stain - Final Sputum - Expectorated Sputum Sputum Culture - Final A&P Assessment and plan (1) Pulmonary edema: The heart failure seems to be clinically getting compensated. Scattered fine Rales in the bases. No evidence of consolidation. (2) Syncope and collapse: Patient has a history of syncope and collapse, 3 days after the acute myocardial infarction, in October. This was a witnessed cardiac arrest, most likely from malignant ventricular arrhythmia. (3) Ischemic cardiomyopathy: The repeat echocardiogram revealed ejection fraction around 30%. (4) Pulmonary HTN: Mild pulmonary hypertension based on the TR jet. May continue on the current medications. (5) Elevated troponin: Possibly from type II NE. Current symptoms of myocardial ischemia. May continue on the current measures. (6) Valvular heart disease: The echocardiogram revealed a moderately severe tricuspid regurgitation with a mild to moderate aortic regurgitation. We will continue on the current treatment measures (7) Pulmonary fibrosis: Continue on the current treatment for the time being (8) Hyperlipidemia: May continue on the current medications (9) Transaminitis: Possibly from CHF. The enzymes are returning back to the baseline. (10) Acute respiratory failure with hypoxemia: Clinically improving. The oxygenation seems to be much better (11) Coronary artery disease: No evidence of any ongoing ischemia. We will continue on the current medications. (12) Atrial fibrillation: Currently the patient is in a regular rhythm. Patient seems to have intermittent short episodes of atrial fibrillation on the monitor. She is on Eliquis 2.5 mg p.o. twice daily Plan In view of the patient's diminished LV ejection fraction and witnessed cardiac arrest, she may be a candidate for internal cardiac defibrillator placement for secondary prophylaxis. The family and the patient is wanting to go ahead with this procedure. The risks and benefits were discussed. I will be contacting Dr. Piña to perform this procedure. Since the patient is on Eliquis, we will go ahead and discontinue the Eliquis and start her on IV heparin. Based on the clinical progress, further recommendations will be made. Attestations Medical Necessity Statement*: My today Coding Level of Care Code Acute Code for [facility] Diagnoses Pulmonary edema J81.1 Syncope and collapse R55 Ischemic cardiomyopathy I25.5 Pulmonary HTN I27.20 Elevated troponin R77.8 Valvular heart disease I38 Pulmonary fibrosis J84.10 Hyperlipidemia E78.5 Transaminitis R74.01 Acute respiratory failure with hypoxemia J96.01 Coronary artery disease I25.10 Atrial fibrillation I48.91
[2022-12-16] MEDS: FUROsemide 10 mg/mL SDV 4mL 40 MG IVP (08:47)
[2022-12-16] MEDS: clopidogrel 75 mg Tablet PO (08:47)
[2022-12-16] MEDS: amiodarone 200 mg Tablet PO (08:47)
[2022-12-16] MEDS: losartan 50 mg Tablet 25 MG PO (08:47)
[2022-12-16] MEDS: apixaban 5 mg Tablet 2.5 MG PO (08:48)
[2022-12-16 12:45] LABS: Vitamin B12 423 pg/mL (232-1245)
[2022-12-16 13:38] LABS: Iron 43 ug/dL (37-145)
[2022-12-16] MEDS: metoprolol tartrate 25 mg Tablet 12.5 MG PO ×2 (13:46→21:51)
[2022-12-16] MEDS: ipratropium 0.5 mg/2.5 mL Neb INHALATION ×2 (13:54→19:36)
[2022-12-16] MEDS: levalbuterol 1.25 mg/3 mL Neb INHALATION ×2 (13:54→19:36)
[2022-12-16 13:58] LABS: Percent Saturation 16.5 % (20-50); Total Iron Binding Capacity 260 mcg/dl; Unsaturated Iron Binding 217 ug/dL (112-347)
--- NOTE | 2022-12-16 16:05 | P.PN_ITS ---
Subjective Subjective: Hospital course, labs appreciated. Today morning seen with family at bedside. Continues to remain hemodynamically stable and well. Blood pressure today morning between 1 10-1 20 systolics. Continues to remain on 2 L. Documented urine output in last 24 hours 1200 cc and overall since admission around 2 L negative. Vitals/I&O/Wt Last Vital Signs Temp 98.0 F 12/16/22 12:00 Pulse 70 12/16/22 13:56 Resp 16 12/16/22 13:56 BP 101/54 12/16/22 12:00 Pulse Ox 97 12/16/22 13:56 O2 Del Method Nasal Cannula 12/16/22 13:56 O2 Flow Rate 2 12/16/22 13:56 FiO2 36 12/12/22 02:06 12/16/22 12/16/22 12/16/22 06:59 14:59 22:59 Intake Total 480 / 480 Output Total 195 / 1235 725 / 725 Balance -195 / -161 -245 / -245 Physical Exam Narrative: General: Patient is awake and alert. Very pleasant. Sitting up in bed having breakfast. Head: Normocephalic. Atraumatic. EOM intact. Neck: No JVD. Cardiovascular: RRR. No gallops. No murmurs. No peripheral edema. Lungs: Breath sounds diminished in bilateral bases. Faint dependent crackles similiar to prior exam. No use of accessory muscles. Still on nasal canula. Skin: No jaundice. No rashes. Abdomen: Normal bowel sounds, abdomen soft and nontender. Extremities: No cyanosis or clubbing. Musculoskeletal: No swollen or erythematous joints. Neurological: Moves all 4 extremities. No myoclonus. Data 12/16/22 05:43 12/16/22 05:43 A&P Assessment and plan (1) Congestive heart failure with cardiomyopathy: (2) Ischemic cardiomyopathy: (3) Pulmonary edema: (4) Acute respiratory failure with hypoxemia: Resolved. Patient back on 2 L of home oxygen supplementation saturating more than 95%. (5) Coronary artery disease: (6) Atrial fibrillation: (7) Hypertension: (8) Hyperlipidemia: Plan Acute respiratory failure on admission: Secondary to acute on chronic systolic congestive heart failure. Echocardiogram done during this hospitalization shows an EF of 30% with regional wall motion abnormality and grade 2 diastolic dysfunction along with mild pulmonary hypertension, mild to moderate AI, moderate to severe TR. Strict input of charting, daily weights. Changed to oral Lasix 40 mg daily. Plan to initiate heart failure regimen medications. Restarted on losartan 25 mg oral daily yesterday. Blood pressure stable. Patient continues to have frequent VPCs on monitor. Start on metoprolol 12.5 mg twice daily while monitoring blood pressures. Discussed in detail with patient and patient's family. They are reluctant given history of low blood pressures but are agreeable. Ischemic cardiomyopathy: EF less than 30%. Discussed in detail regarding need for LifeVest versus ICD placement. Given history of admission in the past recently for collapse requiring cardiac p ulmonary resuscitation patient might qualify for ICD placement. Discussed in detail with Dr. Avery. Appreciate recommendations. Family is agreeable for the same. Plan for ICD placement. We will consult Dr. Piña accordingly. Hold Eliquis for now. Hypertension: Goal blood pressure less than 140/90 mmHg with mean over 65. Restarting losartan and metoprolol. Monitor closely. Hold Flomax. Full code. Cardiac diet. Fluid restriction to less than 1500 cc. Hold off Eliquis for possible ICD placement. Famotidine for PUD prophylaxis. Goals of care discussion: Discussed in detail regarding plan of treatment going forward with possible ICD placement. Also discussed in detail regarding congestive heart failure, medications and etiology. Spent over 30 minutes in room discussing need for various different regimen of medications including beta-domingo, TIRSTEN and ARB to reduce afterload for better remodeling of the heart if possible. Family verbalized understanding all the questions were answered. Attestations Medical Necessity Statement*: Requires further hospitalization for management of acute respiratory failure secondary to acute on chronic congestive heart failure while ICD placement is do ne given severe LV dysfunction Diagnoses Congestive heart failure with cardiomyopathy I50.9; I42.9 Ischemic cardiomyopathy I25.5 Pulmonary edema J81.1 Acute respiratory failure with hypoxemia J96.01 Coronary artery disease I25.10 Atrial fibrillation I48.91 Hypertension I10 Hyperlipidemia E78.5
[2022-12-16] MEDS: sennosides-docusate Tablet 1 TAB PO (17:12)
[2022-12-16] MEDS: atorvastatin 40 mg Tablet PO (21:51)
[2022-12-17] VITALS (13 sets, daily range): BP systolic 113–127; BP diastolic 50–65; PULSE 57–78; RESP 16–27; TEMP 36.8–37; O2SAT 96–100
[2022-12-17 04:15] LABS: Basophils # 0.1 10^3/uL (0.0-0.1); Basophils % 0.9 %; Eosinophils # 0.5 10^3/uL (0.0-0.8); Hematocrit 43.3 % (37.0-47.0); Lymphocytes # 2.2 10^3/uL (0.8-4.8); Mean Corpuscular Hemoglobin 30.4 pg (28.0-34.0); Mean Corpuscular Volume 101.2 fl (81-99); Mean Platelet Volume 10.7 fL (7.4-10.4); Monocytes # 0.6 10^3/uL (0.2-0.9); Monocytes % 7.1 %; Neutrophils # 5.39 10^3/uL (1.8-7.7); Neutrophils % 60.7 %; Nucleated Red Blood Cells % 0 %; Platelet Count 235 10^3/cmm (130-400); Red Blood Count 4.28 10^6/uL (4.1-5.3); Red Cell Distribution Width 14.1 % (12.1-15.1); White Blood Count 8.9 10^3/uL (4.0-10.0)
[2022-12-17 04:43] LABS: Alanine Aminotransferase 39 U/L (0-33); Albumin Level 3.6 g/dL (3.5-5.2); Alkaline Phosphatase 131 U/L (35-105); Blood Urea Nitrogen 19 mg/dL (8-23); Calcium 9.5 mg/dL (8.5-10.5); Carbon Dioxide 28 mmol/L (22-29); Chloride 101 mmol/L (98-107); Globulin 3.1 g/dL (1.3-4.6); Glucose 111 mg/dL (65-115); Osmolality Calculated 295 mOsm/kg (285-295); Sodium 141 mmol/L (136-145); Total Bilirubin 0.4 mg/dL (0.15-1.2); Total Protein 6.7 g/dL (6.6-8.7)
[2022-12-17 04:44] LABS: Anion Gap 16.3 (5-19); Aspartate Amino Transferase 24 U/L (0-32); Creatinine Clr Calc Pharmacy 37.2706; Potassium 4.3 mmol/L (3.5-5.1)
[2022-12-17 04:47] LABS: Estmated Average Glucose 120; Hemoglobin A1C 5.8 % (4.0-6.0)
[2022-12-17 05:06] LABS: Folate Level 11.6 ng/mL (4.8-37.3)
[2022-12-17] MEDS: gabapentin 100 mg Capsule PO ×2 (06:20→18:27)
[2022-12-17] MEDS: ipratropium 0.5 mg/2.5 mL Neb INHALATION ×3 (07:48→20:29)
[2022-12-17] MEDS: levalbuterol 1.25 mg/3 mL Neb INHALATION ×3 (07:48→20:29)
[2022-12-17] MEDS: amiodarone 200 mg Tablet PO (08:27)
[2022-12-17] MEDS: metoprolol tartrate 25 mg Tablet 12.5 MG PO ×2 (08:27→20:23)
[2022-12-17] MEDS: FUROsemide 40 mg Tablet PO (08:27)
[2022-12-17] MEDS: clopidogrel 75 mg Tablet PO (08:27)
[2022-12-17] MEDS: losartan 50 mg Tablet 25 MG PO (08:28)
[2022-12-17] MEDS: mupirocin oint 22 gm 1 APPLIC NOSTRIL-B (08:28)
[2022-12-17] MEDS: chlorhexidine gluconate 4% Btl 118 mL 1 APPLIC TOPICAL ×2 (08:28→18:27)
--- NOTE | 2022-12-17 11:17 | P.CONIM_ITS ---
Providers/Reason For Consult Consulting Physician/Specialty*: Dr. Piña/cardiothoracic surgery Reason for Consult*: Consulted for AICD implantation. Requesting Physician: Dr. Avery Attending Physician: Christ Catalan MD Primary Care Provider: Jesus Seay DO History of Present Illness History of Present Illness Agatha Graham is a 77 year old female whom I been consulted to consider AICD implantation as primary therapy for an assumed malignant arrhythmia while at home following hospitalization for acute anterior TX and subsequent intervention to the LAD and left circumflex vessels. She has suffered substa ntial LV dysfunction following her infarction with the most recent echocardiogram revealing ejection fraction of 30%. Related to her witnessed arrest/collapse while at home with bystander CPR, it is concerned that she may have developed a malignant arrhythmia which resulted in the event. EMS arrival at the time of the event revealed PEA by history. She has been doing well in this hospitalization with occasional PVCs though other substantial arrhythmias. It is felt she would benefit from AICD implantation prior to discharge in relation to her previous witnessed event and substantial detriment in her LV function. At the time of my initial encounter, interview, and exam, her daughter was pre sent and was able to answer many questions. She states her mother remains quite active prior to this recent hospitalization in October and subsequent follow-up requirements. Review of Systems Const: Denies: fever(s) or chills Card: Reports: chest pain (Now resolved following intervention), lightheadedness and dyspnea on exertion; Denies: orthopnea Resp: Reports: dyspnea; Denies: productive cough or wheezing GI: Denies: abdominal pain, nausea or vomiting Musc: Denies: neck pain, back pain or extremity pain Neuro: Denies: headache(s), numbness in extremities or weakness in extremities Psych: Denies: anxiety or depression Medications/Allergies Home Medications Medication Instructions Recorded Confirmed Last Taken Type budesonide-formoterol HFA 160 2 puff inhalation BID #10.2 grams 10/28/22 12/12/22 Unknown Rx mcg-4.5 mcg/actuation aerosol inhaler (Symbicort) diclofenac sodium 1 % topical gel 2 g topical QID #100 grams 10/28/22 12/12/22 Unknown Rx levalbuterol tartrate 45 2 inh inhalation Q6H #15 grams 10/28/22 12/12/22 Unknown Rx mcg/actuation aerosol inhaler (Xopenex HFA) oxygen concentrator with portable #1 ea 10/28/22 12/12/22 Unknown Rx amiodarone 200 mg tablet 200 mg PO DAILY #90 tabs 12/03/22 12/12/22 12/11/22 Rx apixaban 2.5 mg tablet 2.5 mg PO BID@0900,2100 #180 tabs 12/03/22 12/12/22 12/11/22 Rx atorvastatin 40 mg tablet 40 mg PO BEDTIME #90 tabs 12/03/22 12/12/22 12/11/22 Rx clopidogrel 75 mg tablet 75 mg PO DAILY #90 tabs 12/03/22 12/12/22 12/11/22 Rx furosemide 20 mg tablet 20 mg PO DAILY@0800 #90 tabs 12/03/22 12/12/22 12/11/22 Rx lisinopril 2.5 mg tablet 2.5 mg PO QAM #90 tabs 12/03/22 12/12/22 12/11/22 Rx nitroglycerin 0.4 mg sublingual 0.4 mg sublingual Q5M PRN Chest 12/03/22 12/12/22 12/11/22 Rx tablet Pain #25 tabs potassium chloride 10 mEq 10 meq PO DAILY #90 tabs 12/03/22 12/12/22 12/11/22 Rx tablet,extended release gabapentin 100 mg capsule 100 mg PO Q12H 12/12/22 12/12/22 12/11/22 19:00 History tamsulosin 0.4 mg capsule 0.4 mg PO BEDTIME 12/12/22 12/12/22 12/11/22 History Allergies Allergy/AdvReac Type Severity Reaction Status Date / Time No Known Allergies Allergy Verified 12/11/22 22:10 Current Medications Generic Name Dose Route Start Last Admin Trade Name Freq PRN Reason Stop Dose Admin Acetaminophen 650 mg 12/12/22 00:51 12/12/22 22:51 Acetaminophen 325 Mg Tablet PO 650 mg Q6H PRN Administration Mild/Mod Pain Or Temp >/= 101 Amiodarone HCl 200 mg 12/12/22 09:00 12/17/22 08:27 Amiodarone 200 Mg Tablet PO 200 mg DAILY [facility] Administration Apixaban 2.5 mg 12/12/22 12:02 12/16/22 08:48 Apixaban 5 Mg Tablet PO 2.5 mg BID@0900,2100 [facility] Administration Atorvastatin Calcium 40 mg 12/12/22 21:00 12/16/22 21:51 Atorvastatin 40 Mg Tablet PO 40 mg BEDTIME [facility] Administration Chlorhexidine Gluconate 1 applic 12/17/22 09:00 12/17/22 08:28 Chlorhexidine Gluconate 4% Btl 118 Ml TOPICAL 1 applic BID [facility] Administration Clopidogrel Bisulfate 75 mg 12/12/22 09:00 12/17/22 08:27 Clopidogrel 75 Mg Tablet PO 75 mg DAILY [facility] Administration Diclofenac Sodium 1 applic 12/13/22 00:50 12/13/22 00:57 Diclofenac 1% Topical Gel 100 Gm TOPICAL 1 applic QID PRN Administration PAIN Furosemide 40 mg 12/17/22 08:00 12/17/22 08:27 Furosemide 40 Mg Tablet PO 40 mg DAILY@0800 [facility] Administration Gabapentin 100 mg 12/12/22 07:00 12/17/22 06:20 Gabapentin 100 Mg Capsule PO 100 mg 0700,1900 [facility] Administration Ipratropium [place] 0.5 mg 12/14/22 20:00 12/17/22 07:48 Ipratropium 0.5 Mg/2.5 Ml Neb INHALATION 0.5 mg TID.RESP [facility] Administration Levalbuterol HCl 1.25 mg 12/14/22 20:00 12/17/22 07:48 Levalbuterol 1.25 Mg/3 Ml Neb INHALATION 1.25 mg Q6H.RESP [facility] Administration Losartan Potassium 25 mg 12/15/22 09:00 12/17/22 08:28 Losartan 50 Mg Tablet PO 25 mg DAILY [facility] Administration Metoprolol Tartrate 12.5 mg 12/16/22 12:05 12/17/22 08:27 Metoprolol Tartrate 25 Mg Tablet PO 12.5 mg BID@0900,2100 [facility] Administration Senna/Docusate Sodium 1 tab 12/16/22 18:00 12/17/22 08:43 Sennosides-Docusate Tablet PO Not Given BID [facility] PFSH Acute PFSH: Medical History Anticoagulation adequate with anticoagulant therapy Aspiration pneumonia Atherosclerosis of coronary artery of lummi heart without angina pectoris Atrial fibrillation Cardiac arrest due to underlying cardiac condition Cardiac arrest with successful resuscitation Cardiac arrest with ventricular fibrillation Congestive heart failure with cardiomyopathy Coronary artery disease CVA (cerebral vascular accident) Encounter for physical examination related to employment History of pneumonia Hyperlipidemia Hypertension Ischemic cardiomyopathy Metabolic acidosis Neuropathy Pulmonary edema Pulmonary fibrosis Pulmonary HTN ST elevation (STEMI) myocardial infarction Transaminitis UTI (urinary tract infection) Valvular heart disease Surgical History History of heart artery stent No pertinent past surgical history Family History Father Cancer Dementia Stroke Hypertension Lung disease Mother Cancer Lung disease Social History Smoking and tobacco status: former smoker Quit status (tobacco): has quit using tobacco Former quit date comment: PPD x 20+ yrs Second hand smoke exposure: Yes Alcohol intake: never Substance/Drug Use: never Adopted: No Lives independently: Yes Household members: spouse Housing: House Marital status: Number of children: 3 Highest education level completed: High School Graduate service: No Current occupational status: employed 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 Pets and animals: Yes Current gender identity: Female Vitals/I&O/Wt Last Vital Signs Temp 98.6 F 12/17/22 03:40 Pulse 74 12/17/22 08:03 Resp 16 12/17/22 08:00 BP 125/62 12/17/22 08:00 Pulse Ox 97 12/17/22 08:00 O2 Del Method Nasal Cannula 12/17/22 08:00 O2 Flow Rate 2 12/17/22 08:00 FiO2 36 12/12/22 02:06 12/16/22 12/17/22 12/17/22 22:59 06:59 14:59 Intake Total 300 / 300 Output Total 870 / 1595 175 / 1770 Balance -870 / -1115 -175 / -1290 300 / 300 Physical Exam Const: COMMON NORMALS: no acute distress, patient oriented x3, alert and well nourished; negative for average body habitus (Short statured; 4 foot 11 inches) HENMT: COMMON NORMALS: normocephalic, atraumatic, external ears normal and Normal external nose present HEAD & SCALP: normocephalic and atraumatic NOSE: Normal external nose present EXTERNAL EAR: Yes external ears normal Eye: COMMON NORMALS: Equal, round and reactive pupils present, EOMs intact bilaterally and no scleral icterus PUPIL: Yes Equal, round and reactive pupils present Neck/C-Spine: COMMON NORMALS: No carotid bruits; negative for full ROM Resp: COMMON NORMALS: normal respiratory effort and clear to auscultation bilaterally AUSCULTATION: clear to auscultation bilaterally Cardio: COMMON NORMALS: regular rate and regular rhythm RATE: regular rate RHYTHM: regular rhythm GI: COMMON NORMALS: Normal to inspection, nondistended, normoactive bowel sounds present Extremity: COMMON NORMALS: no clubbing, cyanosis or edema Neuro: COMMON NORMALS: patient oriented x3, moves all extremities, no focal motor deficits and no sensory deficits noted SENSORIUM/ORIENTATION: Yes alert Data 12/17/22 03:39 12/17/22 03:39 Micro: Microbiology 12/11/22 22:56 Blood Culture - Final Blood NO GROWTH AFTER 5 DAYS 12/11/22 22:56 Blood Culture - Final Blood NO GROWTH AFTER 5 DAYS A&P Assessment and plan (1) Congestive heart failure with cardiomyopathy: 77-year-old female with ischemic cardiomyopathy status post anterior myocardial infarction in October with subsequent intervention to the LAD and circumflex vessels. Witnessed arrest at home of undetermined etiology but concerning for malignant arrhythmia. Most recent transthoracic echocardiogram of December 12 revealed severe left ventricular dysfunction ejection fraction at approximately 30%. Mild pulmonary hypertension. Consult Attestations Medical Necessity Statement: Ischemic cardiomyopathy with substantial depressed ejection fraction and witnessed arrest presumed to be related to malignant arrhythmia. I discussed options with Ms. Graham and her family concerning AICD implantation. Details of risk of the procedure discussed including , stroke, major bleeding, infection, perforation of major vessel or heart, infection requiring removal, inability to adequately place the device, need for long-term surveillance, and postoperative pain. Numerous questions have been asked and answered. They wish to proceed with AICD implantation during his hospitalization. We will tentatively schedule for December 20 at 12 noon in relation to the OR availability. Coding Level of Care Code Acute Code for [facility] Fwd Diagnoses Congestive heart failure with cardiomyopathy I50.9; I42.9
--- NOTE | 2022-12-17 13:40 | PM.PN ---
Subjective Subjective: No acute events overnight. Patient has remained with medically stable and afebrile. Continues to be on 2 L of supplementation saturating more than 95%. Today morning seen walking around in the hallway without any difficulty in breathing. States feeling a lot better. Blood pressures have remained stable. Family at bedside. Telemetry remained stable with occasional episodes of PVCs and a short run of A-fib. Vitals/I&O/Wt Last Vital Signs Temp 98.6 F 12/17/22 03:40 Pulse 74 12/17/22 08:03 Resp 16 12/17/22 08:00 BP 125/62 12/17/22 08:00 Pulse Ox 97 12/17/22 08:00 O2 Del Method Nasal Cannula 12/17/22 08:00 O2 Flow Rate 2 12/17/22 08:00 FiO2 36 12/12/22 02:06 12/16/22 12/17/22 12/17/22 22:59 06:59 14:59 Intake Total 300 / 300 Output Total 870 / 1595 175 / 1770 Balance -870 / -1115 -175 / -1290 300 / 300 Physical Exam Narrative: General: Patient is awake and alert. Very pleasant. Sitting up in bed having breakfast. Head: Normocephalic. Atraumatic. EOM intact. Neck: No JVD. Cardiovascular: RRR. No gallops. No murmurs. No peripheral edema. Lungs: Breath sounds diminished in bilateral bases. Faint dependent crackles similiar to prior exam. No use of accessory muscles. Still on nasal canula. Skin: No jaundice. No rashes. Abdomen: Normal bowel sounds, abdomen soft and nontender. Extremities: No cyanosis or clubbing. Musculoskeletal: No swollen or erythematous joints. Neurological: Moves all 4 extremities. No myoclonus. Data 12/17/22 03:39 12/17/22 03:39 Micro: Microbiology 12/11/22 22:56 Blood Culture - Final Blood NO GROWTH AFTER 5 DAYS 12/11/22 22:56 Blood Culture - Final Blood NO GROWTH AFTER 5 DAYS A&P Assessment and plan (1) Congestive heart failure with cardiomyopathy: (2) Ischemic cardiomyopathy: (3) Pulmonary edema: (4) Acute respiratory failure with hypoxemia: Resolved. Patient back on 2 L of home oxygen supplementation saturating more than 95%. (5) Coronary artery disease: (6) Atrial fibrillation: (7) Hypertension: (8) Hyperlipidemia: Plan Acute respiratory failure on admission: Secondary to acute on chronic systolic congestive heart failure. Echocardiogram done during this hospitalization shows an EF of 30% with regional wall motion abnormality and grade 2 diastolic dysfunction along with mild pulmonary hypertension, mild to moderate AI, moderate to severe TR. Strict input of charting, daily weights. Changed to oral Lasix 40 mg daily. Plan to initiate heart failure regimen medications. Continues to have occasional episodes of VPCs and a short run of A-fib on nuclear monitoring technician. Continue with losartan 25 mg oral daily, metoprolol 12.5 mg twice daily. Will uptitrate as per the vitals. Appreciate cardiology recommendations. Discussed in detail with Dr. Avery from cardiology. Patient is agreeable for ICD placement. Dr. Piña consulted. Plan for ICD placement on Friday. Continue with Eliquis for now and withhold on fri. Ischemic cardiomyopathy: EF less than 30%. Plan for ICD placement on Friday. Appreciate Dr. Piña and Dr. Avery recommendation. Continue with Lasix 40 mg oral daily. Euvolemic for now. Hypertension: Goal blood pressure less than 140/90 mmHg with mean over 65 mmHg.. Losartan and metoprolol as above. Uptitrate accordingly.. Monitor closely. Hold Flomax. Full code. Cardiac diet. Fluid restriction to less than 1500 cc. Eliquis will suffice as DVT prophylaxis. Hold from Friday night. Famotidine for PUD prophylaxis. Goals of care discussion: Discussed in detail with the patient and patient's family at bedside. For now they are agreeable with beta-domingo and low-dose ARB. They are agreeable with ICD placement. Continues to remain full code. Discharge plan: Plan to discharge once ICD placed and patient medically stable. Most likely on Friday to home with or without home health. Attestations Medical Necessity Statement*: ChronicRequires further hospitalization for management of systolic congestive heart failure secondary to ischemic cardiomyopathy while ICD placement is sought Diagnoses Congestive heart failure with cardiomyopathy I50.9; I42.9 Ischemic cardiomyopathy I25.5 Pulmonary edema J81.1 Acute respiratory failure with hypoxemia J96.01 Coronary artery disease I25.10 Atrial fibrillation I48.91 Hypertension I10 Hyperlipidemia E78.5
--- NOTE | 2022-12-17 16:17 | PC.SOCIAL ---
Imm update Imm updated with patient at bedside. Copy of page 2 provided. Patient verbalized understanding. Copy in chart initialed, dated and timed.
[2022-12-17] MEDS: apixaban 5 mg Tablet 2.5 MG PO (20:23)
[2022-12-17] MEDS: atorvastatin 40 mg Tablet PO (20:23)
--- NOTE | 2022-12-17 20:45 | PM.PN ---
Subjective Subjective: Patient is feeling okay. Denies any chest pain or any unusual shortness of breath. Vital signs are stable. Telemetry shows sinus rhythm with intermittent brief episodes of atrial fibrillation. Medications: Medication Review Details: Current Medications Acetaminophen (Acetaminophen 325 Mg Tablet) 650 mg PO Q6H PRN PRN Reason: Mild/Mod Pain Or Temp >/= 101 Last Admin: 12/12/22 22:51 Dose: 650 mg Amiodarone HCl (Amiodarone 200 Mg Tablet) 200 mg PO DAILY [facility] Last Admin: 12/17/22 08:27 Dose: 200 mg Apixaban (Apixaban 5 Mg Tablet) 2.5 mg PO BID@0900,2100 [facility] Stop: 12/18/22 19:00 Last Admin: 12/17/22 20:23 Dose: 2.5 mg Atorvastatin Calcium (Atorvastatin 40 Mg Tablet) 40 mg PO BEDTIME [facility] Last Admin: 12/17/22 20:23 Dose: 40 mg Chlorhexidine Gluconate (Chlorhexidine Gluconate 4% Btl 118 Ml) 1 applic TOPICAL BID [facility] Last Admin: 12/17/22 18:27 Dose: 1 applic Clopidogrel Bisulfate (Clopidogrel 75 Mg Tablet) 75 mg PO DAILY [facility] Last Admin: 12/17/22 08:27 Dose: 75 mg Diclofenac Sodium (Diclofenac 1% Topical Gel 100 Gm) 1 applic TOPICAL QID PRN PRN Reason: PAIN Last Admin: 12/13/22 00:57 Dose: 1 applic Furosemide (Furosemide 40 Mg Tablet) 40 mg PO DAILY@0800 [facility] Last Admin: 12/17/22 08:27 Dose: 40 mg Gabapentin (Gabapentin 100 Mg Capsule) 100 mg PO 0700,1900 [facility] Last Admin: 12/17/22 18:27 Dose: 100 mg Ipratropium [place] (Ipratropium 0.5 Mg/2.5 Ml Neb) 0.5 mg INHALATION TID.RESP [facility] Last Admin: 12/17/22 20:29 Dose: 0.5 mg Levalbuterol HCl (Levalbuterol 1.25 Mg/3 Ml Neb) 1.25 mg INHALATION Q6H.RESP [facility] Last Admin: 12/17/22 20:29 Dose: 1.25 mg Losartan Potassium (Losartan 50 Mg Tablet) 25 mg PO DAILY [facility] Last Admin: 12/17/22 08:28 Dose: 25 mg Magnesium Hydroxide (Magnesium Hydroxide 30 Ml Udc) 30 ml PO DAILY PRN PRN Reason: CONSTIPATION Metoprolol Tartrate (Metoprolol Tartrate 25 Mg Tablet) 12.5 mg PO BID@0900,2100 [facility] Last Admin: 12/17/22 20:23 Dose: 12.5 mg Ondansetron HCl (Ondansetron 2 Mg/Ml Sdv 2 Ml) 4 mg IVP Q8H PRN PRN Reason: vomiting, or N/V if npo Senna/Docusate Sodium (Sennosides-Docusate Tablet) 1 tab PO BID [facility] Last Admin: 12/17/22 18:37 Dose: Not Given Sodium Chloride (Saline Nasal [place] 44ml Btl) 1 spray NASAL PRN PRN PRN Reason: DRYNESS He Mary Agatha Graham there okay did she get the Eliquis this evening Vitals/I&O/Wt Last Vital Signs Temp 98.4 F 12/17/22 20:00 Pulse 61 12/17/22 20:30 Resp 17 12/17/22 20:30 BP 124/60 12/17/22 20:00 Pulse Ox 100 12/17/22 20:30 O2 Del Method Nasal Cannula 12/17/22 20:30 O2 Flow Rate 2 12/17/22 20:30 FiO2 36 12/12/22 02:06 12/17/22 12/17/22 12/17/22 06:59 14:59 22:59 Intake Total 650 / 650 300 / 950 Output Total 175 / 1770 680 / 680 Balance -175 / -1290 -30 / -30 300 / 270 Physical Exam Narrative: GENERAL: The patient is alert and oriented times three. Not in any acute distress. HEENT: Minimal pallor. No icterus or lymphadenopathy.Oral cavity: There are no mucous membrane lesions. NECK: Trachea appears to be central. No masses noted. No JVD or thyromegaly appreciated. RESPIRATORY: Chest is symmetrical. No intercostals muscle retraction or any accessory muscle activation. There is no chest wall tenderness. Breath sounds are heard bilaterally. Bilateral fine rales in the bases consolidation. BREASTS: Deferred. HEART: The heart sounds are normal. No S3 or S4. Ejection systolic murmur grade 3 or 6 in the aortic area. No pericardial rub ABDOMEN: No vessel pulsations or distention. No tenderness. No organomegaly appreciated. Bowel sounds are normally heard. : Deferred. RECTAL: Deferred. LYMPHATIC: No lymphadenopathy noted in the neck. EXTREMITIES: No edema or cyanosis. No clubbing. MUSCULOSKELETAL: No acute joint deformities or swelling SKIN: There are no significant rashes or ecchymosis NEUROPSYCHIATRIC: The patient is alert and oriented x3. Appears to be in a good mood. No tremors or rigidity noted. Data 12/17/22 03:39 12/17/22 03:39 Micro: Microbiology 12/11/22 22:56 Blood Culture - Final Blood NO GROWTH AFTER 5 DAYS 12/11/22 22:56 Blood Culture - Final Blood NO GROWTH AFTER 5 DAYS A&P Assessment and plan (1) Pulmonary edema: Clinically seems to be compensated. May continue on the current medications. (2) Syncope and collapse: Patient has a history of syncope and collapse, 3 days after the acute myocardial infarction, in October. This was a witnessed cardiac arrest, most likely from malignant ventricular arrhythmia. (3) Ischemic cardiomyopathy: The repeat echocardiogram revealed ejection fraction around 30%. This patient may benefit from ICD implantation for secondary prophylaxis. This was discussed with the patient and the family in detail which they understood well (4) Pulmonary HTN: Mild pulmonary hypertension based on the TR jet. May continue on the current medications. (5) Elevated troponin: Possibly from type II MS. Current symptoms of myocardial ischemia. May continue on the current measures. (6) Valvular heart disease: The echocardiogram revealed a moderately severe tricuspid regurgitation with a mild to moderate aortic regurgitation. We will continue on the current treatment measures (7) Pulmonary fibrosis: Continue on the current treatment for the time being (8) Hyperlipidemia: May continue on the current medications (9) Transaminitis: Possibly from CHF. The enzymes are returning back to the baseline. (10) Acute respiratory failure with hypoxemia: Clinically improving. The oxygenation seems to be much better (11) Coronary artery disease: No evidence of any ongoing ischemia. We will continue on the current medications. (12) Atrial fibrillation: Currently the patient is in a regular rhythm. Patient seems to have intermittent short episodes of atrial fibrillation on the monitor. We will discontinue the Eliquis. Plan In view of the patient's diminished LV ejection fraction and witnessed cardiac arrest, she may be a candidate for internal cardiac defibrillator placement for secondary prophylaxis. The family and the patient is wanting to go ahead with this procedure. The risks and benefits were discussed. Patient was evaluated by Dr. Piña. Dr. Piña is making arrangements to have the device implantation during this hospital stay Attestations Medical Necessity Statement*: Patient requires continued hospital stay for close monitoring and further management Coding Level of Care Code 21675 Diagnoses Pulmonary edema J81.1 Syncope and collapse R55 Ischemic cardiomyopathy I25.5 Pulmonary HTN I27.20 Elevated troponin R77.8 Valvular heart disease I38 Pulmonary fibrosis J84.10 Hyperlipidemia E78.5 Transaminitis R74.01 Acute respiratory failure with hypoxemia J96.01 Coronary artery disease I25.10 Atrial fibrillation I48.91
--- NOTE | 2022-12-17 20:54 | PC.NURSE ---
Spoke to Dr. Avery regarding Pt. Yaritza. D/c due to upcoming procedure.
[2022-12-18] VITALS (13 sets, daily range): BP systolic 95–124; BP diastolic 48–72; PULSE 56–108; RESP 16–28; TEMP 36.6–36.9; O2SAT 94–99
[2022-12-18] MEDS: gabapentin 100 mg Capsule PO ×2 (06:03→18:29)
[2022-12-18 06:06] LABS: Basophils # 0.1 10^3/uL (0.0-0.1); Eosinophils # 0.5 10^3/uL (0.0-0.8); Eosinophils % 4.4 %; Hematocrit 38.9 % (37.0-47.0); Hemoglobin 11.7 g/dL (11.5-15.3); Lymphocytes # 2.1 10^3/uL (0.8-4.8); Lymphocytes % 20.4 %; Mean Corpuscular HGB Conc 30.1 g/dL (30.0-36.0); Mean Corpuscular Hemoglobin 30.2 pg (28.0-34.0); Mean Corpuscular Volume 100.5 fl (81-99); Mean Platelet Volume 10.8 fL (7.4-10.4); Monocytes # 0.7 10^3/uL (0.2-0.9); Monocytes % 6.7 %; Neutrophils # 6.99 10^3/uL (1.8-7.7); Neutrophils % 67.2 %; Nucleated Red Blood Cells % 0 %; Platelet Count 228 10^3/cmm (130-400); Red Blood Count 3.87 10^6/uL (4.1-5.3); Red Cell Distribution Width 14.1 % (12.1-15.1); White Blood Count 10.4 10^3/uL (4.0-10.0)
[2022-12-18 06:39] LABS: Alanine Aminotransferase 30 U/L (0-33); Albumin Level 3.4 g/dL (3.5-5.2); Alkaline Phosphatase 110 U/L (35-105); Anion Gap 14.3 (5-19); Aspartate Amino Transferase 16 U/L (0-32); Blood Urea Nitrogen 20 mg/dL (8-23); Calcium 8.8 mg/dL (8.5-10.5); Carbon Dioxide 26 mmol/L (22-29); Chloride 104 mmol/L (98-107); Globulin 2.7 g/dL (1.3-4.6); Glucose 111 mg/dL (65-115); Osmolality Calculated 293 mOsm/kg (285-295); Potassium 4.3 mmol/L (3.5-5.1); Sodium 140 mmol/L (136-145); Total Bilirubin 0.4 mg/dL (0.15-1.2); Total Protein 6.1 g/dL (6.6-8.7)
[2022-12-18 06:49] LABS: Creatinine Clr Calc Pharmacy 40.9976
[2022-12-18] MEDS: ipratropium 0.5 mg/2.5 mL Neb INHALATION ×3 (08:05→20:52)
[2022-12-18] MEDS: levalbuterol 1.25 mg/3 mL Neb INHALATION ×3 (08:05→20:53)
[2022-12-18] MEDS: metoprolol tartrate 25 mg Tablet 12.5 MG PO ×2 (08:55→20:46)
[2022-12-18] MEDS: amiodarone 200 mg Tablet PO (08:55)
[2022-12-18] MEDS: clopidogrel 75 mg Tablet PO (08:55)
[2022-12-18] MEDS: losartan 50 mg Tablet 25 MG PO (08:55)
[2022-12-18] MEDS: FUROsemide 40 mg Tablet PO (08:55)
[2022-12-18] MEDS: chlorhexidine gluconate 4% Btl 118 mL 1 APPLIC TOPICAL ×2 (09:00→18:27)
--- NOTE | 2022-12-18 17:28 | PM.PN ---
Subjective Subjective: No acute vents overnight. Patient denies any chest pain or difficulty in breathing more than usual. Has remained afebrile. Denies any nausea, vomiting, headache. Telemetry has remained stable. Vitals/I&O/Wt Last Vital Signs Temp 97.9 F 12/18/22 12:00 Pulse 57 L 12/18/22 16:00 Resp 20 H 12/18/22 16:00 BP 106/55 12/18/22 16:00 Pulse Ox 96 12/18/22 16:00 O2 Del Method Nasal Cannula 12/18/22 16:00 O2 Flow Rate 2 12/18/22 14:00 FiO2 36 12/12/22 02:06 12/18/22 12/18/22 12/18/22 06:59 14:59 22:59 Intake Total 600 / 600 275 / 875 Output Total 470 / 1150 375 / 375 Balance -470 / -200 225 / 225 275 / 500 Physical Exam Narrative: General: Patient is awake and alert. Very pleasant. Sitting up in bed having breakfast. Head: Normocephalic. Atraumatic. EOM intact. Neck: No JVD. Cardiovascular: RRR. No gallops. No murmurs. No peripheral edema. Lungs: Breath sounds diminished in bilateral bases. Faint dependent crackles similiar to prior exam. No use of accessory muscles. Still on nasal canula. Skin: No jaundice. No rashes. Abdomen: Normal bowel sounds, abdomen soft and nontender. Extremities: No cyanosis or clubbing. Musculoskeletal: No swollen or erythematous joints. Neurological: Moves all 4 extremities. No myoclonus. Data 12/18/22 05:19 12/18/22 05:19 A&P Assessment and plan (1) Congestive heart failure with cardiomyopathy: (2) Ischemic cardiomyopathy: (3) Pulmonary edema: (4) Acute respiratory failure with hypoxemia: Resolved. Patient back on 2 L of home oxygen supplementation saturating more than 95%. (5) Coronary artery disease: (6) Atrial fibrillation: (7) Hypertension: (8) Hyperlipidemia: Plan Acute respiratory failure on admission: Secondary to acute on chronic systolic congestive heart failure. Echocardiogram done during this hospitalization shows an EF of 30% with regional wall motion abnormality and grade 2 diastolic dysfunction along with mild pulmonary hypertension, mild to moderate AI, moderate to severe TR. Strict input of charting, daily weights. Changed to oral Lasix 40 mg daily. Plan to initiate heart failure regimen medications. Continues to have occasional episodes of VPCs and a short run of A-fib on pharmacy resource tech. Continue with losartan 25 mg oral daily, metoprolol 12.5 mg twice daily. Will uptitrate as per the vitals. Appreciate cardiology recommendations. Discussed in detail with Dr. Avery from cardiology. Patient is agreeable for ICD placement. Dr. Piña consulted. Plan for ICD placement on Friday. Continue with Eliquis for now and withhold on fri. Ischemic cardiomyopathy: EF less than 30%. Plan for ICD placement on Friday. Appreciate Dr. Piña and Dr. Avery recommendation. Continue with Lasix 40 mg oral daily. Euvolemic for now. Hypertension: Goal blood pressure less than 140/90 mmHg with mean over 65 mmHg.. Losartan and metoprolol as above. Uptitrate accordingly.. Monitor closely. Hold Flomax. Full code. Cardiac diet. Fluid restriction to less than 1500 cc. Eliquis will suffice as DVT prophylaxis. Hold from Friday. Famotidine for PUD prophylaxis. Goals of care discussion: Discussed in detail with the patient and patient's family at bedside. For now they are agreeable with beta-domingo and low-dose ARB. They are agreeable with ICD placement. Continues to remain full code. Plan for today: Continue with current medication. Eliquis stopped yesterday with last dose on 12/17 evening. We will continue to hold for now. Meanwhile start on heparin drip. Plan for ICD placement on 12/20. N.p.o. from midnight on 12/19 Discharge plan: Plan to discharge once ICD placed and patient medically stable. Most likely on Friday to home with or without home health. Attestations Medical Necessity Statement*: Requires further hospitalization for management of acute on chronic hypoxic respiratory failure in setting of systolic congestive heart failure, ischemic cardiomyopathy requiring ICD placement Coding Level of Care Code 87187 Diagnoses Congestive heart failure with cardiomyopathy I50.9; I42.9 Ischemic cardiomyopathy I25.5 Pulmonary edema J81.1 Acute respiratory failure with hypoxemia J96.01 Coronary artery disease I25.10 Atrial fibrillation I48.91 Hypertension I10 Hyperlipidemia E78.5
[2022-12-18 18:27] LABS: Platelet Count 220 10^3/cmm (130-400)
[2022-12-18] MEDS: heparin 5,000 unit/mL INJ 1 mL IV (18:28)
[2022-12-18] MEDS: heparin drip 25,000 UNIT/500 ML PREMIX 18.29 UNIT IV (18:49)
--- NOTE | 2022-12-18 18:53 | PM.PN ---
Subjective Subjective: Denies any chest pain. No shortness of breath. Vitals are stable. No new arrhythmias are noted on the monitor. Medications: Medication Review Details: Current Medications Acetaminophen (Acetaminophen 325 Mg Tablet) 650 mg PO Q6H PRN PRN Reason: Mild/Mod Pain Or Temp >/= 101 Last Admin: 12/12/22 22:51 Dose: 650 mg Amiodarone HCl (Amiodarone 200 Mg Tablet) 200 mg PO DAILY [facility] Last Admin: 12/18/22 08:55 Dose: 200 mg Atorvastatin Calcium (Atorvastatin 40 Mg Tablet) 40 mg PO BEDTIME [facility] Last Admin: 12/17/22 20:23 Dose: 40 mg Chlorhexidine Gluconate (Chlorhexidine Gluconate 4% Btl 118 Ml) 1 applic TOPICAL BID [facility] Last Admin: 12/18/22 18:27 Dose: 1 applic Clopidogrel Bisulfate (Clopidogrel 75 Mg Tablet) 75 mg PO DAILY [facility] Last Admin: 12/18/22 08:55 Dose: 75 mg Diclofenac Sodium (Diclofenac 1% Topical Gel 100 Gm) 1 applic TOPICAL QID PRN PRN Reason: PAIN Last Admin: 12/13/22 00:57 Dose: 1 applic Furosemide (Furosemide 40 Mg Tablet) 40 mg PO DAILY@0800 [facility] Last Admin: 12/18/22 08:55 Dose: 40 mg Gabapentin (Gabapentin 100 Mg Capsule) 100 mg PO 0700,1900 [facility] Last Admin: 12/18/22 18:29 Dose: 100 mg Heparin Sodium (Porcine) (Heparin 5,000 Unit/Ml Inj 1 Ml) 0 unit IV PRN PRN; Protocol PRN Reason: Heparin weight-base protocol Last Admin: 12/18/22 18:28 Dose: 3,300 unit Heparin Sodium/Sodium Chloride (Heparin Drip) 25,000 unit in 500 mls @ 0 mls/hr IV .Q0M [facility]; Protocol Last Admin: 12/18/22 18:49 Dose: 14 unit/kg/hr, 18.29 mls/hr Ipratropium [place] (Ipratropium 0.5 Mg/2.5 Ml Neb) 0.5 mg INHALATION TID.RESP [facility] Last Admin: 12/18/22 14:49 Dose: 0.5 mg Levalbuterol HCl (Levalbuterol 1.25 Mg/3 Ml Neb) 1.25 mg INHALATION Q6H.RESP [facility] Last Admin: 12/18/22 14:49 Dose: 1.25 mg Losartan Potassium (Losartan 50 Mg Tablet) 25 mg PO DAILY [facility] Last Admin: 12/18/22 08:55 Dose: 25 mg Magnesium Hydroxide (Magnesium Hydroxide 30 Ml Udc) 30 ml PO DAILY PRN PRN Reason: CONSTIPATION Metoprolol Tartrate (Metoprolol Tartrate 25 Mg Tablet) 12.5 mg PO BID@0900,2100 [facility] Last Admin: 12/18/22 08:55 Dose: 12.5 mg Ondansetron HCl (Ondansetron 2 Mg/Ml Sdv 2 Ml) 4 mg IVP Q8H PRN PRN Reason: vomiting, or N/V if npo Senna/Docusate Sodium (Sennosides-Docusate Tablet) 1 tab PO BID [facility] Last Admin: 12/18/22 18:22 Dose: Not Given Sodium Chloride (Saline Nasal [place] 44ml Btl) 1 spray NASAL PRN PRN PRN Reason: DRYNESS Vitals/I&O/Wt Last Vital Signs Temp 97.9 F 12/18/22 12:00 Pulse 57 L 12/18/22 16:00 Resp 20 H 12/18/22 16:00 BP 106/55 12/18/22 16:00 Pulse Ox 96 12/18/22 16:00 O2 Del Method Nasal Cannula 12/18/22 16:00 O2 Flow Rate 2 12/18/22 14:00 FiO2 36 12/12/22 02:06 12/18/22 12/18/22 12/18/22 06:59 14:59 22:59 Intake Total 600 / 600 275 / 875 Output Total 470 / 1150 375 / 375 Balance -470 / -200 225 / 225 275 / 500 Physical Exam Narrative: GENERAL: The patient is alert and oriented times three. Not in any acute distress. HEENT: Minimal pallor. No icterus or lymphadenopathy.Oral cavity: There are no mucous membrane lesions. NECK: Trachea appears to be central. No masses noted. No JVD or thyromegaly appreciated. RESPIRATORY: Chest is symmetrical. No intercostals muscle retraction or any accessory muscle activation. There is no chest wall tenderness. Breath sounds are heard bilaterally. Bilateral fine rales in the bases consolidation. BREASTS: Deferred. HEART: The heart sounds are normal. No S3 or S4. Ejection systolic murmur grade 3 or 6 in the aortic area. No pericardial rub ABDOMEN: No vessel pulsations or distention. No tenderness. No organomegaly appreciated. Bowel sounds are normally heard. : Deferred. RECTAL: Deferred. LYMPHATIC: No lymphadenopathy noted in the neck. EXTREMITIES: No edema or cyanosis. No clubbing. MUSCULOSKELETAL: No acute joint deformities or swelling SKIN: There are no significant rashes or ecchymosis NEUROPSYCHIATRIC: The patient is alert and oriented x3. Appears to be in a good mood. No tremors or rigidity noted. Data 12/18/22 18:04 12/18/22 05:19 Other Labs: Laboratory Last Values WBC 10.4 10^3/uL (4.0-10.0) H 12/18/22 05:19 RBC 3.87 10^6/uL (4.1-5.3) L 12/18/22 05:19 Hgb 11.7 g/dL (11.5-15.3) 12/18/22 05:19 Hct 38.9 % (37.0-47.0) 12/18/22 05:19 MCV 100.5 fl (81-99) H 12/18/22 05:19 MCH 30.2 pg (28.0-34.0) 12/18/22 05:19 MCHC 30.1 g/dL (30.0-36.0) 12/18/22 05:19 RDW 14.1 % (12.1-15.1) 12/18/22 05:19 Plt Count 220 10^3/cmm (130-400) 12/18/22 18:04 MPV 10.8 fL (7.4-10.4) H 12/18/22 05:19 Neut % (Auto) 67.2 % 12/18/22 05:19 Lymph % (Auto) 20.4 % 12/18/22 05:19 [place] % (Auto) 6.7 % 12/18/22 05:19 Eos % (Auto) 4.4 % 12/18/22 05:19 Baso % (Auto) 1.0 % 12/18/22 05:19 Neut # (Auto) 6.99 10^3/uL (1.8-7.7) 12/18/22 05:19 Lymph # (Auto) 2.1 10^3/uL (0.8-4.8) 12/18/22 05:19 [place] # (Auto) 0.7 10^3/uL (0.2-0.9) 12/18/22 05:19 Eos # (Auto) 0.5 10^3/uL (0.0-0.8) 12/18/22 05:19 Baso # (Auto) 0.1 10^3/uL (0.0-0.1) 12/18/22 05:19 Nucleated RBC % (auto) 0 % 12/18/22 05:19 Nucleated RBCs # 0.0 /100WBC 12/18/22 05:19 PT 18.70 SECONDS (12.1-14.9) H 12/11/22 22:13 INR 1.50 (0.8-1.2) H 12/11/22 22:13 Specimen Type Arterial 12/11/22 22:44 Sample Site Brachial, left 12/11/22 22:44 ABG pH 7.31 (7.35-7.45) L 12/11/22 22:44 ABG pCO2 52.4 mmHg (35-45) H 12/11/22 22:44 ABG pO2 295.0 mmHg (80.0-100.0) H 12/11/22 22:44 ABG HCO3 26.2 mmol/L (22-26) H 12/11/22 22:44 ABG Base Excess -0.8 mmol/L (-2.0-2.0) 12/11/22 22:44 Fidencio Test N/a 12/11/22 22:44 Hematocrit 38.7 % (37-47) 12/11/22 22:44 Hgb O2 Saturation 98.7 % (95-100) 12/11/22 22:44 Carboxyhemoglobin 0.9 %THgb (0.4-20.1) 12/11/22 22:44 Methemoglobin 0.7 % (0.4-1.5) 12/11/22 22:44 Total Hemoglobin 12.6 g/dL (12-16) 12/11/22 22:44 O2 Delivery Device Bipap 12/11/22 22:44 FiO2 100.0 % 12/11/22 22:44 Bd Special Education Teacher ID [place] 12/11/22 22:44 Sodium 140 mmol/L (136-145) 12/18/22 05:19 Potassium 4.3 mmol/L (3.5-5.1) 12/18/22 05:19 Chloride 104 mmol/L (98-107) 12/18/22 05:19 Carbon Dioxide 26 mmol/L (22-29) 12/18/22 05:19 Anion Gap 14.3 (5-19) 12/18/22 05:19 BUN 20 mg/dL (8-23) 12/18/22 05:19 Creatinine 1.0 mg/dL (0.5-0.9) H 12/18/22 05:19 GFR Calculation Not Reportable 12/18/22 05:19 Glucose 111 mg/dL (65-115) 12/18/22 05:19 Estimat Average Glucose 120 12/17/22 03:39 Hemoglobin A1c 5.8 % (4.0-6.0) 12/17/22 03:39 Calculated Osmolality 293 mOsm/kg (285-295) 12/18/22 05:19 Lactic Acid 3.4 mmol/L (0.5-2.2) H 12/11/22 22:13 Lactic Acid (Sepsis) 1.1 mmol/L (0.5-2.2) 12/12/22 03:52 Calcium 8.8 mg/dL (8.5-10.5) 12/18/22 05:19 Phosphorus 3.6 mg/dL (2.5-4.5) 12/16/22 05:43 Magnesium 2.2 mg/dL (1.7-2.3) 12/16/22 05:43 Iron 43 ug/dL (37-145) 12/16/22 05:54 TIBC 260 mcg/dl 12/16/22 05:54 % Saturation 16.5 % (20-50) L 12/16/22 05:54 Unsat Iron Binding 217 ug/dL (112-347) 12/16/22 05:54 Total Bilirubin 0.4 mg/dL (0.15-1.2) 12/18/22 05:19 AST 16 U/L (0-32) 12/18/22 05:19 ALT 30 U/L (0-33) 12/18/22 05:19 Alkaline Phosphatase 110 U/L (35-105) H 12/18/22 05:19 Troponin T Baseline 25 ng/L (0-10) H 12/11/22 22:13 Troponin T 120 Minute 46.82 ng/L (0-10) H 12/11/22 23:35 Delta Troponin T 21.82 ABS# (0-10) H* 12/11/22 23:35 Troponin T Hi Sens 6Hr 66.65 ng/L (0-10) H 12/12/22 03:52 Troponin T Hi Sens 6Hr Delta 41.65 ng/L (0-12) H* 12/12/22 03:52 NT-Pro-B Natriuret Pep 3886 pg/mL (0-450) H 12/16/22 05:43 Total Protein 6.1 g/dL (6.6-8.7) L 12/18/22 05:19 Albumin 3.4 g/dL (3.5-5.2) L 12/18/22 05:19 Globulin 2.7 g/dL (1.3-4.6) 12/18/22 05:19 Vitamin B12 423 pg/mL (232-1245) 12/16/22 05:54 Folate 11.6 ng/mL (4.8-37.3) 12/17/22 03:39 Procalcitonin 0.68 ng/mL (0-0.5) H 12/14/22 04:44 Urine Color Yellow (Yellow) 12/12/22 10:50 Urine Appearance Clear (CLEAR) 12/12/22 10:50 Urine pH 5 (5-7) 12/12/22 10:50 Ur Specific [place] 1.015 (1.005-1.030) 12/12/22 10:50 Urine Protein Neg (Negative) 12/12/22 10:50 Urine Glucose (UA) Norm (Normal) 12/12/22 10:50 Urine Ketones Negative (Negative) 12/12/22 10:50 Urine Blood Neg (Negative) 12/12/22 10:50 Urine Nitrate Negative (Negative) 12/12/22 10:50 Urine Bilirubin Neg (Negative) 12/12/22 10:50 Urine Urobilinogen Neg mg/dL (Negative) 12/12/22 10:50 Ur Leukocyte Esterase Negative (Negative) 12/12/22 10:50 SARS-CoV-2 Ag (Rapid) negative (Negative) 12/11/22 22:10 A&P Assessment and plan (1) Pulmonary edema: Clinically seems to be compensated. May continue on the current medications. (2) Syncope and collapse: Patient has a history of syncope and collapse, 3 days after the acute myocardial infarction, in October. This was a witnessed cardiac arrest, most likely from malignant ventricular arrhythmia. (3) Ischemic cardiomyopathy: The repeat echocardiogram revealed ejection fraction around 30%. This patient may benefit from ICD implantation for secondary prophylaxis. This was discussed with the patient and the family in detail which they understood well (4) Pulmonary HTN: Mild pulmonary hypertension based on the TR jet. May continue on the current medications. (5) Elevated troponin: Possibly from type II NH. Current symptoms of myocardial ischemia. May continue on the current measures. (6) Valvular heart disease: The echocardiogram revealed a moderately severe tricuspid regurgitation with a mild to moderate aortic regurgitation. We will continue on the current treatment measures (7) Pulmonary fibrosis: Continue on the current treatment for the time being (8) Hyperlipidemia: May continue on the current medications (9) Coronary artery disease: Patient had an acute anterior myocardial infarction in October. Had a PCI of the LAD/circumflex artery. Currently seems to be stable. (10) Atrial fibrillation: Currently the patient is in a regular rhythm. Patient seems to have intermittent short episodes of atrial fibrillation on the monitor. We will discontinue the Eliquis. Plan In view of the patient's diminished LV ejection fraction and witnessed cardiac arrest, she may be a candidate for internal cardiac defibrillator placement for secondary prophylaxis. The family and the patient is wanting to go ahead with this procedure. The risks and benefits were discussed. Patient was evaluated by Dr. Piña. Dr. Piña is making arrangements to have the device implantation during this hospital stay Attestations Medical Necessity Statement*: Discharge home after the ICD implantation Coding Level of Care Code 73458 Diagnoses Pulmonary edema J81.1 Syncope and collapse R55 Ischemic cardiomyopathy I25.5 Pulmonary HTN I27.20 Elevated troponin R77.8 Valvular heart disease I38 Pulmonary fibrosis J84.10 Hyperlipidemia E78.5 Coronary artery disease I25.10 Atrial fibrillation I48.91
[2022-12-18] MEDS: atorvastatin 40 mg Tablet PO (20:46)
[2022-12-19] VITALS (14 sets, daily range): BP systolic 104–118; BP diastolic 53–71; PULSE 54–87; RESP 16–28; TEMP 36.4–37.2; O2SAT 95–99
--- NOTE | 2022-12-19 01:44 | PC.NURSE ---
Notified by lab that PTT specimen was hemplysed and must be redrawn.
--- NOTE | 2022-12-19 02:30 | PC.NURSE ---
Awaiting PTT results.
[2022-12-19] MEDS: levalbuterol 1.25 mg/3 mL Neb INHALATION ×4 (03:02→20:46)
[2022-12-19 03:20] LABS: Partial Thromboplastin Time 126.9 SECONDS (23.9-36.7)
[2022-12-19] MEDS: mupirocin oint 22 gm 1 APPLIC NOSTRIL-B (06:22)
[2022-12-19] MEDS: gabapentin 100 mg Capsule PO ×2 (06:22→17:47)
--- NOTE | 2022-12-19 06:42 | P.PN_ITS ---
Subjective Subjective: Ms. Graham is doing well. I did visit with her and her daughter this morning on rounds. I discussed plans for AICD implantation tomorrow, mid day. She is eager to proceed. Vitals/I&O/Wt Last Vital Signs Temp 97.6 F 12/19/22 03:38 Pulse 55 L 12/19/22 05:59 Resp 28 H 12/19/22 03:38 BP 107/61 12/19/22 03:38 Pulse Ox 99 12/19/22 03:38 O2 Del Method Nasal Cannula 12/19/22 03:38 O2 Flow Rate 2 12/19/22 03:38 FiO2 36 12/12/22 02:06 12/18/22 12/18/22 12/19/22 14:59 22:59 06:59 Intake Total 600 / 600 275 / 875 158.818 / 1033.818 Output Total 375 / 375 150 / 525 250 / 775 Balance 225 / 225 125 / 350 -91.182 / 258.818 Physical Exam Resp: COMMON NORMALS: normal respiratory effort Cardio: COMMON NORMALS: regular rate, regular rhythm and No murmurs present (Cardio) RATE: regular rate RHYTHM: regular rhythm Extremity: COMMON NORMALS: no clubbing, cyanosis or edema Data 12/18/22 18:04 12/18/22 05:19 A&P Assessment and plan (1) Congestive heart failure with cardiomyopathy: 77-year-old female with congestive heart failure and witnessed arrest. Ejection fraction 30%. AICD implantation has been recommended for primary prevention. Details and rationale for the procedure were carefully and frankly discussed. Particular risk related to , stroke, heart attack, major bleeding, infection, pneumonia, injury to major vessel or heart resulting in catastrophic hemorrhage, inability to complete the procedure, migration of the lead requiring revision, and need for long-term follow-up were carefully discussed. All ques tions have been answered. She wishes to proceed. Attestations Medical Necessity Statement*: Congestive heart failure with cardiomyopathy and witnessed arrest with ejection fraction of 30% or less. Coding Level of Care Code Acute Code for [facility] Fwd Diagnoses Congestive heart failure with cardiomyopathy I50.9; I42.9
[2022-12-19] MEDS: FUROsemide 40 mg Tablet PO (07:50)
[2022-12-19] MEDS: losartan 50 mg Tablet 25 MG PO (09:08)
[2022-12-19] MEDS: amiodarone 200 mg Tablet PO (09:10)
[2022-12-19] MEDS: chlorhexidine gluconate 4% Btl 118 mL 1 APPLIC TOPICAL ×2 (09:11→17:40)
[2022-12-19] MEDS: metoprolol tartrate 25 mg Tablet 12.5 MG PO ×2 (09:11→19:42)
[2022-12-19] MEDS: ipratropium 0.5 mg/2.5 mL Neb INHALATION ×3 (09:17→20:46)
[2022-12-19 09:34] LABS: Partial Thromboplastin Time 34.5 SECONDS (23.9-36.7)
--- NOTE | 2022-12-19 10:13 | PC.SOCIAL ---
Imm update Imm updated with patient and family at bedside. Copy of page 2 provided. Patient and family verbalized understanding. Copy in chart initialed, dated and
--- NOTE | 2022-12-19 14:51 | P.PN_ITS ---
Subjective Subjective: No acute events overnight. Patient has remained hemodynamically stable and afebrile. Blood pressures continue to be stable. Patient denies any new complaints. He is only awaiting for ICD placement tomorrow. Heparin drip was stopped earlier today morning as per Dr. Piña. Vitals/I&O/Wt Last Vital Signs Temp 98.9 F 12/19/22 12:11 Pulse 56 L 12/19/22 14:00 Resp 18 12/19/22 14:00 BP 118/53 12/19/22 12:11 Pulse Ox 95 12/19/22 14:00 O2 Del Method Nasal Cannula 12/19/22 14:00 O2 Flow Rate 2 12/19/22 14:00 FiO2 36 12/12/22 02:06 12/18/22 12/19/22 12/19/22 22:59 06:59 14:59 Intake Total 275 / 875 158.818 / 1033.818 720 / 720 Output Total 150 / 525 250 / 775 Balance 125 / 350 -91.182 / 258.818 720 / 720 Physical Exam Narrative: General: Patient is awake and alert. Very pleasant. Sitting up in bed having breakfast. Head: Normocephalic. Atraumatic. EOM intact. Neck: No JVD. Cardiovascular: RRR. No gallops. No murmurs. No peripheral edema. Lungs: Breath sounds diminished in bilateral bases. Faint dependent crackles similiar to prior exam. No use of accessory muscles. Still on nasal canula. Skin: No jaundice. No rashes. Abdomen: Normal bowel sounds, abdomen soft and nontender. Extremities: No cyanosis or clubbing. Musculoskeletal: No swollen or erythematous joints. Neurological: Moves all 4 extremities. No myoclonus. Data 12/18/22 18:04 12/18/22 05:19 A&P Assessment and plan (1) Congestive heart failure with cardiomyopathy: (2) Ischemic cardiomyopathy: (3) Pulmonary edema: (4) Acute respiratory failure with hypoxemia: Resolved. Patient back on 2 L of home oxygen supplementation saturating more than 95%. (5) Coronary artery disease: (6) Atrial fibrillation: (7) Hypertension: (8) Hyperlipidemia: Plan Acute respiratory failure on admission: Secondary to acute on chronic systolic congestive heart failure. Echocardiogram done during this hospitalization shows an EF of 30% with regional wall motion abnormality and grade 2 diastolic dysfunction along with mild pulmonary hypertension, mild to moderate AI, moderate to severe TR. Strict input of charting, daily weights. Changed to oral Lasix 40 mg daily. Plan to initiate heart failure regimen medications. Continues to have occasional episodes of VPCs and a short run of A-fib on engine monitor. Continue with losartan 25 mg oral daily, metoprolol 12.5 mg twice daily. Will uptitrate as per the vitals. Appreciate cardiology recommendations. Discussed in detail with Dr. Avery from cardiology. Patient is agreeable for ICD placement. Dr. Piña consulted. Plan for ICD placement on Friday. Continue with Eliquis for now and withhold on fri. Ischemic cardiomyopathy: EF less than 30%. Plan for ICD placement on Friday. Appreciate Dr. Piña and Dr. Avery recommendation. Continue with Lasix 40 mg oral daily. Euvolemic for now. Hypertension: Goal blood pressure less than 140/90 mmHg with mean over 65 mmHg.. Losartan and metoprolol as above. Uptitrate accordingly.. Monitor closely. Hold Flomax. Full code. Cardiac diet. Fluid restriction to less than 1500 cc. Eliquis will suffice as DVT prophylaxis. Hold from Friday night. Famotidine for PUD prophylaxis. Goals of care discussion: Discussed in detail with the patient and patient's family at bedside. For now they are agreeable with beta-domingo and low-dose ARB. They are agreeable with ICD placement. Continues to remain full code. Plan for the day: Continue heart failure regimen medications including losartan, metoprolol and Lasix at current dose. Continue with amiodarone at current dose. N.p.o. after midnight for ICD placement in AM. Repeat CBC and CMP in the morning. Antibiotics perioperatively as per Dr. Piña. Holding off on anticoagulation for now given need for ICD placement. Heparin drip stopped earlier today morning. Will restart home dose of Eliquis postprocedure. Discussed in detail regarding ICD placement again with patient and family at bedside. All the questions were answered. Discharge plan: Plan to discharge once ICD placed and patient medically stable. Most likely on Friday to home with or without home health. Attestations Medical Necessity Statement*: Requires further hospitalization for management of ischemic cardiomyopathy with EF of 30%, recurrent congestive heart failure in a patient requiring ICD placement Diagnoses Congestive heart failure with cardiomyopathy I50.9; I42.9 Ischemic cardiomyopathy I25.5 Pulmonary edema J81.1 Acute respiratory failure with hypoxemia J96.01 Coronary artery disease I25.10 Atrial fibrillation I48.91 Hypertension I10 Hyperlipidemia E78.5
--- NOTE | 2022-12-19 19:26 | PM.PN ---
Subjective Subjective: Patient continues to remain stable. Vital signs are stable. No new symptoms. Medications: Medication Review Details: Current Medications Acetaminophen (Acetaminophen 325 Mg Tablet) 650 mg PO Q6H PRN PRN Reason: Mild/Mod Pain Or Temp >/= 101 Last Admin: 12/12/22 22:51 Dose: 650 mg Amiodarone HCl (Amiodarone 200 Mg Tablet) 200 mg PO DAILY [facility] Last Admin: 12/19/22 09:10 Dose: 200 mg Atorvastatin Calcium (Atorvastatin 40 Mg Tablet) 40 mg PO BEDTIME [facility] Last Admin: 12/18/22 20:46 Dose: 40 mg Chlorhexidine Gluconate (Chlorhexidine Gluconate 4% Btl 118 Ml) 1 applic TOPICAL BID [facility] Last Admin: 12/19/22 17:40 Dose: 1 applic Chlorhexidine Gluconate (Chlorhexidine Gluconate 4% Btl 118 Ml) 1 applic TOPICAL BID [facility] Last Admin: 12/19/22 17:41 Dose: Not Given Diclofenac Sodium (Diclofenac 1% Topical Gel 100 Gm) 1 applic TOPICAL QID PRN PRN Reason: PAIN Last Admin: 12/13/22 00:57 Dose: 1 applic Furosemide (Furosemide 40 Mg Tablet) 40 mg PO DAILY@0800 [facility] Last Admin: 12/19/22 07:50 Dose: 40 mg Gabapentin (Gabapentin 100 Mg Capsule) 100 mg PO 0700,1900 [facility] Last Admin: 12/19/22 17:47 Dose: 100 mg Ipratropium [place] (Ipratropium 0.5 Mg/2.5 Ml Neb) 0.5 mg INHALATION TID.RESP [facility] Last Admin: 12/19/22 13:59 Dose: 0.5 mg Levalbuterol HCl (Levalbuterol 1.25 Mg/3 Ml Neb) 1.25 mg INHALATION Q6H.RESP [facility] Last Admin: 12/19/22 13:59 Dose: 1.25 mg Losartan Potassium (Losartan 50 Mg Tablet) 25 mg PO DAILY [facility] Last Admin: 12/19/22 09:08 Dose: 25 mg Magnesium Hydroxide (Magnesium Hydroxide 30 Ml Udc) 30 ml PO DAILY PRN PRN Reason: CONSTIPATION Metoprolol Tartrate (Metoprolol Tartrate 25 Mg Tablet) 12.5 mg PO BID@0900,2100 [facility] Last Admin: 12/19/22 09:11 Dose: 12.5 mg Ondansetron HCl (Ondansetron 2 Mg/Ml Sdv 2 Ml) 4 mg IVP Q8H PRN PRN Reason: vomiting, or N/V if npo Senna/Docusate Sodium (Sennosides-Docusate Tablet) 1 tab PO BID [facility] Last Admin: 12/19/22 17:33 Dose: Not Given Sodium Chloride (Saline Nasal [place] 44ml Btl) 1 spray NASAL PRN PRN PRN Reason: DRYNESS Vitals/I&O/Wt Last Vital Signs Temp 98.1 F 12/19/22 16:29 Pulse 63 12/19/22 16:29 Resp 21 H 12/19/22 16:29 BP 104/53 12/19/22 16:29 Pulse Ox 97 12/19/22 16:29 O2 Del Method Nasal Cannula 12/19/22 14:00 O2 Flow Rate 2 12/19/22 14:00 FiO2 36 12/12/22 02:06 12/19/22 12/19/22 12/19/22 06:59 14:59 22:59 Intake Total 158.818 / 1033.818 720 / 720 Output Total 250 / 775 1025 / 1025 Balance -91.182 / 258.818 720 / 720 -1025 / -305 Physical Exam Narrative: GENERAL: The patient is alert and oriented times three. Not in any acute distress. HEENT: Minimal pallor. No icterus or lymphadenopathy.Oral cavity: There are no mucous membrane lesions. NECK: Trachea appears to be central. No masses noted. No JVD or thyromegaly appreciated. RESPIRATORY: Chest is symmetrical. No intercostals muscle retraction or any accessory muscle activation. There is no chest wall tenderness. Breath sounds are heard bilaterally. Bilateral fine rales in the bases consolidation. BREASTS: Deferred. HEART: The heart sounds are normal. No S3 or S4. Ejection systolic murmur grade 3 or 6 in the aortic area. No pericardial rub ABDOMEN: No vessel pulsations or distention. No tenderness. No organomegaly appreciated. Bowel sounds are normally heard. : Deferred. RECTAL: Deferred. LYMPHATIC: No lymphadenopathy noted in the neck. EXTREMITIES: No edema or cyanosis. No clubbing. MUSCULOSKELETAL: No acute joint deformities or swelling SKIN: There are no significant rashes or ecchymosis NEUROPSYCHIATRIC: The patient is alert and oriented x3. Appears to be in a good mood. No tremors or rigidity noted. Data 12/18/22 18:04 12/18/22 05:19 Other Labs: Laboratory Last Values WBC 10.4 10^3/uL (4.0-10.0) H 12/18/22 05:19 RBC 3.87 10^6/uL (4.1-5.3) L 12/18/22 05:19 Hgb 11.7 g/dL (11.5-15.3) 12/18/22 05:19 Hct 38.9 % (37.0-47.0) 12/18/22 05:19 MCV 100.5 fl (81-99) H 12/18/22 05:19 MCH 30.2 pg (28.0-34.0) 12/18/22 05:19 MCHC 30.1 g/dL (30.0-36.0) 12/18/22 05:19 RDW 14.1 % (12.1-15.1) 12/18/22 05:19 Plt Count 220 10^3/cmm (130-400) 12/18/22 18:04 MPV 10.8 fL (7.4-10.4) H 12/18/22 05:19 Neut % (Auto) 67.2 % 12/18/22 05:19 Lymph % (Auto) 20.4 % 12/18/22 05:19 [place] % (Auto) 6.7 % 12/18/22 05:19 Eos % (Auto) 4.4 % 12/18/22 05:19 Baso % (Auto) 1.0 % 12/18/22 05:19 Neut # (Auto) 6.99 10^3/uL (1.8-7.7) 12/18/22 05:19 Lymph # (Auto) 2.1 10^3/uL (0.8-4.8) 12/18/22 05:19 [place] # (Auto) 0.7 10^3/uL (0.2-0.9) 12/18/22 05:19 Eos # (Auto) 0.5 10^3/uL (0.0-0.8) 12/18/22 05:19 Baso # (Auto) 0.1 10^3/uL (0.0-0.1) 12/18/22 05:19 Nucleated RBC % (auto) 0 % 12/18/22 05:19 Nucleated RBCs # 0.0 /100WBC 12/18/22 05:19 PT 18.70 SECONDS (12.1-14.9) H 12/11/22 22:13 INR 1.50 (0.8-1.2) H 12/11/22 22:13 APTT 34.5 SECONDS (23.9-36.7) D 12/19/22 09:08 Specimen Type Arterial 12/11/22 22:44 Sample Site Brachial, left 12/11/22 22:44 ABG pH 7.31 (7.35-7.45) L 12/11/22 22:44 ABG pCO2 52.4 mmHg (35-45) H 12/11/22 22:44 ABG pO2 295.0 mmHg (80.0-100.0) H 12/11/22 22:44 ABG HCO3 26.2 mmol/L (22-26) H 12/11/22 22:44 ABG Base Excess -0.8 mmol/L (-2.0-2.0) 12/11/22 22:44 Fidencio Test N/a 12/11/22 22:44 Hematocrit 38.7 % (37-47) 12/11/22 22:44 Hgb O2 Saturation 98.7 % (95-100) 12/11/22 22:44 Carboxyhemoglobin 0.9 %THgb (0.4-20.1) 12/11/22 22:44 Methemoglobin 0.7 % (0.4-1.5) 12/11/22 22:44 Total Hemoglobin 12.6 g/dL (12-16) 12/11/22 22:44 O2 Delivery Device Bipap 12/11/22 22:44 FiO2 100.0 % 12/11/22 22:44 Nurse Examiner ID Alewe 12/11/22 22:44 Sodium 140 mmol/L (136-145) 12/18/22 05:19 Potassium 4.3 mmol/L (3.5-5.1) 12/18/22 05:19 Chloride 104 mmol/L (98-107) 12/18/22 05:19 Carbon Dioxide 26 mmol/L (22-29) 12/18/22 05:19 Anion Gap 14.3 (5-19) 12/18/22 05:19 BUN 20 mg/dL (8-23) 12/18/22 05:19 Creatinine 1.0 mg/dL (0.5-0.9) H 12/18/22 05:19 GFR Calculation Not Reportable 12/18/22 05:19 Glucose 111 mg/dL (65-115) 12/18/22 05:19 Estimat Average Glucose 120 12/17/22 03:39 Hemoglobin A1c 5.8 % (4.0-6.0) 12/17/22 03:39 Calculated Osmolality 293 mOsm/kg (285-295) 12/18/22 05:19 Lactic Acid 3.4 mmol/L (0.5-2.2) H 12/11/22 22:13 Lactic Acid (Sepsis) 1.1 mmol/L (0.5-2.2) 12/12/22 03:52 Calcium 8.8 mg/dL (8.5-10.5) 12/18/22 05:19 Phosphorus 3.6 mg/dL (2.5-4.5) 12/16/22 05:43 Magnesium 2.2 mg/dL (1.7-2.3) 12/16/22 05:43 Iron 43 ug/dL (37-145) 12/16/22 05:54 TIBC 260 mcg/dl 12/16/22 05:54 % Saturation 16.5 % (20-50) L 12/16/22 05:54 Unsat Iron Binding 217 ug/dL (112-347) 12/16/22 05:54 Total Bilirubin 0.4 mg/dL (0.15-1.2) 12/18/22 05:19 AST 16 U/L (0-32) 12/18/22 05:19 ALT 30 U/L (0-33) 12/18/22 05:19 Alkaline Phosphatase 110 U/L (35-105) H 12/18/22 05:19 Troponin T Baseline 25 ng/L (0-10) H 12/11/22 22:13 Troponin T 120 Minute 46.82 ng/L (0-10) H 12/11/22 23:35 Delta Troponin T 21.82 ABS# (0-10) H* 12/11/22 23:35 Troponin T Hi Sens 6Hr 66.65 ng/L (0-10) H 12/12/22 03:52 Troponin T Hi Sens 6Hr Delta 41.65 ng/L (0-12) H* 12/12/22 03:52 NT-Pro-B Natriuret Pep 3886 pg/mL (0-450) H 12/16/22 05:43 Total Protein 6.1 g/dL (6.6-8.7) L 12/18/22 05:19 Albumin 3.4 g/dL (3.5-5.2) L 12/18/22 05:19 Globulin 2.7 g/dL (1.3-4.6) 12/18/22 05:19 Vitamin B12 423 pg/mL (232-1245) 12/16/22 05:54 Folate 11.6 ng/mL (4.8-37.3) 12/17/22 03:39 Procalcitonin 0.68 ng/mL (0-0.5) H 12/14/22 04:44 Urine Color Yellow (Yellow) 12/12/22 10:50 Urine Appearance Clear (CLEAR) 12/12/22 10:50 Urine pH 5 (5-7) 12/12/22 10:50 Ur Specific [place] 1.015 (1.005-1.030) 12/12/22 10:50 Urine Protein Neg (Negative) 12/12/22 10:50 Urine Glucose (UA) Norm (Normal) 12/12/22 10:50 Urine Ketones Negative (Negative) 12/12/22 10:50 Urine Blood Neg (Negative) 12/12/22 10:50 Urine Nitrate Negative (Negative) 12/12/22 10:50 Urine Bilirubin Neg (Negative) 12/12/22 10:50 Urine Urobilinogen Neg mg/dL (Negative) 12/12/22 10:50 Ur Leukocyte Esterase Negative (Negative) 12/12/22 10:50 SARS-CoV-2 Ag (Rapid) negative (Negative) 12/11/22 22:10 A&P Assessment and plan (1) Pulmonary edema: Clinically seems to be compensated. May continue on the current medications. (2) Syncope and collapse: Patient has a history of syncope and collapse, 3 days after the acute myocardial infarction, in October. This was a witnessed cardiac arrest, most likely from malignant ventricular arrhythmia. (3) Ischemic cardiomyopathy: The repeat echocardiogram revealed ejection fraction around 30%. This patient may benefit from ICD implantation for secondary prophylaxis. This was discussed with the patient and the family in detail which they understood well (4) Pulmonary HTN: Mild pulmonary hypertension based on the TR jet. May continue on the current medications. (5) Elevated troponin: Possibly from type II NM. Current symptoms of myocardial ischemia. May continue on the current measures. (6) Valvular heart disease: The echocardiogram revealed a moderately severe tricuspid regurgitation with a mild to moderate aortic regurgitation. We will continue on the current treatment measures (7) Pulmonary fibrosis: Continue on the current treatment for the time being (8) Hyperlipidemia: May continue on the current medications (9) Coronary artery disease: Patient had an acute anterior myocardial infarction in October. Had a PCI of the LAD/circumflex artery. Currently seems to be stable. (10) Atrial fibrillation: Currently the patient is in a regular rhythm. Patient seems to have intermittent short episodes of atrial fibrillation on the monitor. Eliqusymone on hold Plan ICD implantation tomorrow by Dr. Piña Continue on the current management Eliquis and Natashanox on hold Attestations Medical Necessity Statement*: Patient requires continued hospital stay for close monitoring and further management Coding Level of Care Code 32164 Diagnoses Pulmonary edema J81.1 Syncope and collapse R55 Ischemic cardiomyopathy I25.5 Pulmonary HTN I27.20 Elevated troponin R77.8 Valvular heart disease I38 Pulmonary fibrosis J84.10 Hyperlipidemia E78.5 Coronary artery disease I25.10 Atrial fibrillation I48.91
[2022-12-19] MEDS: atorvastatin 40 mg Tablet PO (19:42)
[2022-12-20] VITALS (18 sets, daily range): BP systolic 108–135; BP diastolic 50–66; PULSE 59–69; RESP 16–30; TEMP 36.2–36.9; O2SAT 95–99
[2022-12-20] MEDS: levalbuterol 1.25 mg/3 mL Neb INHALATION ×3 (02:55→20:44)
[2022-12-20 04:34] LABS: Basophils # 0.1 10^3/uL (0.0-0.1); Basophils % 1.1 %; Eosinophils # 0.3 10^3/uL (0.0-0.8); Eosinophils % 3.6 %; Hematocrit 36.4 % (37.0-47.0); Hemoglobin 11.2 g/dL (11.5-15.3); Lymphocytes # 2.4 10^3/uL (0.8-4.8); Lymphocytes % 30.2 %; Mean Corpuscular HGB Conc 30.8 g/dL (30.0-36.0); Mean Corpuscular Hemoglobin 30.9 pg (28.0-34.0); Mean Corpuscular Volume 100.6 fl (81-99); Mean Platelet Volume 10.7 fL (7.4-10.4); Monocytes # 0.8 10^3/uL (0.2-0.9); Monocytes % 9.5 %; Neutrophils # 4.35 10^3/uL (1.8-7.7); Neutrophils % 55.3 %; Nucleated Red Blood Cells % 0 %; Platelet Count 214 10^3/cmm (130-400); Red Blood Count 3.62 10^6/uL (4.1-5.3); Red Cell Distribution Width 14.1 % (12.1-15.1); White Blood Count 7.9 10^3/uL (4.0-10.0)
[2022-12-20 04:48] LABS: Alanine Aminotransferase 22 U/L (0-33); Albumin Level 3.4 g/dL (3.5-5.2); Alkaline Phosphatase 104 U/L (35-105); Anion Gap 12.1 (5-19); Aspartate Amino Transferase 13 U/L (0-32); Blood Urea Nitrogen 26 mg/dL (8-23); Calcium 8.8 mg/dL (8.5-10.5); Carbon Dioxide 28 mmol/L (22-29); Chloride 105 mmol/L (98-107); Globulin 2.5 g/dL (1.3-4.6); Glucose 124 mg/dL (65-115); Osmolality Calculated 298 mOsm/kg (285-295); Potassium 4.1 mmol/L (3.5-5.1); Sodium 141 mmol/L (136-145); Total Bilirubin 0.3 mg/dL (0.15-1.2); Total Protein 5.9 g/dL (6.6-8.7)
--- NOTE | 2022-12-20 07:15 | PM.MISC ---
Miscellaneous Note Purpose of Documentation: Ms. Graham rested well last night. No concerns reported by nurses. We have planned for AICD implantation midday. All questions have been answered. Risk of surgery have been discussed with her and her daughter. They wish to proceed.
[2022-12-20] MEDS: ipratropium 0.5 mg/2.5 mL Neb INHALATION ×2 (07:58→20:44)
[2022-12-20] MEDS: amiodarone 200 mg Tablet PO (08:21)
[2022-12-20] MEDS: losartan 50 mg Tablet 25 MG PO (08:21)
[2022-12-20] MEDS: metoprolol tartrate 25 mg Tablet 12.5 MG PO ×2 (08:21→21:52)
[2022-12-20] MEDS: FUROsemide 40 mg Tablet PO (08:21)
[2022-12-20] MEDS: chlorhexidine gluconate 4% Btl 118 mL 1 APPLIC TOPICAL (08:22)
--- NOTE | 2022-12-20 09:02 | PC.NURSE ---
Physician orders Lasix IVP 40 ONCE Potassium 20MEQ ONCE
[2022-12-20] MEDS: FUROsemide 10 mg/mL SDV 4mL 40 MG IVP (09:20)
[2022-12-20] MEDS: potassium chloride ER 20 mEq Tablet PO (09:20)
--- NOTE | 2022-12-20 09:25 | P.PN_ITS ---
Subjective Subjective: The patient is feeling little more short of breath today. Denies any chest pain. No new arrhythmias on the monitor. She is scheduled for the permanent pacemaker evaluation this afternoon. Medications: Medication Review Details: Current Medications Acetaminophen (Acetaminophen 325 Mg Tablet) 650 mg PO Q6H PRN PRN Reason: Mild/Mod Pain Or Temp >/= 101 Last Admin: 12/12/22 22:51 Dose: 650 mg Amiodarone HCl (Amiodarone 200 Mg Tablet) 200 mg PO DAILY [facility] Last Admin: 12/20/22 08:21 Dose: 200 mg Atorvastatin Calcium (Atorvastatin 40 Mg Tablet) 40 mg PO BEDTIME [facility] Last Admin: 12/19/22 19:42 Dose: 40 mg Chlorhexidine Gluconate (Chlorhexidine Gluconate 4% Btl 118 Ml) 1 applic TOPICAL BID [facility] Last Admin: 12/20/22 08:22 Dose: Not Given Chlorhexidine Gluconate (Chlorhexidine Gluconate 4% Btl 118 Ml) 1 applic TOPICAL BID [facility] Last Admin: 12/20/22 08:22 Dose: 1 applic Diclofenac Sodium (Diclofenac 1% Topical Gel 100 Gm) 1 applic TOPICAL QID PRN PRN Reason: PAIN Last Admin: 12/13/22 00:57 Dose: 1 applic Furosemide (Furosemide 40 Mg Tablet) 40 mg PO DAILY@0800 [facility] Last Admin: 12/20/22 08:21 Dose: 40 mg Gabapentin (Gabapentin 100 Mg Capsule) 100 mg PO 0700,1900 [facility] Last Admin: 12/20/22 03:15 Dose: Not Given Ipratropium [place] (Ipratropium 0.5 Mg/2.5 Ml Neb) 0.5 mg INHALATION TID.RESP [facility] Last Admin: 12/20/22 07:58 Dose: 0.5 mg Levalbuterol HCl (Levalbuterol 1.25 Mg/3 Ml Neb) 1.25 mg INHALATION Q6H.RESP [facility] Last Admin: 12/20/22 07:58 Dose: 1.25 mg Losartan Potassium (Losartan 50 Mg Tablet) 25 mg PO DAILY [facility] Last Admin: 12/20/22 08:21 Dose: 25 mg Magnesium Hydroxide (Magnesium Hydroxide 30 Ml Udc) 30 ml PO DAILY PRN PRN Reason: CONSTIPATION Metoprolol Tartrate (Metoprolol Tartrate 25 Mg Tablet) 12.5 mg PO BID@0900,2100 [facility] Last Admin: 12/20/22 08:21 Dose: 12.5 mg Ondansetron HCl (Ondansetron 2 Mg/Ml Sdv 2 Ml) 4 mg IVP Q8H PRN PRN Reason: vomiting, or N/V if npo Senna/Docusate Sodium (Sennosides-Docusate Tablet) 1 tab PO BID [facility] Last Admin: 12/20/22 08:21 Dose: 1 tab Sodium Chloride (Saline Nasal [place] 44ml Btl) 1 spray NASAL PRN PRN PRN Reason: DRYNESS Vitals/I&O/Wt Last Vital Signs Temp 98.1 F 12/19/22 16:29 Pulse 65 12/20/22 08:53 Resp 30 H 12/20/22 08:53 BP 128/57 12/20/22 08:53 Pulse Ox 97 12/20/22 08:53 O2 Del Method Nasal Cannula 12/20/22 08:00 O2 Flow Rate 2 12/20/22 08:00 FiO2 36 12/12/22 02:06 12/19/22 12/20/22 12/20/22 22:59 06:59 14:59 Intake Total 420 / 1140 Output Total 1025 / 1025 100 / 1125 Balance -1025 / -305 320 / 15 Physical Exam Narrative: GENERAL: The patient is alert and oriented times three. Not in any acute distress. HEENT: No significant pallor, icterus or lymphadenopathy.Oral cavity: There are no mucous membrane lesions. NECK: Trachea appears to be central. No masses noted. No JVD or thyromegaly appreciated. RESPIRATORY: Chest is symmetrical. No intercostals muscle retraction or any accessory muscle activation. There is no chest wall tenderness. Breath sounds are heard bilaterally. Coarse crackles bilaterally at the bases BREASTS: Deferred. HEART: The heart sounds are normal. No S3 or S4. Early systolic murmur grade 3/6 in the left sternal border. No diastolic murmurs.. No pericardial rub ABDOMEN: No vessel pulsations or distention. No tenderness. No organomegaly appreciated. Bowel sounds are normally heard. : Deferred. RECTAL: Deferred. LYMPHATIC: No lymphadenopathy noted in the neck. EXTREMITIES: No edema or cyanosis. No clubbing. MUSCULOSKELETAL: No acute joint deformities or swelling SKIN: There are no significant rashes or ecchymosis NEUROPSYCHIATRIC: The patient is alert and oriented x3. Appears to be in a good mood. No tremors or rigidity noted. Data 12/20/22 03:51 12/20/22 03:51 Other Labs: Laboratory Last Values WBC 7.9 10^3/uL (4.0-10.0) 12/20/22 03:51 RBC 3.62 10^6/uL (4.1-5.3) L 12/20/22 03:51 Hgb 11.2 g/dL (11.5-15.3) L 12/20/22 03:51 Hct 36.4 % (37.0-47.0) L 12/20/22 03:51 MCV 100.6 fl (81-99) H 12/20/22 03:51 MCH 30.9 pg (28.0-34.0) 12/20/22 03:51 MCHC 30.8 g/dL (30.0-36.0) 12/20/22 03:51 RDW 14.1 % (12.1-15.1) 12/20/22 03:51 Plt Count 214 10^3/cmm (130-400) 12/20/22 03:51 MPV 10.7 fL (7.4-10.4) H 12/20/22 03:51 Neut % (Auto) 55.3 % 12/20/22 03:51 Lymph % (Auto) 30.2 % 12/20/22 03:51 [place] % (Auto) 9.5 % 12/20/22 03:51 Eos % (Auto) 3.6 % 12/20/22 03:51 Baso % (Auto) 1.1 % 12/20/22 03:51 Neut # (Auto) 4.35 10^3/uL (1.8-7.7) 12/20/22 03:51 Lymph # (Auto) 2.4 10^3/uL (0.8-4.8) 12/20/22 03:51 [place] # (Auto) 0.8 10^3/uL (0.2-0.9) 12/20/22 03:51 Eos # (Auto) 0.3 10^3/uL (0.0-0.8) 12/20/22 03:51 Baso # (Auto) 0.1 10^3/uL (0.0-0.1) 12/20/22 03:51 Nucleated RBC % (auto) 0 % 12/20/22 03:51 Nucleated RBCs # 0.0 /100WBC 12/20/22 03:51 PT 18.70 SECONDS (12.1-14.9) H 12/11/22 22:13 INR 1.50 (0.8-1.2) H 12/11/22 22:13 APTT 34.5 SECONDS (23.9-36.7) D 12/19/22 09:08 Specimen Type Arterial 12/11/22 22:44 Sample Site Brachial, left 12/11/22 22:44 ABG pH 7.31 (7.35-7.45) L 12/11/22 22:44 ABG pCO2 52.4 mmHg (35-45) H 12/11/22 22:44 ABG pO2 295.0 mmHg (80.0-100.0) H 12/11/22 22:44 ABG HCO3 26.2 mmol/L (22-26) H 12/11/22 22:44 ABG Base Excess -0.8 mmol/L (-2.0-2.0) 12/11/22 22:44 [place] Test N/a 12/11/22 22:44 Hematocrit 38.7 % (37-47) 12/11/22 22:44 Hgb O2 Saturation 98.7 % (95-100) 12/11/22 22:44 Carboxyhemoglobin 0.9 %THgb (0.4-20.1) 12/11/22 22:44 Methemoglobin 0.7 % (0.4-1.5) 12/11/22 22:44 Total Hemoglobin 12.6 g/dL (12-16) 12/11/22 22:44 O2 Delivery Device Bipap 12/11/22 22:44 FiO2 100.0 % 12/11/22 22:44 Fitting Room Associate ID Alewe 12/11/22 22:44 Sodium 141 mmol/L (136-145) 12/20/22 03:51 Potassium 4.1 mmol/L (3.5-5.1) 12/20/22 03:51 Chloride 105 mmol/L (98-107) 12/20/22 03:51 Carbon Dioxide 28 mmol/L (22-29) 12/20/22 03:51 Anion Gap 12.1 (5-19) 12/20/22 03:51 BUN 26 mg/dL (8-23) H 12/20/22 03:51 Creatinine 1.2 mg/dL (0.5-0.9) H 12/20/22 03:51 GFR Calculation Not Reportable 12/20/22 03:51 Glucose 124 mg/dL (65-115) H 12/20/22 03:51 Estimat Average Glucose 120 12/17/22 03:39 Hemoglobin A1c 5.8 % (4.0-6.0) 12/17/22 03:39 Calculated Osmolality 298 mOsm/kg (285-295) H 12/20/22 03:51 Lactic Acid 3.4 mmol/L (0.5-2.2) H 12/11/22 22:13 Lactic Acid (Sepsis) 1.1 mmol/L (0.5-2.2) 12/12/22 03:52 Calcium 8.8 mg/dL (8.5-10.5) 12/20/22 03:51 Phosphorus 3.6 mg/dL (2.5-4.5) 12/16/22 05:43 Magnesium 2.2 mg/dL (1.7-2.3) 12/16/22 05:43 Iron 43 ug/dL (37-145) 12/16/22 05:54 TIBC 260 mcg/dl 12/16/22 05:54 % Saturation 16.5 % (20-50) L 12/16/22 05:54 Unsat Iron Binding 217 ug/dL (112-347) 12/16/22 05:54 Total Bilirubin 0.3 mg/dL (0.15-1.2) 12/20/22 03:51 AST 13 U/L (0-32) 12/20/22 03:51 ALT 22 U/L (0-33) 12/20/22 03:51 Alkaline Phosphatase 104 U/L (35-105) 12/20/22 03:51 Troponin T Baseline 25 ng/L (0-10) H 12/11/22 22:13 Troponin T 120 Minute 46.82 ng/L (0-10) H 12/11/22 23:35 Delta Troponin T 21.82 ABS# (0-10) H* 12/11/22 23:35 Troponin T Hi Sens 6Hr 66.65 ng/L (0-10) H 12/12/22 03:52 Troponin T Hi Sens 6Hr Delta 41.65 ng/L (0-12) H* 12/12/22 03:52 NT-Pro-B Natriuret Pep 3886 pg/mL (0-450) H 12/16/22 05:43 Total Protein 5.9 g/dL (6.6-8.7) L 12/20/22 03:51 Albumin 3.4 g/dL (3.5-5.2) L 12/20/22 03:51 Globulin 2.5 g/dL (1.3-4.6) 12/20/22 03:51 Vitamin B12 423 pg/mL (232-1245) 12/16/22 05:54 Folate 11.6 ng/mL (4.8-37.3) 12/17/22 03:39 Procalcitonin 0.68 ng/mL (0-0.5) H 12/14/22 04:44 Urine Color Yellow (Yellow) 12/12/22 10:50 Urine Appearance Clear (CLEAR) 12/12/22 10:50 Urine pH 5 (5-7) 12/12/22 10:50 Ur Specific [place] 1.015 (1.005-1.030) 12/12/22 10:50 Urine Protein Neg (Negative) 12/12/22 10:50 Urine Glucose (UA) Norm (Normal) 12/12/22 10:50 Urine Ketones Negative (Negative) 12/12/22 10:50 Urine Blood Neg (Negative) 12/12/22 10:50 Urine Nitrate Negative (Negative) 12/12/22 10:50 Urine Bilirubin Neg (Negative) 12/12/22 10:50 Urine Urobilinogen Neg mg/dL (Negative) 12/12/22 10:50 Ur Leukocyte Esterase Negative (Negative) 12/12/22 10:50 SARS-CoV-2 Ag (Rapid) negative (Negative) 12/11/22 22:10 A&P Assessment and plan (1) Congestive heart failure with cardiomyopathy: Patient does seems to have recurrent decompensated heart failure. I may go ahead and give her 40 of Lasix IV now along with potassium 20 mg. (2) Syncope and collapse: Patient has a history of syncope and collapse, 3 days after the acute myocardial infarction, in October. This was a witnessed cardiac arrest, most likely from malignant ventricular arrhythmia. (3) Ischemic cardiomyopathy: The repeat echocardiogram revealed ejection fraction around 30%. This patient may benefit from ICD implantation for secondary prophylaxis. This was discussed with the patient and the family in detail which they understood well (4) Pulmonary HTN: Mild pulmonary hypertension based on the TR jet. May continue on the current medications. (5) Elevated troponin: Possibly from type II RI. Current symptoms of myocardial ischemia. May mahendra nue on the current measures. (6) Valvular heart disease: The echocardiogram revealed a moderately severe tricuspid regurgitation with a mild to moderate aortic regurgitation. We will continue on the current treatment measures (7) Pulmonary fibrosis: Continue on the current treatment for the time being (8) Hyperlipidemia: May continue on the current medications (9) Coronary artery disease: Patient had an acute anterior myocardial infarction in October. Had a PCI of the LAD/circumflex artery. Currently seems to be stable. (10) Atrial fibrillation: Currently the patient is in a regular rhythm. Patient seems to have intermittent short episodes of atrial fibrillation on the monitor. Eliquis on hold Plan Patient is scheduled for the ICD this afternoon. May continue on the other current treatment measures. Attestations Medical Necessity Statement*: Deferred to the primary Coding Level of Care Code 56191 Diagnoses Congestive heart failure with cardiomyopathy I50.9; I42.9 Syncope and collapse R55 Ischemic cardiomyopathy I25.5 Pulmonary HTN I27.20 Elevated troponin R77.8 Valvular heart disease I38 Pulmonary fibrosis J84.10 Hyperlipidemia E78.5 Coronary artery disease I25.10 Atrial fibrillation I48.91
[2022-12-20] MEDS: sodium chloride 0.9% 1,000 ML 30 ML IV (11:39)
--- NOTE | 2022-12-20 11:59 | ANES.PREANE2 ---
Pre-Anesthetic Assessment Height/Weight: Height 1.52 m Weight 65.317 kg Temp Pulse Resp BP Pulse Ox O2 Del Method O2 Flow Rate 97.7 F 59 L 16 126/54 97 Nasal Cannula 2 12/20/22 11:12/20/22 11:22 12/20/22 11:12/20/22 11:12/20/22 11:12/20/22 08:00 12/20/22 08:00 FiO2 36 12/12/22 02:06 Operation Date: 12/20/22 12:00 Proposed Procedures p Defibrillator Placement(Not Applicable) - Anson Piña MD Familial anesthetic complications: none Last intake: Intake Last Liquid Date 12/20/22 Last Liquid Time 04:30 Last Solid Date 12/20/22 Last Solid Time 02:00 Social No alcohol and No tobacco Exam alert, oriented x 3, clear to auscultation bilaterally and regular rate & rhythm Airway Dentition: full Pulmonary pulm fibrosis CV/HEM Atrial Fibrillation, Congestive Heart Failure, Hypertension and Myocardial Infarction PE, coded and FL in october, stents placed Anesthetic Plan ASA status: 4 Anesthesia: MAC Risk of > 500 ml blood loss (7ml/kg in children): No Medications/Allergies Home Medications Medication Instructions Recorded Confirmed Last Taken Type budesonide-formoterol HFA 160 2 puff inhalation BID #10.2 grams 10/28/22 12/12/22 Unknown Rx mcg-4.5 mcg/actuation aerosol inhaler (Symbicort) diclofenac sodium 1 % topical gel 2 g topical QID #100 grams 10/28/22 12/12/22 Unknown Rx levalbuterol tartrate 45 2 inh inhalation Q6H #15 grams 10/28/22 12/12/22 Unknown Rx mcg/actuation aerosol inhaler (Xopenex HFA) oxygen concentrator with portable #1 ea 10/28/22 12/12/22 Unknown Rx amiodarone 200 mg tablet 200 mg PO DAILY #90 tabs 12/03/22 12/12/22 12/11/22 Rx apixaban 2.5 mg tablet 2.5 mg PO BID@0900,2100 #180 tabs 12/03/22 12/12/22 12/11/22 Rx atorvastatin 40 mg tablet 40 mg PO BEDTIME #90 tabs 12/03/22 12/12/22 12/11/22 Rx clopidogrel 75 mg tablet 75 mg PO DAILY #90 tabs 12/03/22 12/12/22 12/11/22 Rx furosemide 20 mg tablet 20 mg PO DAILY@0800 #90 tabs 12/03/22 12/12/22 12/11/22 Rx lisinopril 2.5 mg tablet 2.5 mg PO QAM #90 tabs 12/03/22 12/12/22 12/11/22 Rx nitroglycerin 0.4 mg sublingual 0.4 mg sublingual Q5M PRN Chest 12/03/22 12/12/22 12/11/22 Rx tablet Pain #25 tabs potassium chloride 10 mEq 10 meq PO DAILY #90 tabs 12/03/22 12/12/22 12/11/22 Rx tablet,extended release gabapentin 100 mg capsule 100 mg PO Q12H 12/12/22 12/12/22 12/11/22 19:00 History tamsulosin 0.4 mg capsule 0.4 mg PO BEDTIME 12/12/22 12/12/22 12/11/22 History Allergies Allergy/AdvReac Type Severity Reaction Status Date / Time No Known Allergies Allergy Verified 12/11/22 22:10 Current Medications Generic Name Dose Route Start Last Admin Trade Name Freq PRN Reason Stop Dose Admin Acetaminophen 650 mg 12/12/22 00:51 12/12/22 22:51 Acetaminophen 325 Mg Tablet PO 650 mg Q6H PRN Administration Mild/Mod Pain Or Temp >/= 101 Amiodarone HCl 200 mg 12/12/22 09:00 12/20/22 08:21 Amiodarone 200 Mg Tablet PO 200 mg DAILY CHANTALE Administration Atorvastatin Calcium 40 mg 12/12/22 21:00 12/19/22 19:42 Atorvastatin 40 Mg Tablet PO 40 mg BEDTIME CHANTALE Administration Chlorhexidine Gluconate 1 applic 12/17/22 09:00 12/20/22 08:22 Chlorhexidine Gluconate 4% Btl 118 Ml TOPICAL Not Given BID CHANTALE Chlorhexidine Gluconate 1 applic 12/19/22 09:00 12/20/22 08:22 Chlorhexidine Gluconate 4% Btl 118 Ml TOPICAL 1 applic BID CHANTALE Administration Diclofenac Sodium 1 applic 12/13/22 00:50 12/13/22 00:57 Diclofenac 1% Topical Gel 100 Gm TOPICAL 1 applic QID PRN Administration PAIN Furosemide 40 mg 12/17/22 08:00 12/20/22 08:21 Furosemide 40 Mg Tablet PO 40 mg DAILY@0800 CHANTALE Administration Gabapentin 100 mg 12/12/22 07:00 12/20/22 03:15 Gabapentin 100 Mg Capsule PO Not Given 0700,1900 [facility] Sodium Chloride 1,000 mls @ 30 mls/hr 12/20/22 11:30 12/20/22 11:39 Sodium Chloride 0.9% IV 12/21/22 11:29 30 mls/hr .Q24H CHANTALE Administration Ipratropium [place] 0.5 mg 12/14/22 20:00 12/20/22 07:58 Ipratropium 0.5 Mg/2.5 Ml Neb INHALATION 0.5 mg TID.RESP CHANTALE Administration Levalbuterol HCl 1.25 mg 12/14/22 20:00 12/20/22 07:58 Levalbuterol 1.25 Mg/3 Ml Neb INHALATION 1.25 mg Q6H.RESP CHANTALE Administration Losartan Potassium 25 mg 12/15/22 09:00 12/20/22 08:21 Losartan 50 Mg Tablet PO 25 mg DAILY CHANTALE Administration Metoprolol Tartrate 12.5 mg 12/16/22 12:05 12/20/22 08:21 Metoprolol Tartrate 25 Mg Tablet PO 12.5 mg BID@0900,2100 CHANTALE Administration Senna/Docusate Sodium 1 tab 12/16/22 18:00 12/20/22 08:21 Sennosides-Docusate Tablet PO 1 tab BID CHANTALE Administration Additional Medication Information Current Medications Acetaminophen (Acetaminophen 325 Mg Tablet) 650 mg PO Q6H PRN PRN Reason: Mild/Mod Pain Or Temp >/= 101 Last Admin: 12/12/22 22:51 Dose: 650 mg Amiodarone HCl (Amiodarone 200 Mg Tablet) 200 mg PO DAILY [facility] Last Admin: 12/20/22 08:21 Dose: 200 mg Atorvastatin Calcium (Atorvastatin 40 Mg Tablet) 40 mg PO BEDTIME [facility] Last Admin: 12/19/22 19:42 Dose: 40 mg Chlorhexidine Gluconate (Chlorhexidine Gluconate 4% Btl 118 Ml) 1 applic TOPICAL BID [facility] Last Admin: 12/20/22 08:22 Dose: Not Given Chlorhexidine Gluconate (Chlorhexidine Gluconate 4% Btl 118 Ml) 1 applic TOPICAL BID [facility] Last Admin: 12/20/22 08:22 Dose: 1 applic Diclofenac Sodium (Diclofenac 1% Topical Gel 100 Gm) 1 applic TOPICAL QID PRN PRN Reason: PAIN Last Admin: 12/13/22 00:57 Dose: 1 applic Furosemide (Furosemide 40 Mg Tablet) 40 mg PO DAILY@0800 [facility] Last Admin: 12/20/22 08:21 Dose: 40 mg Gabapentin (Gabapentin 100 Mg Capsule) 100 mg PO 0700,1900 [facility] Last Admin: 12/20/22 03:15 Dose: Not Given Ipratropium [place] (Ipratropium 0.5 Mg/2.5 Ml Neb) 0.5 mg INHALATION TID.RESP [facility] Last Admin: 12/20/22 07:58 Dose: 0.5 mg Levalbuterol HCl (Levalbuterol 1.25 Mg/3 Ml Neb) 1.25 mg INHALATION Q6H.RESP [facility] Last Admin: 12/20/22 07:58 Dose: 1.25 mg Losartan Potassium (Losartan 50 Mg Tablet) 25 mg PO DAILY [facility] Last Admin: 12/20/22 08:21 Dose: 25 mg Magnesium Hydroxide (Magnesium Hydroxide 30 Ml Udc) 30 ml PO DAILY PRN PRN Reason: CONSTIPATION Metoprolol Tartrate (Metoprolol Tartrate 25 Mg Tablet) 12.5 mg PO BID@0900,2100 [facility] Last Admin: 12/20/22 08:21 Dose: 12.5 mg Ondansetron HCl (Ondansetron 2 Mg/Ml Sdv 2 Ml) 4 mg IVP Q8H PRN PRN Reason: vomiting, or N/V if npo Senna/Docusate Sodium (Sennosides-Docusate Tablet) 1 tab PO BID [facility] Last Admin: 12/20/22 08:21 Dose: 1 tab Sodium Chloride (Saline Nasal Blanket 44ml Btl) 1 spray NASAL PRN PRN PRN Reason: DRYNESS PFSH Anesthesia Medical History Anticoagulation adequate with anticoagulant therapy Aspiration pneumonia Atherosclerosis of coronary artery of [facility] [facility] [place] heart without angina pectoris Atrial fibrillation Cardiac arrest due to underlying cardiac condition Cardiac arrest with successful resuscitation Cardiac arrest with ventricular fibrillation Congestive heart failure with cardiomyopathy Coronary artery disease CVA (cerebral vascular accident) Encounter for physical examination related to employment History of pneumonia Hyperlipidemia Hypertension Ischemic cardiomyopathy Metabolic acidosis Neuropathy Pulmonary edema Pulmonary fibrosis Pulmonary HTN ST elevation (STEMI) myocardial infarction Transaminitis UTI (urinary tract infection) Valvular heart disease Surgical History History of heart artery stent No pertinent past surgical history Family History Father Cancer Dementia Stroke Hypertension Lung disease Mother Cancer Lung disease Social History Smoking and tobacco status: former smoker Quit status (tobacco): has quit using tobacco Former quit date comment: PPD x 20+ yrs Second hand smoke exposure: Yes Alcohol intake: never Substance/Drug Use: never Adopted: No Lives independently: Yes Household members: spouse Housing: House Marital status: Number of children: 3 Highest education level completed: High School Graduate service: No Current occupational status: employed 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 Pets and animals: Yes Current gender identity: Female Data Anesthesia 12/20/22 03:51 12/20/22 03:51 Short CBC 12/18/22 12/20/22 Range/Units 18:04 03:51 WBC 7.9 (4.0-10.0) 10^3/uL Hgb 11.2 L (11.5-15.3) g/dL Hct 36.4 L (37.0-47.0) % MCV 100.6 H (81-99) fl Plt Count 220 214 (130-400) 10^3/cmm Neut % (Auto) 55.3 % Neut # (Auto) 4.35 (1.8-7.7) 10^3/uL BMP 12/20/22 03:51 Sodium 141 Potassium 4.1 Chloride 105 Carbon Dioxide 28 BUN 26 H Creatinine 1.2 H Glucose 124 H Calcium 8.8 Liver Function 12/20/22 Range/Units 03:51 Total Bilirubin 0.3 (0.15-1.2) mg/dL AST 13 (0-32) U/L ALT 22 (0-33) U/L Alkaline Phosphatase 104 (35-105) U/L Albumin 3.4 L (3.5-5.2) g/dL Coags 12/19/22 12/19/22 12/19/22 01:09 02:38 09:08 APTT Cancelled 126.9 H 34.5 D Cardiac Studies: Echocardiogram 12/12/22 Echocardiogram Limited Views 10/16/22
[2022-12-20] MEDS: ceFAZolin 2,000 MG in sodium chloride 0.9% (plus) 50 ML 100 MG IV (12:38)
--- NOTE | 2022-12-20 12:44 | P.PN_ITS ---
Subjective Subjective: No acute events overnight. Patient is n.p.o. for ICD placement later in the afternoon today. Complaining of mild difficulty breathing today. Patient is slightly anxious but excited about the procedure. Wants to go home as soon as possible. Family at bedside. Otherwise has remained hemodynamically stable and afebrile. Saturating well on 2 L. Vitals/I&O/Wt Last Vital Signs Temp 97.7 F 12/20/22 11:22 Pulse 59 L 12/20/22 11:22 Resp 16 12/20/22 11:22 BP 126/54 12/20/22 11:22 Pulse Ox 97 12/20/22 11:22 O2 Del Method Nasal Cannula 12/20/22 08:00 O2 Flow Rate 2 12/20/22 08:00 FiO2 36 12/12/22 02:06 12/19/22 12/20/22 12/20/22 22:59 06:59 14:59 Intake Total 420 / 1140 Output Total 1025 / 1025 100 / 1125 Balance -1025 / -305 320 / 15 Physical Exam Narrative: General: Patient is awake and alert. Very pleasant. Sitting up in bed having breakfast. Head: Normocephalic. Atraumatic. EOM intact. Neck: No JVD. Cardiovascular: RRR. No gallops. No murmurs. No peripheral edema. Lungs: Breath sounds diminished in bilateral bases. Faint dependent crackles similiar to prior exam. No use of accessory muscles. Still on nasal canula. Skin: No jaundice. No rashes. Abdomen: Normal bowel sounds, abdomen soft and nontender. Extremities: No cyanosis or clubbing. Musculoskeletal: No swollen or erythematous joints. Neurological: Moves all 4 extremities. No myoclonus. Data 12/20/22 03:51 12/20/22 03:51 A&P Assessment and plan (1) Congestive heart failure with cardiomyopathy: (2) Ischemic cardiomyopathy: (3) Pulmonary edema: (4) Acute respiratory failure with hypoxemia: Resolved. Patient back on 2 L of home oxygen supplementation saturating more than 95%. (5) Coronary artery disease: (6) Atrial fibrillation: (7) Hypertension: (8) Hyperlipidemia: Plan Acute respiratory failure on admission: Secondary to acute on chronic systolic congestive heart failure. Echocardiogram done during this hospitalization shows an EF of 30% with regional wall motion abnormality and grade 2 diastolic dysfunction along with mild pulmonary hypertension, mild to moderate AI, moderate to severe TR. Strict input of charting, daily weights. Changed to oral Lasix 40 mg daily. Plan to initiate heart failure regimen medications. Continues to have occasional episodes of VPCs and a short run of A-fib on monitoring analyst. Continue with losartan 25 mg oral daily, metoprolol 12.5 mg twice daily. Will uptitrate as per the vitals. Appreciate cardiology recommendations. Discussed in detail with Dr. Avery from cardiology. Patient is agreeable for ICD placement. Dr. Piña consulted. Plan for ICD placement on Friday. Co ntinue with Eliquis for now and withhold on fri. Ischemic cardiomyopathy: EF less than 30%. Plan for ICD placement on Friday. Appreciate Dr. Piña and Dr. Avery recommendation. Continue with Lasix 40 mg oral daily. Euvolemic for now. Hypertension: Goal blood pressure less than 140/90 mmHg with mean over 65 mmHg.. Losartan and metoprolol as above. Uptitrate accordingly.. Monitor closely. Hold Flomax. Full code. Cardiac diet. Fluid restriction to less than 1500 cc. Eliquis will suffice as DVT prophylaxis. Hold from Friday night. Famotidine for PUD prophylaxis. Goals of care discussion: Discussed in detail with the patient and patient's family at bedside. For now they are agreeable with beta-domingo and low-dose ARB. They are agreeable with ICD placement. Continues to remain full code. Plan for the day: Continue NPO. Plan for ICD placement. Continue to hold off on anticoagulation. Start on cardiac diet postprocedure. Most likely start anticoagulation in 24 hrs post procedure. Monitor CBC and CMP and chest x-ray in a.m. IV Lasix 40 mg one-time today. Continue with current dose of losartan and metoprolol. Most likely will transition from losartan to Entresto as an outpatient. Discharge plan: Plan to discharge home if medically stable tomorrow and if cleared to cardiothoracic surgery. Discussed about home health with patient's family. They would want to hold off for now as they have enough Attestations Medical Necessity Statement*: Requires further hospitalization for ICD placement in a patient with ischemic cardiomyopathy with EF of less than 30% admitted for systolic congestive heart failure leading to hypoxic respiratory failure Diagnoses Congestive heart failure with cardiomyopathy I50.9; I42.9 Ischemic cardiomyopathy I25.5 Pulmonary edema J81.1 Acute respiratory failure with hypoxemia J96.01 Coronary artery disease I25.10 Atrial fibrillation I48.91 Hypertension I10 Hyperlipidemia E78.5
--- NOTE | 2022-12-20 12:46 | SC_ITS ---
WS: [id number] C-arm fluoroscopy for pacemaker wire insertion, 12/20/2022 Clinical Data: intra-op Comparison: None. Findings: Dr. Piña inserted a permanent pacemaker Liyah. SC/C-arm FL for Pacemaker Impression: Insertion of cardiac pacemaker wire.
--- NOTE | 2022-12-20 13:05 | SUR.OPER ---
called daughter and notified her of surgical start.
[2022-12-20] MEDS: lidocaine 2% INJ 20 mL INJECTION (13:13)
[2022-12-20] MEDS: ceFAZolin 1,000 mg SDV 1000 MG IRRIGATION (13:13)
--- NOTE | 2022-12-20 14:12 | PM.OP ---
Operative Report Date of procedure: December 20, 2022 Pre-op diagnosis: Congestive heart failure with severely depressed ejection fraction Post-op diagnosis: same Procedure done: AICD implantation Implants: [employer] AICD generator and right ventricular lead Pathology: none sent Surgeon: Anson Piña Estimated blood loss (mL): 20 Complications: None: Post procedure chest x-ray pending Condition: stable Disposition: PACU Brief History: Ms. Graham is a 77-year-old female with a history of congestive heart failure and recent acute anterior WI. She had a syncopal episode at home after her prior hospitalization this is presumed to have represented a malignant arrhythmia. She underwent CPR by her family and further resuscitation by emergency medical services. I was consulted for consideration of AICD implantation as primary therapy given her substantial cardiomyopathy and congestive heart failure. Rationale was carefully discussed with her and her family. Details of risk of the procedure were reviewed. Appropriate consents have been reviewed and signed. Procedure: Procedure: Ms. Graham was taken to the OR suite and placed in the supine position over a shoulder roll. She received conscious sedation with continuous anesthesia monitoring by. Her entire chest was sterilely prepped and draped. 1% lidocaine was infiltrated in the left subclavicular region. While in Trendelenburg position, utilizing modified seldinger technique, a guidewire was placed in the left subclavian vein. This was confirmed in position by fluoroscopy. Next, after infiltration with lidocaine, a subcutaneous pocket was created beginning from the exit point of the guidewire and extending laterally and inferiorly. Cautery was utilized to create the pocket just above the pectoralis musculature. Hemostasis was confirmed. An antibiotic-soaked sponge was placed in the wound. A dilator and tear-away sheath was placed over the guidewire and advanced under fluoroscopy. Guidewire and dilator were removed. Next using a combination of curved and straight stylettes, the right ventricular lead was placed in position by fluoroscopy. The distal screw was extended. Interrogation was then performed confirming appropriate parameters. The tear-away sheath was then removed and the ventricular lead was sewn to the floor of the subcutaneous pocket. Generator was brought into the field, and after confirmation of hemostasis in the subcutaneous pocket, the lead was connected to the generator with appropriate capture. The entire system was interrogated by fluoroscopy. Lead and generator were secured in the pocket. Sponge and needle count was correct. The wound was then closed in 2 layers of 3-0 Vicryl suture. Skin was reapproximated in a subcuticular manner with 4-0 Monocryl suture. A pressure dressing was applied. The left arm was placed in a sling. Ms. Graham had equal breath sounds bilaterally. She was then transferred to the PACU, where chest x-ray is currently pending. I did certified alcohol and drug counselor with the family at the completion of the procedure. Following are the specifics of this system: Right ventricular lead is 62 cm and model 6935M. Serial number [id number] Ventricular lead had sensing of 5.8 mV with an impedance of 399 ohms. Threshold was 1.25 V [employer] [place] AICD generator: Model # [id number] Serial # [id number]
--- NOTE | 2022-12-20 14:50 | XR_ITS ---
WS: [id number] Portable AP upright chest, 12/20/2022 Clinical Data: post defibrillator placement Comparison: Portable chest, 12/11/2022 Findings: No nodules, masses or effusions are seen. The heart is enlarged. The pulmonary vascularity is not increased. No pneumonia or pneumothorax is seen. The cardiac defibrillator/pacemaker is in sat isfactory position with the generator overlying the left axilla. There are monitor leads on the chest wall. There are old right posterior lateral fourth and fifth rib fractures. XR/XR chest 1V portable [id number] Impression: 1. Cardiomegaly. 2. Satisfactory placement of cardiac defibrillator/pacemaker.
--- NOTE | 2022-12-20 16:15 | ANE.PACU2 ---
Inpatient post-anesthesia follow up: Airway intact: Yes Vital signs: Temperature 97.4 F Pulse Rate 64 Respiratory Rate 16 Blood Pressure 110/61 Pulse Oximetry 98 Oxygen Delivery Me thod Nasal Cannula Oxygen Flow Rate 3 Fraction of Inspir ed Oxygen 36 Hydration adequate: Yes Nausea and vomiting: No Pain level: 1 Mental status: Baseline
[2022-12-20] MEDS: gabapentin 100 mg Capsule PO (18:36)
[2022-12-20] MEDS: ceFAZolin 1,000 MG in sodium chloride 0.9% (plus) 50 ML 100 MG IV (20:08)
[2022-12-20] MEDS: atorvastatin 40 mg Tablet PO (21:52)
[2022-12-21] VITALS (10 sets, daily range): BP systolic 99–112; BP diastolic 56–63; PULSE 56–85; RESP 18–26; TEMP 36.8–36.9; O2SAT 96–100
[2022-12-21] MEDS: levalbuterol 1.25 mg/3 mL Neb INHALATION ×2 (01:25→08:04)
[2022-12-21] MEDS: ceFAZolin 1,000 MG in sodium chloride 0.9% (plus) 50 ML 100 MG IV ×2 (04:09→11:47)
--- NOTE | 2022-12-21 06:00 | PC.NURSE ---
Pressure dressing removed from left chest pacer site. Dressing is dry and intact, site is tender to palpation but soft. Pacemaker check completed.
[2022-12-21] MEDS: gabapentin 100 mg Capsule PO (06:01)
[2022-12-21] MEDS: ipratropium 0.5 mg/2.5 mL Neb INHALATION (08:04)
--- NOTE | 2022-12-21 08:25 | PM.PN ---
Subjective Subjective: Patient is doing well. No chest pain.Had ICD placement Vitals/I&O/Wt Last Vital Signs Temp 98.1 F 12/20/22 20:00 Pulse 85 12/21/22 08:00 Resp 18 12/21/22 08:00 BP 104/63 12/21/22 04:00 Pulse Ox 100 12/21/22 08:00 O2 Del Method Nasal Cannula 12/21/22 08:00 O2 Flow Rate 2 12/21/22 08:00 FiO2 36 12/12/22 02:06 12/20/22 12/21/22 12/21/22 22:59 06:59 14:59 Intake Total 911.682 / 1211.682 50 / 1261.682 Output Total 50 / 55 Balance 861.682 / 1156.682 50 / 1206.682 Physical Exam Narrative: General: Patient is awake and alert. Head: Normocephalic Neck: No JVD. Cardiovascular: RRR. No gallops. No murmurs. No peripheral edema. Lungs: Mild crackles Abdomen: Soft Extremities: No cyanosis or clubbing. Neurological: Moves all 4 extremities. Data 12/20/22 03:51 12/20/22 03:51 A&P Assessment and plan (1) Congestive heart failure with cardiomyopathy: Patient's heart failure is stable. Guideline directed medical therapy. Oral lasix (2) Syncope and collapse: History of it. S/p ICD placement now (3) Ischemic cardiomyopathy: Stable. S/p ICD placement. (4) Pulmonary HTN: Continue current medications (5) Elevated troponin: Likely type II [place] (6) Valvular heart disease: Moderate to severe TR and also has mild to mod AI (7) Pulmonary fibrosis: (8) Hyperlipidemia: May continue on the current medications (9) Coronary artery disease: Patient had an acute anterior myocardial infarction in October. Had a PCI of the LAD/circumflex artery. Currently seems to be stable. (10) Atrial fibrillation: Currently the patient is in a regular rhythm. Patient seems to have intermittent short episodes of atrial fibrillation on the monitor. Resume eliquis tomorrow Plan Patient is stable to be discharged from cardiology standpoint. Please call with questions. Attestations Medical Necessity Statement*: Care expected to cross 2 midnights. Coding Level of Care Code Acute Code for g Fwd Diagnoses Congestive heart failure with cardiomyopathy I50.9; I42.9 Syncope and collapse R55 Ischemic cardiomyopathy I25.5 Pulmonary HTN I27.20 Elevated troponin R77.8 Valvular heart disease I38 Pulmonary fibrosis J84.10 Hyperlipidemia E78.5 Coronary artery disease I25.10 Atrial fibrillation I48.91
[2022-12-21] MEDS: chlorhexidine gluconate 4% Btl 118 mL 1 APPLIC TOPICAL ×2 (08:30→08:48)
[2022-12-21] MEDS: amiodarone 200 mg Tablet PO (09:01)
[2022-12-21] MEDS: FUROsemide 40 mg Tablet PO (09:01)
[2022-12-21] MEDS: losartan 50 mg Tablet 25 MG PO (09:02)
[2022-12-21] MEDS: metoprolol tartrate 25 mg Tablet 12.5 MG PO (09:03)
[2022-12-21] MEDS: pantoprazole DR 40 mg Tablet PO (09:03)
--- NOTE | 2022-12-21 09:42 | PM.PN ---
Subjective Subjective: Postop day #1 status post AICD implantation. No concerns overnight. Pressure dressing was removed earlier today before my arrival. This is usually done by myself. There is mild swelling at the insertion site though no ecchymosis and inner layer dressing is dry. Ms. Woods is eager for discharge. No arrhythmias reported. Vitals/I&O/Wt Last Vital Signs Temp 98.5 F 12/21/22 09:03 Pulse 83 12/21/22 09:03 Resp 26 H 12/21/22 09:03 BP 112/61 12/21/22 09:03 Pulse Ox 98 12/21/22 09:03 O2 Del Method Nasal Cannula 12/21/22 09:03 O2 Flow Rate 2 12/21/22 09:03 FiO2 36 12/12/22 02:06 12/20/22 12/21/22 12/21/22 22:59 06:59 14:59 Intake Total 911.682 / 1211.682 50 / 1261.682 236 / 236 Output Total 50 / 55 Balance 861.682 / 1156.682 50 / 1206.682 236 / 236 Physical Exam Chest: OTHER: I covered the inner dressing with a cover Derm dressing. I recommend it remain in place for 2 days. Mild swelling at insertion site though no ecchymosis or palpable fluid collection. Data 12/20/22 03:51 12/20/22 03:51 A&P Assessment and plan (1) S/P implantation of automatic cardioverter/defibrillator (AICD): Postop day #1 status post AICD implantation Patient being prepared for discharge today. She will receive her last IV antibiotic at 1230 before discharge. She will follow-up [facility] with Ms. Mag Sutton next week. Discharge instructions have been included in the discharge packet. Greatly appreciate expertise and assistance of our hospitalist service. Attestations Medical Necessity Statement*: POD #1 status post AICD implantation Coding Level of Care Code Acute Code for Chg Fwd Diagnoses S/P implantation of automatic cardioverter/defibrillator (AICD) Z95.810
--- NOTE | 2022-12-21 09:46 | PC.SOCIAL ---
IMM Updated Updated pt on IMM. No questions voiced. Provided pt a copy. Initialed, dated, & timed copy in chart.
--- NOTE | 2022-12-21 09:50 | P.DS_ITS ---
Discharge Providers Date of Admission: 12/12/22 00:21 Date of Discharge: December 21, 2022 Attending Provider at Admission: Aletha Barnett MD Attending Provider at Discharge: Christ Catalan MD Primary Care Provider: Jesus Seay DO Diagnoses at Discharge Discharge Diagnosis (1) S/P implantation of automatic cardioverter/defibrillator (AICD): Status: Acute Reason for Visit Reason for Visit: SOB Brief History: History as per HPI: Agatha Graham is a 77 year old female who has been readmitted with an episode of congestive heart failure.? She first entered the system on 07 October of this year with an acute anterior wall FL.? Her LAD was occluded at the ostium.? It was stented.? However, she suffered a large anteroapical myocardial infarction.? At that time her ejection fraction was in the 35 to 40% range.? During that hospitalization her circumflex was also stented.? Her troponin peaked at 2845.? She developed atrial fibrillation and was started on amiodarone which converted her to sinus rhythm.? She was also started on Eliquis.? She spent 3 days in the hospital and went home on the . Several hours after being sent home she had some form of a collapse or arrest.? Her family did bystander CPR.? When the paramedics arrived allegedly the rhythm was PEA however I did not see that rhythm.? She was given epinephrine and achieved a heart rate and blood pressure almost immediately.? There was no cardioversion.? She had respiratory failure and was intubated in the emergency room.? She went back to the catheterization laboratory and both vessels were patent.? I never did understand the cause of the arrest at home.? During that hospital stay her echo was 35%.? Her troponin was elevated.? It was more than likely elevated still as residual from the original infarct which had occurred 3 days earlier.? She went home after the second hospital stay and apparently has done fairly well since that time.? She is a very feisty woman who does not sit still.? Her other medical problems include dyslipidemia, hypertension and anticoagulation for atrial fibrillation. She had seen the nurse practitioner after the second hospitalization.? She had been started on Flomax for urinary tract problem.? There was an indwelling Mathews for a while after the second hospital stay.? It finally was removed.? There was a concern among the daughter and the nurse practitioner that the Flomax may lower her blood pressure too much.? The Flomax, however, helps her urinary tract situation and frequency of urination.? The patient's blood pressure tends to run low and so the lisinopril dose has been reduced all the way to 2.5 mg daily. Last evening she had the sudden onset of shortness of breath.? Oxygen saturations were in the 70s.? She arrived at the hospital in respiratory distress.? BiPAP was administered and improved her significantly.? She has no chest pain.? Her troponins were 25, 46 and 66.? She was originally started on Lovenox but that has been discontinued.? Her white blood cell count was elevated 18.3.? Her hemoglobin hematocrit are normal.? Her blood gas revealed a PO2 of 295, PCO2 of 52 and a pH of 7.31.? Her creatinine is 1.2.? Her BNP was 2407.? Chest x-ray shows pulmonary fibrosis and mild congestive heart failure.? The CTA of the chest confirms without a evidence of pulmonary embolism.? Echo from last night reveals an EF of around 30% now with left ventricular enlargement, regional wall motion abnormalities suggestive of the previous LAD distribution FL, pulmonary pressure 45 mmHg, mild mitral regurgitation, mild to moderate aortic insufficiency and moderate to severe tricuspid regurgitation.? Transaminases are elevated mildly AST 62, ALT 80.? Alkaline phosphatase 122. Hospital Course Hospital Course Patient was admitted to the hospital further evaluation and management of hypoxic respiratory failure. On admission she was found to be having leukocytosis with elevated troponin. She was started on aggressive IV diuresis and broad-spectrum antibiotics with concern for pneumonia. Cardiology was consulted. During hospitalization blood culture, sputum culture remain negative. Patient has finished a 5-day course of antibiotics. Patient slowly responded to heart failure medications and diuretics and has been at his baseline oxygen supplementation both at rest and on exertion for now 2 to 3 days. During hospitalization telemetry she was found to have recurrent results of VPCs. Echocardiogram was done which showed EF of 30% with regional wall motion abnormality and grade 2 diastolic dysfunction along with mild pulmonary hypertension, mild to moderate AI, moderate to severe TR. 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 She underwent ICD placement on 12/20. She tolerated the procedure well. She has been discharged in hemodynamically stable condition on adjusted heart failure medication. She is to follow-up with her primary care provider and [facility] in next 1 week. She is to check her blood pressure diary daily at home and maintain a blood pressure diary. She has been discharged with antibiotics as per CT surgery for next 3 days along with recommendation to start anticoagulation on Friday. Today is Friday. Positive discharge planning family was offered home health multiple times but they continue to refuse. Physical Exam Narrative: General: Patient is awake and alert. Very pleasant. Sitting up in bed having breakfast. Head: Normocephalic. Atraumatic. EOM intact. Neck: No JVD. Cardiovascular: RRR. No gallops. No murmurs. No peripheral edema. Lungs: Breath sounds diminished in bilateral bases. Faint dependent crackles similiar to prior exam. No use of accessory muscles. Still on nasal canula. Skin: No jaundice. No rashes. Abdomen: Normal bowel sounds, abdomen soft and nontender. Extremities: No cyanosis or clubbing. Musculoskeletal: No swollen or erythematous joints. Neurological: Moves all 4 extremities. No myoclonus. Discharge Data Studies Completed and Pending Completed Studies During Hospitalization Category Date Time Status CTA chest [CT angio chest PE protcl [id number]] Stat Cat Scan 12/11/22 22:34 Completed XR chest 1V portable [id number] Routine Exams 12/20/22 14:50 Completed XR chest 1V portable [id number] Stat Exams 12/11/22 21:58 Completed US echo complete [CV. echo complete* [id number]] Routine Ultrasound 12/12/22 02:07 Completed Pending at discharge Category Date Time Status Platelet Count Q2D Lab 12/22/22 04:00 Ordered Radiology Impressions Chest CTA 12/11/22 22:34 IMPRESSION: 1. No pulmonary embolism or pneumonia. 2. Small effusions, lung opacities and interstitial edema most consistent with mild CHF C-Arm Fluoroscopy 12/20/22 12:46 Impression: Insertion of cardiac pacemaker wire. Chest X-Ray 12/20/22 14:50 Impression: 1. Cardiomegaly. 2. Satisfactory placement of cardiac defibrillator/pacemaker. Laboratory Results WBC 7.9 10^3/uL (4.0-10.0) 12/20/22 03:51 RBC 3.62 10^6/uL (4.1-5.3) L 12/20/22 03:51 Hgb 11.2 g/dL (11.5-15.3) L 12/20/22 03:51 Hct 36.4 % (37.0-47.0) L 12/20/22 03:51 MCV 100.6 fl (81-99) H 12/20/22 03:51 MCH 30.9 pg (28.0-34.0) 12/20/22 03:51 MCHC 30.8 g/dL (30.0-36.0) 12/20/22 03:51 RDW 14.1 % (12.1-15.1) 12/20/22 03:51 Plt Count 214 10^3/cmm (130-400) 12/20/22 03:51 MPV 10.7 fL (7.4-10.4) H 12/20/22 03:51 Neut % (Auto) 55.3 % 12/20/22 03:51 Lymph % (Auto) 30.2 % 12/20/22 03:51 [place] % (Auto) 9.5 % 12/20/22 03:51 Eos % (Auto) 3.6 % 12/20/22 03:51 Baso % (Auto) 1.1 % 12/20/22 03:51 Neut # (Auto) 4.35 10^3/uL (1.8-7.7) 12/20/22 03:51 Lymph # (Auto) 2.4 10^3/uL (0.8-4.8) 12/20/22 03:51 [place] # (Auto) 0.8 10^3/uL (0.2-0.9) 12/20/22 03:51 Eos # (Auto) 0.3 10^3/uL (0.0-0.8) 12/20/22 03:51 Baso # (Auto) 0.1 10^3/uL (0.0-0.1) 12/20/22 03:51 Nucleated RBC % (auto) 0 % 12/20/22 03:51 Nucleated RBCs # 0.0 /100WBC 12/20/22 03:51 PT 18.70 SECONDS (12.1-14.9) H 12/11/22 22:13 INR 1.50 (0.8-1.2) H 12/11/22 22:13 APTT 34.5 SECONDS (23.9-36.7) D 12/19/22 09:08 Specimen Type Arterial 12/11/22 22:44 Sample Site Brachial, left 12/11/22 22:44 ABG pH 7.31 (7.35-7.45) L 12/11/22 22:44 ABG pCO2 52.4 mmHg (35-45) H 12/11/22 22:44 ABG pO2 295.0 mmHg (80.0-100.0) H 12/11/22 22:44 ABG HCO3 26.2 mmol/L (22-26) H 12/11/22 22:44 ABG Base Excess -0.8 mmol/L (-2.0-2.0) 12/11/22 22:44 Fidencio Test N/a 12/11/22 22:44 Hematocrit 38.7 % (37-47) 12/11/22 22:44 Hgb O2 Saturation 98.7 % (95-100) 12/11/22 22:44 Carboxyhemoglobin 0.9 %THgb (0.4-20.1) 12/11/22 22:44 Methemoglobin 0.7 % (0.4-1.5) 12/11/22 22:44 Total Hemoglobin 12.6 g/dL (12-16) 12/11/22 22:44 O2 Delivery Device Bipap 12/11/22 22:44 FiO2 100.0 % 12/11/22 22:44 Weed Thinner ID Alewe 12/11/22 22:44 Sodium 141 mmol/L (136-145) 12/20/22 03:51 Potassium 4.1 mmol/L (3.5-5.1) 12/20/22 03:51 Chloride 105 mmol/L (98-107) 12/20/22 03:51 Carbon Dioxide 28 mmol/L (22-29) 12/20/22 03:51 Anion Gap 12.1 (5-19) 12/20/22 03:51 BUN 26 mg/dL (8-23) H 12/20/22 03:51 Creatinine 1.2 mg/dL (0.5-0.9) H 12/20/22 03:51 GFR Calculation Not Reportable 12/20/22 03:51 Glucose 124 mg/dL (65-115) H 12/20/22 03:51 Estimat Average Glucose 120 12/17/22 03:39 Hemoglobin A1c 5.8 % (4.0-6.0) 12/17/22 03:39 Calculated Osmolality 298 mOsm/kg (285-295) H 12/20/22 03:51 Lactic Acid 3.4 mmol/L (0.5-2.2) H 12/11/22 22:13 Lactic Acid (Sepsis) 1.1 mmol/L (0.5-2.2) 12/12/22 03:52 Calcium 8.8 mg/dL (8.5-10.5) 12/20/22 03:51 Phosphorus 3.6 mg/dL (2.5-4.5) 12/16/22 05:43 Magnesium 2.2 mg/dL (1.7-2.3) 12/16/22 05:43 Iron 43 ug/dL (37-145) 12/16/22 05:54 TIBC 260 mcg/dl 12/16/22 05:54 % Saturation 16.5 % (20-50) L 12/16/22 05:54 Unsat Iron Binding 217 ug/dL (112-347) 12/16/22 05:54 Total Bilirubin 0.3 mg/dL (0.15-1.2) 12/20/22 03:51 AST 13 U/L (0-32) 12/20/22 03:51 ALT 22 U/L (0-33) 12/20/22 03:51 Alkaline Phosphatase 104 U/L (35-105) 12/20/22 03:51 Troponin T Baseline 25 ng/L (0-10) H 12/11/22 22:13 Troponin T 120 Minute 46.82 ng/L (0-10) H 12/11/22 23:35 Delta Troponin T 21.82 ABS# (0-10) H* 12/11/22 23:35 Troponin T Hi Sens 6Hr 66.65 ng/L (0-10) H 12/12/22 03:52 Troponin T Hi Sens 6Hr Delta 41.65 ng/L (0-12) H* 12/12/22 03:52 NT-Pro-B Natriuret Pep 3886 pg/mL (0-450) H 12/16/22 05:43 Total Protein 5.9 g/dL (6.6-8.7) L 12/20/22 03:51 Albumin 3.4 g/dL (3.5-5.2) L 12/20/22 03:51 Globulin 2.5 g/dL (1.3-4.6) 12/20/22 03:51 Vitamin B12 423 pg/mL (232-1245) 12/16/22 05:54 Folate 11.6 ng/mL (4.8-37.3) 12/17/22 03:39 Procalcitonin 0.68 ng/mL (0-0.5) H 12/14/22 04:44 Urine Color Yellow (Yellow) 12/12/22 10:50 Urine Appearance Clear (CLEAR) 12/12/22 10:50 Urine pH 5 (5-7) 12/12/22 10:50 Ur Specific [place] 1.015 (1.005-1.030) 12/12/22 10:50 Urine Protein Neg (Negative) 12/12/22 10:50 Urine Glucose (UA) Norm (Normal) 12/12/22 10:50 Urine Ketones Negative (Negative) 12/12/22 10:50 Urine Blood Neg (Negative) 12/12/22 10:50 Urine Nitrate Negative (Negative) 12/12/22 10:50 Urine Bilirubin Neg (Negative) 12/12/22 10:50 Urine Urobilinogen Neg mg/dL (Negative) 12/12/22 10:50 Ur Leukocyte Esterase Negative (Negative) 12/12/22 10:50 SARS-CoV-2 Ag (Rapid) negative (Negative) 12/11/22 22:10 Vitals Last Vital Signs Temp 98.5 F 12/21/22 09:03 Pulse 83 12/21/22 09:03 Resp 26 H 12/21/22 09:03 BP 112/61 12/21/22 09:03 Pulse Ox 98 12/21/22 09:03 O2 Del Method Nasal Cannula 12/21/22 09:03 O2 Flow Rate 2 12/21/22 09:03 FiO2 36 12/12/22 02:06 Discharge Plan Discharge Patient Disposition: Home Condition: Stable Prescriptions: New hydrocodone-acetaminophen 5-325 mg tablet 1 tab PO Q8H Qty: 10 0RF Bactrim DS 800-160 mg tablet 1 tab PO BID Qty: 6 0RF losartan 50 mg Tablet 25 mg PO DAILY Qty: 30 0RF furosemide 40 mg Tablet 40 mg PO DAILY@0800 Qty: 30 0RF pantoprazole 40 mg Tablet,Delayed Release (Dr/Ec) 40 mg PO DAILY Qty: 30 0RF metoprolol tartrate 25 mg Tablet 12.5 mg PO BID@0900,2100 30 Days Qty: 30 0RF Continued (DME) oxygen concentrator with portable See Rx Instructions .Route .MEDSUPPLY Qty: 1 0RF Rx Instructions: As directed 99 months 2L nasal cannula oxygen concentrator with portable diclofenac sodium 1 % gel 2 g topical QID Qty: 100 5RF Rx Instructions: apply to single elbow, wrist or hand; for hand includes palm/fingers/back of hand levalbuterol tartrate [Xopenex HFA] 45 mcg/actuation HFA aerosol inhaler 2 inh inhalation Q6H Qty: 15 5RF budesonide-formoterol [Symbicort] 160-4.5 mcg/actuation HFA aerosol inhaler 2 puff inhalation BID Qty: 10.2 5RF amiodarone 200 mg tablet 200 mg PO DAILY Qty: 90 3RF apixaban 2.5 mg tablet 2.5 mg PO BID@0900,2100 Qty: 180 3RF atorvastatin 40 mg tablet 40 mg PO BEDTIME Qty: 90 3RF clopidogrel 75 mg tablet 75 mg PO DAILY Qty: 90 3RF nitroglycerin 0.4 mg tablet, sublingual 0.4 mg sublingual Q5M PRN (Reason: Chest Pain) Qty: 25 3RF potassium chloride 10 mEq tablet extended release 10 meq PO DAILY Qty: 90 3RF Rx Instructions: Take with Lasix gabapentin 100 mg Capsule 100 mg PO Q12H tamsulosin 0.4 mg Capsule 0.4 mg PO BEDTIME Discontinued furosemide 20 mg tablet 20 mg PO DAILY@0800 Qty: 90 3RF lisinopril 2.5 mg tablet 2.5 mg PO QAM Qty: 90 3RF Discharge Orders: Discharge Order (Routine); Ordered 12/21/22 Ordered By: Christ Catalan Other Ambulatory Orders: DME: Lars (Order) Location: None Selected Ordered By: Vini Morel Referrals: [facility] [Provider Group] - None Anson Piña MD [Physician] - 7-10 days (Please call Dr. Piña's Office on Friday at [phone] to schedule a follow up appointment for 7-10 days. They also have your information and may call you to schedule the appointment. Thank you.) Mag Sutton FNP [Nurse Practitioner] - 12/25/22 9:45 am (Your appt for getting the 21 day event monitor is on 12-25-22 at 11:00 am. If you have any questions or concerns please call [phone]. Thank you.) Jesus Seay DO [Primary Care Provider] - 12/27/22 9:40 am Discharge Diet: Usual diet Discharge Activity: Limit activity as instructed Patient Instructions: Sulfamethoxazole/Trimethoprim (By mouth) (Bactrim, Bactrim DS,..., Metoprolol (By mouth) (Lopressor, Toprol XL), Furosemide (By mouth) (Lasix), Hydrocodone/Acetaminophen (By mouth) (Vicodin, Enon, Lortab), Losartan (By mouth) (Cozaar), Pantoprazole (By mouth) (Protonix), Implantable Cardioverter Defibrillator (DC), CHF Stoplight, Opioid Safety, Post Pacemaker - Ayana Activity Restrictions/Additional Instructions: May remove bandage in 2 days May begin daily showers in 3 days Dry incision carefully after showers. May re-cover if desired to prevent irritation from clothing. No swimming or tub baths x 2 weeks No ointments on incision Report drainage, redness, heat, increased pain, or increased swelling to clinic Do not lift left arm above eye level for 2 weeks Take oral antibiotics as prescribed until completed Resume Eliquis on Friday, December 23 Discharge Attestations Time Spent in Discharge Care*: greater than 30 min Specific Discharge Activities: educating patient, educating and/or supporting family/caregiver, discussing with pcp/other providers, discussing with casey saw operator/social workers/dc planners, documenting/other paperwork and evaluating patient/reviewing data Status at Discharge: Cognitive status at discharge: cognitively intact , Behavioral status at discharge: cooperative , Functional status at discharge: independent ambulation , Overall status at discharge: patient is back to baseline Quality Metrics Clinical Quality Measures [ No reported AMI, CVA or VTE this stay] Coding Level of Care Code 02200 Total time (in minutes) for Discharge: 60 Diagnoses S/P implantation of automatic cardioverter/defibrillator (AICD) Z95.810
--- NOTE | 2022-12-21 11:58 | PC.NURSE ---
Patient educated on stroke (S/S, how to activate EMS, importance of follow-up, home medications, managing chronic conditions) due to a-fib.
--- NOTE | 2022-12-21 13:00 | PC.NURSE ---
After discharge paperwork reviewed with patient and all questions and concerns address, patient was discharged home in wheelchair with daughter. Daughter did have RN message Dr. Catalan to clarify discharge home potassium dose. RN obtained patient's daughter's phone number and will notify when clarification obtained.
--- NOTE | 2022-12-21 13:51 | PC.NURSE ---
Home potassium dose clarified. Dr. Catalan would like patient to take the 10 mEq KCL daily as it was ordered on d/c paperwork. Called and updated patient's daughter Eli.
== END 2022-12-21 13:00 | disposition home or self-care (01) | DRG 226 ==
LOC: ER 12-12 00:44 → CSU 12-12 01:05
PROVIDERS: Internal Medicine; Thoracic Surgery (Cardiothoracic Vascular Surgery); Admitting Provider Internal Medicine; Emergency Provider Emergency Medicine; PCP Family Medicine; Visit Provider Student in an Organized Health Care Education/Training Program
PROC: 0JH608Z Insertion of Defibrillator Generator into Chest Subcutaneous Tissue and Fascia, Open Approach (ICD-10-PCS; CPT 33249; principal; 2022-12-20 12:00)
DX: I11.0 Hypertensive heart disease with heart failure (principal); I50.23 Acute on chronic systolic (congestive) heart failure; J96.21 Acute and chronic respiratory failure with hypoxia; I24.8 Other forms of acute ischemic heart disease; I25.2 Old myocardial infarction; I25.10 Atherosclerotic heart disease of native coronary artery without angina pectoris; Z95.5 Presence of coronary angioplasty implant and graft; I48.91 Unspecified atrial fibrillation; J84.10 Pulmonary fibrosis, unspecified; I08.3 Combined rheumatic disorders of mitral, aortic and tricuspid valves; I27.20 Pulmonary hypertension, unspecified; Z79.02 Long term (current) use of antithrombotics/antiplatelets; Z86.74 Personal history of sudden cardiac arrest; E78.5 Hyperlipidemia, unspecified; I25.5 Ischemic cardiomyopathy; Z87.440 Personal history of urinary (tract) infections; Z99.81 Dependence on supplemental oxygen; J44.9 Chronic obstructive pulmonary disease, unspecified; Z87.891 Personal history of nicotine dependence
CPT/HCPCS: 36415; 36600; 71045; 71275; 76000; 80048; 80053; 80069; 81003; 82607; 82746; 82805; 83036; 83540; 83550; 83605; 83735; 83880; 84145; 84484; 85025; 85049; 85610; 85730; 87040; 87070; 87205; 87426; 93005; 93306; 94640; 94660; 94664; 94799; 96365; 96367; 96372; 96375; 96376; 97161; 97530; 99291; C1722; C1776; C1777; J0456; J0690; J0696; J1644; J1650; J1940; J2250; J2704; J2920; J2930; J3490; J7030; J7050; J7613; J7614; J7626; J7644; Q9967

== ENCOUNTER 2022-12-22 00:50 | Inpatient (IN) | payer MEDICARE, OTHER, SELFPAY ==
[2022-12-22] VITALS (107 sets, daily range): BP systolic 73–140; BP diastolic 42–84; PULSE 46–85; RESP 1–38; TEMP 36.6–36.7; O2SAT 93–100; BMI 29.2
--- NOTE | 2022-12-22 00:58 | XRR_ITS ---
PROCEDURE INFORMATION: Exam: XR Chest Exam date and time: 12/22/2022 1:34 AM Age: 77 years old Clinical indication: Other vascular access device placement or adjustment; Central line, tunnelled; Additional info: Respiratory failure TECHNIQUE: Imaging protocol: Radiologic exam of the chest. Views: 1 view. Total images: 1 COMPARISON: CR XR chest 1V portable [id number] 12/20/2022 3:01 PM FINDINGS: Tubes, catheters and devices: AICD projects in satisfactory location. Endotracheal tube overlies the trachea with the tip 4.0 cm above the lee in satisfactory position. A left internal jugular central venous catheter is present, with its tip overlying the region of the superior vena cava. Lungs: Coarse chronic pulmonary markings. Mild hazy opacity seen in the parahilar areas and left lung base are nonspecific and may represent mild atelectasis, edema, or pneumonia. Pleural spaces: No pneumothorax. Heart/Mediastinum: Mild cardiomegaly stable. Bones/joints: Old right rib fractures are evident. Diffuse osteopenia noted. XR/XR chest 1V portable [id number] IMPRESSION: 1. Endotracheal tube overlies the trachea with the tip 4.0 cm above the lee in satisfactory position. 2. A left internal jugular central venous catheter is present, with its tip overlying the region of the superior vena cava. 3. No pneumothorax. 4. Mild cardiomegaly stable. 5. Coarse chronic pulmonary markings. 6. Mild hazy opacity seen in the parahilar areas and left lung base are nonspecific and may represent mild atelectasis, edema, or pneumonia.
[2022-12-22 01:04] LABS: ABG PH Result 7.38 (7.35-7.45); Blood Gas Allen Test Pos; Blood Gas Sample Site Radial, left; Blood Gas Sample Type Arterial; Oxygen Device AMBU
[2022-12-22 01:05] LABS: ABG PCO2 42.1 mmHg (35-45); Arterial Blood Gas Hematocrit 35.4 % (37-47); Base Excess ABG -0.4 mmol/L (-2.0-2.0); HCO3 ABG 24.9 mmol/L (22-26)
[2022-12-22] MEDS: sodium chloride 0.9% 1,000 ML 999 ML IV ×2 (01:20→02:11)
[2022-12-22] MEDS: ipratropium-albuterol 3 mL Neb INHALATION (01:40)
[2022-12-22 01:48] LABS: Basophils # 0.1 10^3/uL (0.0-0.1); Basophils % 0.3 %; Eosinophils # 0.1 10^3/uL (0.0-0.8); Eosinophils % 0.5 %; Hematocrit 33.9 % (37.0-47.0); Hemoglobin 10.2 g/dL (11.5-15.3); Lymphocytes # 0.8 10^3/uL (0.8-4.8); Lymphocytes % 4.7 %; Mean Corpuscular HGB Conc 30.1 g/dL (30.0-36.0); Mean Corpuscular Hemoglobin 30.4 pg (28.0-34.0); Mean Corpuscular Volume 101.2 fl (81-99); Mean Platelet Volume 10.5 fL (7.4-10.4); Monocytes # 0.6 10^3/uL (0.2-0.9); Monocytes % 3.6 %; Neutrophils # 15.58 10^3/uL (1.8-7.7); Neutrophils % 90.3 %; Nucleated Red Blood Cells % 0 %; Platelet Count 160 10^3/cmm (130-400); Red Blood Count 3.35 10^6/uL (4.1-5.3); White Blood Count 17.3 10^3/uL (4.0-10.0)
[2022-12-22] MEDS: propofol 1,000 MG/100 ML INJ 2.04 MG IV (02:00)
[2022-12-22 02:02] LABS: Lactic Sepsis W/Reflex 1.9 mmol/L (0.5-2.2)
[2022-12-22 02:03] LABS: Troponin(5th) Baseline 64 ng/L (0-10)
[2022-12-22] MEDS: piperacillin-tazobactam 4.5 GM in sodium chloride 0.9% (plus) 50 ML IV (02:10)
[2022-12-22 02:11] LABS: Alanine Aminotransferase 31 U/L (0-33); Albumin Level 3.1 g/dL (3.5-5.2); Alkaline Phosphatase 114 U/L (35-105); Anion Gap 15.2 (5-19); Aspartate Amino Transferase 44 U/L (0-32); Blood Urea Nitrogen 22 mg/dL (8-23); Calcium 7.4 mg/dL (8.5-10.5); Carbon Dioxide 24 mmol/L (22-29); Chloride 105 mmol/L (98-107); Globulin 2.2 g/dL (1.3-4.6); Glucose 163 mg/dL (65-115); NT Pro B Type Natriuretic Pept 6280 pg/mL (0-450); Osmolality Calculated 299 mOsm/kg (285-295); Potassium 3.2 mmol/L (3.5-5.1); Sodium 141 mmol/L (136-145); Total Bilirubin 0.3 mg/dL (0.15-1.2); Total Protein 5.3 g/dL (6.6-8.7)
--- NOTE | 2022-12-22 02:14 | W.ED.SOB ---
HPI - SOB/Dyspnea General: Chief Complaint: ER Hold Stated Complaint: respiratory distress Time Seen by Provider: 12/22/22 00:51 History of Present Illness: HPI Narrative: 77-year-old female who was discharged yesterday now from this facility after prolonged stay for respiratory failure. She had a pacemaker placed during the visit. She presents again in respiratory failure. EMS states family called EMS because of pulse ox saturations in the 30s despite BiPAP ventilation at home. On EMS arrival, oxygenation was difficult, so the patient was intubated in the field. She arrives intubated, sedated, and paralyzed. MD elicited complaint: shortness of breath Pertinent past history: COPD and congestive heart failure Onset (ago): hour(s) Context: recent illness Timing: progressively worsening Severity: severe Known history of: COPD and congestive heart failure Associated symptoms: Reports chest congestion Treatment prior to arrival: intubation Review of Systems General: Reports: ROS unobtainable due to medical condition Resp: Reports: chest congestion [facility] ED PFSH: Medical History Anticoagulation adequate with anticoagulant therapy Aspiration pneumonia Atherosclerosis of coronary artery of [place] heart without angina pectoris Atrial fibrillation Cardiac arrest due to underlying cardiac condition Cardiac arrest with successful resuscitation Cardiac arrest with ventricular fibrillation Congestive heart failure with cardiomyopathy Coronary artery disease CVA (cerebral vascular accident) Encounter for physical examination related to employment History of pneumonia Hyperlipidemia Hypertension Ischemic cardiomyopathy Metabolic acidosis Neuropathy Pulmonary edema Pulmonary fibrosis Pulmonary HTN ST elevation (STEMI) myocardial infarction Transaminitis UTI (urinary tract infection) Valvular heart disease Surgical History History of heart artery stent No pertinent past surgical history Family History Father Cancer Dementia Stroke Hypertension Lung disease Mother Cancer Lung disease Social History Smoking and tobacco status: former smoker Quit status (tobacco): has quit using tobacco Former quit date comment: PPD x 20+ yrs Second hand smoke exposure: Yes Alcohol intake: never Substance/Drug Use: never Adopted: No Lives independently: Yes Household members: spouse Housing: House Marital status: Number of children: 3 Highest education level completed: High School Graduate service: No Current occupational status: employed 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 Pets and animals: Yes Current gender identity: Female Physical Exam Const: GENERAL APPEARANCE: ill appearing, frail appearing and patient mechanically ventilated HENMT: COMMON NORMALS: normocephalic, atraumatic and Normal external nose present HEAD & SCALP: normocephalic and atraumatic FACE & SINUS: normal facial exam NOSE: Normal external nose present Eye: COMMON NORMALS: Equal, round and reactive pupils present PUPIL: Yes Equal, round and reactive pupils present Neck/C-Spine: GENERAL: Yes trachea midline Chest: CHEST: Yes Symmetrical chest wall rise Resp: EFFORT & INSPECTION: Yes symmetric chest movement and Yes other AUSCULTATION: wheezes and diminished lung sounds Cardio: COMMON NORMALS: regular rate and regular rhythm RATE: regular rate RHYTHM: regular rhythm GI: COMMON NORMALS: Soft to palpation PALPATION: Yes Soft to palpation Extremity: GENERAL: Yes edema (minimal) Procedures Central Line Placement Left IJ: Time Out Performed: Yes Patient Placed on Monitor/Pulse Ox: Yes MD Prep: mask, gown and gloves Central Line Prep: Chlorhexidine scrub Local Anesthetic: lidocaine 1% Amount of anesthesia used (mL): 3 Ultrasound Used for Placement: Yes Central Line Lumen Inserted: triple Post Procedure: sutured in place, good blood return, all ports aspirated, flushed, capped and sterile dressing applied Post Procedure X-Ray: tip of catheter in good position and no pneumothorax seen Patient Tolerated Procedure: well and no complications Complications: none Course Vital Signs: Vital signs: Vital Signs Temperature 97.8 F 12/22/22 00:51 Pulse Rate 52 L 12/22/22 05:30 Respiratory Rate 18 12/22/22 05:30 Blood Pressure 92/52 12/22/22 05:30 Pulse Oximetry 100 12/22/22 05:30 Oxygen Delivery Me thod Mechanical Ventil ation 12/22/22 05:30 Fraction of Inspir ed Oxygen 50 12/22/22 05:30 MDM - SOB/Dyspnea Medical Decision Making [id number] female intubated in the field for acute hypoxic respiratory failure. On arrival, she is sedated and intubated. Oxygenation was excellent using bag valve through the ET tube. She was placed on the ventilator although pressures in the field seem to be good, blood pressure was low on arrival here patient was given a 2 L bolus. With her history of heart failure, and some signs of fluid overload with decreased oxygenation, felt not appropriate to give the full 30 mL/kg bolus. She is placed on Levophed after left IJ central line placement at 2. Blood pressure currently 110/57. Heart rate is 56. Saturations are 100%. Initial blood gas showed a pH of 7.38, with a normal bicarbonate, and normal PCO2. PO2 was 435. White blood cell count is 17. Hemoglobin is 10. Lactic acid is 1.9. BMP is not otherwise remarkable, at least what is back on the patient currently. Chest x-ray shows bilateral infiltrates, possibly interstitial pneumonia versus fluid overload She is covered with vancomycin and Zosyn. Potassium was repleted IV. Blood cultures are of course drawn and pending. Left IJ and ET tube are in place on chest x-ray. Had an extensive conversation with the patient's daughter. Currently we do not have an ICU bed available, but 1 will likely become available later this morning. The patient is doing quite well, in fact she is essentially awake despite attempts at sedation with fentanyl and propofol. She is answering questions essentially appropriately at this point. Her blood pressure is mildly soft currently 100/54. Heart rate of 50. Saturations are still 100%. She will go to ICU when bed available. Hospitalist has seen the patient in the ER. Did bedside echo to make sure there is no pericardial tamponade. This is completed by myself, without evidence of significant pericardial effusion. Lab Data 12/22/22 01:35 12/22/22 01:35 Labs/Radiology: Radiology Impressions Chest X-Ray 12/22/22 03:47 IMPRESSION: 1. Enteric tube with its tip in the gastric fundus. 2. Endotracheal tube overlies the trachea with the tip 3 cm above the lee in satisfactory position. 3. Mild cardiomegaly stable. 4. Coarse chronic pulmonary markings. Improved bilateral hazy pulmonary opacities. Laboratory Results WBC 17.3 10^3/uL (4.0-10.0) H 12/22/22 01:35 RBC 3.35 10^6/uL (4.1-5.3) L 12/22/22 01:35 Hgb 10.2 g/dL (11.5-15.3) L 12/22/22 01:35 Hct 33.9 % (37.0-47.0) L 12/22/22 01:35 MCV 101.2 fl (81-99) H 12/22/22 01:35 MCH 30.4 pg (28.0-34.0) 12/22/22 01:35 MCHC 30.1 g/dL (30.0-36.0) 12/22/22 01:35 RDW 14.0 % (12.1-15.1) 12/22/22 01:35 Plt Count 160 10^3/cmm (130-400) 12/22/22 01:35 MPV 10.5 fL (7.4-10.4) H 12/22/22 01:35 Neut % (Auto) 90.3 % 12/22/22 01:35 Lymph % (Auto) 4.7 % 12/22/22 01:35 [place] % (Auto) 3.6 % 12/22/22 01:35 Eos % (Auto) 0.5 % 12/22/22 01:35 Baso % (Auto) 0.3 % 12/22/22 01:35 Neut # (Auto) 15.58 10^3/uL (1.8-7.7) H 12/22/22 01:35 Lymph # (Auto) 0.8 10^3/uL (0.8-4.8) 12/22/22 01:35 [place] # (Auto) 0.6 10^3/uL (0.2-0.9) 12/22/22 01:35 Eos # (Auto) 0.1 10^3/uL (0.0-0.8) 12/22/22 01:35 Baso # (Auto) 0.1 10^3/uL (0.0-0.1) 12/22/22 01:35 Nucleated RBC % (auto) 0 % 12/22/22 01:35 Nucleated RBCs # 0.0 /100WBC 12/22/22 01:35 PT 15.10 SECONDS (12.1-14.9) H 12/22/22 01:35 INR 1.15 (0.8-1.2) 12/22/22 01:35 D-Dimer 4.07 ug/mIFEU (0-0.59) H 12/22/22 01:35 Specimen Type Arterial 12/22/22 01:00 Sample Site Radial, left 12/22/22 01:00 ABG pH 7.38 (7.35-7.45) 12/22/22 01:00 ABG pCO2 42.1 mmHg (35-45) 12/22/22 01:00 ABG pO2 435.0 mmHg (80.0-100.0) H 12/22/22 01:00 ABG HCO3 24.9 mmol/L (22-26) 12/22/22 01:00 ABG Base Excess -0.4 mmol/L (-2.0-2.0) 12/22/22 01:00 Fidencio Test Pos 12/22/22 01:00 Hematocrit 35.4 % (37-47) L 12/22/22 01:00 O2 Delivery Device Ambu 12/22/22 01:00 FiO2 100.0 % 12/22/22 01:00 Social Media Executive ID [email or web address] 12/22/22 01:00 Sodium 141 mmol/L (136-145) 12/22/22 01:35 Potassium 3.2 mmol/L (3.5-5.1) L 12/22/22 01:35 Chloride 105 mmol/L (98-107) 12/22/22 01:35 Carbon Dioxide 24 mmol/L (22-29) 12/22/22 01:35 Anion Gap 15.2 (5-19) 12/22/22 01:35 BUN 22 mg/dL (8-23) 12/22/22 01:35 Creatinine 1.4 mg/dL (0.5-0.9) H 12/22/22 01:35 GFR Calculation Not Reportable 12/22/22 01:35 Glucose 163 mg/dL (65-115) H 12/22/22 01:35 Calculated Osmolality 299 mOsm/kg (285-295) H 12/22/22 01:35 Lactic Acid 1.9 mmol/L (0.5-2.2) 12/22/22 01:35 Calcium 7.4 mg/dL (8.5-10.5) L 12/22/22 01:35 Total Bilirubin 0.3 mg/dL (0.15-1.2) 12/22/22 01:35 AST 44 U/L (0-32) H 12/22/22 01:35 ALT 31 U/L (0-33) 12/22/22 01:35 Alkaline Phosphatase 114 U/L (35-105) H 12/22/22 01:35 Troponin T Baseline 64 ng/L (0-10) H 12/22/22 01:35 Troponin T 120 Minute 37.77 ng/L (0-10) H 12/22/22 04:46 Delta Troponin T -26.23 ABS# (0-10) L 12/22/22 04:46 NT-Pro-B Natriuret Pep 6280 pg/mL (0-450) H 12/22/22 01:35 Total Protein 5.3 g/dL (6.6-8.7) L 12/22/22 01:35 Albumin 3.1 g/dL (3.5-5.2) L 12/22/22 01:35 Globulin 2.2 g/dL (1.3-4.6) 12/22/22 01:35 Urine Color Yellow (Yellow) 12/22/22 03:50 Urine Appearance Clear (CLEAR) 12/22/22 03:50 Urine pH 6 (5-7) 12/22/22 03:50 Ur Specific [place] 1.010 (1.005-1.030) 12/22/22 03:50 Urine Protein Trace (Negative) 12/22/22 03:50 Urine Glucose (UA) Norm (Normal) 12/22/22 03:50 Urine Ketones Negative (Negative) 12/22/22 03:50 Urine Blood Neg (Negative) 12/22/22 03:50 Urine Nitrate Negative (Negative) 12/22/22 03:50 Urine Bilirubin Neg (Negative) 12/22/22 03:50 Urine Urobilinogen Norm mg/dL (Negative) 12/22/22 03:50 Ur Leukocyte Esterase Negative (Negative) 12/22/22 03:50 Urine RBC 0-4 /hpf (0-2) H 12/22/22 03:50 Urine WBC 0-4 /hpf (0-5) H 12/22/22 03:50 Ur Squamous Epith Cells None /hpf (0-5) 12/22/22 03:50 Amorphous Sediment Not Reportable 12/22/22 03:50 Urine Bacteria 1+ /hpf (NONE) H 12/22/22 03:50 SARS-CoV-2 Ag (Rapid) negative 12/22/22 01:35 Blood Type O Positive 12/22/22 02:12 Rho(D) Type Positive 12/22/22 02:12 Antibody Screen Negative 12/22/22 02:12 Critical Care Time Critical Care Time: Critical Care Time: Yes Total Critical Care Time: 45 Attestation: This case had a high probability of a clinically significant, sudden, or life threatening deterioration of this patient's condition which required my full and direct attention, intervention and personal management. Time is independent of any procedures performed Discharge Plan Discharge Patient Disposition: Admitted As Inpatient Admit Provider: Yessenia Mijares Clinical Impression: Acute respiratory failure with hypoxemia, Pulmonary edema Condition: Serious Coding Level of Care Code ED Oven Equipment Repairer for Shelly Juárez
[2022-12-22 02:23] LABS: SARS Covid-2 Antigen negative
[2022-12-22] MEDS: vancomycin 1,000 MG in sodium chloride 0.9% 250 ML 250 MG IV (02:42)
--- NOTE | 2022-12-22 02:58 | ECG_ITS ---
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 Measurements Intervals [place] Rate: 60 P: 66 NE: 150 QRS: 5 QRSD: 90 T: 93 QT: 313 QTc: 313 Interpretive Statements SINUS RHYTHM POSSIBLE LEFT ATRIAL ENLARGEMENT [-0.1mV P-WAVE IN V1/V2] ANTEROSEPTAL MYOCARDIAL INFARCTION , AGE INDETERMINATE Compared to ECG 12/12/2022 05:51:15 No significant changes Electronically Signed On 12-22-2022 12:37:11 CDT by Rashel Cerna M.D. [id number]
[2022-12-22 03:12] LABS: INR 1.15 (0.8-1.2)
[2022-12-22 03:21] LABS: D Dimer 4.07 ug/mIFEU (0-0.59)
--- NOTE | 2022-12-22 03:47 | XRR_ITS ---
PROCEDURE INFORMATION: Exam: XR Chest Exam date and time: 12/22/2022 3:54 AM Age: 77 years old Clinical indication: Device placement; Ng tube; Additional info: Og placement TECHNIQUE: Imaging protocol: Radiologic exam of the chest. Views: 1 view. Total images: 1 COMPARISON: CR (CHEST, ) 12/22/2022 1:34 AM FINDINGS: Tubes, catheters and devices: AICD projects in satisfactory location. Enteric tube with its tip in the gastric fundus. Endotracheal tube overlies the trachea with the tip 3 cm above the lee in satisfactory position. A left internal jugular central venous catheter is present, with its tip unchanged from prior exam. Lungs: Coarse chronic pulmonary markings. Improved bilateral hazy pulmonary opacities. Pleural spaces: Unremarkable. No pleural effusion. No pneumothorax. Heart/Mediastinum: Mild cardiomegaly stable. Bones/joints: Old right rib fractures are evident. XR/XR chest 1V portable [id number] IMPRESSION: 1. Enteric tube with its tip in the gastric fundus. 2. Endotracheal tube overlies the trachea with the tip 3 cm above the lee in satisfactory position. 3. Mild cardiomegaly stable. 4. Coarse chronic pulmonary markings. Improved bilateral hazy pulmonary opacities.
[2022-12-22] MEDS: potassium chloride premix 100 ML 50 MEQ IV (03:57)
[2022-12-22 04:33] LABS: Add Urine Microscopic? YES; Bilirubin Urine Neg (Negative); Blood Urine Neg (Negative); Glucose Urine UA Norm (Normal); Ketones Urine Negative (Negative); Leukocyte Esterase Urine Negative (Negative); Nitrate Urine Negative (Negative); Protein Urine Trace (Negative); Urine Appearance Clear (CLEAR); Urine Color Yellow (Yellow); Urobilinogen Urine Norm (Negative); pH Urine 6 (5-7)
[2022-12-22 04:34] LABS: Bacteria Urine 1+ /hpf; RBC Urine 0-4 /hpf (0-2); WBC Urine 0-4 /hpf (0-5)
[2022-12-22 05:13] LABS: Troponin 5 2HR 37.77 ng/L (0-10)
--- NOTE | 2022-12-22 05:35 | PM.HP ---
Providers/Chief Complaint Admitting Physician: Yessenia Mijares MD Primary Care Provider: Jesus Seay DO Chief Complaint: respiratory distress History of Present Illness Agatha Graham is a 77 year old female with a complicated recent past medical history, please refer to discharge summary from December 21, 2022 for details. Briefly, patient had anterior wall [place] in October of this year following which her ejection fraction has been noted to be 35 to 40%. She underwent stent placement to the LCx, hospital course was complicated by development of A-fib for which she was started on amiodarone and Eliquis. She returned home but thereafter suffered cardiac arrest a few hours after discharge. Stents were found to be patent at this time. Eventually she was discharged and went to rehab for a while. Her most recent admission was between December 12 to December 21 after presenting with flash pulmonary edema. CTA was negative for PE. She was treated with aggressive diuresis and broad-spectrum antibiotics due to concern for pneumonia. Infectious work-up remain negative. Heart failure medications were optimized. Echo showed EF of 30% with regional wall motion abnormalities and grade 2 diastolic dysfunction with mild pulmonary hypertension. ICD was placed on 519 for primary prevention of arrhythmia. She did well with the procedure. Discharged home on December 21, 2022 and returned again a few hours after discharge due to acute respiratory distress. Per family she was eating some Jell-O, did not show, all of a sudden went into respiratory distress. Family placed her on a BiPAP, by the time EMS came around her O2 sats were noted to be as low as 30%, oxygenation was difficult so patient was intubated in the field. She is currently intubated at the time of my assessment. ABG upon admission at 1 AM was 7.38/42 point 4.9 on 100% FiO2 on ventilator. She did not have any complaints of chest pain dyspnea palpitations or syncope prior to the events. WBC count is at 17.3, was 7.9 at discharge today. D-dimer at 4.07, down from 20 in October 2022. Patient has been off Eliquis since her AICD placement, she was scheduled to resume this next week. She did receive prophylactic anticoagulation during her recent admission. Potassium is mildly low at 3.2, unlikely to be the cause of her symptoms today. Baseline troponin at 64, trending down to 37 at 2 hours with a delta of -26. BNP elevated at 6200. EKG shows ST segment depression in leads II, III and aVF, overall appears unchanged compared to EKG from December 12, 2022. no fever, chills, cellulitis around AICD site Review of Systems General: Reports: ROS unobtainable due to medical condition Medications/Allergies Home Medications Medication Instructions Recorded Confirmed Last Taken Type budesonide-formoterol HFA 160 2 puff inhalation BID #10.2 grams 10/28/22 12/12/22 Unknown Rx mcg-4.5 mcg/actuation aerosol inhaler (Symbicort) diclofenac sodium 1 % topical gel 2 g topical QID #100 grams 10/28/22 12/12/22 Unknown Rx levalbuterol tartrate 45 2 inh inhalation Q6H #15 grams 10/28/22 12/12/22 Unknown Rx mcg/actuation aerosol inhaler (Xopenex HFA) oxygen concentrator with portable #1 ea 10/28/22 12/12/22 Unknown Rx amiodarone 200 mg tablet 200 mg PO DAILY #90 tabs 12/03/22 12/12/22 12/11/22 Rx apixaban 2.5 mg tablet 2.5 mg PO BID@0900,2100 #180 tabs 12/03/22 12/12/22 12/11/22 Rx atorvastatin 40 mg tablet 40 mg PO BEDTIME #90 tabs 12/03/22 12/12/22 12/11/22 Rx clopidogrel 75 mg tablet 75 mg PO DAILY #90 tabs 12/03/22 12/12/22 12/11/22 Rx nitroglycerin 0.4 mg sublingual 0.4 mg sublingual Q5M PRN Chest 12/03/22 12/12/22 12/11/22 Rx tablet Pain #25 tabs potassium chloride 10 mEq 10 meq PO DAILY #90 tabs 12/03/22 12/12/22 12/11/22 Rx tablet,extended release gabapentin 100 mg capsule 100 mg PO Q12H 12/12/22 12/12/22 12/11/22 19:00 History tamsulosin 0.4 mg capsule 0.4 mg PO BEDTIME 12/12/22 12/12/22 12/11/22 History furosemide 40 mg tablet 40 mg PO DAILY@0800 #30 tabs 12/21/22 Unknown Rx hydrocodone 5 mg-acetaminophen 325 1 tab PO Q8H #10 tabs 12/21/22 Unknown Rx mg tablet losartan 50 mg tablet 25 mg PO DAILY #30 tabs 12/21/22 Unknown Rx metoprolol tartrate 25 mg tablet 12.5 mg PO BID@0900,2100 30 days 12/21/22 Unknown Rx #30 tabs pantoprazole 40 mg tablet,delayed 40 mg PO DAILY #30 tabs 12/21/22 Unknown Rx release sulfamethoxazole 800 1 tab PO BID #6 tabs 12/21/22 Unknown Rx mg-trimethoprim 160 mg tablet (Bactrim DS) Allergies Allergy/AdvReac Type Severity Reaction Status Date / Time No Known Allergies Allergy Verified 12/11/22 22:10 PFSH Acute PFSH: Medical History Anticoagulation adequate with anticoagulant therapy Aspiration pneumonia Atherosclerosis of coronary artery of [place] heart without angina pectoris Atrial fibrillation Cardiac arrest due to underlying cardiac condition Cardiac arrest with successful resuscitation Cardiac arrest with ventricular fibrillation Congestive heart failure with cardiomyopathy Coronary artery disease CVA (cerebral vascular accident) Encounter for physical examination related to employment History of pneumonia Hyperlipidemia Hypertension Ischemic cardiomyopathy Metabolic acidosis Neuropathy Pulmonary edema Pulmonary fibrosis Pulmonary HTN ST elevation (STEMI) myocardial infarction Transaminitis UTI (urinary tract infection) Valvular heart disease Surgical History History of heart artery stent No pertinent past surgical history Family History Father Cancer Dementia Stroke Hypertension Lung disease Mother Cancer Lung disease Social History Smoking and tobacco status: former smoker Quit status (tobacco): has quit using tobacco Former quit date comment: PPD x 20+ yrs Second hand smoke exposure: Yes Alcohol intake: never Substance/Drug Use: never Adopted: No Lives independently: Yes Household members: spouse Housing: House Marital status: Number of children: 3 Highest education level completed: High School Graduate service: No Current occupational status: employed 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 Pets and animals: Yes Current gender identity: Female Vitals/I&O/Wt Last Vital Signs Temp 97.8 F 12/22/22 00:51 Pulse 54 L 12/22/22 05:15 Resp 18 12/22/22 05:15 BP 115/52 12/22/22 05:15 Pulse Ox 100 12/22/22 05:15 O2 Del Method Mechanical Ventilation 12/22/22 05:00 FiO2 50 12/22/22 05:15 12/21/22 12/21/22 12/22/22 14:59 22:59 06:59 Intake Total 2339.896 / 2339.896 Balance 2339.896 / 2339.896 Weight last 48 hrs Weight 68.039 kg Physical Exam Narrative: General: Intubated, sedated HEENT: PERRLA, pupils bilaterally equal and reactive, pallors not present Chest: Coarse crackles to auscultation B/L infra axillary areas CVS: S1-S2 regular Abdomen: Soft, nontender, no organomegaly, bowel sounds present Neuro: intubated, sedated Extremities: Urinary Catheter Management: Mathews: Cath Placed During This Visit: yes Urinary Catheter Date of Insertion: 12/22/22 Urinary Catheter Time of Insertion: 03:50 Data 12/22/22 01:35 12/22/22 01:35 Micro: Microbiology 12/22/22 02:02 Blood Culture - Preliminary Blood SPECIMEN COLLECTED 12/22/22 01:35 Blood Culture - Preliminary Blood SPECIMEN COLLECTED Other data: Radiology Impressions Chest X-Ray 12/22/22 03:47 IMPRESSION: 1. Enteric tube with its tip in the gastric fundus. 2. Endotracheal tube overlies the trachea with the tip 3 cm above the lee in satisfactory position. 3. Mild cardiomegaly stable. 4. Coarse chronic pulmonary markings. Improved bilateral hazy pulmonary opacities. Laboratory Results WBC 17.3 10^3/uL (4.0-10.0) H 12/22/22 01:35 RBC 3.35 10^6/uL (4.1-5.3) L 12/22/22 01:35 Hgb 10.2 g/dL (11.5-15.3) L 12/22/22 01:35 Hct 33.9 % (37.0-47.0) L 12/22/22 01:35 MCV 101.2 fl (81-99) H 12/22/22 01:35 MCH 30.4 pg (28.0-34.0) 12/22/22 01:35 MCHC 30.1 g/dL (30.0-36.0) 12/22/22 01:35 RDW 14.0 % (12.1-15.1) 12/22/22 01:35 Plt Count 160 10^3/cmm (130-400) 12/22/22 01:35 MPV 10.5 fL (7.4-10.4) H 12/22/22 01:35 Neut % (Auto) 90.3 % 12/22/22 01:35 Lymph % (Auto) 4.7 % 12/22/22 01:35 [place] % (Auto) 3.6 % 12/22/22 01:35 Eos % (Auto) 0.5 % 12/22/22 01:35 Baso % (Auto) 0.3 % 12/22/22 01:35 Neut # (Auto) 15.58 10^3/uL (1.8-7.7) H 12/22/22 01:35 Lymph # (Auto) 0.8 10^3/uL (0.8-4.8) 12/22/22 01:35 [place] # (Auto) 0.6 10^3/uL (0.2-0.9) 12/22/22 01:35 Eos # (Auto) 0.1 10^3/uL (0.0-0.8) 12/22/22 01:35 Baso # (Auto) 0.1 10^3/uL (0.0-0.1) 12/22/22 01:35 Nucleated RBC % (auto) 0 % 12/22/22 01:35 Nucleated RBCs # 0.0 /100WBC 12/22/22 01:35 PT 15.10 SECONDS (12.1-14.9) H 12/22/22 01:35 INR 1.15 (0.8-1.2) 12/22/22 01:35 D-Dimer 4.07 ug/mIFEU (0-0.59) H 12/22/22 01:35 Specimen Type Arterial 12/22/22 01:00 Sample Site Radial, left 12/22/22 01:00 ABG pH 7.38 (7.35-7.45) 12/22/22 01:00 ABG pCO2 42.1 mmHg (35-45) 12/22/22 01:00 ABG pO2 435.0 mmHg (80.0-100.0) H 12/22/22 01:00 ABG HCO3 24.9 mmol/L (22-26) 12/22/22 01:00 ABG Base Excess -0.4 mmol/L (-2.0-2.0) 12/22/22 01:00 Fidencio Test Pos 12/22/22 01:00 Hematocrit 35.4 % (37-47) L 12/22/22 01:00 O2 Delivery Device Ambu 12/22/22 01:00 FiO2 100.0 % 12/22/22 01:00 Journeyman Wireman ID [email or web address] 12/22/22 01:00 Sodium 141 mmol/L (136-145) 12/22/22 01:35 Potassium 3.2 mmol/L (3.5-5.1) L 12/22/22 01:35 Chloride 105 mmol/L (98-107) 12/22/22 01:35 Carbon Dioxide 24 mmol/L (22-29) 12/22/22 01:35 Anion Gap 15.2 (5-19) 12/22/22 01:35 BUN 22 mg/dL (8-23) 12/22/22 01:35 Creatinine 1.4 mg/dL (0.5-0.9) H 12/22/22 01:35 GFR Calculation Not Reportable 12/22/22 01:35 Glucose 163 mg/dL (65-115) H 12/22/22 01:35 Calculated Osmolality 299 mOsm/kg (285-295) H 12/22/22 01:35 Lactic Acid 1.9 mmol/L (0.5-2.2) 12/22/22 01:35 Calcium 7.4 mg/dL (8.5-10.5) L 12/22/22 01:35 Total Bilirubin 0.3 mg/dL (0.15-1.2) 12/22/22 01:35 AST 44 U/L (0-32) H 12/22/22 01:35 ALT 31 U/L (0-33) 12/22/22 01:35 Alkaline Phosphatase 114 U/L (35-105) H 12/22/22 01:35 Troponin T Baseline 64 ng/L (0-10) H 12/22/22 01:35 Troponin T 120 Minute 37.77 ng/L (0-10) H 12/22/22 04:46 Delta Troponin T -26.23 ABS# (0-10) L 12/22/22 04:46 NT-Pro-B Natriuret Pep 6280 pg/mL (0-450) H 12/22/22 01:35 Total Protein 5.3 g/dL (6.6-8.7) L 12/22/22 01:35 Albumin 3.1 g/dL (3.5-5.2) L 12/22/22 01:35 Globulin 2.2 g/dL (1.3-4.6) 12/22/22 01:35 Urine Color Yellow (Yellow) 12/22/22 03:50 Urine Appearance Clear (CLEAR) 12/22/22 03:50 Urine pH 6 (5-7) 12/22/22 03:50 Ur Specific [place] 1.010 (1.005-1.030) 12/22/22 03:50 Urine Protein Trace (Negative) 12/22/22 03:50 Urine Glucose (UA) Norm (Normal) 12/22/22 03:50 Urine Ketones Negative (Negative) 12/22/22 03:50 Urine Blood Neg (Negative) 12/22/22 03:50 Urine Nitrate Negative (Negative) 12/22/22 03:50 Urine Bilirubin Neg (Negative) 12/22/22 03:50 Urine Urobilinogen Norm mg/dL (Negative) 12/22/22 03:50 Ur Leukocyte Esterase Negative (Negative) 12/22/22 03:50 Urine RBC 0-4 /hpf (0-2) H 12/22/22 03:50 Urine WBC 0-4 /hpf (0-5) H 12/22/22 03:50 Ur Squamous Epith Cells None /hpf (0-5) 12/22/22 03:50 Amorphous Sediment Not Reportable 12/22/22 03:50 Urine Bacteria 1+ /hpf (NONE) H 12/22/22 03:50 SARS-CoV-2 Ag (Rapid) negative 12/22/22 01:35 Blood Type O Positive 12/22/22 02:12 Rho(D) Type Positive 12/22/22 02:12 Antibody Screen Negative 12/22/22 02:12 A&P Assessment and plan (1) Congestive heart failure with cardiomyopathy: (2) Acute respiratory distress: (3) Hypoxia: Plan 77-year-old lady with multiple admissions, complicated clinical course as noted in HPI, presenting with acute respiratory distress few hours after discharge. O2 sat 30% when EMS picked up the patient. Unable to maintain oxygenation with Ambu bag ventilation therefore patient was intubated in the field. Currently she is intubated, sedated on ventilatory support. Currently requiring minimal vent settings, 50% FiO2, PEEP 10. We will repeat ABG and if able to wean down on the vent settings may be able to extubate in the next 24 hours. Because of acute respiratory distress currently under investigation. Patient did not have any chest pain dyspnea vomiting or diaphoresis prior to her respiratory distress. Troponin elevated, delta negative at 2 hours, overall troponins are downtrending compared to previous admission, suspect this to be a residual rather than a new cardiac event. BNP is elevated, chest x-ray showing bilateral infiltrates which could be field marketing representative of flash pulmonary edema. Lasix 40 mg IV now. Further doses to be dependent on kidney function and urine output. Less likely PE, patient is on Eliquis for A-fib, Eliquis has been transiently held due to placement of an AICD on 519, however she has remained on DVT prophylaxis during her previous admission. Check limited echocardiogram to evaluate for pericardial tamponade, valve rupture. She has leukocytosis,, hypotension, currently requiring circulatory support with Levophed at 4 mics. Will pursue infectious work-up and start empiric coverage with piperacillin/tazobactam and vancomycin in the interim. Blood cultures taken prior to starting antibiotics. UA unremarkable. Chest x-ray with bilateral infiltrates which appear to be more consistent with pulmonary edema, however pneumonia cannot be excluded at this time. AICD site appears to be without any signs of cellulitis or pus discharge. Patient is critically ill, all updates discussed with patient's daughter at bedside. Attestations Medical Necessity Statement*: Greater than 2 midnight admission is anticipated for above defined care Coding Level of Care Code Critical Care >/= 30 minutes Diagnoses Congestive heart failure with cardiomyopathy I50.9; I42.9 Acute respiratory distress R06.03 Hypoxia R09.02
--- NOTE | 2022-12-22 05:44 | USCV_ITS ---
Agatha Graham Age: 77 Gender: F : 1945 Exam Date: 12/22/2022 10:05 Ordering Phys: Yessenia Mijares MD Technologist: MELVIN Exam Location: [facility] – [place] Indication: tamponade BP: / HR: 47 Rhythm: Sinus Technical Quality: Adequate MEASUREMENTS (Male / Female) Normal Values 2D ECHO LV Diastolic Diameter PLAX 6.1 cm 4.2 - 5.9 / 3.9 - 5.3 cm LV Systolic Diameter PLAX 5.7 cm IVS Diastolic Thickness 0.5 cm 0.6 - 1.0 / 0.6 - 0.9 cm IVS Systolic Thickness 0.6 cm LVPW Diastolic Thickness 0.8 cm 0.6 - 1.0 / 0.6 - 0.9 cm LVPW Systolic Thickness 1.0 cm LV Ejection Fraction 2D Teich 16.7 % DOPPLER TR Peak Velocity 295.0 cm/s TR Peak Gradient 34.8 mmHg Right Atrial Pressure 9.0 mmHg Pulmonary Artery Systolic Pressu 43.8 mmHg FINDINGS Left Ventricle Right Ventricle Right Atrium Left Atrium Mitral Valve Aortic Valve Tricuspid Valve Pulmonic Valve Pericardium Aorta IVC CONCLUSIONS Limited echocardiogram performed to assess LV systolic function. Left ventricle is dilated. LV systolic function is severely reduced with EF of 25 to 30%. Regional wall motion abnormalities cannot accurately be assessed because of limited visualization. Mild mitral regurgitation. Mild to moderate aortic regurgitation Mild pulmonary hypertension Compared to prior echocardiogram from 12/12/2022, no significant changes are seen. Rashel Cerna MD (Electronically Signed) Final Date: 22 Dec 2022 12:33 S
--- NOTE | 2022-12-22 06:58 | ECG_ITS ---
[facility] Test Date: 2022-12-22 Pat Name: Agatha Graham Department: Room: [facility] Gender: Female [employer] Referee: : 1945 Requested By: Pelon Martini Order Number: [id number] Oli MD: Rashel Cerna M.D. Measurements Intervals [place] Rate: 49 P: 79 NM: 147 QRS: -61 QRSD: 90 T: 100 QT: 453 QTc: 411 Interpretive Statements SINUS BRADYCARDIA LEFT AXIS DEVIATION [QRS AXIS < -30] POSSIBLE ANTERIOR MYOCARDIAL INFARCTION , OF INDETERMINATE AGE [30 ms Q WAVE IN V3/V4, OR R < 0.2 mV IN V4] Compared to ECG 12/22/2022 01:39:49 Left-axis deviation now present Sinus rhythm no longer present Myocardial infarct finding still present Electronically Signed On 12-22-2022 12:36:12 CDT by Rashel Cerna M.D. [email or web address]
--- NOTE | 2022-12-22 07:16 | PC.NURSE ---
Patient is resting with equal chest rise. Patient is intubated. Family at bedside.
--- NOTE | 2022-12-22 08:00 | PC.NURSE ---
admit from er intubated and on vent et tube on levophed and propofol and fentnyl gtt monitor sbrady at this time ..
--- NOTE | 2022-12-22 08:13 | PC.PHAR ---
GIVE 1 GRAM VANCOMYCIN EVERY 24H. TROUGH BEFORE DOSE ON 12/25
[2022-12-22 08:18] LABS: Troponin 5 6HR 56.21 ng/L (0-10)
[2022-12-22] MEDS: FUROsemide 10 mg/mL SDV 4mL 40 MG IVP (08:18)
[2022-12-22] MEDS: pantoprazole 40 mg SDV IVP (08:18)
[2022-12-22] MEDS: enoxaparin 40 mg/0.4 mL Syringe SUBCUT (08:18)
[2022-12-22] MEDS: clopidogrel 75 mg Tablet NG-TUBE (08:19)
[2022-12-22] MEDS: amiodarone 200 mg Tablet NG-TUBE (08:19)
[2022-12-22 08:21] LABS: Troponin 5 6HR Delta -7.79 ng/L (0-12)
--- NOTE | 2022-12-22 10:00 | PC.NURSE ---
weaning off sedation and levophed at this time more awake weaning off vent responding and following commands increased urine output after lasix noted
--- NOTE | 2022-12-22 10:36 | P.CONIM_ITS ---
Providers/Reason For Consult Consulting Physician/Specialty*: Rashel Cerna MD/ Cardiology Reason for Consult*: Congestive heart failure Requesting Physician: Dr Catalan Attending Physician: Christ Catalan MD Primary Care Provider: Jesus Seay DO History of Present Illness History of Present Illness Agatha Graham is a 77 year old female with past medical history of CAD with PCI of LAD in October 2022, HFrEF with most recent EF of 30%, recent ICD placement was discharged from hospital yesterday. Few hours after her discharge, she started feeling worsening shortness of breath. She went into flash pulmonary edema. She was intubated. On arrival to ER NT proBNP was 6200. Troponin trended down from baseline of 64 to 37 at 2 hours. Now extubated. Denies chest pain. Review of Systems Narrative: CONSTITUTIONAL: No fever chills weight loss or gain or night sweats. [] HEENT: Normocephalic, atraumatic.[] RESPIRATORY: Shortness of breath CARDIOVASCULAR: No chest pain GI: no nausea vomiting diarrhea. [] COUNSELOR AT LAW: No numbness, tingling, weakness or loss of function in any part of the body. [] MUSCULOSKELETAL: No knee or joint pain or rashes. [] Medications/Allergies Home Medications Medication Instructions Recorded Confirmed Last Taken Type budesonide-formoterol HFA 160 2 puff inhalation BID #10.2 grams 10/28/22 12/22/22 Unknown Rx mcg-4.5 mcg/actuation aerosol inhaler (Symbicort) diclofenac sodium 1 % topical gel 2 g topical QID #100 grams 10/28/22 12/22/22 Unknown Rx levalbuterol tartrate 45 2 inh inhalation Q6H #15 grams 10/28/22 12/22/22 Unknown Rx mcg/actuation aerosol inhaler (Xopenex HFA) oxygen concentrator with portable #1 ea 10/28/22 12/22/22 Unknown Rx amiodarone 200 mg tablet 200 mg PO DAILY #90 tabs 12/03/22 12/22/22 12/11/22 Rx apixaban 2.5 mg tablet 2.5 mg PO BID@0900,2100 #180 tabs 12/03/22 12/22/22 12/11/22 Rx atorvastatin 40 mg tablet 40 mg PO BEDTIME #90 tabs 12/03/22 12/22/22 12/11/22 Rx clopidogrel 75 mg tablet 75 mg PO DAILY #90 tabs 12/03/22 12/22/22 12/11/22 Rx nitroglycerin 0.4 mg sublingual 0.4 mg sublingual Q5M PRN Chest 12/03/22 12/22/22 12/11/22 Rx tablet Pain #25 tabs potassium chloride 10 mEq 10 meq PO DAILY #90 tabs 12/03/22 12/22/22 12/11/22 Rx tablet,extended release gabapentin 100 mg capsule 100 mg PO Q12H 12/12/22 12/22/22 12/11/22 19:00 History tamsulosin 0.4 mg capsule 0.4 mg PO BEDTIME 12/12/22 12/22/22 12/11/22 History furosemide 40 mg tablet 40 mg PO DAILY@0800 #30 tabs 12/21/22 12/22/22 Unknown Rx hydrocodone 5 mg-acetaminophen 325 1 tab PO Q8H #10 tabs 12/21/22 12/22/22 Unknown Rx mg tablet losartan 50 mg tablet 25 mg PO DAILY #30 tabs 12/21/22 12/22/22 Unknown Rx metoprolol tartrate 25 mg tablet 12.5 mg PO BID@0900,2100 30 days 12/21/22 12/22/22 Unknown Rx #30 tabs pantoprazole 40 mg tablet,delayed 40 mg PO DAILY #30 tabs 12/21/22 12/22/22 Unknown Rx release sulfamethoxazole 800 1 tab PO BID #6 tabs 12/21/22 12/22/22 Unknown Rx mg-trimethoprim 160 mg tablet (Bactrim DS) Allergies Allergy/AdvReac Type Severity Reaction Status Date / Time No Known Allergies Allergy Verified 12/11/22 22:10 Current Medications Generic Name Dose Route Start Last Admin Trade Name Freq PRN Reason Stop Dose Admin Amiodarone HCl 200 mg 12/22/22 09:00 12/22/22 08:19 Amiodarone 200 Mg Tablet NG-TUBE 200 mg DAILY CHANTALE Administration Clopidogrel Bisulfate 75 mg 12/22/22 09:00 12/22/22 08:19 Clopidogrel 75 Mg Tablet NG-TUBE 75 mg DAILY CHANTALE Administration Enoxaparin Sodium 40 mg 12/22/22 07:55 12/22/22 08:18 Enoxaparin 40 Mg/0.4 Ml Syringe SUBCUT 40 mg Q24H CHANTALE Administration Propofol 1,000 mg in 100 mls @ 0 mls/hr 12/22/22 01:00 12/22/22 05:08 Diprivan IV 30 mcg/kg/min .Q0M CHANTALE 12.25 mls/hr Titration Protocol Per Protocol Fentanyl 2,500 mcg/ Sodium 250 mls @ 0 mls/hr 12/22/22 01:00 12/22/22 05:21 Chloride IV 100 mcg/hr .Q0M CHANTALE 10 mls/hr Titration Protocol Per Protocol Norepinephrine Bitartrate 4 mg 254 mls @ 0 mls/hr 12/22/22 01:00 12/22/22 05:36 / Dextrose IV 6 mcg/min .Q0M CHANTALE 22.86 mls/hr Titration Protocol Per Protocol Pantoprazole Sodium 40 mg 12/22/22 07:55 12/22/22 08:18 Pantoprazole 40 Mg Sdv IVP 40 mg Q24H CHANTALE Administration PFSH Acute PFSH: Medical History Anticoagulation adequate with anticoagulant therapy Aspiration pneumonia Atherosclerosis of coronary artery of [place] without angina pectoris Atrial fibrillation Cardiac arrest due to underlying cardiac condition Cardiac arrest with successful resuscitation Cardiac arrest with ventricular fibrillation Congestive heart failure with cardiomyopathy Coronary artery disease CVA (cerebral vascular accident) Encounter for physical examination related to employment History of pneumonia Hyperlipidemia Hypertension Ischemic cardiomyopathy Metabolic acidosis Neuropathy Pulmonary edema Pulmonary fibrosis Pulmonary HTN ST elevation (STEMI) myocardial infarction Transaminitis UTI (urinary tract infection) Valvular heart disease Surgical History History of heart artery stent No pertinent past surgical history Family History Father Cancer Dementia Stroke Hypertension Lung disease Mother Cancer Lung disease Social History Smoking and tobacco status: former smoker Quit status (tobacco): has quit using tobacco Former quit date comment: PPD x 20+ yrs Second hand smoke exposure: Yes Alcohol intake: never Substance/Drug Use: never Adopted: No Lives independently: Yes Household members: spouse Housing: House Marital status: Number of children: 3 Highest education level completed: High School Graduate service: No Current occupational status: employed 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 [] NECK: No jugular vein distension. [] HEENT: No cyanosis. No icterus. No pallor. [] HEART: Regular S1 and S2. LUNGS: Diminished air entry CENTRAL NERVOUS SYSTEM: Grossly nonfocal. [] EXTREMITIES: Lower extremities with 1+ edema bilaterally. Urinary Catheter Management: Mathews: Cath Placed During This Visit: yes Reason for Continuing Indwelling Catheter: Required Immobilization for Trauma or Surgery or Anesthesia Urinary Catheter Date of Insertion: 12/22/22 Urinary Catheter Time of Insertion: 03:50 Data 12/22/22 01:35 12/22/22 16:32 Micro: Microbiology 12/22/22 02:02 Blood Culture - Preliminary Blood SPECIMEN COLLECTED 12/22/22 01:35 Blood Culture - Preliminary Blood SPECIMEN COLLECTED A&P Assessment and plan (1) S/P implantation of automatic cardioverter/defibrillator (AICD): (2) Congestive heart failure with cardiomyopathy: (3) Pulmonary HTN: (4) Atrial fibrillation: (5) Coronary artery disease: (6) Ischemic cardiomyopathy: Plan Patient has presented with flash pulmonary edema. She has been extubated now. Continue diuresis. Monitor renal function and I's and O's. Continue aspirin and Plavix. Troponins have not trended up significantly. She will benefit from switching to Entresto when renal function is stable. Check ICD Limited echocardiogram ordered. Thank you for involving us with care of this patient. We will continue to follow. Please call with questions. Consult Attestations Medical Necessity Statement: Care expected to cross 2 midnights. Coding Level of Care Code Acute Code for Chg Fwd Diagnoses S/P implantation of automatic cardioverter/defibrillator (AICD) Z95.810 Congestive heart failure with cardiomyopathy I50.9; I42.9 Pulmonary HTN I27.20 Atrial fibrillation I48.91 Coronary artery disease I25.10 Ischemic cardiomyopathy I25.5
[2022-12-22] MEDS: piperacillin-tazobactam 3.375 GM in sodium chloride 0.9% (plus) 50 ML IV ×2 (11:39→17:17)
--- NOTE | 2022-12-22 11:45 | PC.NURSE ---
extubated at this time placed on o2 at 2 lnc .. off all gtts at this time
[2022-12-22] MEDS: levalbuterol 0.63 mg/3 mL Neb INHALATION ×2 (13:40→19:55)
--- NOTE | 2022-12-22 14:30 | W.PM.EVENTAC ---
Event Note Event Note: Admitted overnight. Today morning seen with family at bedside. Patient was discharged yesterday morning and came in late last night intubated for flash pulmonary edema. As per family members patient had a good day at home, rested well, maintain fluid restriction, did not have any added salt, had Jell-O for dinner last night and went to lie down on 3 pillows and complained of difficulty in breathing. She was placed on BiPAP at home and given extra oral Lasix. As she did not improve they called EMS and he was intubated in the field. On examination patient is on Levophed of 4 with need 65, heart rate running in the low 40s, sinus bradycardia on EKG on propofol and fentanyl. Ventilator settings appreciated with FiO2 of 30% and PEEP of 5. During the day sedation was weaned off. Patient had good R SBI. Patient was eventually extubated to 2 L nasal cannula oxygen supplementation. Months of the patient her heart rate improved to mid 60s and Levophed was turned off. Patient had around 1600 cc of urine output by midday. Plan: Speech evaluation at bedside. Keep mean artery pressure 65. Cardiology consultation. Limited echo for evaluation of mitral regurgitation. Appreciate ICD interrogation for no arrhythmias. Troponin cycle appreciated and negative in 6 hours. Switch to Eliquis 5 mg twice daily from a.m. Advised by Dr. Piña who read ICD on 12/20 to start Eliquis from Friday. Continue Lovenox today. Repeat BMP in evening. If mean arterial pressure remains over 65 can start metoprolol 12.5 mg twice daily from tomorrow AM. Repeat CBC and CMP in AM. Keep oxygen saturation over 92%. Continue with empiric antibiotics for now. Follow-up sputum culture. Patient's care discussed in detail with daughter and family at bedside. We discussed possible etiologies including arrhythmia, possible NH, PE, worsening congestive heart failure in setting of severe LV dysfunction in detail. We did discuss that unfortunately ICD is negative for any arrhythmias, blood work and EKG is negative for any acute NH, patient is already on Eliquis and CTA would not benefit for PE rule out given mild RACHELLE currently. All the questions were answered. Event Notes Attestations Time Spent in Patient Care: Critical care time of additional 70 minutes for above defined care Other Coding Information Prolonged care (total time indicated above or notated here) (Critical care time of 70 minutes including extubation, weaning of Levophed, goals of care discussion with family)
[2022-12-22] MEDS: potassium chloride ER 20 mEq Tablet 40 MEQ PO (15:00)
[2022-12-22 16:59] LABS: Anion Gap 12.1 (5-19); Blood Urea Nitrogen 20 mg/dL (8-23); Calcium 8.4 mg/dL (8.5-10.5); Carbon Dioxide 27 mmol/L (22-29); Chloride 106 mmol/L (98-107); Glucose 104 mg/dL (65-115); Osmolality Calculated 295 mOsm/kg (285-295); Potassium 4.1 mmol/L (3.5-5.1); Sodium 141 mmol/L (136-145)
--- NOTE | 2022-12-22 18:41 | PC.NURSE ---
gayle walton with witness of Princess Ocasio Rn
[2022-12-22] MEDS: acetaminophen 325 mg Tablet 650 MG PO (21:06)
[2022-12-22] MEDS: atorvastatin 40 mg Tablet NG-TUBE (21:12)
[2022-12-23] VITALS (46 sets, daily range): BP systolic 87–174; BP diastolic 43–129; PULSE 59–117; RESP 14–40; TEMP 36.7–36.8; O2SAT 81–100
[2022-12-23] MEDS: piperacillin-tazobactam 3.375 GM in sodium chloride 0.9% (plus) 50 ML IV ×2 (02:16→09:34)
[2022-12-23] MEDS: vancomycin 1,000 MG in sodium chloride 0.9% 250 ML 250 MG IV (02:16)
[2022-12-23] MEDS: levalbuterol 0.63 mg/3 mL Neb INHALATION ×3 (03:01→13:38)
--- NOTE | 2022-12-23 08:15 | USCV_ITS ---
Agatha Graham Age: 77 Gender: F : 1945 Exam Date: 12/23/2022 08:58 Ordering Phys: Mai Perrin MD Technologist: CT Exam Location: [facility] [place] Indication: adela Aortic Velocity @ SMA (cm/s) 86.4 RIGHT KIDNEY LEFT KIDNEY Velocity (cm/s) Velocity (cm/s) Sys/Haney Sys/Haney Resistive Index Resistive Index 141.2 / 18.1 0.87 Proximal Renal Artery / 154.8 / 23.8 0.85 Mid Renal Artery / 93.3 / 17.9 0.81 Distal Renal Artery 62.2 / 16.2 0.74 89.3 / 23.8 0.73 Hilar 57.2 / 9.3 0.84 25.8 / 11.9 0.54 Upper Pole 23.6 / 6.2 0.74 36.7 / 8.9 0.76 Mid Pole 42.3 / 13.1 0.69 28.8 / 10.9 0.62 Lower Pole 42.4 / 10.2 0.76 1.80 Renal Aortic Ratio 0.72 Accleration Index (cm/sec2) 2550.0 Hilar 682.00 0 600.00 Upper Pole 269.00 873.00 Mid Pole 334.00 585.00 Lower Pole 323.00 111.1 Kidney Length (mm) 95.0 FINDINGS no evidence of ADELA noted. prx/mid renal art not seen due to bowel gas CONCLUSIONS No sonographic evidence of hemodynamically significant renal artery stenosis bilaterally. Proximal and mid renal arteries not seen due to bowel gas. Gaurav Jimenez MD (Electronically Signed) Final Date: 23 Dec 2022 15:31 S
[2022-12-23 08:51] LABS: Alanine Aminotransferase 18 U/L (0-33); Albumin Level 3.3 g/dL (3.5-5.2); Alkaline Phosphatase 110 U/L (35-105); Anion Gap 15.3 (5-19); Aspartate Amino Transferase 27 U/L (0-32); Blood Urea Nitrogen 18 mg/dL (8-23); Calcium 8.9 mg/dL (8.5-10.5); Carbon Dioxide 24 mmol/L (22-29); Chloride 105 mmol/L (98-107); Globulin 2.7 g/dL (1.3-4.6); Glucose 113 mg/dL (65-115); Osmolality Calculated 293 mOsm/kg (285-295); Potassium 4.3 mmol/L (3.5-5.1); Sodium 140 mmol/L (136-145); Total Bilirubin 0.6 mg/dL (0.15-1.2)
[2022-12-23 09:08] LABS: Basophils # 0.1 10^3/uL (0.0-0.1); Basophils % 0.8 %; Eosinophils # 0.2 10^3/uL (0.0-0.8); Eosinophils % 2.9 %; Hematocrit 35.6 % (37.0-47.0); Hemoglobin 10.7 g/dL (11.5-15.3); Lymphocytes # 1.4 10^3/uL (0.8-4.8); Lymphocytes % 18.7 %; Mean Corpuscular HGB Conc 30.1 g/dL (30.0-36.0); Mean Corpuscular Volume 99.7 fl (81-99); Monocytes # 0.5 10^3/uL (0.2-0.9); Monocytes % 6.5 %; Neutrophils # 5.35 10^3/uL (1.8-7.7); Neutrophils % 70.8 %; Nucleated Red Blood Cells % 0 %; Platelet Count 123 10^3/cmm (130-400); Red Blood Count 3.57 10^6/uL (4.1-5.3); Red Cell Distribution Width 14.4 % (12.1-15.1); White Blood Count 7.6 10^3/uL (4.0-10.0)
--- NOTE | 2022-12-23 09:11 | PM.PN ---
Subjective Subjective: Events of the weekend are noted. This patient received her ICD on Friday. She was discharged home on Friday. Few hours later, she was readmitted with features of acute pulmonary edema. She got intubated and currently is extubated. Her cardiac enzymes are unremarkable for myocardial injury. Vitals/I&O/Wt Last Vital Signs Temp 98.1 F 12/23/22 04:00 Pulse 79 12/23/22 08:29 Resp 18 12/23/22 08:20 BP 108/66 12/23/22 04:15 Pulse Ox 96 12/23/22 08:20 O2 Del Method Nasal Cannula 12/23/22 08:20 O2 Flow Rate 2 12/23/22 08:20 FiO2 30 12/22/22 18:00 12/22/22 12/23/22 12/23/22 22:59 06:59 14:59 Intake Total 105.564 / 311.928 332.385 / 644.313 Output Total 1950 / 1950 200 / 2150 Balance -1844.436 / -1638.072 132.385 / -1505.687 Weight last 48 hrs Weight 150 lb Physical Exam Narrative: GENERAL: The patient is alert and oriented times three. Not in any acute distress. HEENT: No significant pallor, icterus or lymphadenopathy.Oral cavity: There are no mucous membrane lesions. NECK: Trachea appears to be central. No masses noted. No JVD or thyromegaly appreciated. RESPIRATORY: Chest is symmetrical. No intercostals muscle retraction or any accessory muscle activation. There is no chest wall tenderness. Breath sounds are heard bilaterally. Scattered coarse crackles bilaterally in the bases. No evidence of any consolidation. BREASTS: Deferred. HEART: The heart sounds are normal. No S3 or S4. No significant murmurs. No pericardial rub ABDOMEN: No vessel pulsations or distention. No tenderness. No organomegaly appreciated. Bowel sounds are normally heard. : Deferred. RECTAL: Deferred. LYMPHATIC: No lymphadenopathy noted in the neck. EXTREMITIES: No edema or cyanosis. No clubbing. MUSCULOSKELETAL: No acute joint deformities or swelling SKIN: There are no significant rashes or ecchymosis NEUROPSYCHIATRIC: The patient is alert and oriented x3. Appears to be in a good mood. No tremors or rigidity noted. Urinary Catheter Management: Mathews: Cath Placed During This Visit: yes Reason for Continuing Indwelling Catheter: Required Immobilization for Trauma or Surgery or Anesthesia Urinary Catheter Date of Insertion: 12/22/22 Urinary Catheter Time of Insertion: 03:50 Data 12/23/22 08:10 12/23/22 08:10 Other Labs: Laboratory Last Values WBC 7.6 10^3/uL (4.0-10.0) 12/23/22 08:10 RBC 3.57 10^6/uL (4.1-5.3) L 12/23/22 08:10 Hgb 10.7 g/dL (11.5-15.3) L 12/23/22 08:10 Hct 35.6 % (37.0-47.0) L 12/23/22 08:10 MCV 99.7 fl (81-99) H 12/23/22 08:10 MCH 30.0 pg (28.0-34.0) 12/23/22 08:10 MCHC 30.1 g/dL (30.0-36.0) 12/23/22 08:10 RDW 14.4 % (12.1-15.1) 12/23/22 08:10 Plt Count 123 10^3/cmm (130-400) L 12/23/22 08:10 MPV 11.0 fL (7.4-10.4) H 12/23/22 08:10 Neut % (Auto) 70.8 % 12/23/22 08:10 Lymph % (Auto) 18.7 % 12/23/22 08:10 [place] % (Auto) 6.5 % 12/23/22 08:10 Eos % (Auto) 2.9 % 12/23/22 08:10 Baso % (Auto) 0.8 % 12/23/22 08:10 Neut # (Auto) 5.35 10^3/uL (1.8-7.7) 12/23/22 08:10 Lymph # (Auto) 1.4 10^3/uL (0.8-4.8) 12/23/22 08:10 [place] # (Auto) 0.5 10^3/uL (0.2-0.9) 12/23/22 08:10 Eos # (Auto) 0.2 10^3/uL (0.0-0.8) 12/23/22 08:10 Baso # (Auto) 0.1 10^3/uL (0.0-0.1) 12/23/22 08:10 Nucleated RBC % (auto) 0 % 12/23/22 08:10 Nucleated RBCs # 0.0 /100WBC 12/23/22 08:10 PT 15.10 SECONDS (12.1-14.9) H 12/22/22 01:35 INR 1.15 (0.8-1.2) 12/22/22 01:35 D-Dimer 4.07 ug/mIFEU (0-0.59) H 12/22/22 01:35 Specimen Type Arterial 12/22/22 01:00 Sample Site Radial, left 12/22/22 01:00 ABG pH 7.38 (7.35-7.45) 12/22/22 01:00 ABG pCO2 42.1 mmHg (35-45) 12/22/22 01:00 ABG pO2 435.0 mmHg (80.0-100.0) H 12/22/22 01:00 ABG HCO3 24.9 mmol/L (22-26) 12/22/22 01:00 ABG Base Excess -0.4 mmol/L (-2.0-2.0) 12/22/22 01:00 Fidencio Test Pos 12/22/22 01:00 Hematocrit 35.4 % (37-47) L 12/22/22 01:00 O2 Delivery Device Ambu 12/22/22 01:00 FiO2 100.0 % 12/22/22 01:00 Retail Department Manager ID [email or web address] 12/22/22 01:00 Sodium 140 mmol/L (136-145) 12/23/22 08:10 Potassium 4.3 mmol/L (3.5-5.1) 12/23/22 08:10 Chloride 105 mmol/L (98-107) 12/23/22 08:10 Carbon Dioxide 24 mmol/L (22-29) 12/23/22 08:10 Anion Gap 15.3 (5-19) 12/23/22 08:10 BUN 18 mg/dL (8-23) 12/23/22 08:10 Creatinine 1.4 mg/dL (0.5-0.9) H 12/23/22 08:10 GFR Calculation Not Reportable 12/23/22 08:10 Glucose 113 mg/dL (65-115) 12/23/22 08:10 Calculated Osmolality 293 mOsm/kg (285-295) 12/23/22 08:10 Lactic Acid 1.9 mmol/L (0.5-2.2) 12/22/22 01:35 Calcium 8.9 mg/dL (8.5-10.5) 12/23/22 08:10 Total Bilirubin 0.6 mg/dL (0.15-1.2) 12/23/22 08:10 AST 27 U/L (0-32) 12/23/22 08:10 ALT 18 U/L (0-33) 12/23/22 08:10 Alkaline Phosphatase 110 U/L (35-105) H 12/23/22 08:10 Troponin T Baseline 64 ng/L (0-10) H 12/22/22 01:35 Troponin T 120 Minute 37.77 ng/L (0-10) H 12/22/22 04:46 Delta Troponin T -26.23 ABS# (0-10) L 12/22/22 04:46 Troponin T Hi Sens 6Hr 56.21 ng/L (0-10) H 12/22/22 07:31 Troponin T Hi Sens 6Hr Delta -7.79 ng/L (0-12) L 12/22/22 07:31 NT-Pro-B Natriuret Pep 6280 pg/mL (0-450) H 12/22/22 01:35 Total Protein 6.0 g/dL (6.6-8.7) L 12/23/22 08:10 Albumin 3.3 g/dL (3.5-5.2) L 12/23/22 08:10 Globulin 2.7 g/dL (1.3-4.6) 12/23/22 08:10 Urine Color Yellow (Yellow) 12/22/22 03:50 Urine Appearance Clear (CLEAR) 12/22/22 03:50 Urine pH 6 (5-7) 12/22/22 03:50 Ur Specific [place] 1.010 (1.005-1.030) 12/22/22 03:50 Urine Protein Trace (Negative) 12/22/22 03:50 Urine Glucose (UA) Norm (Normal) 12/22/22 03:50 Urine Ketones Negative (Negative) 12/22/22 03:50 Urine Blood Neg (Negative) 12/22/22 03:50 Urine Nitrate Negative (Negative) 12/22/22 03:50 Urine Bilirubin Neg (Negative) 12/22/22 03:50 Urine Urobilinogen Norm mg/dL (Negative) 12/22/22 03:50 Ur Leukocyte Esterase Negative (Negative) 12/22/22 03:50 Urine RBC 0-4 /hpf (0-2) H 12/22/22 03:50 Urine WBC 0-4 /hpf (0-5) H 12/22/22 03:50 Ur Squamous Epith Cells None /hpf (0-5) 12/22/22 03:50 Amorphous Sediment Not Reportable 12/22/22 03:50 Urine Bacteria 1+ /hpf (NONE) H 12/22/22 03:50 SARS-CoV-2 Ag (Rapid) negative 12/22/22 01:35 Blood Type O Positive 12/22/22 02:12 Rho(D) Type Positive 12/22/22 02:12 Antibody Screen Negative 12/22/22 02:12 Micro: Microbiology 12/22/22 02:02 Blood Culture - Preliminary Blood NEGATIVE TO DATE 12/22/22 01:35 Blood Culture - Preliminary Blood NEGATIVE TO DATE 12/22/22 02:52 Gram Stain - Final Sputum - Endotracheal Tube Aspirate EKG 1: My Interpretation: Bradycardia with a rate of 49 bpm. Left axis deviation. Diffuse T wave changes in the anterolateral leads. Other data: The EKG on 12/22/2022 Sinus bradycardia with a rate of 49 bpm. Poor R wave progression. Diffuse nonspecific T wave changes. Left axis deviation. The echocardiogram on 12/22/2022 Limited echocardiogram performed to assess LV systolic function. ?Left ventricle is dilated.? LV systolic function is severely ?reduced with EF of 25 to 30%.? Regional wall motion ?abnormalities cannot accurately be assessed because of limited ?visualization.? ?Mild mitral regurgitation. ?Mild to moderate aortic regurgitation ?Mild pulmonary hypertension ?Compared to prior echocardiogram from 12/12/2022, no significant ?changes are seen. A&P Assessment and plan (1) Acute on chronic systolic heart failure: Patient apparently has recurrent decompensated heart failure. That the etiology is unclear. Possibility of cardiac arrhythmia causing this is a consideration. Coronary ischemia causing the heart failure also is a consideration. (2) S/P implantation of automatic cardioverter/defibrillator (AICD): ICD need to be interrogated. The ICD interrogation report was reviewed. There was no arrhythmias recorded on the device telemetry. (3) Pulmonary HTN: This along with the tricuspid regurgitation could be a contributing factor. (4) Pulmonary fibrosis: This is being followed by pulmonology. (5) Hypertension: Currently she is normotensive. Blood pressure has been staying in the normal or below normal levels. (6) Acute respiratory failure with hypoxemia: Most likely from the acute cardiac decompensation. Currently the patient is extubated. (7) Coronary artery disease: Patient status post PCI of the LAD and circumflex artery. May need to take another look at these arteries by a repeat angiogram to rule out coronary ischemia causing recurrent heart failure. (8) Acute kidney injury: Will be carefully monitor the kidney function. (9) Tricuspid regurgitation: Patient had a moderately severe tricuspid regurgitation by previous echocardiogram. Possibility of intracardiac shunt causing recurrent heart failure also is a consideration. Patient may benefit from a AMBER to better evaluate the valves/intracardiac shunts. Plan I discussed with the patient and her family about further management plan. Patient may benefit from a AMBER and a cardiac catheterization to further evaluate the cause for recurrent cardiac decompensation. Continue careful IV diuresis. Based on the clinical progress and the results of the above, further recommendations will be made. Attestations Medical Necessity Statement*: Patient requires continued hospital stay for close monitoring and further management Coding Level of Care Code 62462 Diagnoses Acute on chronic systolic heart failure I50.23 S/P implantation of automatic cardioverter/defibrillator (AICD) Z95.810 Pulmonary HTN I27.20 Pulmonary fibrosis J84.10 Hypertension I10 Acute respiratory failure with hypoxemia J96.01 Coronary artery disease I25.10 Acute kidney injury N17.9 Tricuspid regurgitation I07.1
[2022-12-23] MEDS: apixaban 5 mg Tablet PO (09:29)
[2022-12-23] MEDS: amiodarone 200 mg Tablet NG-TUBE (09:29)
[2022-12-23] MEDS: metoprolol tartrate 25 mg Tablet 12.5 MG PO (09:29)
[2022-12-23] MEDS: clopidogrel 75 mg Tablet NG-TUBE (09:29)
[2022-12-23] MEDS: pantoprazole 40 mg SDV IVP (09:29)
--- NOTE | 2022-12-23 10:37 | XRR_ITS ---
PROCEDURE INFORMATION: Exam: XR Chest Exam date and time: 12/23/2022 10:48 AM Age: 77 years old Clinical indication: Shortness of breath; Prior surgery; Surgery date: 6+ months; Surgery type: Pacer; Additional info: SOB TECHNIQUE: Imaging protocol: Radiologic exam of the chest. Views: 1 view. COMPARISON: CR (CHEST, ) 12/22/2022 3:54 AM FINDINGS: Tubes, catheters and devices: A cardiac pacing device is again seen projecting over the left chest. Left IJ approach central line is in satisfactory position, with distal tip in the SVC, approximately 2 cm above the SVC/RA junction. Lungs: Low lung volumes. There is increased interstitial markings and haziness of the lungs, which in the setting of cardiomegaly is suggestive of pulmonary congestion. Pneumonia should be excluded clinically. Pleural spaces: Unremarkable. No pleural effusion. No pneumothorax. Heart/Mediastinum: Stable cardiomediastinal silhouette. Bones/joints: Unremarkable. XR/XR chest 1V portable [id number] IMPRESSION: Imaging findings suggestive of pulmonary congestion. Pneumonia should be excluded clinically.
--- NOTE | 2022-12-23 10:41 | ECG_ITS ---
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 Measurements Intervals [place] Rate: 119 P: 76 ND: 203 QRS: -64 QRSD: 85 T: 65 QT: 291 QTc: 411 Interpretive Statements SINUS TACHYCARDIA POSSIBLE LEFT ATRIAL ENLARGEMENT [-0.1mV P-WAVE IN V1/V2] POSSIBLE RIGHT VENTRICULAR CONDUCTION DELAY [RSR (QR) IN V1/V2] POSSIBLE ANTERIOR MYOCARDIAL INFARCTION , OF INDETERMINATE AGE [30 ms Q WAVE IN V3/V4, OR R < 0.2 mV IN V4] INFERIOR MYOCARDIAL INFARCTION , PROBABLY OLD [40+ ms Q WAVE AND/OR ST/T ABNORMALITY IN II/aVF] Compared to ECG 12/22/2022 07:52:25 Sinus bradycardia no longer present Left-axis deviation no longer present Myocardial infarct finding still present Electronically Signed On 12-23-2022 16:28:30 CDT by Rashel Cerna M.D. [id number]
[2022-12-23] MEDS: magnesium sulfate premix 2 GM/50 ML PIGGYBACK IV (10:47)
[2022-12-23] MEDS: morphine 4 mg/mL SDV 1 mL 2 MG IVP (10:47)
--- NOTE | 2022-12-23 11:00 | PC.NURSE ---
Pt was found in room with respiratory rate in the 30's complaining of shortness of breath. Sats were noted to be in the 70's. Dr. Perrin and respiratory at bedside. New orders entered.
--- NOTE | 2022-12-23 12:28 | P.TS_ITS ---
Transfer Summary Providers Date of Admission: 12/22/22 04:54 Date of Discharge/Transfer: 12/23/22 Attending Provider at Admission: Yessenia Mijares MD Attending Provider at Transfer: Mai Perrin MD Primary Care Provider: Jesus Seay DO Transfer Plans: Anticipated date of transfer: 12/23/22 . Diagnoses at Discharge Discharge Diagnosis (1) Acute on chronic systolic heart failure: Status: Acute (2) S/P implantation of automatic cardioverter/defibrillator (AICD): Status: Acute (3) Pulmonary HTN: Status: Acute (4) Pulmonary fibrosis: Status: Acute (5) Hypertension: Status: Acute (6) Acute respiratory failure with hypoxemia: Status: Acute (7) Coronary artery disease: Status: Acute (8) Acute kidney injury: Status: Acute Reason for Visit Reason for Visit respiratory distress Brief History: Agatha Graham is a 77 year old female with a complicated recent past medical history, please refer to discharge summary from December 21, 2022 for details. Briefly, patient had anterior wall OK in October of this year following which her ejection fraction has been noted to be 35 to 40%.? She underwent stent placement to the LCx, hospital course was complicated by development of A-fib for which she was started on amiodarone and Eliquis.? She returned home but thereafter suffered cardiac arrest a few hours after discharge.? Stents were found to be patent at this time.? Eventually she was discharged and went to rehab for a while.? Her most recent admission was between December 12 to December 21 after presenting with flash pulmonary edema.? CTA was negative for PE.? She was treated with aggressive diuresis and broad-spectrum antibiotics due to concern for pneumonia.? Infectious work-up remain negative.? Heart failure medications were optimized.? Echo showed EF of 30% with regional wall motion abnormalities and grade 2 diastolic dysfunction with mild pulmonary hypertension.? ICD was placed on 12/20 for primary prevention of arrhythmia.? She did well with the procedure.? Discharged home on December 21, 2022 and returned again a few hours after discharge due to acute respiratory distress.? Per family she was eating some Jell-O, did not show, all of a sudden went into respiratory distress.? Family placed her on a BiPAP, by the time EMS came around her O2 sats were noted to be as low as 30%, oxygenation was difficult so patient was intubated in the field.? She is currently intubated at the time of my assessment. ABG upon admission at 1 AM was 7.38/42 point 4.9 on 100% FiO2 on ventilator. She did not have any complaints of chest pain dyspnea palpitations or syncope prior to the events.? WBC count is at 17.3, was 7.9 at discharge today.? D-dimer at 4.07, down from 20 in October 2022.? Patient has been off Eliquis since her AICD placement, she was scheduled to resume this next week.? She did receive prophylactic anticoagulation during her recent admission.? Potassium is mildly low at 3.2, unlikely to be the cause of her symptoms today.? Baseline troponin at 64, trending down to 37 at 2 hours with a delta of -26.? BNP elevated at 6200.? EKG shows ST segment depression in leads II, III and aVF, overall appears unchanged compared to EKG from December 12, 2022. no fever, chills, cellulitis around AICD site Hospital Course Hospital Course Patient was admitted to ICU for acute hypoxic respiratory failure requiring mechanical ventilation related to CHF exacerbation, on Friday she was extubated to 2 L of nasal cannula without any complications, on mechanical ventilator she was requiring 30% FiO2 with PEEP of 5, after extubation on 2 L of nasal cannula patient was saturating 93 to 95%, her rhythm was sinus, AICD interrogation unremarkable for any arrhythmias, electrolytes were replenished, patient was kept on therapeutic Lovenox because Eliquis was put on hold with recent AICD placement that was done on 12/20. EKG showing sinus rhythm with sinus tachycardia. Her recent CTA chest rule out PE it was consistent with pulm edema, today she received Eliquis 5 mg in the morning along Plavix and amiodarone, metoprolol, patient developed respiratory distress, she was cyanotic heart rate was 120 sinus tachycardia, pulse ox showing O2 saturation 80% on 2 L, quickly requested RT to put her on BiPAP, stat x-ray did not show flash from edema it was showing mild congestion, blood pressure 145/90 mmHg, blood pressure has been labile with diastolic fluctuating between 95 to 110 mmHg, with use of morphine and 2 g of magnesium, heart rate and tachypnea improved. Currently her BiPAP FiO2 has been titrated off to 40%. Blood pressure 132/80 mmHg, afebrile, pulse 68, sinus rhythm, pacemaker interrogation, unremarkable Patient has been accepted at 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 Shelley is the category planner who has accepted patient in the ICU for respiratory failure Limited echo report MEASUREMENTS? (Male / Female) Normal Values ?2D ECHO ?LV Diastolic Diameter PLAX? 6.1 cm? 4.2 - 5.9 / 3.9 - 5.3 cm ?LV Systolic Diameter PLAX ? 5.7 cm?IVS Diastolic Thickness ? 0.5 cm? 0.6 - 1.0 / 0.6 - 0.9 cm ?IVS Systolic Thickness? 0.6 cm?LVPW Diastolic Thickness? 0.8 cm? 0.6 - 1.0 / 0.6 - 0.9 cm ?LVPW Systolic Thickness ? 1.0 cm?LV Ejection Fraction 2D Teich ? ? 16.7 %?DOPPLER ?TR Peak Velocity? 295.0 cm/s?TR Peak Gradient? 34.8 mmHg ?Right Atrial Pressure ? 9.0 mmHg?Pulmonary Artery Systolic Pressu? 43.8 mmHg ?FINDINGS ?Left Ventricle ?Right Ventricle ?Right Atrium ?Left Atrium ?Mitral Valve ?Aortic Valve ?Tricuspid Valve ?Pulmonic Valve ?Pericardium ?Aorta ?IVC ?CONCLUSIONS ?Limited echocardiogram performed to assess LV systolic function. ?Left ventricle is dilated.? LV systolic function is severely ?reduced with EF of 25 to 30%.? Regional wall motion ?abnormalities cannot accurately be assessed because of limited ?visualization.? ?Mild mitral regurgitation. ?Mild to moderate aortic regurgitation ?Mild pulmonary hypertension ?Compared to prior echocardiogram from 12/12/2022, no significant ?changes are seen. ?Rashel Cerna MD ?(Electronically Signed) ?Final Date:? ? ? 22 Dec 2022 12:33 Complete echo report ?Exam Date: ? ? 12/12/2022 02:36 ?Indication:? ? ? HF ?BP: ? 100 ? ? / ? 56? ? ? HR: ? 68 ?Rhythm: ? Sinus ?Technical Quality:? ? ? Adequate ?MEASUREMENTS? (Male / Female) Normal Values ?2D ECHO ?LV Diastolic Diameter PLAX? 4.5 cm? 4.2 - 5.9 / 3.9 - 5.3 cm ?LV Systolic Diameter PLAX ? 3.5 cm?IVS Diastolic Thickness ? 0.8 cm? 0.6 - 1.0 / 0.6 - 0.9 cm ?IVS Systolic Thickness? 1.0 cm?LVPW Diastolic Thickness? 1.2 cm? 0.6 - 1.0 / 0.6 - 0.9 cm ?LVPW Systolic Thickness ? 1.3 cm?LVOT Diameter ? 1.7 cm?LV Ejection Fraction 2D Teich ? ? 43.4 %?LV Ejection Fraction MOD 2C ? ? ? 32.2 %?LV Ejection Fraction 2C AL? 33.2 %?LA Diameter ? 3.9 cm?LA Width? 4.2 cm?LA Height ? 5.1 cm?RA Width? 3.4 cm?RA Height ? 3.3 cm?Aorta at Sinotubular Diameter ? ? 2.4 cm?IVC Diameter? 1.7 cm?M-MODE ?Aortic Annulus Diameter ? 2.7 cm?LA Ao Ratio MM? 1.5 ?MV E Point Septal Separation? ? ? 1.7 cm?DOPPLER ?AV Peak Velocity? 160.0 cm/s?LVOT Peak Velocity? 103.0 cm/s?AV Area Cont Eq vti ? 1.3 cm squared ?AV Area Cont Eq pk? 1.5 cm squared ?MV Peak Velocity? 92.0 cm/s ?MV Area PHT ? 4.1 cm squared ?Mitral E to A Ratio ? 0.9 ?MV E' Velocity? 43.0 cm/s ?Mitral E to MV E' Ratio ? 13.3?Mitral E to LV E' Lateral Ratio ? 12.9?Mitral E to LV E' Septal Ratio? ? 13.8?TR Peak Velocity? 298.3 cm/s?TR Peak Gradient? 35.6 mmHg ?TV Peak E Velocity? 46.0 cm/s ?Right Atrial Pressure ? 10.0 mmHg ?Pulmonary Artery Systolic Pressu? 45.6 mmHg ?PV Peak Velocity? 87.0 cm/s ?RV Acceleration Time? 0.1 s ?RV Ejection Time? 0.3 s ?RV AcT/ET ? 0.4 ?FINDINGS ?Left Ventricle ?The left ventricle is mildly enlarged.? There is severe left ?ventricular dysfunction.? Segmental wall motion disturbances to ?include akinesis of the apex and severe hypokinesis of the ?anterior wall, lateral wall and the apical septum.? The ?remainder of the septum is moderately hypokinetic.? The inferior ?and posterior corrigan are mildly hypokinetic.? The ejection ?fraction is about? 30%.? Grade 2 diastolic dysfunction. ?Right Ventricle ?Normal right ventricular size and systolic function. Mild ?pulmonary hypertension, RVSP 45.6 mmHg. ?Right Atrium ?The right atrium is normal in size. ?Left Atrium ?Mildly increased left atrial size. ?Mitral Valve ?Structurally normal mitral valve. Mild mitral valve ?regurgitation. ?Aortic Valve ?Structurally normal trileaflet aortic valve. Mild aortic valve ?calcification. Aortic valve sclerosis without stenosis. Mild-to- ?moderate aortic valve regurgitation. ?Tricuspid Valve ?Structurally normal tricuspid valve. [id number] ?tricuspid valve regurgitation. ?Pulmonic Valve ?Pulmonic valve not well visualized. ?Pericardium ?Normal pericardium without effusion. ?Aorta ?Normal ascending aorta dimension. ?IVC ?The inferior vena cava cava is normal in size but does not quite ?collapse normally with respiration.? Right atrial pressure is 10 ?mmHg. ?CONCLUSIONS ?The left ventricle is mildly enlarged.? There is severe left ?ventricular dysfunction.? Segmental wall motion disturbances to ?include akinesis of the apex and severe hypokinesis of the ?anterior wall, lateral wall and the apical septum.? The ?remainder of the septum is moderately hypokinetic.? The inferior ?and posterior corrigan are mildly hypokinetic.? The ejection ?fraction is about 30%.? Grade 2 diastolic dysfunction. ?Normal right ventricular size and systolic function. Mild ?pulmonary hypertension, RVSP 45.6 mmHg. ?Mildly increased left atrial size. ?Structurally normal mitral valve. Mild mitral valve ?regurgitation. ?Structurally normal trileaflet aortic valve. Mild aortic valve ?calcification. Aortic valve sclerosis without stenosis. Mild-to- ?moderate aortic valve regurgitation. ?Structurally normal tricuspid valve. [id number] ?tricuspid valve regurgitation. ?The inferior vena cava cava is normal in size but does not quite ?collapse normally with respiration.? Right atrial pressure is 10 ?mmHg. ?Compared to the previous echoes done on October 07 and October 16 the ?left ventricular function is probably slightly less.? Valvular ?lesions are unchanged.? This represents a rather large ?myocardial infarction in the distribution of the LAD Physical Exam Narrative: Pansystolic murmur No active chest pain or shortness of Clinically mild signs of fluid overload I do not hear crackles on lung nonfocal neuro exam amily at the bedside Abdomen soft Urinary Catheter Management: Mathews: Cath Placed During This Visit: yes Reason for Continuing Indwelling Catheter: Required Immobilization for Trauma or Surgery or Anesthesia Urinary Catheter Date of Insertion: 12/22/22 Urinary Catheter Time of Insertion: 03:50 TS Data Studies Completed and Pending Pending at discharge Category Date Time Status Aldosterone Routine Lab 12/22/22 08:10 Received Blood Culture Stat Lab 12/22/22 02:02 Results RENIN [Plasma Renin Activity LC/MS/MS] Routine Lab 12/22/22 08:10 Received Sputum Culture and Gram Stain Stat Lab 12/22/22 02:52 Results Vancomycin Trough Timed Lab 12/25/22 01:00 Ordered CV renal doppler [id number] Routine Ultrasound 12/23/22 08:15 Taken Labs from last 24 hours 12/23/22 12/23/22 12/22/22 08:10 08:10 16:32 WBC 7.6 RBC 3.57 L Hgb 10.7 L Hct 35.6 L MCV 99.7 H MCH 30.0 MCHC 30.1 RDW 14.4 Plt Count 123 L MPV 11.0 H Neut % (Auto) 70.8 Lymph % (Auto) 18.7 [place] % (Auto) 6.5 Eos % (Auto) 2.9 Baso % (Auto) 0.8 Neut # (Auto) 5.35 Lymph # (Auto) 1.4 [place] # (Auto) 0.5 Eos # (Auto) 0.2 Baso # (Auto) 0.1 Nucleated RBC % (auto) 0 Nucleated RBCs # 0.0 Sodium 140 141 Potassium 4.3 4.1 Chloride 105 106 Carbon Dioxide 24 27 Anion Gap 15.3 12.1 BUN 18 20 Creatinine 1.4 H 1.6 H GFR Calculation Not Reportable Not Reportable Glucose 113 104 Calculated Osmolality 293 295 Calcium 8.9 8.4 L Total Bilirubin 0.6 AST 27 ALT 18 Alkaline Phosphatase 110 H Total Protein 6.0 L Albumin 3.3 L Globulin 2.7 Renin Activity Aldosterone 12/22/22 12/22/22 08:10 08:10 WBC RBC Hgb Hct MCV MCH MCHC RDW Plt Count MPV Neut % (Auto) Lymph % (Auto) [place] % (Auto) Eos % (Auto) Baso % (Auto) Neut # (Auto) Lymph # (Auto) [place] # (Auto) Eos # (Auto) Baso # (Auto) Nucleated RBC % (auto) Nucleated RBCs # Sodium Potassium Chloride Carbon Dioxide Anion Gap BUN Creatinine GFR Calculation Glucose Calculated Osmolality Calcium Total Bilirubin AST ALT Alkaline Phosphatase Total Protein Albumin Globulin Renin Activity Pending Aldosterone Pending Completed Studies During Hospitalization Category Date Time Status CXRP [XR chest 1V portable [id number]] Stat Exams 12/23/22 10:37 Completed XR chest 1V portable [id number] Stat Exams 12/22/22 00:58 Completed XR chest 1V portable [id number] Stat Exams 12/22/22 03:47 Completed CV. echo limited [id number] Routine Ultrasound 12/22/22 05:44 Completed Laboratory Last Values WBC 7.6 10^3/uL (4.0-10.0) 12/23/22 08:10 RBC 3.57 10^6/uL (4.1-5.3) L 12/23/22 08:10 Hgb 10.7 g/dL (11.5-15.3) L 12/23/22 08:10 Hct 35.6 % (37.0-47.0) L 12/23/22 08:10 MCV 99.7 fl (81-99) H 12/23/22 08:10 MCH 30.0 pg (28.0-34.0) 12/23/22 08:10 MCHC 30.1 g/dL (30.0-36.0) 12/23/22 08:10 RDW 14.4 % (12.1-15.1) 12/23/22 08:10 Plt Count 123 10^3/cmm (130-400) L 12/23/22 08:10 MPV 11.0 fL (7.4-10.4) H 12/23/22 08:10 Neut % (Auto) 70.8 % 12/23/22 08:10 Lymph % (Auto) 18.7 % 12/23/22 08:10 [place] % (Auto) 6.5 % 12/23/22 08:10 Eos % (Auto) 2.9 % 12/23/22 08:10 Baso % (Auto) 0.8 % 12/23/22 08:10 Neut # (Auto) 5.35 10^3/uL (1.8-7.7) 12/23/22 08:10 Lymph # (Auto) 1.4 10^3/uL (0.8-4.8) 12/23/22 08:10 [place] # (Auto) 0.5 10^3/uL (0.2-0.9) 12/23/22 08:10 Eos # (Auto) 0.2 10^3/uL (0.0-0.8) 12/23/22 08:10 Baso # (Auto) 0.1 10^3/uL (0.0-0.1) 12/23/22 08:10 Nucleated RBC % (auto) 0 % 12/23/22 08:10 Nucleated RBCs # 0.0 /100WBC 12/23/22 08:10 PT 15.10 SECONDS (12.1-14.9) H 12/22/22 01:35 INR 1.15 (0.8-1.2) 12/22/22 01:35 D-Dimer 4.07 ug/mIFEU (0-0.59) H 12/22/22 01:35 Specimen Type Arterial 12/22/22 01:00 Sample Site Radial, left 12/22/22 01:00 ABG pH 7.38 (7.35-7.45) 12/22/22 01:00 ABG pCO2 42.1 mmHg (35-45) 12/22/22 01:00 ABG pO2 435.0 mmHg (80.0-100.0) H 12/22/22 01:00 ABG HCO3 24.9 mmol/L (22-26) 12/22/22 01:00 ABG Base Excess -0.4 mmol/L (-2.0-2.0) 12/22/22 01:00 Fidencio Test Pos 12/22/22 01:00 Hematocrit 35.4 % (37-47) L 12/22/22 01:00 O2 Delivery Device Ambu 12/22/22 01:00 FiO2 100.0 % 12/22/22 01:00 Machine Veneer Repairer ID [email or web address] 12/22/22 01:00 Sodium 140 mmol/L (136-145) 12/23/22 08:10 Potassium 4.3 mmol/L (3.5-5.1) 12/23/22 08:10 Chloride 105 mmol/L (98-107) 12/23/22 08:10 Carbon Dioxide 24 mmol/L (22-29) 12/23/22 08:10 Anion Gap 15.3 (5-19) 12/23/22 08:10 BUN 18 mg/dL (8-23) 12/23/22 08:10 Creatinine 1.4 mg/dL (0.5-0.9) H 12/23/22 08:10 GFR Calculation Not Reportable 12/23/22 08:10 Glucose 113 mg/dL (65-115) 12/23/22 08:10 Calculated Osmolality 293 mOsm/kg (285-295) 12/23/22 08:10 Lactic Acid 1.9 mmol/L (0.5-2.2) 12/22/22 01:35 Calcium 8.9 mg/dL (8.5-10.5) 12/23/22 08:10 Total Bilirubin 0.6 mg/dL (0.15-1.2) 12/23/22 08:10 AST 27 U/L (0-32) 12/23/22 08:10 ALT 18 U/L (0-33) 12/23/22 08:10 Alkaline Phosphatase 110 U/L (35-105) H 12/23/22 08:10 Troponin T Baseline 64 ng/L (0-10) H 12/22/22 01:35 Troponin T 120 Minute 37.77 ng/L (0-10) H 12/22/22 04:46 Delta Troponin T -26.23 ABS# (0-10) L 12/22/22 04:46 Troponin T Hi Sens 6Hr 56.21 ng/L (0-10) H 12/22/22 07:31 Troponin T Hi Sens 6Hr Delta -7.79 ng/L (0-12) L 12/22/22 07:31 NT-Pro-B Natriuret Pep 6280 pg/mL (0-450) H 12/22/22 01:35 Total Protein 6.0 g/dL (6.6-8.7) L 12/23/22 08:10 Albumin 3.3 g/dL (3.5-5.2) L 12/23/22 08:10 Globulin 2.7 g/dL (1.3-4.6) 12/23/22 08:10 Urine Color Yellow (Yellow) 12/22/22 03:50 Urine Appearance Clear (CLEAR) 12/22/22 03:50 Urine pH 6 (5-7) 12/22/22 03:50 Ur Specific [place] 1.010 (1.005-1.030) 12/22/22 03:50 Urine Protein Trace (Negative) 12/22/22 03:50 Urine Glucose (UA) Norm (Normal) 12/22/22 03:50 Urine Ketones Negative (Negative) 12/22/22 03:50 Urine Blood Neg (Negative) 12/22/22 03:50 Urine Nitrate Negative (Negative) 12/22/22 03:50 Urine Bilirubin Neg (Negative) 12/22/22 03:50 Urine Urobilinogen Norm mg/dL (Negative) 12/22/22 03:50 Ur Leukocyte Esterase Negative (Negative) 12/22/22 03:50 Urine RBC 0-4 /hpf (0-2) H 12/22/22 03:50 Urine WBC 0-4 /hpf (0-5) H 12/22/22 03:50 Ur Squamous Epith Cells None /hpf (0-5) 12/22/22 03:50 Amorphous Sediment Not Reportable 12/22/22 03:50 Urine Bacteria 1+ /hpf (NONE) H 12/22/22 03:50 SARS-CoV-2 Ag (Rapid) negative 12/22/22 01:35 Blood Type O Positive 12/22/22 02:12 Rho(D) Type Positive 12/22/22 02:12 Antibody Screen Negative 12/22/22 02:12 Radiology Impressions Chest X-Ray 12/23/22 10:37 IMPRESSION: Imaging findings suggestive of pulmonary congestion. Pneumonia should be excluded clinically. Recent Clincial Data Last Vital Signs Temp 98.1 F 12/23/22 04:00 Pulse 68 12/23/22 11:56 Resp 35 H 12/23/22 10:47 BP 132/80 12/23/22 10:00 Pulse Ox 96 12/23/22 11:56 O2 Del Method Nasal Cannula 12/23/22 08:20 O2 Flow Rate 2 12/23/22 08:20 FiO2 40 12/23/22 11:56 Vital Signs Temp Pulse Resp BP Pulse Ox O2 Del Method O2 Flow Rate 12/23/22 11:56 68 96 12/23/22 10:48 117 H 96 12/23/22 10:47 35 H 12/23/22 10:00 114 H 37 H 132/80 12/23/22 09:30 96 34 H 145/77 95 12/23/22 09:00 84 31 H 155/81 95 12/23/22 08:30 89 33 H 137/80 95 12/23/22 08:00 80 34 H 146/58 95 12/23/22 07:30 75 29 H 127/66 95 12/23/22 07:00 82 35 H 129/65 97 12/23/22 06:30 73 31 H 112/54 99 12/23/22 06:00 65 18 107/53 97 12/23/22 05:30 70 28 H 133/67 96 12/23/22 05:00 62 16 105/49 100 12/23/22 04:30 62 18 113/50 100 12/23/22 08:29 79 12/23/22 08:20 82 18 96 Nasal Cannula 2 12/23/22 04:15 62 17 108/66 100 12/23/22 04:00 98.1 F 59 L 19 H 113/60 100 12/23/22 03:45 63 19 H 109/46 99 12/23/22 03:30 60 18 115/54 99 12/23/22 03:15 59 L 18 108/58 98 12/23/22 03:00 64 26 H 110/57 99 12/23/22 02:45 61 20 H 123/55 96 12/23/22 02:30 66 21 H 115/50 97 05/22/23 02:15 61 16 104/50 97 12/23/22 02:00 63 18 118/58 98 12/23/22 01:45 68 27 H 121/59 98 12/23/22 01:30 67 18 106/58 99 12/23/22 02:00 60 16 98 Nasal Cannula 2 12/23/22 01:15 60 16 111/58 98 12/23/22 01:00 60 16 127/54 98 12/23/22 00:45 62 16 92/70 99 12/23/22 00:30 63 24 H 87/43 96 FiO2 12/23/22 11:56 40 12/23/22 10:48 60 12/23/22 10:47 12/23/22 10:00 12/23/22 09:30 12/23/22 09:00 12/23/22 08:30 12/23/22 08:00 12/23/22 07:30 12/23/22 07:00 12/23/22 06:30 12/23/22 06:00 12/23/22 05:30 12/23/22 05:00 12/23/22 04:30 12/23/22 08:29 12/23/22 08:20 12/23/22 04:15 12/23/22 04:00 12/23/22 03:45 12/23/22 03:30 12/23/22 03:15 12/23/22 03:00 12/23/22 02:45 12/23/22 02:30 12/23/22 02:15 12/23/22 02:00 12/23/22 01:45 12/23/22 01:30 12/23/22 02:00 12/23/22 01:15 12/23/22 01:00 12/23/22 00:45 12/23/22 00:30 Intake & Output/Weight 12/21/22 12/22/22 12/23/22 12/24/22 06:59 06:59 06:59 06:59 Intake Total 2474.694 / 2474.694 644.313 / 644.313 360 / 360 Output Total 400 / 400 2150 / 2150 Balance 2074.694 / 2074.694 -1505.687 / -1505.687 360 / 360 Weight 68.039 kg Vitals Last Vital Signs Temp 98.1 F 12/23/22 04:00 Pulse 68 12/23/22 11:56 Resp 35 H 12/23/22 10:47 BP 132/80 12/23/22 10:00 Pulse Ox 96 12/23/22 11:56 O2 Del Method Nasal Cannula 12/23/22 08:20 O2 Flow Rate 2 12/23/22 08:20 FiO2 40 12/23/22 11:56 TS Medications Medications Acetaminophen (Acetaminophen 325 Mg Tablet) 650 mg PO Q6H PRN PRN Reason: Mild/Mod Pain Or Temp >/= 101 Last Admin: 12/22/22 21:06 Dose: 650 mg Amiodarone HCl (Amiodarone 200 Mg Tablet) 200 mg NG-TUBE DAILY [facility] Last Admin: 12/23/22 09:29 Dose: 200 mg Apixaban (Apixaban 5 Mg Tablet) 5 mg PO BID@0900,2100 [facility] Last Admin: 12/23/22 09:29 Dose: 5 mg Atorvastatin Calcium (Atorvastatin 40 Mg Tablet) 40 mg NG-TUBE BEDTIME [facility] Last Admin: 12/22/22 21:12 Dose: 40 mg Clopidogrel Bisulfate (Clopidogrel 75 Mg Tablet) 75 mg NG-TUBE DAILY [facility] Last Admin: 12/23/22 09:29 Dose: 75 mg Norepinephrine Bitartrate 4 mg (/ Dextrose) 254 mls @ 0 mls/hr IV .Q0M [facility]; Protocol Last Titration: 12/23/22 04:45 Dose: 0 mcg/min, 0 mls/hr Piperacillin Sod/Tazobactam (Sod 3.375 gm/ Sodium Chloride) 50 mls @ 12.5 mls/hr IV Q8H [facility]; Protocol Last Admin: 12/23/22 09:34 Dose: 12.5 mls/hr Vancomycin HCl 1,000 mg/ (Sodium Chloride) 250 mls @ 250 mls/hr IV Q24H [facility]; Protocol Last Infusion: 12/23/22 03:16 Dose: Infused Lanolin (Lanolin Oint 7 Gm) 1 applic TOPICAL PRN PRN PRN Reason: DRYNESS Levalbuterol HCl (Levalbuterol 0.63 Mg/3 Ml Neb) 0.63 mg INHALATION Q6H.RESP [facility] Last Admin: 12/23/22 08:24 Dose: 0.63 mg Lorazepam (Lorazepam 2 Mg/Ml Inj 1 Ml) 0.5 mg IVP TID PRN PRN Reason: ANXIETY Metoprolol Tartrate (Metoprolol Tartrate 25 Mg Tablet) 12.5 mg PO BID@0900,2100 [facility] Last Admin: 12/23/22 09:29 Dose: 12.5 mg Morphine Sulfate (Morphine 4 Mg/Ml Sdv 1 Ml) 2 mg IVP Q4H PRN PRN Reason: SEVERE PAIN Last Admin: 12/23/22 10:47 Dose: 2 mg Naloxone HCl (Naloxone 0.4 Mg/Ml Sdv) 0.1 mg IVP Q2M PRN PRN Reason: OPIATERV Ondansetron HCl (Ondansetron 2 Mg/Ml Sdv 2 Ml) 4 mg IVP Q8H PRN PRN Reason: vomiting, or N/V if npo Pantoprazole Sodium (Pantoprazole 40 Mg Sdv) 40 mg IVP Q24H [facility] Last Admin: 12/23/22 09:29 Dose: 40 mg Discontinued Medications Albuterol/Ipratropium (Ipratropium-Albuterol 3 Ml Neb) 3 ml INHALATION ONCE ONE Stop: 12/22/22 00:58 Last Admin: 12/22/22 01:40 Dose: 3 ml Enoxaparin Sodium (Enoxaparin 40 Mg/0.4 Ml Syringe) 40 mg SUBCUT Q24H [facility] Last Admin: 12/22/22 08:18 Dose: 40 mg Furosemide (Furosemide 10 Mg/Ml Sdv 4ml) 40 mg IVP ONCE ONE Stop: 12/22/22 07:56 Last Admin: 12/22/22 08:18 Dose: 40 mg Sodium Chloride (Sodium Chloride 0.9%) 1,000 mls @ 999 mls/hr IV .Q1H1M [facility] Stop: 12/22/22 03:00 Last Infusion: 12/22/22 03:17 Dose: Infused Vancomycin HCl 1,000 mg/ (Sodium Chloride) 250 mls @ 250 mls/hr IV ONCE ONE; Protocol Stop: 12/22/22 01:56 Last Infusion: 12/22/22 03:45 Dose: Infused Piperacillin Sod/Tazobactam (Sod 4.5 gm/ Sodium Chloride) 50 mls @ 100 mls/hr IV ONCE ONE; Protocol Stop: 12/22/22 01:26 Last Infusion: 12/22/22 02:37 Dose: Infused Propofol (Diprivan) 1,000 mg in 100 mls @ 0 mls/hr IV .Q0M [facility]; Protocol Last Titration: 12/22/22 18:40 Dose: Infused Fentanyl 2,500 mcg/ Sodium (Chloride) 250 mls @ 0 mls/hr IV .Q0M [facility]; Protocol Last Titration: 12/22/22 18:40 Dose: Infused Potassium Chloride (K-Irvin Premix) 100 mls @ 50 mls/hr IV ONCE ONE Stop: 12/22/22 04:58 Last Infusion: 12/22/22 05:51 Dose: Infused Magnesium Sulfate (Magnesium Sulfate Premix) 2 gm in 50 mls @ 50 mls/hr IV ONCE ONE Stop: 12/23/22 11:59 Last Admin: 12/23/22 10:47 Dose: 50 mls/hr Metoprolol Tartrate (Metoprolol Tartrate 25 Mg Tablet) 12.5 mg PO BID@0900,2100 [facility] Pantoprazole Sodium (Pantoprazole Dr 40 Mg Tablet) 40 mg PO DAILY [facility] Last Admin: 12/22/22 08:38 Dose: Not Given Potassium Chloride (Potassium Chloride Er 20 Meq Tablet) 40 meq PO ONCE ONE Stop: 12/22/22 14:30 Last Admin: 12/22/22 15:00 Dose: 40 meq Allergies No Known Allergies Allergy (Verified 12/11/22 22:10) Home Medications budesonide-formoterol HFA 160 mcg-4.5 mcg/actuation aerosol inhaler (Symbicort) 2 puff inhalation BID #10.2 grams 10/28/22 [Rx Confirmed 12/22/22] diclofenac sodium 1 % topical gel 2 g topical QID #100 grams 10/28/22 [Rx Confirmed 12/22/22] levalbuterol tartrate 45 mcg/actuation aerosol inhaler (Xopenex HFA) 2 inh inhalation Q6H #15 grams 10/28/22 [Rx Confirmed 12/22/22] oxygen concentrator with portable #1 ea 10/28/22 [Rx Confirmed 12/22/22] amiodarone 200 mg tablet 200 mg PO DAILY #90 tabs 12/03/22 [Rx Confirmed 12/22/22] apixaban 2.5 mg tablet 2.5 mg PO BID@0900,2100 #180 tabs 12/03/22 [Rx Confirmed 12/22/22] atorvastatin 40 mg tablet 40 mg PO BEDTIME #90 tabs 12/03/22 [Rx Confirmed 12/22/22] clopidogrel 75 mg tablet 75 mg PO DAILY #90 tabs 12/03/22 [Rx Confirmed 12/22/22] nitroglycerin 0.4 mg sublingual tablet 0.4 mg sublingual Q5M PRN Chest Pain #25 tabs 12/03/22 [Rx Confirmed 12/22/22] potassium chloride 10 mEq tablet,extended release 10 meq PO DAILY #90 tabs 12/03/22 [Rx Confirmed 12/22/22] gabapentin 100 mg capsule 100 mg PO Q12H 12/12/22 [History Confirmed 12/22/22] tamsulosin 0.4 mg capsule 0.4 mg PO BEDTIME 12/12/22 [History Confirmed 12/22/22] furosemide 40 mg tablet 40 mg PO DAILY@0800 #30 tabs 12/21/22 [Rx Confirmed 12/22/22] hydrocodone 5 mg-acetaminophen 325 mg tablet 1 tab PO Q8H #10 tabs 12/21/22 [Rx Confirmed 12/22/22] losartan 50 mg tablet 25 mg PO DAILY #30 tabs 12/21/22 [Rx Confirmed 12/22/22] metoprolol tartrate 25 mg tablet 12.5 mg PO BID@0900,2100 30 days #30 tabs 12/21/22 [Rx Confirmed 12/22/22] pantoprazole 40 mg tablet,delayed release 40 mg PO DAILY #30 tabs 12/21/22 [Rx Confirmed 12/22/22] sulfamethoxazole 800 mg-trimethoprim 160 mg tablet (Bactrim DS) 1 tab PO BID #6 tabs 12/21/22 [Rx Confirmed 12/22/22] Discharge Plan Discharge Patient Disposition: Xfer Other Condition: Serious Prescriptions: No Action (DME) oxygen concentrator with portable See Rx Instructions .Route .MEDSUPPLY Qty: 1 0RF Rx Instructions: As directed 99 months 2L nasal cannula oxygen concentrator with portable diclofenac sodium 1 % gel 2 g topical QID Qty: 100 5RF Rx Instructions: apply to single elbow, wrist or hand; for hand includes palm/fingers/back of hand levalbuterol tartrate [Xopenex HFA] 45 mcg/actuation HFA aerosol inhaler 2 inh inhalation Q6H Qty: 15 5RF budesonide-formoterol [Symbicort] 160-4.5 mcg/actuation HFA aerosol inhaler 2 puff inhalation BID Qty: 10.2 5RF amiodarone 200 mg tablet 200 mg PO DAILY Qty: 90 3RF apixaban 2.5 mg tablet 2.5 mg PO BID@0900,2100 Qty: 180 3RF atorvastatin 40 mg tablet 40 mg PO BEDTIME Qty: 90 3RF clopidogrel 75 mg tablet 75 mg PO DAILY Qty: 90 3RF nitroglycerin 0.4 mg tablet, sublingual 0.4 mg sublingual Q5M PRN (Reason: Chest Pain) Qty: 25 3RF potassium chloride 10 mEq tablet extended release 10 meq PO DAILY Qty: 90 3RF Rx Instructions: Take with Lasix gabapentin 100 mg Capsule 100 mg PO Q12H tamsulosin 0.4 mg Capsule 0.4 mg PO BEDTIME hydrocodone-acetaminophen 5-325 mg tablet 1 tab PO Q8H Qty: 10 0RF sulfamethoxazole-trimethoprim [Bactrim DS] 800-160 mg tablet 1 tab PO BID Qty: 6 0RF losartan 50 mg Tablet 25 mg PO DAILY Qty: 30 0RF furosemide 40 mg Tablet 40 mg PO DAILY@0800 Qty: 30 0RF pantoprazole 40 mg Tablet,Delayed Release (Dr/Ec) 40 mg PO DAILY Qty: 30 0RF metoprolol tartrate 25 mg Tablet 12.5 mg PO BID@0900,2100 30 Days Qty: 30 0RF Discharge Orders: Discharge Order (Routine); Ordered 12/23/22 Ordered By: Mai Perrin Referrals: Jesus Seay DO [Primary Care Provider] - Transfer Attestations Time Spent in Transfer Care: critical care time Critical Care Time (min): 90 Status at Transfer: Cognitive status at transfer: cognitively intact ; Behavioral status at transfer: cooperative ; Quality Metrics Clinical Quality Measures [ No reported AMI, CVA or VTE this stay] Coding Level of Care Code Acute Code for Chg Fwd Diagnoses Acute on chronic systolic heart failure I50.23 S/P implantation of automatic cardioverter/defibrillator (AICD) Z95.810 Pulmonary HTN I27.20 Pulmonary fibrosis J84.10 Hypertension I10 Acute respiratory failure with hypoxemia J96.01 Coronary artery disease I25.10 Acute kidney injury N17.9
[2023-01-01 21:24] LABS: Plasma Renin Activity LC/MS/MS 5.56 ng/mL/h (0.25-5.82)
== END 2022-12-23 15:00 | disposition short-term general hospital (02) | DRG 208 ==
LOC: ER 02:20 → ER IP 05:03 → ICU 07:46
PROVIDERS: Student in an Organized Health Care Education/Training Program; Admitting Provider Student in an Organized Health Care Education/Training Program; Emergency Provider Emergency Medicine; PCP Family Medicine; Visit Provider Internal Medicine
DX: J80 Acute respiratory distress syndrome (principal); I50.23 Acute on chronic systolic (congestive) heart failure; N17.9 Acute kidney failure, unspecified; I11.0 Hypertensive heart disease with heart failure; I25.2 Old myocardial infarction; I25.10 Atherosclerotic heart disease of native coronary artery without angina pectoris; Z95.5 Presence of coronary angioplasty implant and graft; I48.91 Unspecified atrial fibrillation; Z87.01 Personal history of pneumonia (recurrent); I27.20 Pulmonary hypertension, unspecified; Z95.810 Presence of automatic (implantable) cardiac defibrillator; Z99.81 Dependence on supplemental oxygen; Z79.02 Long term (current) use of antithrombotics/antiplatelets; Z79.891 Long term (current) use of opiate analgesic; Z86.74 Personal history of sudden cardiac arrest; I25.5 Ischemic cardiomyopathy; Z86.73 Personal history of transient ischemic attack (TIA), and cerebral infarction without residual deficits; E78.5 Hyperlipidemia, unspecified; I07.1 Rheumatic tricuspid insufficiency; J84.10 Pulmonary fibrosis, unspecified; Z87.891 Personal history of nicotine dependence; Z87.440 Personal history of urinary (tract) infections; G62.9 Polyneuropathy, unspecified
CPT/HCPCS: 36556; 36600; 51702; 71045; 80048; 80053; 81001; 82088; 82803; 83605; 83880; 84244; 84484; 85025; 85378; 85610; 86850; 86900; 87040; 87070; 87205; 87426; 93005; 93308; 93975; 94002; 94640; 94660; 94664; 94799; 96365; 96367; 96372; 99291; 99292; C1751; C9113; J1650; J1940; J2270; J2543; J2704; J3010; J3370; J3475; J3480; J7030; J7050; J7060; J7614